=== PATIENT | male | born 1950 | race African-American/Black ===

== ENCOUNTER 2018-12-18 06:06 | Inpatient (IN) | payer OTHER ==
[2018-12-18] MEDS ORDERED: BUPIVACAINE HCL/PF 0.5% (5MG/ML) 10 ML VIAL ONE ×2 (07:17→07:35)
[2018-12-18] MEDS ORDERED: DESFLURANE GAS 240 ML BOTTLE IH ONE (07:17)
[2018-12-18] MEDS ORDERED: EPINEPHrine/PF 1 MG/1 ML (1:1,000) AMPULE ONE (07:35)
[2018-12-18] MEDS ORDERED: LIDOCAINE HCL 1%, 10 MG/ML (20ML VIAL) ONE (07:36)
[2018-12-18] MEDS ORDERED: MIDAZOLAM HCL 2 MG/2 ML SINGLE DOSE VIAL ONE ×6 (07:37→15:08)
[2018-12-18] MEDS ORDERED: VANCOMYCIN 1,000 MG VIAL (RESTRICTED TO ID ONLY) ONE (07:41)
[2018-12-18] MEDS ORDERED: ceFAZolin SODIUM 1 GM VIAL ONE ×5 (07:41→23:32)
[2018-12-18] MEDS ORDERED: TRANEXAMIC ACID 1000 MG/10 ML VIAL ONE (07:41)
[2018-12-18] MEDS ORDERED: HEPARIN NA (PORCINE) 5,000 UNITS/ML 1ML VIAL ONE ×3 (07:49→09:09)
[2018-12-18] MEDS ORDERED: VANCOMYCIN 1,000 MG VIAL (RESTRICTED TO ID ONLY) IVPB ONE (08:00)
[2018-12-18] MEDS ORDERED: VANCOMYCIN 1 GRAM (PRE-DOCKED) 1,000 MG/250 ML BAG IVPB ONE ×2 (08:08→20:00)
[2018-12-18] MEDS ORDERED: CEFAZOLIN 2 GM in DEXTROSE 5%-WATER - 50 ML IVPB ONE (08:08)
[2018-12-18] MEDS ORDERED: TRANEXAMIC ACID 1000 MG/10 ML VIAL IVPUSH ONE (08:08)
[2018-12-18] MEDS ORDERED: ceFAZolin SODIUM 1 GM VIAL IVPB ONE ×3 (08:42→14:25)
[2018-12-18] MEDS ORDERED: DEXAMETHASONE SOD PHOSPHATE 4 MG/1 ML VIAL ONE (08:47)
[2018-12-18] MEDS ORDERED: ONDANSETRON 4 MG/2 ML VIAL ONE (08:47)
[2018-12-18 09:33] LABS: BASO % 0.6 % (0-2.0); EOS % 0.4 % (0-4.5); HEMATOCRIT 26.9 % (35.4-49); HEMOGLOBIN 9.5 GM/dL (11.7-16.9); LYMPH % 40.1 % (8-40); MCH 33.9 pg (25.7-33.7); MCHC 35.2 g/dl (32.0-35.9); MEAN CELL VOLUME 96.3 fl (80-96); MEAN PLT VOLUME 9.1 fl (7.5-11.1); MONO % 5.3 % (3.8-10.2); NEUT % 53.6 % (42.8-82.8); PLATELET COUNT 140 K/MM3 (134-434); RBC 2.79 M/mm3 (4.00-5.60)
[2018-12-18 09:59] LABS: ALBUMIN 3.5 g/dl (3.4-5.0); BILIRUBIN,TOTAL 0.9 mg/dL (0.2-1); BLOOD UREA NITROGEN 12.3 mg/dL (7-18); CREATININE 1.3 mg/dL (0.55-1.3); TOT PROT 6.4 g/dl (6.4-8.2)
[2018-12-18 10:04] LABS: POTASSIUM 3.1 mmol/L (3.5-5.1)
[2018-12-18] MEDS ORDERED: PHENYLEPHRINE HCL 10 MG/1 ML SINGLE DOSE VIAL ONE (13:09)
[2018-12-18] MEDS ORDERED: KETAMINE HCL 200 MG/20 ML VIAL ONE (13:40)
[2018-12-18] MEDS ORDERED: SODIUM CHLORIDE 0.9% P/F 10 ML VIAL IJ ONE (14:23)
[2018-12-18] MEDS ORDERED: MAG HYDROX/AL HYDROX/SIMETH 30 ML UNIT-DOSE CUP PO PRN (16:01)
[2018-12-18] MEDS ORDERED: MAGNESIUM HYDROX 2400MG/30ML ORAL SUSPENSION 30 ML CUP PO PRN (16:01)
--- NOTE | 2018-12-18 16:14 | PN ---
Progress Note (short form) - Note Progress Note: 68M s/p revision LEFT total hip replacement POD #0. -Admit to ICU post-op. -Pain control: per anaesthesia team. -DVT PPx: -Chemical: ASA 81mg PO BID x 6 weeks. -Mechanical: TARIK's, SCD's. -Incentive spirometry q15 min. -PT/OT/Rehab, OOB. -WBAT LLE. -Post-op Ancef x 3 doses; post-op Vancomycin x 1 dose. -Vidal catheter care; maintain Vidal until ambulating comfortably. -f/u drain output. -f/u AM labs. -Diet as tolerated. -Care per medical hospitalist team. -Discharge planning: f/u [facility] w/in 1 week of discharge; call for appointment . -Will follow. Emile Jimenez MD (Orthopaedic Surgery).
[2018-12-18] MEDS ORDERED: LACTATED RINGERS SOLUTION 1,000 ML IV SCH ×2 (16:15→16:45)
[2018-12-18] MEDS ORDERED: CEFAZOLIN 1 GM in DEXTROSE 5%-WATER - 50 ML IVPB SCH (16:15)
--- NOTE | 2018-12-18 16:21 | OP ---
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 Gait abnormality. Fall risk Operation: 1. Revision left total hip replacement. 2. Bone marrow aspiration and autograft. 3. Bone allograft Implants: [place]. Cup - GAP cage: 52mm. Poly - 32mm, 10 deg lip. Stem - Temple Modular. Head - 32mm, +4mm Biolox/Delta Ceramic Post-Operative Diagnosis: Same as Pre-op Surgeon: Emile Jimenez Casino Investigator: Davonte Jimenez Anesthesiologist/SLOT SERVICE SPECIALIST: Jaswinder Ochoa Anesthesia: Spinal Specimens Removed: Old hardware Estimated Blood Loss (mls): 1,500 Drains & Tubes with Location: 1 x deep HemoVac Blood Volume Replaced (mls): 1,075 (2U PRBC + Cell Saver) Fluid Volume Replaced (mls): 2,500 (Crystalloid) Operative Report Dictated: Yes
[2018-12-18] MEDS ORDERED: ONDANSETRON 4 MG/2 ML VIAL IVPUSH PRN (16:33)
[2018-12-18] MEDS ORDERED: ACETAMINOPHEN 1000 MG/100 ML VIAL (NON FORMULARY) IVPB PRN (16:34)
[2018-12-18] MEDS ORDERED: HYDROmorphone HCL CARPU-JECT 2 MG/1 ML DISP.SYRIN IVPUSH PRN (16:35)
--- NOTE | 2018-12-18 17:56 | CONSULT ---
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 Gait abnormality. Fall risk denies chest pain, palpitations, nausea, vomiting, diarrhea - History Source History Provided By: Medical Record - Past Medical History Cardio/Vascular: Yes: HTN - Alcohol/Substance Use Hx Alcohol Use: Yes (rarely) - Smoking History Smoking history: Former smoker Have you smoked in the past 12 months: No If you are a former smoker, when did you quit?: 1981 Home Medications - Allergies Allergies/Adverse Reactions: Allergies Allergy/AdvReac Type Severity Reaction Status Date / Time No Known Allergies Allergy Verified 12/18/18 07:02 - Home Medications Home Medications: Ambulatory Orders Amlodipine Besylate/Benazepril [Amlodipine-Benazepril 5-20 mg] 1 each PO DAILY 12/14/18 Ranitidine HCl 300 mg PO HS 12/14/18 Folic Acid 1 mg PO DAILY 12/18/18 Family Disease History - Family Disease History Family History: Unremarkable Review of Systems Unable to obtain ROS, reason: somnolent. unable to obta Physical Exam Vital Signs: Vital Signs Temperature 97.2 F L 12/18/18 16:06 Pulse Rate 96 H 12/18/18 17:35 Respiratory Rate 16 12/18/18 17:35 Blood Pressure 104/62 12/18/18 17:35 O2 Sat by Pulse Oximetry (%) 98 12/18/18 17:35 Constitutional: Yes: No Distress Eyes: Yes: WNL HENT: Yes: WNL Neck: Yes: WNL Cardiovascular: Yes: WNL Respiratory: Yes: WNL Gastrointestinal: Yes: WNL Renal/: Yes: WNL Musculoskeletal: Yes: Joint Stiffness Extremities: Yes: WNL Edema: No Peripheral Pulses WNL: Yes Wound/Incision: Yes: Clean/Dry, Well Approximated Neurological: Yes: WNL Labs: CBC, BMP 12/18/18 09:15 12/18/18 09:15 Assessment/Plan 68 yo man who Failed left total hip replacement, Massive osteolysis, Gait abnormalit. Fall risk now S/P Revision left total hip replacement. 2. Bone marrow aspiration and autograft, POD#0. pain management. incentive spirometry. -GI, DVT prophylaxis. -acute on chronic iron deficiency anemia, post-op acute blood loss anemia: 2 units PRBC given alessio-operatively. CBC needs to be checked tonight. -stool softeners added to prevent opioid induced constipation. -HTN: cont amlodipine, lisinopril. -ID: ancef given operatively. -oral diet when more awake. -PT/OT/OOB when able -assessment and plan discussed with medical staff. labs and meds reviewed. plan discussed with Dr Jimenez. 45 min.
--- NOTE | 2018-12-18 18:05 | CONSULT ---
Consultation: REQUESTING PROVIDER: Dr. Emile Jimenez CONSULT REQUEST: We have been asked to medically evaluate this patient for post- operative monitoring. HISTORY OF PRESENT ILLNESS: Richard Jean-Baptiste is a 68 year old male with a past medical history of hypertension, GERD, multiple total hip replacements (1986,1995, 2017) who presented for a revision of left total hip replacement with Dr. Jimenez. Patient underwent revision, bone marrow aspiration and autograft, and bone autograft procedure. Received 2 units of blood intraoperatively and 375cc of cell saver. Received antibiotics ancef and vancomycin intraoperatively. Had EBL of 1.5L. Pre -op labs showed Hgb of 9.5. Received patient in ICU, comfortable, still under effects of anesthesia, on Venti-mask with good saturation. No acute complaints of chest pain, sob, abd pain, n/v, dizziness, lightheadedness. Asking for water Social: former smoker, rare alcohol use REVIEW OF SYSTEMS: As above. PHYSICAL EXAMINATION Vital Signs - 24 hr 12/18/18 12/18/18 12/18/18 06:43 16:06 16:20 Temperature 98.0 F 97.2 F L Pulse Rate 87 104 H 110 H Respiratory 16 16 16 Rate Blood Pressure 144/83 97/57 L 94/64 O2 Sat by Pulse 97 99 100 Oximetry (%) 12/18/18 12/18/18 12/18/18 16:35 16:50 17:05 Temperature Pulse Rate 108 H 108 H 100 H Respiratory 16 16 16 Rate Blood Pressure 96/62 101/57 L 92/60 O2 Sat by Pulse 100 100 Oximetry (%) 12/18/18 17:20 Temperature Pulse Rate 98 H Respiratory 16 Rate Blood Pressure 85/54 L O2 Sat by Pulse 98 Oximetry (%) GENERAL: Lethargic, under lingering effects of anesthesia. HEAD: Normal with no signs of trauma. EYES: Pupils equal, round and reactive to light, sclera anicteric, conjunctiva clear. NECK: Normal range of motion, supple without lymphadenopathy, JVD, or masses. LUNGS: Breath sounds equal, clear to auscultation bilaterally. No wheezes, and no crackles. No accessory muscle use. HEART: Regular rate and rhythm, normal S1 and S2 ABDOMEN: Soft, nontender, not distended, normoactive bowel sounds, no guarding, no rebound, no masses. MUSCULOSKELETAL: Noted dressing in place, clean and dry. Davol drain in place draining bloody fluids. UPPER EXTREMITIES: 2+ pulses, warm, well-perfused. No cyanosis. No clubbing. Cap refill <2 seconds. No peripheral edema. LOWER EXTREMITIES: 2+ pulses, warm, well-perfused. No peripheral edema. NEUROLOGICAL: Unable to assess during to patient's current sedation PSYCHIATRIC: Unable to assess SKIN: Warm, dry, normal turgor, no rashes or lesions noted. Drain and dressing in place Laboratory Results - last 24 hr 12/18/18 12/18/18 12/18/18 06:00 07:10 09:15 WBC 5.0 RBC 2.79 L Hgb 9.5 L Hct 26.9 L MCV 96.3 H MCH 33.9 H MCHC 35.2 RDW 17.0 H Plt Count 140 MPV 9.1 Absolute Neuts (auto) 2.7 Neutrophils % 53.6 Lymphocytes % 40.1 H Monocytes % 5.3 Eosinophils % 0.4 Basophils % 0.6 Nucleated RBC % 0 Sodium Potassium Chloride Carbon Dioxide Anion Gap BUN Creatinine Est GFR (CKD-EPI)AfAm Est GFR (CKD-EPI)NonAf Random Glucose Calcium Total Bilirubin AST ALT Alkaline Phosphatase Total Protein Albumin Blood Type O POSITIVE O POSITIVE Antibody Screen Negative Negative Crossmatch IS Only See Detail 12/18/18 09:15 WBC RBC Hgb Hct MCV MCH MCHC RDW Plt Count MPV Absolute Neuts (auto) Neutrophils % Lymphocytes % Monocytes % Eosinophils % Basophils % Nucleated RBC % Sodium 142 Potassium 3.1 L Chloride 110 H Carbon Dioxide 23 Anion Gap 9 BUN 12.3 Creatinine 1.3 Est GFR (CKD-EPI)AfAm 64.52 Est GFR (CKD-EPI)NonAf 55.67 Random Glucose 200 H Calcium 9.0 Total Bilirubin 0.9 AST 17 ALT 16 Alkaline Phosphatase 58 Total Protein 6.4 Albumin 3.5 Blood Type Antibody Screen Crossmatch IS Only Active Medications Generic Name Dose Route Start Last Admin Trade Name Freq PRN Reason Stop Dose Admin Acetaminophen 1,000 mg 12/18/18 16:34 Ofirmev Injection - IVPB Q6H PRN PAIN LEVEL 1-5 Al Hydroxide/Mg Hydroxide 30 ml 12/18/18 16:01 Mylanta Oral Suspension - PO Q4H PRN DYSPEPSIA Amlodipine Besylate 5 mg 12/19/18 10:00 Norvasc - PO DAILY [facility] Aspirin 81 mg 12/18/18 22:00 Asa - PO BID [facility] Fentanyl 50 mcg 12/18/18 16:33 Sublimaze Injection - IVPUSH [id number] PRN PAIN-PACU ORDER X 4 DOSES ONLY Folic Acid 1 mg 12/19/18 10:00 Folic Acid - PO DAILY [facility] Hydromorphone HCl 1 mg 12/18/18 16:35 Dilaudid Injection - IVPUSH Q4H PRN PAIN LEVEL 4 - 6 Cefazolin Sodium 1 gm/ 50 mls @ 100 mls/hr 12/18/18 16:15 Dextrose IVPB 12/19/18 04:44 Q6H [facility] Lactated Ringer's 1,000 mls @ 125 mls/hr 12/18/18 16:45 Lactated Ringers Solution IV ASDIR [facility] Lisinopril 20 mg 12/19/18 10:00 Prinivil PO DAILY [facility] Magnesium Hydroxide 30 ml 12/18/18 16:01 Milk Of Magnesia - PO PRN PRN CONSTIPATION Ondansetron HCl 4 mg 12/18/18 16:01 Zofran Injection IVPUSH Q6H PRN NAUSEA Ondansetron HCl 4 mg 12/18/18 16:33 Zofran Injection IVPUSH Q6H PRN NAUSEA AND/OR VOMITING Pantoprazole Sodium 40 mg 12/19/18 10:00 Protonix - PO DAILY [facility] Ranitidine HCl 300 mg 12/18/18 22:00 Zantac - PO HS [facility] Senna/Docusate Sodium 2 tablet 12/18/18 22:00 Pericolace - PO BID [facility] ASSESSMENT/PLAN: Richard Jean-Baptiste is a 68 year old male with a past medical history of hypertension, GERD, multiple total hip replacements (1986,1995, 2017) who presented for a revision of left total hip replacement with Dr. Jimenez admitted to the ICU for continued monitoring post-op. L hip total hip replacement HTN GERD NEUROLOGIC - continue to monitor neuro status as pt wakes up from anesthesia - pain control as per anesthesia, acetaminophen, hydromorphone, fentanyl CARDIOLOGY - continue home amlodipine and lisinopril - monitor hemodynamics in the setting of blood loss RESPIRATORY - on Venti-mask, titrate down to NC as tolerated - encourage incentive spirometry RENAL - no acute issues GASTROINTESTINAL - zofran for nausea - home ranitidine - protonix - senna/colace while on opiates INFECTIOUS DISEASE - ancef and vanco given intra-op - continue ancef x 3 doses - monitor for WBC and fevers HEMATOLOGY - Hgb 9.5 pre-op - EBL during surgery 1.5L - given 2 units PRBC intra-op and 375 cell saver - continue to monitor counts, CBC to be drawn tonight - tranfusion parameters Hgb 8 - monitor white count MUSCULOSKELETAL - monitor neurological checks - PT/OT/OOB/Rehab once stable - f/u with Dr. Jimenez in office in 1 week post discharge - maintain hodges untul ambulating F/E/N - LR at 125cc/hr - continue to monitor electrolytes and replete as necessary - regular diet PROPHYLAXIS - aspirin 81mg x 6 weeks - SCDs CODE - full code DISPO - continue to monitor in ICU and if stable in the morning, likely will be transferred up THANK YOU FOR THIS CONSULTATIVE OPPORTUNITY SILVIA MI DO - PGY-1 INTERNAL MEDICINE Visit type - Emergency Visit Emergency Visit: No - New Patient This patient is new to me today: Yes Date on this admission: 12/18/18 - Critical Care Critical Care patient: Yes Total Critical Care Time (in minutes): 35 Critical Care Statement: The care of this patient involved high complexity decision making to prevent further life threatening deterioration of the patient 's condition and/or to evaluate & treat vital organ system(s) failure or risk of failure.
[2018-12-18] MEDS ORDERED: LACTATED RINGERS SOLUTION 1,000 ML/1,000 ML INFUS.BAG IV SCH (18:45)
[2018-12-18] MEDS ORDERED: DEXTROSE 5%-WATER - 50 ML IVPB ONE ×2 (19:55→23:33)
[2018-12-18] MEDS ORDERED: LACTATED RINGERS SOLUTION 1,000 ML/1,000 ML INFUS.BAG IV STA (20:02)
[2018-12-18] MEDS: CEFAZOLIN 1 GM in DEXTROSE 5%-WATER - 50 ML IVPB SCH (20:07)
[2018-12-18 20:23] LABS: HEMATOCRIT 23.7 % (35.4-49); HEMOGLOBIN 7.8 GM/dL (11.7-16.9); MCH 32.1 pg (25.7-33.7); MEAN CELL VOLUME 97.5 fl (80-96); MEAN PLT VOLUME 9.5 fl (7.5-11.1); PLATELET COUNT 57 K/MM3 (134-434); RBC 2.43 M/mm3 (4.00-5.60); RDW 16.1 % (11.9-15.9); WHITE BLOOD COUNT 20.9 K/mm3 (4.0-10.0)
[2018-12-18] MEDS: ONDANSETRON 4 MG/2 ML VIAL IVPUSH PRN (21:39)
[2018-12-18] MEDS: ASPIRIN 81 MG CHEWABLE TABLETS PO SCH (21:40)
[2018-12-18] MEDS ORDERED: PANTOPRAZOLE SODIUM 40 MG VIAL IVPUSH ONE (21:41)
[2018-12-18] MEDS: RANITIDINE HCL 150 MG TABLET (FP) PO SCH (21:44)
[2018-12-18] MEDS: SENNOSIDES/DOCUSATE COMBO (SENNA PLUS) TABLET (UD) PO SCH (21:44)
--- NOTE | 2018-12-18 22:35 | OP ---
Date of Operation: 12/18/2018 Pre-Operative Diagnosis: 1. 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 2. Gait abnormality. 3. Fall risk. Post-Operative Diagnosis: 1. 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 2. Gait abnormality. 3. Fall risk. Procedure Performed: 1. Removal of hardware and left total hip replacement. () 2. Revision left total hip replacement (femoral and acetabular components). ( 20620) 3. Morselized bone autograft. () 4. Morselized bone allograft. () 5. Bone marrow aspiration for bone grafting. () 6. Complex wound closure, 4 layers, 40cm. (21887 x 6) Modifier 22: Increased case difficulty and time due to patient obesity and wound depth Surgeon: Emile Jimenez M.D. Data Processing Clerk: Davonte Jimenez M.D. Anesthesiologist: Jaswinder Ochoa M.D. Anesthesia: Spinal, sedation. Position: Supine Incision: Lateral. Specimens Removed: Hardware, soft tissue. Estimated Blood Loss: 1.5L. Intravenous Fluid: 2.5L crystalloid. Transfusions: 2U PRBC (700cc) + Cell Saver (375cc). Specimens: None. Drains: 1 x deep HemoVac. Complications: None. Urine Output: None. Bacteriology: None. Closure: No. 1 and 2-0 Vicryl, 3-0 Biosyn absorbable sutures. Indications: The patient was indicated for the above-listed procedure in order to reconstruct his left hip, to facilitate improved motion and mobilization, and to prevent the complications associated with a sedentary lifestyle. The patient was identified in the holding area by his armband. A long discussion was held with the patient regarding the risks, benefits and alternatives of the above-named procedure. Risks include but are not limited to: pain, bleeding, infection, damage to surrounding structures (including nerves, blood vessels, skin, ligaments, tendons and bone), wound complications, failure of hardware/implants/reduction, need for further surgery, blood clots, myocardial infarction, pulmonary embolism , cerebrovascular insult, anesthesia complications, compartment syndrome, limb loss, limp, loss of function, and . Benefits as mentioned above. Alternatives include no surgery. All questions were answered. The patient understood and agreed to the procedure. Informed consent was obtained, witnessed and verified. The patients correct operative limb that is the left lower extremity was marked, and the patient was taken to the operating room after being seen by the anesthesia and nursing staff. Procedure: The patient was brought into the operating room, placed on the OR table and secured with a safety strap. Consent and the operative site were again verified with the patient and nursing and anaesthesia staff. Anaesthesia, IV antibiotics, and TXA were then administered without complication. The patient was placed in the supine position with the greater trochanter lying at the edge of the table, thus freeing the muscles of the buttock from the table. All bony prominences were well padded. The non-operative limb was loosely secured to the operating table using a Kerlix bandage. With respect to the pelvis, the limb lengths were accurately compared. There was a limb length discrepancy of approximately 3cm noted with the operative (left) limb shorter than the contralateral, non-operative limb. A time out was done, led by me the attending surgeon, and the case began. The bilateral anterior superior iliac spines, and the left posterior iliac crest were prepped in standard sterile fashion using alcohol and Betadine. A Jamshidi needle was delivered into the bone bed at each of these sites and 60 mL of bone marrow was aspirated and spun down to isolate a mix of osteoprogenitor and hematopoietic cells. The harvest sites were dressed with sterile dressings. The operative limb was prepped in standard sterile fashion using betadine prep & scrub, wiped off with alcohol, DuraPrep applied, and then free draped. With the patient in the supine position, a modified lateral (Hardinge) approach was utilized to access the hip. This necessitated using approximately 3/4 of the previous lateral incision. The skin incision was centered over the greater trochanter proximally, at the level of the anterior-superior iliac spine, and extended distally, ending approximately at the level of the mid-diaphysis of the femur. Subcutaneous dissection was carried down to the level of the iliotibial band which was split longitudinally in line with its fibers. The gluteus rossana muscle was split proximally in line with its fibers to the level of the apex of the incision. A standard Charnley retractor was then placed sub-fascially to expose the deep structures. The vastus lateralis muscle was dissected off the lateral femur with careful attention paid to the perforating branches of the femoral artery. Soft tissue attachments to the posterior aspect of the greater trochanter were dissected in line with the posterior femur, just anterior to the linea aspera. Next, an extended trochanteric osteotomy was performed with an oscillating saw. Curved osteotomes were used to separate the interface between the hardware and bone. This was difficult due to spot welding and a distal piece of the osteotomy broke. Electrocautery was then used to expose the anterior neck of the femur. The pseudocapsule was extensively debrided to expose the hip joint. Various retractors were utilized to facilitate exposure. In situ, the hip was already dislocated. The custom manufactured acetabular component was loose, displaced, and excessively anteverted. All visible screws along with the acetabular component itself were removed. The tip of a singular screw was visibly imbedded into the bone bed. To preserve surrounding bone stock, this was left in place. Another singular screw seen on pre-operative imaging adjacent to the ischial tuberosity was not seen in the surgical field. The decision was made not to dissect further and look for this screw due to potential iatrogenic soft tissue injury to nerves or blood vessels associated with this dissection. Using sharp curettes, the fibrous pseudomembrane was stripped off the exposed acetabular and pelvic bone beds. On further inspection, the acetabular and pelvic bone beds were thin and osteopenic. No obvious pelvic discontinuity was visualized. The bone surface was superficially and gently reamed using sharp, motorized basket reamers. This produced a surface of healthy, bleeding bone with osteoinductive potential. Next, bone allograft (morselized femoral head and with a disc of demineralized bone matrix) was backfilled into the defect space. This bone graft was mixed with the previously harvested bone marrow aspirate concentrate. A 52mm Mendoza GAP cage was placed and impacted into position with the hook in the obturator foramen and bunny ears bent to overly the ala of the outer table of the pelvis. The bunny ears were secured via multiple screws. Next, a 32mm diameter polyethylene liner with a 10-degree raised posterolateral , superior lip was cemented into position. Attention was then turned to the femur. All wires and cables were removed. A gigli saw was utilized to disrupt the interface between the implant and the bone bed. Using a slap hammer, the stem was backed out. The wound was repeatedly, thorough irrigated throughout the procedure. The operative limb was adducted across the midline and the hip was externally rotated with the knee flexed using the tibia as a lever. Using motorized reamers and reverse hooks, the femoral diaphysis bone bed was prepared. The tibia was used as a goniometer with which we could accurately dial in our desired femoral anteversion. [place] Tenriism Modular femoral stem, neck, and head trial components were assembled, and the hip was reduced. In the supine position, the true limb lengths were almost matched with the operative limb being just a few millimeters shorter than the non-operative limb. Hip stability was ensured in all physiologic positions of compromise. This included flexion to 90 degrees with adduction and internal rotation. This also included extension and external rotation. At no point did the trunion impinge upon the cup. Trial implants were removed and replaced with final implants. A Biolox/Delta Ceramic head 32mm diameter +4mm length was then impacted using a protective head impacter and mallet strikes. As before, the hip was reduced, and stability was ensured in all physiologic positions of compromise. Again, in the supine position, the true limb lengths were almost matched with the operative limb being just a few millimeters shorter than the non-operative limb. The operative limb lay in physiologic 15 degrees of external rotation. The greater trochanter was flapped back into position and secured with tensioned D[place]-Miles cables. A [place] greater trochanteric claw plate was used to cable the extended trochanteric osteotomy and greater trochanter in good position. Due to segmental bone loss in the region of the osteotomy, a combination of demineralized bone matrix strips and bone autograft were placed to serve as biologic scaffolds for bone growth. As before, hip stability was ensured in all physiologic positions of compromise. Closure: The wounds were copiously irrigated throughout the case and hemostatis was assured. Meticulous technique was implemented to avoid any implants coming into contact with free edges of the wound & skin. A deep drain was utilized. The split gluteus medius muscle fibers were reattached using #1 vicryl sutures. The iliotibial band, gluteus rossana fascia, and subcutaneous tissues were closed using #1 and 2-0 vicryl sutures. The skin was closed using darryl. A sterile compressive dressing was applied. A hip abduction pillow was placed between the legs. The patient was transferred to a hospital bed. A post-operative x-ray was taken with the patient on the hospital bed. This showed the hip to be well reduced with all implants in place and no evidence of alessio-prosthetic fracture or retained foreign body. The patient was then transferred to the recovery room in stable condition, as per the anesthesia team, having tolerated the procedure well. MD JJ Polanco/[id number] MTDD
[2018-12-18] MEDS ORDERED: levETIRAcetam 500 MG/5 ML INJECTION VIAL IVPB ONE (22:42)
[2018-12-19] MEDS: CEFAZOLIN 1 GM in DEXTROSE 5%-WATER - 50 ML IVPB SCH ×2 (01:00→09:04)
[2018-12-19 03:25] LABS: HEMATOCRIT 32.9 % (35.4-49); MCH 31.6 pg (25.7-33.7); MCHC 33.5 g/dl (32.0-35.9); MEAN CELL VOLUME 94.4 fl (80-96); MEAN PLT VOLUME 8.8 fl (7.5-11.1); PLATELET COUNT 72 K/MM3 (134-434); RBC 3.49 M/mm3 (4.00-5.60); RDW 15.4 % (11.9-15.9); WHITE BLOOD COUNT 23.8 K/mm3 (4.0-10.0)
[2018-12-19] MEDS ORDERED: LACTATED RINGERS SOLUTION 1,000 ML/1,000 ML INFUS.BAG IV STA (04:24)
[2018-12-19 04:34] LABS: INR 2.16 (0.83-1.09); PROTHROMBIN TIME (PATIENT) 25.7 SEC (9.7-13.0)
[2018-12-19 04:37] LABS: ACTIVATED PTT 31.2 SECONDS (25.2-36.5)
[2018-12-19 05:18] LABS: ALBUMIN 2.4 g/dl (3.4-5.0); ALK PHOS 63 U/L (45-117); ANION GAP 10 MMOL/L (8-16); BILIRUBIN,TOTAL 1.2 mg/dL (0.2-1); BLOOD UREA NITROGEN 26.1 mg/dL (7-18); CALCIUM 7.9 mg/dL (8.5-10.1); CHLORIDE 111 mmol/L (98-107); CO2 20 mmol/L (21-32); CREATININE 3.1 mg/dL (0.55-1.3); GLUCOSE,RANDOM 118 mg/dL (74-106); LIPASE 1424 U/L (73-393); MAGNESIUM 1.6 mg/dL (1.8-2.4); PHOSPHOROUS 4.6 mg/dL (2.5-4.9); SGPT/ALT 7748 U/L (13-61); SODIUM 141 mmol/L (136-145); TOT PROT 4.6 g/dl (6.4-8.2)
[2018-12-19 05:22] LABS: SGOT/AST > 3509 U/L (15-37)
[2018-12-19] MEDS ORDERED: DEXTROSE 50%-WATER - 25 GM/50 ML VIAL IVPUSH ONE (05:37)
[2018-12-19] MEDS ORDERED: INSULIN REGULAR HUMAN 100 UNITS/ML *VIAL IVPUSH ONE (05:37)
[2018-12-19] MEDS ORDERED: ALBUTEROL SO4 2.5/IPRATROPIUM 0.5 INH SOL 3 ML VIAL.NEB. NEB ONE (05:37)
[2018-12-19] MEDS ORDERED: CALCIUM GLUCONATE 10% - 1,000 MG/10 ML VIAL IVPB ONE (05:38)
[2018-12-19 05:40] LABS: HEMATOCRIT 32.2 % (35.4-49); MCH 31.6 pg (25.7-33.7); MCHC 34.3 g/dl (32.0-35.9); MEAN CELL VOLUME 92.2 fl (80-96); MEAN PLT VOLUME 9.3 fl (7.5-11.1); PLATELET COUNT 76 K/MM3 (134-434); RBC 3.49 M/mm3 (4.00-5.60); RDW 15.4 % (11.9-15.9); WHITE BLOOD COUNT 22.2 K/mm3 (4.0-10.0)
[2018-12-19] MEDS ORDERED: HEPARIN NA (PORCINE) 5,000 UNITS/ML 1ML VIAL IVPUSH PRN ×2 (05:47)
[2018-12-19 05:59] LABS: INR 2.22 (0.83-1.09); PROTHROMBIN TIME (PATIENT) 26.4 SEC (9.7-13.0)
[2018-12-19] MEDS ORDERED: HEPARIN - 25,000 UNIT in SODIUM CHLORIDE 495 ML IV SCH (06:00)
[2018-12-19 06:01] LABS: ACTIVATED PTT 31.1 SECONDS (25.2-36.5)
[2018-12-19] MEDS ORDERED: DEXTROSE 50%-WATER 25 GM/50 ML DISP.SYRIN ONE (06:11)
[2018-12-19] MEDS ORDERED: SODIUM CHLORIDE 500 ML IV STA (06:12)
[2018-12-19 06:13] LABS: ALBUMIN 2.3 g/dl (3.4-5.0); ALK PHOS 63 U/L (45-117); BILIRUBIN,TOTAL 1.2 mg/dL (0.2-1); BLOOD UREA NITROGEN 27.6 mg/dL (7-18); CHLORIDE 112 mmol/L (98-107); CO2 21 mmol/L (21-32); CREATININE 3.1 mg/dL (0.55-1.3); GLUCOSE,RANDOM 97 mg/dL (74-106); SODIUM 143 mmol/L (136-145); TOT PROT 4.5 g/dl (6.4-8.2)
[2018-12-19 06:22] LABS: ANION GAP 9 MMOL/L (8-16)
[2018-12-19 06:39] LABS: SGPT/ALT 7495 U/L (13-61)
[2018-12-19 06:43] LABS: POTASSIUM 6.9 mmol/L (3.5-5.1)
[2018-12-19 06:45] LABS: SGOT/AST > 1000 U/L (15-37)
--- NOTE | 2018-12-19 07:08 | PN ---
Physical Exam: SUBJECTIVE: Patient seen and examined at bedside. Overnight, patient became hypotensive and was found to have a decreased hemoglobin to 7.8 from 9.5 preoperatively. He received 3U PRBCs and was bolused with 2L lactated ringers. Around 11pm the patient had 2 reported seizures lasting 30 seconds before spontaneously breaking without intervention. He was loaded on keppra. A CMP drawn at the time showed hyperkalemia to 7, elevated LFTs > 3000, acute kidney injury, and a troponinemia, likely secondary to hypovolemic shock. His fluids were changed to normal saline at 125cc/hr. Hyperkalemia was treated with insulin/d50, calcium gluconate and lokelma. This morning patient reported feeling cold but denied any chest pain, shortness of breath, nausea, vomiting, diarrhea, fevers, chills. OBJECTIVE: Vital Signs Period Temp Pulse Resp BP Sys/Hernandez Pulse Ox Last 24 Hr 97.2 F-98.0 F 92-110 16-22 57-106/43-64 98-100 GENERAL: A&Ox3, no acute distress EYES: PERRLA, EOMI ENT: Dry mucus membranes NECK: No JVD LUNGS: CTA, no wheezes HEART: RRR, no murmurs ABDOMEN: Soft, nontender, BS present EXTREMITIES: 2+ pulses, no edema. NEUROLOGICAL: Cranial nerves II-XII intact. Laboratory Results - last 24 hr 12/18/18 12/18/18 12/18/18 06:00 07:10 09:15 WBC 5.0 RBC 2.79 L Hgb 9.5 L Hct 26.9 L MCV 96.3 H MCH 33.9 H MCHC 35.2 RDW 17.0 H Plt Count 140 MPV 9.1 Absolute Neuts (auto) 2.7 Neutrophils % 53.6 Lymphocytes % 40.1 H Monocytes % 5.3 Eosinophils % 0.4 Basophils % 0.6 Nucleated RBC % 0 Platelet Comment PT with INR INR PTT (Actin FS) Sodium Potassium Chloride Carbon Dioxide Anion Gap BUN Creatinine Est GFR (CKD-EPI)AfAm Est GFR (CKD-EPI)NonAf Random Glucose Calcium Phosphorus Magnesium Total Bilirubin AST ALT Alkaline Phosphatase Troponin I Total Protein Albumin Lipase Alcohol, Quantitative Blood Type O POSITIVE O POSITIVE Antibody Screen Negative Negative Crossmatch See Detail Crossmatch IS Only See Detail 12/18/18 12/18/18 12/19/18 09:15 19:10 02:55 WBC 20.9 H 23.8 H RBC 2.43 L 3.49 L Hgb 7.8 L 11.0 L Hct 23.7 L 32.9 L D MCV 97.5 H 94.4 MCH 32.1 31.6 MCHC 33.0 33.5 RDW 16.1 H 15.4 Plt Count 57 L D 72 L D MPV 9.5 8.8 Absolute Neuts (auto) Neutrophils % Lymphocytes % Monocytes % Eosinophils % Basophils % Nucleated RBC % Platelet Comment Decreased PT with INR INR PTT (Actin FS) Sodium 142 Potassium 3.1 L Chloride 110 H Carbon Dioxide 23 Anion Gap 9 BUN 12.3 Creatinine 1.3 Est GFR (CKD-EPI)AfAm 64.52 Est GFR (CKD-EPI)NonAf 55.67 Random Glucose 200 H Calcium 9.0 Phosphorus Magnesium Total Bilirubin 0.9 AST 17 ALT 16 Alkaline Phosphatase 58 Troponin I Total Protein 6.4 Albumin 3.5 Lipase Alcohol, Quantitative Blood Type Antibody Screen Crossmatch Crossmatch IS Only 12/19/18 12/19/18 12/19/18 02:55 02:55 04:00 WBC RBC Hgb Hct MCV MCH MCHC RDW Plt Count MPV Absolute Neuts (auto) Neutrophils % Lymphocytes % Monocytes % Eosinophils % Basophils % Nucleated RBC % Platelet Comment PT with INR 25.70 H INR 2.16 H PTT (Actin FS) 31.2 Sodium Cancelled Potassium Cancelled Chloride Cancelled Carbon Dioxide Cancelled Anion Gap Cancelled BUN Cancelled Creatinine Cancelled Est GFR (CKD-EPI)AfAm Cancelled Est GFR (CKD-EPI)NonAf Cancelled Random Glucose Cancelled Calcium Cancelled Phosphorus Cancelled Magnesium Cancelled Total Bilirubin Cancelled AST Cancelled ALT Cancelled Alkaline Phosphatase Cancelled Troponin I Cancelled Total Protein Cancelled Albumin Cancelled Lipase Alcohol, Quantitative Cancelled Blood Type Antibody Screen Crossmatch Crossmatch IS Only 12/19/18 12/19/18 12/19/18 04:00 05:25 05:25 WBC 22.2 H RBC 3.49 L Hgb 11.0 L Hct 32.2 L MCV 92.2 MCH 31.6 MCHC 34.3 RDW 15.4 Plt Count 76 L MPV 9.3 Absolute Neuts (auto) Neutrophils % Lymphocytes % Monocytes % Eosinophils % Basophils % Nucleated RBC % Platelet Comment PT with INR 26.40 H INR 2.22 H PTT (Actin FS) 31.1 Sodium 141 Potassium 7.0 H* Chloride 111 H Carbon Dioxide 20 L Anion Gap 10 BUN 26.1 H Creatinine 3.1 H Est GFR (CKD-EPI)AfAm 22.56 Est GFR (CKD-EPI)NonAf 19.47 Random Glucose 118 H Calcium 7.9 L Phosphorus 4.6 Magnesium 1.6 L Total Bilirubin 1.2 H AST > 3509 H ALT 7748 H Alkaline Phosphatase 63 Troponin I 2.66 H* Total Protein 4.6 L Albumin 2.4 L Lipase 1424 H Alcohol, Quantitative < 3.0 Blood Type Antibody Screen Crossmatch Crossmatch IS Only 12/19/18 05:25 WBC RBC Hgb Hct MCV MCH MCHC RDW Plt Count MPV Absolute Neuts (auto) Neutrophils % Lymphocytes % Monocytes % Eosinophils % Basophils % Nucleated RBC % Platelet Comment PT with INR INR PTT (Actin FS) Sodium 143 Potassium 6.9 H* Chloride 112 H Carbon Dioxide 21 Anion Gap 9 BUN 27.6 H Creatinine 3.1 H Est GFR (CKD-EPI)AfAm 22.56 Est GFR (CKD-EPI)NonAf 19.47 Random Glucose 97 Calcium 8.0 L Phosphorus Magnesium Total Bilirubin 1.2 H AST > 1000 H ALT 7495 H Alkaline Phosphatase 63 Troponin I 2.78 H* Total Protein 4.5 L Albumin 2.3 L Lipase Alcohol, Quantitative Blood Type Antibody Screen Crossmatch Crossmatch IS Only Active Medications Generic Name Dose Route Start Last Admin Trade Name Freq PRN Reason Stop Dose Admin Acetaminophen 1,000 mg 12/18/18 16:34 Ofirmev Injection - IVPB Q6H PRN PAIN LEVEL 1-5 Al Hydroxide/Mg Hydroxide 30 ml 12/18/18 16:01 Mylanta Oral Suspension - PO Q4H PRN DYSPEPSIA Amlodipine Besylate 5 mg 12/19/18 10:00 Norvasc - PO DAILY EPI Aspirin 81 mg 12/18/18 22:00 12/18/18 21:40 Asa - PO 81 mg BID EPI Administration Fentanyl 50 mcg 12/18/18 16:33 Sublimaze Injection - IVPUSH [id number] PRN PAIN-PACU ORDER X 4 DOSES ONLY Folic Acid 1 mg 12/19/18 10:00 Folic Acid - PO DAILY EPI Hydromorphone HCl 1 mg 12/18/18 16:35 Dilaudid Injection - IVPUSH Q4H PRN PAIN LEVEL 4 - 6 Cefazolin Sodium 1 gm/ 50 mls @ 100 mls/hr 12/18/18 19:00 12/19/18 01:00 Dextrose IVPB 12/19/18 07:29 100 mls/hr Q6H EPI Administration Sodium Chloride 500 mls @ 500 mls/hr 12/19/18 06:12 Normal Saline - IV 12/19/18 07:11 ASDIR STA Sodium Chloride 1,000 mls @ 125 mls/hr 12/19/18 07:11 Normal Saline - IV ASDIR EPI Lisinopril 20 mg 12/19/18 10:00 Prinivil PO DAILY [facility] Magnesium Hydroxide 30 ml 12/18/18 16:01 Milk Of Magnesia - PO PRN PRN CONSTIPATION Ondansetron HCl 4 mg 12/18/18 16:01 12/18/18 21:39 Zofran Injection IVPUSH 4 mg Q6H PRN Administration NAUSEA Ondansetron HCl 4 mg 12/18/18 16:33 Zofran Injection IVPUSH Q6H PRN NAUSEA AND/OR VOMITING Pantoprazole Sodium 40 mg 12/19/18 10:00 Protonix - PO DAILY [facility] Ranitidine HCl 300 mg 12/18/18 22:00 12/18/18 21:44 Zantac - PO Not Given HS [facility] Senna/Docusate Sodium 2 tablet 12/18/18 22:00 12/18/18 21:44 Pericolace - PO Not Given BID [facility] Sodium Zirconium Cyclosilicate 5 gm 12/19/18 08:00 Lokelma PO DAILY@0800 [facility] ASSESSMENT/PLAN: 68 year old male with a history of hypertension and GERD who came to the hospital for elective revision of L hip replacement is admitted to the ICU for hypovolemic shock 2/2 acute blood loss #Hypervolemic Shock #Acute Blood Loss Anemia #Seizure #Hyperkalemia #Shock Liver/Acute Liver Failure #Acute Kidney Injury #Thrombocytopenia #Troponinemia #Lactic Acidosis Neurological -Seizure: likely 2/2 metabolic derangement loaded with Keppra -Dr. Philip consulted, will keep off of keppra as this appears metabolic in nature -EEG done -CT head negative Cardiovascular -Hypovolemic shock: responsive to fluids, currently has a MAP of 84 -continue NS @ 125cc/hr -monitor blood pressures -Troponinemia: 2/2 demand ischemia from hypovolemic shock -continue trending troponin -EKG showed sinus rhythm with a normal QTc and what appears as 1 T wave inversion in lead 2 -hold BP medications -echo ordered and is normal -cards consulted Dr. Carter and recommendations appreciated Pulmonary -No acute pulmonary abnormalities -Encourage incentive spirometry -CXR normal Gastrointestinal -Shock Liver/Acute liver failure: due to hypovolemic shock, both AST/ALT over 1000 -will continue resuscitating with normal saline -recheck LFTs in the morning -Lipase elevated >1000, no abdominal pain - doubt clinical significance, likely 2/2 shock -currently passing flatus and stool -no abdominal pain Renal -Acute kidney injury: secondary to both components of prerenal azotemia and acute tubular necrosis -continue to hydrate -urine lytes/creatinine -renal ultrasound -Nephrology consulted -Hyperkalemia: down from 7 to 5, no EKG changes suggested of hyperK, continue to treat with lokelma Heme/Onc -anemia: 2/2 acute blood loss -s/p 4U PRBCs -thrombocytopenia: consumptive from surgery and blood loss, trend platelet count Musculoskeletal -s/p L hip surgery with EBL 1.5L -post op care per Dr. Jimenez -encourage incentive spirometry -already passed gas/stool FEN -NS @ 125cc/hr -recheck lytes in Am -regular diet per Dr. Jimenez Prophylaxis -SCDs Disposition -ICU Monitoring Visit type - Emergency Visit Emergency Visit: No - New Patient This patient is new to me today: Yes Date on this admission: 12/19/18 - Critical Care Critical Care patient: Yes Total Critical Care Time (in minutes): 45 Critical Care Statement: The care of this patient involved high complexity decision making to prevent further life threatening deterioration of the patient 's condition and/or to evaluate & treat vital organ system(s) failure or risk of failure. ATTENDING PHYSICIAN STATEMENT I saw and evaluated the patient. I reviewed the resident's note and discussed the case with the resident. I agree with the resident's findings and plan as documented. SUBJECTIVE: OBJECTIVE: ASSESSMENT AND PLAN:
[2018-12-19] MEDS ORDERED: SODIUM CHLORIDE 1,000 ML IV SCH (07:11)
--- NOTE | 2018-12-19 07:57 | SPA.POSTOP ---
- POST-OP NOTE POD #1 s/p Left hip revision Upon transfer to the ICU, pt developed hypotensive shock. Pt had signs of multi organ injury including elevated troponins. Pt did not show any EKG changes and cardiology was consulted and felt pt had demand ischemia, did not recommend heparin. Pt this morning is awake and oriented and following directions. States his hip pain is well controlled. Denies any weakness or numbness in his LLE. Patient resting comfortably. Pain management via prn meds. Last Vital Signs Temp Pulse Resp BP Pulse Ox 97.2 F L 110 H 20 98/48 L 100 12/19/18 06:00 12/19/18 06:00 12/19/18 06:00 12/19/18 06:00 12/18/18 21:00 Vital Signs Temp 97.2 F L 12/19/18 06:00 Pulse 110 H 12/19/18 14:00 Resp 20 12/19/18 14:00 BP 126/68 12/19/18 14:00 Pulse Ox 100 12/18/18 21:00 Intake & Output 12/18/18 12/19/18 12/19/18 23:59 11:59 23:59 Intake Total 2175 3700 Output Total 260 450 Balance 1915 3250 Weight 133 lb 14.4 oz Intake: IV 1100 3000 LACTATED RINGERS SOLUTION 1000 1,000 ml In 1,000 ml @ 1000 mls/hr IV ONCE STA Rx#:[id number] LACTATED RINGERS SOLUTION 1000 1,000 ml In 1,000 ml @ 1000 mls/hr IV ONCE STA Rx#:[id number] LACTATED RINGERS SOLUTION 1000 1,000 ml In 1,000 ml @ 999 mls/hr IV ASDIR EPI Rx#:[id number] Blood Product 1075 Packed Cells 700 Output: Drainage 160 300 Left Hip 300 Urine 100 150 Vidal 150 Other: Weight Measurement Method Built in [facility] Physical Exam General: No acute distress. Pulm: breathing comfortably Cor: Regular rhythm, tachycardic LLE: dressing intact with no bleeding, drain in place with serous drainage, no weakness or numbness. PLAN: -continue medical care per Medicine/ ICU team, if concerns over severity of medical problems please consider transfer to Tertiary center as per ICU recommendations. -monitor drain output -pain management -dvt ppx Case discussed with Dr. Jimenez who agrees with plan Visit type - Case Type Case Type: Scheduled - Emergency Emergency Visit: No - New patient This patient is new to me today: No
[2018-12-19 08:09] LABS: ARTERIAL BLD GAS O2 SATURATION 97.5 % (95-98); ARTERIAL BLOOD GAS BASE EXCESS -6.8 meq/l (-2-2); ARTERIAL BLOOD GAS PCO2 31.1 mmHg (35-45); ARTERIAL BLOOD GAS PO2 94.9 mmHg (80-105); ARTERIAL BLOOD GAS pH 7.36 (7.35-7.45)
[2018-12-19 08:18] LABS: ALLENS TEST POSITIVE
--- NOTE | 2018-12-19 08:42 | CON.CARD ---
Consult Consult Specialty:: Cardiology Referred by:: ICU team Reason for Consultation:: Cardiac evaluation - History of Present Illness Chief Complaint: Post op hip with elevated troponin History of Present Illness: Patient is a 68 year old male with underlying history of HTN, GERD and previous hip replacement who had revision of left total hip replacement, bone marrow aspiration and autograft with Dr. Jimenez now in ICU post op with multiple medical issues. Post operatively patient had seizure, received transfusion for loss of blood, now with elevated troponin likely due to demand ischemia, elevated K, acute kidney injury and elevated LFT suggestive of shock liver. He is awake but lethargic. He denies chest pain, shortness of breath or palpitations. Denies paroxysmal nocturnal dyspnea or orthopnea. He denies fever or chills. He denies headache. Troponin this am is 2.78, K 6.9 and Cr 3.1. Patient also has leukocytosis 22 and thrombocytopenia 76. Cardiology consultation was called for post op evaluation. He denies prior cardiac history. - History Source History Provided By: Patient, Medical Record Limitations to Obtaining History: Clinical Condition - Past Medical History Cardio/Vascular: Yes: HTN - Past Surgical History Past Surgical History: Yes: Joint Replacement Additional Surgical History: hip surgeries - Alcohol/Substance Use Hx Alcohol Use: Yes (rarely) - Smoking History Smoking history: Former smoker Have you smoked in the past 12 months: No If you are a former smoker, when did you quit?: 1982 Home Medications - Allergies Allergies/Adverse Reactions: Allergies Allergy/AdvReac Type Severity Reaction Status Date / Time No Known Allergies Allergy Verified 12/18/18 07:02 - Home Medications Home Medications: Ambulatory Orders Amlodipine Besylate/Benazepril [Amlodipine-Benazepril 5-20 mg] 1 each PO DAILY 12/14/18 Ranitidine HCl 300 mg PO HS 12/14/18 Folic Acid 1 mg PO DAILY 12/18/18 Family Disease History - Family Disease History Family History: Denies Review of Systems - Review of Systems Constitutional: denies: Chills, Fever Cardiovascular: denies: Chest Pain, Palpitations, Shortness of Breath Respiratory: denies: Cough, Hemoptysis, Orthopnea, PND, SOB on Exertion Gastrointestinal: denies: Abdominal Pain, Diarrhea, Melena, Nausea, Rectal Bleeding, Vomiting Musculoskeletal: reports: Joint Pain Neurological: reports: Seizure. denies: Headache, Syncope Vital Signs: Vital Signs Temperature 97.2 F L 12/19/18 06:00 Pulse Rate 122 H 12/19/18 08:00 Respiratory Rate 20 12/19/18 08:00 Blood Pressure 111/50 L 12/19/18 08:00 O2 Sat by Pulse Oximetry (%) 100 12/18/18 21:00 Neck: Yes: Supple Respiratory: Yes: Diminished Gastrointestinal: Yes: Normal Bowel Sounds, Soft. No: Tenderness Cardiovascular: Yes: Regular Rate and Rhythm, Tachycardia JVD: No PMI: Non-Displaced Heart Sounds: Yes: S1, S2. No: Gallop Edema: No - Other Data Labs, Other Data: CBC, BMP 12/19/18 05:25 12/19/18 05:25 INR, PTT INR 2.22 (0.83-1.09) H 12/19/18 05:25 Troponin, BNP 12/19/18 12/19/18 12/19/18 02:55 04:00 05:25 Troponin I Cancelled 2.66 H* 2.78 H* Laboratory Results - last 24 hr 12/18/18 12/18/18 12/18/18 06:00 07:10 09:15 WBC 5.0 RBC 2.79 L Hgb 9.5 L Hct 26.9 L MCV 96.3 H MCH 33.9 H MCHC 35.2 RDW 17.0 H Plt Count 140 MPV 9.1 Absolute Neuts (auto) 2.7 Neutrophils % 53.6 Lymphocytes % 40.1 H Monocytes % 5.3 Eosinophils % 0.4 Basophils % 0.6 Nucleated RBC % 0 Platelet Comment PT with INR INR PTT (Actin FS) Anticoagulation Therapy Puncture Site ABG pH ABG pCO2 at Pt Temp ABG pO2 at Pt Temp ABG HCO3 ABG O2 Sat (Measured) ABG O2 Content ABG Base Excess [place] Test O2 Delivery Device Oxygen Flow Rate Vent Mode Vent Rate Mechanical Rate Pressure Support Vent Sodium Potassium Chloride Carbon Dioxide Anion Gap BUN Creatinine Est GFR (CKD-EPI)AfAm Est GFR (CKD-EPI)NonAf Random Glucose Calcium Phosphorus Magnesium Total Bilirubin AST ALT Alkaline Phosphatase Troponin I Total Protein Albumin Lipase Alcohol, Quantitative Blood Type O POSITIVE O POSITIVE Antibody Screen Negative Negative Crossmatch See Detail Crossmatch IS Only See Detail 12/18/18 12/18/18 12/19/18 09:15 19:10 02:55 WBC 20.9 H 23.8 H RBC 2.43 L 3.49 L Hgb 7.8 L 11.0 L Hct 23.7 L 32.9 L D MCV 97.5 H 94.4 MCH 32.1 31.6 MCHC 33.0 33.5 RDW 16.1 H 15.4 Plt Count 57 L D 72 L D MPV 9.5 8.8 Absolute Neuts (auto) Neutrophils % Lymphocytes % Monocytes % Eosinophils % Basophils % Nucleated RBC % Platelet Comment Decreased PT with INR INR PTT (Actin FS) Anticoagulation Therapy Puncture Site ABG pH ABG pCO2 at Pt Temp ABG pO2 at Pt Temp ABG HCO3 ABG O2 Sat (Measured) ABG O2 Content ABG Base Excess [place] Test O2 Delivery Device Oxygen Flow Rate Vent Mode Vent Rate Mechanical Rate Pressure Support Vent Sodium 142 Potassium 3.1 L Chloride 110 H Carbon Dioxide 23 Anion Gap 9 BUN 12.3 Creatinine 1.3 Est GFR (CKD-EPI)AfAm 64.52 Est GFR (CKD-EPI)NonAf 55.67 Random Glucose 200 H Calcium 9.0 Phosphorus Magnesium Total Bilirubin 0.9 AST 17 ALT 16 Alkaline Phosphatase 58 Troponin I Total Protein 6.4 Albumin 3.5 Lipase Alcohol, Quantitative Blood Type Antibody Screen Crossmatch Crossmatch IS Only 12/19/18 12/19/18 12/19/18 02:55 02:55 04:00 WBC RBC Hgb Hct MCV MCH MCHC RDW Plt Count MPV Absolute Neuts (auto) Neutrophils % Lymphocytes % Monocytes % Eosinophils % Basophils % Nucleated RBC % Platelet Comment PT with INR 25.70 H INR 2.16 H PTT (Actin FS) 31.2 Anticoagulation Therapy Puncture Site ABG pH ABG pCO2 at Pt Temp ABG pO2 at Pt Temp ABG HCO3 ABG O2 Sat (Measured) ABG O2 Content ABG Base Excess [place] Test O2 Delivery Device Oxygen Flow Rate Vent Mode Vent Rate Mechanical Rate Pressure Support Vent Sodium Cancelled Potassium Cancelled Chloride Cancelled Carbon Dioxide Cancelled Anion Gap Cancelled BUN Cancelled Creatinine Cancelled Est GFR (CKD-EPI)AfAm Cancelled Est GFR (CKD-EPI)NonAf Cancelled Random Glucose Cancelled Calcium Cancelled Phosphorus Cancelled Magnesium Cancelled Total Bilirubin Cancelled AST Cancelled ALT Cancelled Alkaline Phosphatase Cancelled Troponin I Cancelled Total Protein Cancelled Albumin Cancelled Lipase Alcohol, Quantitative Cancelled Blood Type Antibody Screen Crossmatch Crossmatch IS Only 12/19/18 12/19/18 12/19/18 04:00 05:25 05:25 WBC 22.2 H RBC 3.49 L Hgb 11.0 L Hct 32.2 L MCV 92.2 MCH 31.6 MCHC 34.3 RDW 15.4 Plt Count 76 L MPV 9.3 Absolute Neuts (auto) Neutrophils % Lymphocytes % Monocytes % Eosinophils % Basophils % Nucleated RBC % Platelet Comment PT with INR 26.40 H INR 2.22 H PTT (Actin FS) 31.1 Anticoagulation Therapy Puncture Site ABG pH ABG pCO2 at Pt Temp ABG pO2 at Pt Temp ABG HCO3 ABG O2 Sat (Measured) ABG O2 Content ABG Base Excess [place] Test O2 Delivery Device Oxygen Flow Rate Vent Mode Vent Rate Mechanical Rate Pressure Support Vent Sodium 141 Potassium 7.0 H* Chloride 111 H Carbon Dioxide 20 L Anion Gap 10 BUN 26.1 H Creatinine 3.1 H Est GFR (CKD-EPI)AfAm 22.56 Est GFR (CKD-EPI)NonAf 19.47 Random Glucose 118 H Calcium 7.9 L Phosphorus 4.6 Magnesium 1.6 L Total Bilirubin 1.2 H AST > 3509 H ALT 7748 H Alkaline Phosphatase 63 Troponin I 2.66 H* Total Protein 4.6 L Albumin 2.4 L Lipase 1424 H Alcohol, Quantitative < 3.0 Blood Type Antibody Screen Crossmatch Crossmatch IS Only 12/19/18 12/19/18 05:25 08:00 WBC RBC Hgb Hct MCV MCH MCHC RDW Plt Count MPV Absolute Neuts (auto) Neutrophils % Lymphocytes % Monocytes % Eosinophils % Basophils % Nucleated RBC % Platelet Comment PT with INR INR PTT (Actin FS) Anticoagulation Therapy No Result Required. Puncture Site Right radial ABG pH 7.36 ABG pCO2 at Pt Temp 31.1 L ABG pO2 at Pt Temp 94.9 ABG HCO3 17.2 L ABG O2 Sat (Measured) 97.5 ABG O2 Content 13.1 L ABG Base Excess -6.8 L [place] Test Positive O2 Delivery Device N/c Oxygen Flow Rate 3l Vent Mode No Result Required. Vent Rate No Result Required. Mechanical Rate No Result Required. Pressure Support Vent No Result Required. Sodium 143 Potassium 6.9 H* Chloride 112 H Carbon Dioxide 21 Anion Gap 9 BUN 27.6 H Creatinine 3.1 H Est GFR (CKD-EPI)AfAm 22.56 Est GFR (CKD-EPI)NonAf 19.47 Random Glucose 97 Calcium 8.0 L Phosphorus Magnesium Total Bilirubin 1.2 H AST > 1000 H ALT 7495 H Alkaline Phosphatase 63 Troponin I 2.78 H* Total Protein 4.5 L Albumin 2.3 L Lipase Alcohol, Quantitative Blood Type Antibody Screen Crossmatch Crossmatch IS Only Sinus tachycardia, ?septal infarct, nonspecific T abnormality Echo: Pending Imaging - Results Chest X-ray: Pending Cat Scan: Pending (Head CT) EKG: Report Reviewed Problem List - Problems (1) Seizure Code(s): R56.9 - UNSPECIFIED CONVULSIONS (2) HTN (hypertension) Code(s): I10 - ESSENTIAL (PRIMARY) HYPERTENSION (3) Demand ischemia Code(s): I24.8 - OTHER FORMS OF ACUTE ISCHEMIC HEART DISEASE (4) Thrombocytopenia Code(s): D69.6 - THROMBOCYTOPENIA, UNSPECIFIED (5) Anemia Code(s): D64.9 - ANEMIA, UNSPECIFIED (6) Leukocytosis Code(s): D72.829 - ELEVATED WHITE BLOOD CELL COUNT, UNSPECIFIED (7) Shock liver Code(s): K72.00 - ACUTE AND SUBACUTE HEPATIC FAILURE WITHOUT COMA (8) ALLAN (acute kidney injury) Code(s): N17.9 - ACUTE KIDNEY FAILURE, UNSPECIFIED (9) Hyperkalemia Code(s): E87.5 - HYPERKALEMIA Assessment/Plan 1. Left hip revision, bone marrow autograft POD #1 2. Elevated troponin due to demand ischemia 3. Anemia and thrombocytopenia and leukocytosis due to blood loss and ?sepsis to be ruled out 4. ALLAN with hyperkalemia 5. Elevated LFT ? shock liver 6. Post op Seizure, ?etiology PLAN: 1. Neuro follow up and monitor mental status. Head CT pending 2. Trend troponin as likely demand ischemia. Would not start Heparin drip since he is post op with bleeding risk and thrombocytopenia 3. Echocardiography to assess LV/RV and valvular function 4. Further cardiac work up can be done once clinically stable 5. Consider beta oscar if BP tolerates 6. Monitor LFT and GI input to follow 7. Renal input to follow and monitor BUN/Cr. Fluid resuscitation and transfuse as needed. Correct K 8. Broad spectrum antibiotic and resendiz culture. ID input to follow 9. Monitor Plt level 10. Surgical follow up Guarded Danyel Carter MD
[2018-12-19] MEDS ORDERED: DEXTROSE 5%-WATER - 50 ML IVPB ONE (08:56)
[2018-12-19] MEDS ORDERED: ceFAZolin SODIUM 1 GM VIAL ONE (08:56)
[2018-12-19] MEDS: SENNOSIDES/DOCUSATE COMBO (SENNA PLUS) TABLET (UD) PO SCH (09:05)
[2018-12-19] MEDS: SODIUM ZIRCONIUM CYCLOSILICATE (LOKELMA) 5 GM PACKET PO SCH (09:05)
[2018-12-19] MEDS: PANTOPRAZOLE 40 MG TABLET (FP) PO SCH (09:05)
[2018-12-19] MEDS ORDERED: PATIENT'S OWN MEDICATION (NON-FORMULARY) (Amlodipine Besylate/Benazepril [Amlodipine-Benaz PO SCH (10:00)
[2018-12-19] MEDS ORDERED: LISINOPRIL 20 MG TABLET (FP) PO SCH (10:00)
[2018-12-19] MEDS ORDERED: amLODIPine BESYLATE 5 MG TABLET (FP) PO SCH (10:00)
--- NOTE | 2018-12-19 11:21 | CON.NEURO ---
Consult - Past Medical History Cardio/Vascular: Yes: HTN - Past Surgical History Past Surgical History: Yes: Joint Replacement Additional Surgical History: hip surgeries - Alcohol/Substance Use Hx Alcohol Use: Yes (rarely) - Smoking History Smoking history: Former smoker Have you smoked in the past 12 months: No If you are a former smoker, when did you quit?: 1981 Home Medications - Allergies Allergies/Adverse Reactions: Allergies Allergy/AdvReac Type Severity Reaction Status Date / Time No Known Allergies Allergy Verified 12/18/18 07:02 - Home Medications Home Medications: Ambulatory Orders Amlodipine Besylate/Benazepril [Amlodipine-Benazepril 5-20 mg] 1 each PO DAILY 12/14/18 Ranitidine HCl 300 mg PO HS 12/14/18 Folic Acid 1 mg PO DAILY 12/18/18 Physical Exam-Neuro Vital Signs: Vital Signs Temperature 97.2 F L 12/19/18 06:00 Pulse Rate 108 H 12/19/18 10:00 Respiratory Rate 20 12/19/18 10:00 Blood Pressure 115/80 12/19/18 10:00 O2 Sat by Pulse Oximetry (%) 100 12/18/18 21:00 Labs: CBC, BMP 12/19/18 05:25 12/19/18 05:25 INR, PTT INR 2.22 (0.83-1.09) H 12/19/18 05:25 Assessment/Plan cc Two episode of Seizure HPI 68 year old male history of HTN, GERD, Hip replacement. Sebast has left hip revision surgery. During post op, he became lethargic and had two episode of seizure and they self aborted. He was given dose of keppra .he has severe lactic acidosis. Patient has recovered since and now no focal neurological symptoms. He is able to talk and oriented . He was given keppra 1 gm and no seizure since . PMH as above Past Surgical History: Yes: Joint Replacement Additional Surgical History: hip surgeries Smoking history: Former smoker Have you smoked in the past 12 months: No If you are a former smoker, when did you quit?: 1981 Allergies/Adverse Reactions: Allergies Allergy/AdvReac Type Severity Reaction Status Date / Time No Known Allergies Allergy Verified 12/18/18 07:02 Home Medications: Amlodipine Besylate/Benazepril [Amlodipine-Benazepril 5-20 mg] 1 each PO DAILY 12/14/18 Ranitidine HCl 300 mg PO HS 12/14/18 Folic Acid 1 mg PO DAILY 12/18/18 FH, ROS reviewed in chart NEUROLOGICAL EXAMINATION Alert oriented x 3, speech is normal, no acute distress eomi, pupils reactive no face asymmetry moving all ext sensation is normal ct head pending Assessment/Plan 68 year old male admitted for hip surgery and had episode of seizure in post op and had lactic acidosis. Patient was loaded with iv keppra. No seizure now. He is back to baseline and neuro exam is normal. Most likley seizure is induced would not require termite control representative AED. Plan: CT head when stable - continue keppra 1 gm iv /po bid for 3-5 days and would not require for termite control representative - an EEG can be obtained Thanking you so much Jose Philip MD
[2018-12-19 12:02] LABS: INR 1.97 (0.83-1.09); PROTHROMBIN TIME (PATIENT) 23.4 SEC (9.7-13.0)
[2018-12-19 12:26] LABS: ALBUMIN 2.4 g/dl (3.4-5.0); ALK PHOS 73 U/L (45-117); ANION GAP 10 MMOL/L (8-16); BILIRUBIN,TOTAL 1.4 mg/dL (0.2-1); BLOOD UREA NITROGEN 32.2 mg/dL (7-18); CALCIUM 8.6 mg/dL (8.5-10.1); CHLORIDE 111 mmol/L (98-107); CO2 22 mmol/L (21-32); CREATININE 3.8 mg/dL (0.55-1.3); GLUCOSE,RANDOM 96 mg/dL (74-106); POTASSIUM 5.7 mmol/L (3.5-5.1); SGPT/ALT > 1000 U/L (13-61); SODIUM 143 mmol/L (136-145); TOT PROT 4.3 g/dl (6.4-8.2)
[2018-12-19 12:35] LABS: SGOT/AST 10517 U/L (15-37)
--- NOTE | 2018-12-19 12:38 | CONSULT ---
Consult Consult Specialty:: Nephrology Reason for Consultation:: ALLAN - History of Present Illness Chief Complaint: hypotension after surgery History of Present Illness: Pt is a 68 year old male with pmhx of htn, gerd and hip replacements who presented for revision of left hip. He did have bone marrow aspiration and autograft. He did get about 2 liters of blood. He the developed hypotension post up. He required several boluses of LR for hypotension. He had blood work done and was found to be in renal failure and found to be hyperkalemic. Pt also had a seizure last night. His potassium started to improve with medical therapy. His renal function has been worsening. He is awake but appears fatigued and had difficulty giving history. Chart was reviewed. - History Source History Provided By: Patient, Medical Record - Past Medical History Cardio/Vascular: Yes: HTN Gastrointestinal: Yes: GERD - Past Surgical History Past Surgical History: Yes: Joint Replacement Additional Surgical History: hip surgeries - Alcohol/Substance Use Hx Alcohol Use: Yes (rarely) - Smoking History Smoking history: Former smoker Have you smoked in the past 12 months: No If you are a former smoker, when did you quit?: 1982 Home Medications - Allergies Allergies/Adverse Reactions: Allergies Allergy/AdvReac Type Severity Reaction Status Date / Time No Known Allergies Allergy Verified 12/18/18 07:02 - Home Medications Home Medications: Ambulatory Orders Amlodipine Besylate/Benazepril [Amlodipine-Benazepril 5-20 mg] 1 each PO DAILY 12/14/18 Ranitidine HCl 300 mg PO HS 12/14/18 Folic Acid 1 mg PO DAILY 12/18/18 Family Disease History - Family Disease History Family History: Denies Review of Systems - Review of Systems Constitutional: reports: Malaise Eyes: reports: No Symptoms HENT: reports: No Symptoms Neck: reports: No Symptoms Cardiovascular: reports: No Symptoms Gastrointestinal: reports: No Symptoms Genitourinary: reports: No Symptoms Musculoskeletal: reports: Muscle Weakness Neurological: reports: Other (fatigue) Physical Exam Vital Signs: Vital Signs Temperature 97.2 F L 12/19/18 06:00 Pulse Rate 106 H 12/19/18 12:00 Respiratory Rate 20 12/19/18 12:00 Blood Pressure 120/55 L 12/19/18 12:00 O2 Sat by Pulse Oximetry (%) 100 12/18/18 21:00 Constitutional: Yes: Calm Eyes: Yes: Conjunctiva Clear HENT: Yes: Atraumatic Cardiovascular: Yes: S1, S2 Respiratory: Yes: CTA Bilaterally Gastrointestinal: Yes: Soft Renal/: Yes: Vidal Present Musculoskeletal: Yes: Muscle Weakness Edema: No Neurological: Yes: Lethargy Labs: CBC, BMP 12/19/18 05:25 12/19/18 11:30 Laboratory Tests 12/18/18 12/19/18 12/19/18 09:15 04:00 05:25 Sodium 142 141 143 Potassium 3.1 L 7.0 H* 6.9 H* Chloride 110 H 111 H Carbon Dioxide 20 L BUN 26.1 H Creatinine 3.1 H 3.1 H Alcohol, Quantitative < 3.0 12/19/18 11:30 Sodium 143 Potassium 5.7 H Chloride 111 H Carbon Dioxide BUN 32.2 H Creatinine 3.8 H Alcohol, Quantitative Imaging - Results Chest X-ray: Report Reviewed Problem List - Problems (1) ALLAN (acute kidney injury) Code(s): N17.9 - ACUTE KIDNEY FAILURE, UNSPECIFIED (2) Anemia Code(s): D64.9 - ANEMIA, UNSPECIFIED (3) Hyperkalemia Code(s): E87.5 - HYPERKALEMIA (4) Seizure Code(s): R56.9 - UNSPECIFIED CONVULSIONS (5) Shock liver Code(s): K72.00 - ACUTE AND SUBACUTE HEPATIC FAILURE WITHOUT COMA Assessment/Plan Current Medications Generic Name Dose Route Start Last Admin Trade Name Freq PRN Reason Stop Dose Admin Acetaminophen 1,000 mg 12/18/18 16:34 Ofirmev Injection - IVPB Q6H PRN PAIN LEVEL 1-5 Al Hydroxide/Mg Hydroxide 30 ml 12/18/18 16:01 Mylanta Oral Suspension - PO Q4H PRN DYSPEPSIA Amlodipine Besylate 5 mg 12/19/18 10:00 12/19/18 09:05 Norvasc - PO Not Given DAILY EPI Aspirin 81 mg 12/18/18 22:00 12/18/18 21:40 Asa - PO 81 mg BID EPI Administration Fentanyl 50 mcg 12/18/18 16:33 Sublimaze Injection - IVPUSH [id number] PRN PAIN-PACU ORDER X 4 DOSES ONLY Folic Acid 1 mg 12/19/18 10:00 Folic Acid - PO DAILY EPI Hydromorphone HCl 1 mg 12/18/18 16:35 Dilaudid Injection - IVPUSH Q4H PRN PAIN LEVEL 4 - 6 Sodium Chloride 1,000 mls @ 125 mls/hr 12/19/18 07:11 12/19/18 09:04 Normal Saline - IV Not Given ASDIR EPI Lisinopril 20 mg 12/19/18 10:00 12/19/18 09:05 Prinivil PO Not Given DAILY [facility] Magnesium Hydroxide 30 ml 12/18/18 16:01 Milk Of Magnesia - PO PRN PRN CONSTIPATION Ondansetron HCl 4 mg 12/18/18 16:01 12/18/18 21:39 Zofran Injection IVPUSH 4 mg Q6H PRN Administration NAUSEA Ondansetron HCl 4 mg 12/18/18 16:33 Zofran Injection IVPUSH Q6H PRN NAUSEA AND/OR VOMITING Pantoprazole Sodium 40 mg 12/19/18 10:00 12/19/18 09:05 Protonix - PO 40 mg DAILY EPI Administration Ranitidine HCl 300 mg 12/18/18 22:00 12/18/18 21:44 Zantac - PO Not Given HS [facility] Senna/Docusate Sodium 2 tablet 12/18/18 22:00 12/19/18 09:05 Pericolace - PO 2 tablet BID [facility] Administration Sodium Zirconium Cyclosilicate 5 gm 12/19/18 08:00 12/19/18 09:05 Lokelma PO 5 gm DAILY@0800 EPI Administration Impression 1. ALLAN 2. hyperkalemia 3. shock liver 4. seizure 5. s/p hip replacement 6. hx of htn 7. hypotension 8. gerd Plan - d/c lisinopril and amlodipine - potassium is improving, cont medical management - replace magnesium - cont to monitor potassium and renal function - pt likely has atn from hypotension - monitor urine output - check ua, electrolytes, and court attendant - check renal ultrasound - discussed with ICU team
--- NOTE | 2018-12-19 12:43 | ECHO ---
Version: 1 Name: MIGUE BRADSHAW Exam: Adult Echocardiogram Study Date: 12/19/2018, 9:33 AM Age: 68 Years MMode/2D Measurements & Calculations LVOT diam: 1.90 cm Ao root diam: 2.6 cm Doppler Measurements & Calculations MV E max elkin: 59.2 cm/sec MV A max elkin: 98.2 cm/sec MV E/A: 0.60 MR max P.0 mmHg Ao max P.4 mmHg ISAI(I,D): 2.6 cm Ao mean P.6 mmHg LV V1 mean: 93.9 cm/sec Ao V2 max: 175.9 cm/sec LV V1 mean P.1 mmHg TR max elkin: 159.3 cm/sec TR max P.2 mmHg Left Ventricle The left ventricular size, thickness and function are normal. Right Ventricle The right ventricle is normal in size and function. Atria Normal left and right atrial size and function. Mitral Valve There is mild mitral annular calcification. There is trace mitral regurgitation. Tricuspid Valve The tricuspid valve is normal. PASP 22 mmHg. There is mild tricuspid regurgitation. Aortic Valve Fibocalcific changes to the aortic valve without aortic stenosis. Pulmonic Valve The pulmonic valve is normal in structure and function. Great Vessels The aortic root is normal size. Pericardium/Pleura There is no pericardial effusion. Summary Statements The left ventricular size, thickness and function are normal The right ventricle is normal in size and function. Normal left and right atrial size and function. There is mild mitral annular calcification. There is trace mitral regurgitation. There is mild tricuspid regurgitation. PASP 22 mmHg Fibocalcific changes to the aortic valve without aortic stenosis The aortic root is normal size. There is no pericardial effusion. estimated EF 65%. The patient was tachycardiac during this exam. MD Emile Arvizu 12/19/2018, 11:43 AM Ordering Physician: Kevan Jacques Referring Physician: NICKI DUNNE Performed By: Zohreh Shaikh
[2018-12-19] MEDS ORDERED: MAGNESIUM SULF 50% (8.12 MEQ/2 ML-1 GM VIAL) IVPB ONE (13:00)
[2018-12-19] MEDS ORDERED: SODIUM ZIRCONIUM CYCLOSILICATE (LOKELMA) 5 GM PACKET PO ONE (13:00)
--- NOTE | 2018-12-19 13:48 | PN ---
Progress Note (short form) - Note Progress Note: S: Pt. resting comfortably in bed. He denies CP, SOB and has no complaints of left hip pain O: Last Vital Signs Temp Pulse Resp BP Pulse Ox 97.2 F L 106 H 20 120/55 L 100 12/19/18 06:00 12/19/18 12:00 12/19/18 12:00 12/19/18 12:00 12/18/18 21:00 VAS 0/10 A/P: POD#1 s/p left total hip revision 1. Pain well controlled 2. Appreciate the consults. Post-op medical care per ICU team and consultants.
--- NOTE | 2018-12-19 13:52 | PN ---
Teaching Attending Note Name of Resident: Kevan Armstrong ATTENDING PHYSICIAN STATEMENT I saw and evaluated the patient. I reviewed the resident's note and discussed the case with the resident. I agree with the resident's findings and plan as documented. SUBJECTIVE: Pt seen and examined in the ICU. Transfused 4 units PRBC, 1 unit FFP, 1 unit platelets so far. Hemodynamics improving. OBJECTIVE: Vital Signs Period Temp Pulse Resp BP Sys/Hernandez Pulse Ox Last 24 Hr 97.2 F-98.0 F 92-122 16-22 57-120/43-80 98-100 Intake & Output 12/16/18 12/17/18 12/18/18 12/19/18 23:59 23:59 23:59 23:59 Intake Total 4875 3700 Output Total 2260 450 Balance 2615 3250 Weight 60.736 kg Gen: mildly tachypneic at rest Heart: tachycardic, regular Lung: decreased breath sounds at the bases Abd: soft, nontender Ext: no edema Drain with sanguinous fluid CBC, BMP 12/19/18 05:25 12/19/18 11:30 Active Medications Acetaminophen (Ofirmev Injection -) 1,000 mg IVPB Q6H PRN PRN Reason: PAIN LEVEL 1-5 Al Hydroxide/Mg Hydroxide (Mylanta Oral Suspension -) 30 ml PO Q4H PRN PRN Reason: DYSPEPSIA Amlodipine Besylate (Norvasc -) 5 mg PO DAILY [facility] Last Admin: 12/19/18 09:05 Dose: Not Given Aspirin (Asa -) 81 mg PO BID [facility] Last Admin: 12/18/18 21:40 Dose: 81 mg Fentanyl (Sublimaze Injection -) 50 mcg IVPUSH [id number] PRN PRN Reason: PAIN-PACU ORDER X 4 DOSES ONLY Folic Acid (Folic Acid -) 1 mg PO DAILY [facility] Hydromorphone HCl (Dilaudid Injection -) 1 mg IVPUSH Q4H PRN PRN Reason: PAIN LEVEL 4 - 6 Sodium Chloride (Normal Saline -) 1,000 mls @ 125 mls/hr IV ASDIR [facility] Last Admin: 12/19/18 09:04 Dose: Not Given Lisinopril (Prinivil) 20 mg PO DAILY [facility] Last Admin: 12/19/18 09:05 Dose: Not Given Magnesium Hydroxide (Milk Of Magnesia -) 30 ml PO PRN PRN PRN Reason: CONSTIPATION Ondansetron HCl (Zofran Injection) 4 mg IVPUSH Q6H PRN PRN Reason: NAUSEA Last Admin: 12/18/18 21:39 Dose: 4 mg Ondansetron HCl (Zofran Injection) 4 mg IVPUSH Q6H PRN PRN Reason: NAUSEA AND/OR VOMITING Pantoprazole Sodium (Protonix -) 40 mg PO DAILY [facility] Last Admin: 12/19/18 09:05 Dose: 40 mg Ranitidine HCl (Zantac -) 300 mg PO [facility] Last Admin: 12/18/18 21:44 Dose: Not Given Senna/Docusate Sodium (Pericolace -) 2 tablet PO BID [facility] Last Admin: 12/19/18 09:05 Dose: 2 tablet Sodium Zirconium Cyclosilicate (Lokelma) 5 gm PO DAILY@0800 [facility] Last Admin: 12/19/18 09:05 Dose: 5 gm ASSESSMENT AND PLAN: s/p Left Hip Revision Acute Blood Loss Anemia Thrombocytopenia Hypovolemic/Hemorrhagic Shock Acute Kidney Injury Elevated LFTs likely Ischemic Injury Lactic Acidosis +Troponins likely Demand Ischemia Seizure episode HTN GERD - monitor CBC, coags - transfuse as needed - IVF - monitor urine output, creatinine - pain control - monitor drain output - trend LFTs, cardiac enzymes - antiepileptics - CT head - DVT prophylaxis - continue ICU monitoring critical care time spent in reviewing chart, evaluating patient and formulating plan 35 min
--- NOTE | 2018-12-19 15:29 | EKG ---
Test Reason : Blood Pressure : / mmHG Vent. Rate : 092 BPM Atrial Rate : 092 BPM P-R Int : 152 ms QRS Dur : 072 ms QT Int : 340 ms P-R-T Axes : 062 014 081 degrees QTc Int : 420 ms POOR DATA QUALITY, INTERPRETATION MAY BE ADVERSELY AFFECTED NORMAL SINUS RHYTHM SEPTAL INFARCT , AGE UNDETERMINED ABNORMAL ECG NO PREVIOUS ECGS AVAILABLE Confirmed by MD DIANNA, ELOY ([id number]) on 12/19/2018 3:29:23 PM Referred By: Confirmed By:ELOY BUSTAMANTE MD
[2018-12-19] MEDS: FOLIC ACID 1 MG TABLET (FP) PO SCH (15:30)
--- NOTE | 2018-12-19 15:44 | EKG ---
Test Reason : Blood Pressure : / mmHG Vent. Rate : 103 BPM Atrial Rate : 103 BPM P-R Int : 142 ms QRS Dur : 072 ms QT Int : 326 ms P-R-T Axes : 061 018 084 degrees QTc Int : 427 ms POOR DATA QUALITY, INTERPRETATION MAY BE ADVERSELY AFFECTED SINUS TACHYCARDIA OTHERWISE NORMAL ECG Confirmed by MD DIANNA, ELOY ([id number]) on 12/19/2018 3:43:50 PM Referred By: Confirmed By:ELOY BUSTAMANTE MD
[2018-12-19] MEDS: ONDANSETRON 4 MG/2 ML VIAL IVPUSH PRN (16:05)
[2018-12-19 16:52] LABS: EPI CELLS 14.2 /HPF (0-5/HPF); HYALINE CASTS 37 /lpf (0-8); URINE APPEARANCE TURBID; URINE BILIRUBIN NEGATIVE (NEGATIVE); URINE COLOR DK YELLOW; URINE GLUCOSE (UA) TRACE (NEGATIVE); URINE KETONE 1+ (NEGATIVE); URINE LEUK ESTERASE TRACE (NEGATIVE); URINE NITRITE NEGATIVE (NEGATIVE); URINE PROTEIN 2+ (NEGATIVE); URINE RBC 3 /hpf (0-4); URINE UROBILINOGEN 0.2 mg/dL (0.2-1.0); URINE WBC 28 /hpf (0-5)
--- NOTE | 2018-12-19 18:38 | PN ---
Progress Note, Physician Chief Complaint: somnolent. unable to assess - Current Medication List Current Medications: Active Medications Acetaminophen (Ofirmev Injection -) 1,000 mg IVPB Q6H PRN PRN Reason: PAIN LEVEL 1-5 Al Hydroxide/Mg Hydroxide (Mylanta Oral Suspension -) 30 ml PO Q4H PRN PRN Reason: DYSPEPSIA Amlodipine Besylate (Norvasc -) 5 mg PO DAILY [facility] Last Admin: 12/19/18 09:05 Dose: Not Given Aspirin (Asa -) 81 mg PO BID [facility] Last Admin: 12/18/18 21:40 Dose: 81 mg Fentanyl (Sublimaze Injection -) 50 mcg IVPUSH [id number] PRN PRN Reason: PAIN-PACU ORDER X 4 DOSES ONLY Folic Acid (Folic Acid -) 1 mg PO DAILY [facility] Last Admin: 12/19/18 15:30 Dose: 1 mg Hydromorphone HCl (Dilaudid Injection -) 1 mg IVPUSH Q4H PRN PRN Reason: PAIN LEVEL 4 - 6 Sodium Chloride (Normal Saline -) 1,000 mls @ 125 mls/hr IV ASDIR [facility] Last Admin: 12/19/18 09:04 Dose: Not Given Lisinopril (Prinivil) 20 mg PO DAILY [facility] Last Admin: 12/19/18 09:05 Dose: Not Given Magnesium Hydroxide (Milk Of Magnesia -) 30 ml PO PRN PRN PRN Reason: CONSTIPATION Ondansetron HCl (Zofran Injection) 4 mg IVPUSH Q6H PRN PRN Reason: NAUSEA Last Admin: 12/19/18 16:05 Dose: 4 mg Ondansetron HCl (Zofran Injection) 4 mg IVPUSH Q6H PRN PRN Reason: NAUSEA AND/OR VOMITING Pantoprazole Sodium (Protonix -) 40 mg PO DAILY [facility] Last Admin: 12/19/18 09:05 Dose: 40 mg Ranitidine HCl (Zantac -) 300 mg PO [facility] Last Admin: 12/18/18 21:44 Dose: Not Given Senna/Docusate Sodium (Pericolace -) 2 tablet PO BID [facility] Last Admin: 12/19/18 09:05 Dose: 2 tablet Sodium Zirconium Cyclosilicate (Lokelma) 5 gm PO DAILY@0800 [facility] Last Admin: 12/19/18 09:05 Dose: 5 gm - Objective Vital Signs: Vital Signs Temperature 98.8 F 12/19/18 12:00 Pulse Rate 114 H 12/19/18 17:15 Respiratory Rate 20 12/19/18 17:15 Blood Pressure 125/62 12/19/18 17:15 O2 Sat by Pulse Oximetry (%) 100 12/19/18 10:00 Constitutional: Yes: No Distress Eyes: Yes: WNL HENT: Yes: WNL Neck: Yes: WNL Cardiovascular: Yes: WNL Respiratory: Yes: Diminished Gastrointestinal: Yes: Hypoactive Bowel Sounds Genitourinary: Yes: WNL Extremities: Yes: WNL Peripheral Pulses WNL: Yes Integumentary: Yes: WNL Wound/Incision: Yes: Clean/Dry, Well Approximated Neurological: Yes: WNL Labs: CBC, BMP 12/19/18 05:25 12/19/18 11:30 INR, PTT INR 1.97 (0.83-1.09) H 12/19/18 11:30 Assessment/Plan 68 yo man who Failed left total hip replacement, Massive osteolysis, Gait abnormalit. Fall risk now S/P Revision left total hip replacement. 2. Bone marrow aspiration and autograft, POD#1. pain management. incentive spirometry. post-op course complicated by hypovolemic shock. aggressively rescitated with IV fluids. drain management as per surgery. -elevated LFT's: shock liver. will monitor. expecting daily improvement as shock resolves. -elevated troponins: likely demand ischemia. cardiology eval noted. will monitor for now. -pancreatitis: post-op but will check triglycerides as well. -GI, DVT prophylaxis. -acute on chronic iron deficiency anemia, post-op acute blood loss anemia: 2 units PRBC given alessio-operatively. S/P platelets and FFP. cont folate. -rhabdomyolysis, red cells in the urine is myoglobeinuria. no need for hematuria workup. cont IV fluids. -post op seziure with lactic acidosis. Patient was loaded with iv keppra. neurology eval noted. unlikely to need halfway treatment. -stool softeners added to prevent opioid induced constipation. -HTN: cont amlodipine, lisinopril. -ID: ancef given operatively. -PT/OT/OOB when able -assessment and plan discussed with medical staff. labs and meds reviewed. plan discussed with Dr Jimenez. 45 min.
[2018-12-19 22:35] LABS: CALCIUM 8.9 mg/dL (8.5-10.1); CREATININE 5.1 mg/dL (0.55-1.3); POTASSIUM 4.9 mmol/L (3.5-5.1)
[2018-12-19 23:31] LABS: HEMATOCRIT 22.9 % (35.4-49); MCH 31.4 pg (25.7-33.7); MCHC 34.8 g/dl (32.0-35.9); MEAN CELL VOLUME 90.4 fl (80-96); MEAN PLT VOLUME 9.4 fl (7.5-11.1); PLATELET COUNT 92 K/MM3 (134-434); RBC 2.53 M/mm3 (4.00-5.60); RDW 15.8 % (11.9-15.9); WHITE BLOOD COUNT 19.9 K/mm3 (4.0-10.0)
[2018-12-19 23:40] LABS: ALBUMIN 2.6 g/dl (3.4-5.0); BILIRUBIN,DIRECT 0.5 mg/dL (0.0-0.2); BILIRUBIN,TOTAL 1.6 mg/dL (0.2-1); MAGNESIUM 2.1 mg/dL (1.8-2.4); TOT PROT 4.8 g/dl (6.4-8.2)
--- NOTE | 2018-12-20 00:22 | PN ---
Progress Note (short form) - Note Progress Note: Reported by nurse that temp rising. From 99.7 1 hour ago to 100.2 axillary, likely febrile rectally. Patient appears comfortable, yet tachycardic at 115 and saturating 90% on 5-6L nasal cannula Received 6300cc fluids and only put out 700cc urine over 24 hours. Hemoglobin dropped to 8.0 from 11 at 5am. Patient has a septic appearance at postop day 2 and has been slowly and progressively becomign worse Will order blood and urine cultures chest X ray to assess for PNA, although less likely on differential given patient does not have a cough - could also be component of atelectasis Will get CT abdomen/pelvis and hips/thighs without contrast to assess for bleeding/infection in these areas May give 1 dose of empiric antibiotics with respect to decreased kidney function Although patient had a high-risk hip operation, PE is currently lower on my differential given his comfortable respiratory status without pain or any pain medications. Patient cannot get CTA due to elevated/worsening creatinine and would likely not be a candidate for any anticoagulation due to acute drop in hemoglobin and elevated INR. Since patient received 6300cc fluids and only put out 700cc urine, likely ATN - BP is stable with a map of 86, will cut back on fluids. ID consultation in AM Will reassess.
[2018-12-20] MEDS ORDERED: VANCOMYCIN 750 MG in DEXTROSE 5%-WATER - 250 ML IVPB SCH (01:00)
[2018-12-20] MEDS: SENNOSIDES/DOCUSATE COMBO (SENNA PLUS) TABLET (UD) PO SCH ×3 (01:46→21:40)
[2018-12-20] MEDS: RANITIDINE HCL 150 MG TABLET (FP) PO SCH ×2 (01:49→21:40)
[2018-12-20] MEDS ORDERED: DEXTROSE 5%-WATER - 50 ML IVPB ONE ×2 (01:53→09:49)
[2018-12-20] MEDS ORDERED: PIPERACILLIN/TAZOBACTAM 2.25 GM VIAL IVPB ONE ×2 (01:53→09:49)
[2018-12-20] MEDS: PIPERACILLIN/TAZOB 2.25 GM 2.25 GM in DEXTROSE 5%-WATER - 50 ML IVPB SCH ×2 (02:08→10:08)
[2018-12-20 06:33] LABS: HEMATOCRIT 21.6 % (35.4-49); HEMOGLOBIN 7.4 GM/dL (11.7-16.9); MCH 31.3 pg (25.7-33.7); MCHC 34.1 g/dl (32.0-35.9); MEAN CELL VOLUME 91.8 fl (80-96); MEAN PLT VOLUME 9.7 fl (7.5-11.1); PLATELET COUNT 95 K/MM3 (134-434); RBC 2.35 M/mm3 (4.00-5.60); RDW 15.7 % (11.9-15.9); WHITE BLOOD COUNT 20.8 K/mm3 (4.0-10.0)
[2018-12-20 07:48] LABS: ALBUMIN 2.3 g/dl (3.4-5.0); BILIRUBIN,TOTAL 1.6 mg/dL (0.2-1); BLOOD UREA NITROGEN 54.4 mg/dL (7-18); CALCIUM 8.3 mg/dL (8.5-10.1); TOT PROT 4.2 g/dl (6.4-8.2)
[2018-12-20] MEDS: SODIUM ZIRCONIUM CYCLOSILICATE (LOKELMA) 5 GM PACKET PO SCH (08:07)
[2018-12-20] MEDS ORDERED: SODIUM CHLORIDE 1,000 ML IV SCH (08:09)
[2018-12-20 08:46] LABS: INR 1.85 (0.83-1.09)
[2018-12-20 08:49] LABS: ACTIVATED PTT 29.3 SECONDS (25.2-36.5)
--- NOTE | 2018-12-20 09:48 | PN ---
Progress Note, Physician History of Present Illness: Pain adequately controlled, denies fevers, chest pain, dyspnea. Oliguric renal failure. - Current Medication List Current Medications: Active Medications Acetaminophen (Ofirmev Injection -) 1,000 mg IVPB Q6H PRN PRN Reason: PAIN LEVEL 1-5 Al Hydroxide/Mg Hydroxide (Mylanta Oral Suspension -) 30 ml PO Q4H PRN PRN Reason: DYSPEPSIA Aspirin (Asa -) 81 mg PO BID [facility] Last Admin: 12/18/18 21:40 Dose: 81 mg Fentanyl (Sublimaze Injection -) 50 mcg IVPUSH [id number] PRN PRN Reason: PAIN-PACU ORDER X 4 DOSES ONLY Folic Acid (Folic Acid -) 1 mg PO DAILY [facility] Last Admin: 12/19/18 15:30 Dose: 1 mg Hydromorphone HCl (Dilaudid Injection -) 1 mg IVPUSH Q4H PRN PRN Reason: PAIN LEVEL 4 - 6 Vancomycin HCl 750 mg/ (Dextrose) 250 mls @ 250 mls/hr IVPB Q24H EPI; Protocol Stop: 12/21/18 00:59 Last Admin: 12/20/18 02:21 Dose: 250 mls/hr Piperacillin Sod/Tazobactam (Sod 2.25 gm/ Dextrose) 50 mls @ 100 mls/hr IVPB Q8H-IV EPI; Protocol Stop: 12/20/18 10:29 Last Admin: 12/20/18 02:08 Dose: 100 mls/hr Piperacillin Sod/Tazobactam (Sod 2.25 gm/ Dextrose) 50 mls @ 100 mls/hr IVPB Q8H-IV EPI; Protocol Sodium Chloride (Normal Saline -) 1,000 mls @ 42 mls/hr IV ASDIR EPI Magnesium Hydroxide (Milk Of Magnesia -) 30 ml PO PRN PRN PRN Reason: CONSTIPATION Ondansetron HCl (Zofran Injection) 4 mg IVPUSH Q6H PRN PRN Reason: NAUSEA Last Admin: 12/19/18 16:05 Dose: 4 mg Ondansetron HCl (Zofran Injection) 4 mg IVPUSH Q6H PRN PRN Reason: NAUSEA AND/OR VOMITING Pantoprazole Sodium (Protonix -) 40 mg PO DAILY [facility] Last Admin: 12/19/18 09:05 Dose: 40 mg Ranitidine HCl (Zantac -) 300 mg PO HS [facility] Last Admin: 12/20/18 01:49 Dose: 300 mg Senna/Docusate Sodium (Pericolace -) 2 tablet PO BID [facility] Last Admin: 12/20/18 01:46 Dose: 2 tablet Sodium Zirconium Cyclosilicate (Lokelma) 5 gm PO DAILY@0800 [facility] Last Admin: 12/19/18 09:05 Dose: 5 gm - Objective Vital Signs: Vital Signs Temperature 99.4 F 12/20/18 08:47 Pulse Rate 117 H 12/20/18 08:47 Respiratory Rate 14 12/20/18 08:47 Blood Pressure 131/63 12/20/18 08:47 O2 Sat by Pulse Oximetry (%) 100 12/20/18 08:47 Constitutional: Yes: No Distress, Calm, Thin Neck: Yes: Supple Cardiovascular: Yes: Tachycardia Respiratory: Yes: Regular, Diminished, On Nasal O2 Gastrointestinal: Yes: Soft, Hypoactive Bowel Sounds Edema: No Labs: CBC, BMP 12/20/18 05:25 12/20/18 05:25 INR, PTT INR 1.85 (0.83-1.09) H 12/20/18 07:55 - ....Imaging EKG: Report Reviewed (Tele: ST with PAC) Problem List - Problems (1) ALLAN (acute kidney injury) Code(s): N17.9 - ACUTE KIDNEY FAILURE, UNSPECIFIED (2) Anemia Code(s): D64.9 - ANEMIA, UNSPECIFIED Qualifiers: Other causes of anemia: acute posthemorrhagic (3) Demand ischemia Code(s): I24.8 - OTHER FORMS OF ACUTE ISCHEMIC HEART DISEASE (4) HTN (hypertension) Code(s): I10 - ESSENTIAL (PRIMARY) HYPERTENSION Qualifiers: Hypertension type: essential hypertension Qualified Code(s): I10 - Essential (primary) hypertension (5) Hyperkalemia Code(s): E87.5 - HYPERKALEMIA (6) Leukocytosis Code(s): D72.829 - ELEVATED WHITE BLOOD CELL COUNT, UNSPECIFIED (7) Seizure Code(s): R56.9 - UNSPECIFIED CONVULSIONS (8) Shock liver Code(s): K72.00 - ACUTE AND SUBACUTE HEPATIC FAILURE WITHOUT COMA (9) Thrombocytopenia Code(s): D69.6 - THROMBOCYTOPENIA, UNSPECIFIED Assessment/Plan 12/19/2018 Echocardiography: Normal LV and RV size and fxn, mild TR RVSP 22 mmHg , LVEF 65% 1. Left hip revision, bone marrow autograft POD #2 2. Elevated troponin due to demand ischemia 3. Anemia and thrombocytopenia and leukocytosis due to acute blood loss and ? sepsis to be ruled out 4. Hypovolemic/Hemorrhagic Shock 5. ALLAN with hyperkalemia due to ATN 5. Elevated LFT c/w shock liver 6. Post op Seizure 7. Lactic acidosis 8. Post-op pancreatitis PLAN: 1. Seizure meds per neuro 2. Troponins downtrending 3. Further cardiac work up can be done once clinically stable 4. Low dose beta oscar as BP tolerates, continue ASA 81 qd 5. LFTs and lactate downtrending 6. Renal input to follow and monitor BUN/Cr. Fluid resuscitation and transfuse as needed. Correct K 6. Broad spectrum antibiotic and resendiz culture. ID input to follow 7. Monitor Hgb and Plt, transfuse as needed 8. Surgical follow up, monitor drain output, analgesia as needed 9. Mechanical DVT prophylaxis
[2018-12-20] MEDS: FOLIC ACID 1 MG TABLET (FP) PO SCH (10:07)
[2018-12-20] MEDS: PANTOPRAZOLE 40 MG TABLET (FP) PO SCH (10:08)
--- NOTE | 2018-12-20 11:54 | PN ---
Teaching Attending Note Name of Resident: Kevan Jacques ATTENDING PHYSICIAN STATEMENT I saw and evaluated the patient. I reviewed the resident's note and discussed the case with the resident. I agree with the resident's findings and plan as documented. SUBJECTIVE: Pt seen and examined in the ICU. Hemodynamics improving. H/H stabilizing. Still oliguric. Denies shortness of breath or chest pain. Has been nauseous and vomiting. OBJECTIVE: Vital Signs Period Temp Pulse Resp BP Sys/Hernandez Pulse Ox Last 24 Hr 97 F-100.2 F 102-120 14-22 120-153/49-78 100-100 Intake & Output 12/17/18 12/18/18 12/19/18 12/20/18 23:59 23:59 23:59 23:59 Intake Total 4875 6370 640 Output Total 2260 710 100 Balance 2615 5660 540 Weight 60.736 kg 74.928 kg Gen: less tachypneic Heart: tachycardic, regular Lung: decreased breath sounds at the bases Abd: soft, nontender Ext: no edema CBC, BMP 12/20/18 05:25 12/20/18 05:25 Active Medications Acetaminophen (Ofirmev Injection -) 1,000 mg IVPB Q6H PRN PRN Reason: PAIN LEVEL 1-5 Al Hydroxide/Mg Hydroxide (Mylanta Oral Suspension -) 30 ml PO Q4H PRN PRN Reason: DYSPEPSIA Aspirin (Asa -) 81 mg PO BID [facility] Last Admin: 12/18/18 21:40 Dose: 81 mg Fentanyl (Sublimaze Injection -) 50 mcg IVPUSH [id number] PRN PRN Reason: PAIN-PACU ORDER X 4 DOSES ONLY Folic Acid (Folic Acid -) 1 mg PO DAILY [facility] Last Admin: 12/20/18 10:07 Dose: 1 mg Hydromorphone HCl (Dilaudid Injection -) 1 mg IVPUSH Q4H PRN PRN Reason: PAIN LEVEL 4 - 6 Vancomycin HCl 750 mg/ (Dextrose) 250 mls @ 250 mls/hr IVPB Q24H [facility]; Protocol Stop: 12/21/18 00:59 Last Admin: 12/20/18 02:21 Dose: 250 mls/hr Piperacillin Sod/Tazobactam (Sod 2.25 gm/ Dextrose) 50 mls @ 100 mls/hr IVPB Q8H-IV EPI; Protocol Sodium Chloride (Normal Saline -) 1,000 mls @ 100 mls/hr IV ASDIR EPI Magnesium Hydroxide (Milk Of Magnesia -) 30 ml PO PRN PRN PRN Reason: CONSTIPATION Metoprolol Succinate (Toprol Xl -) 12.5 mg PO DAILY [facility] Ondansetron HCl (Zofran Injection) 4 mg IVPUSH Q6H PRN PRN Reason: NAUSEA Last Admin: 12/19/18 16:05 Dose: 4 mg Ondansetron HCl (Zofran Injection) 4 mg IVPUSH Q6H PRN PRN Reason: NAUSEA AND/OR VOMITING Pantoprazole Sodium (Protonix -) 40 mg PO DAILY [facility] Last Admin: 12/20/18 10:08 Dose: 40 mg Ranitidine HCl (Zantac -) 300 mg PO HS [facility] Last Admin: 12/20/18 01:49 Dose: 300 mg Senna/Docusate Sodium (Pericolace -) 2 tablet PO BID [facility] Last Admin: 12/20/18 10:07 Dose: 2 tablet Sodium Zirconium Cyclosilicate (Lokelma) 5 gm PO DAILY@0800 [facility] Last Admin: 12/20/18 08:07 Dose: 5 gm ASSESSMENT AND PLAN: s/p Left Hip Revision Acute Blood Loss Anemia Thrombocytopenia Hypovolemic/Hemorrhagic Shock improving Acute Kidney Injury Shock Liver Lactic Acidosis +Troponins likely Demand Ischemia Seizure episode HTN GERD - monitor CBC, coags - transfuse as needed - IVF - monitor urine output, creatinine - pain control - monitor drain output - trend LFTs, cardiac enzymes - antiepileptics - NGT to decompress stomach - DVT prophylaxis - continue ICU monitoring critical care time spent in reviewing chart, evaluating patient and formulating plan 35 min
[2018-12-20] MEDS: metoPROLOL SUCCINATE 25 MG TAB.SR.24H (FP) PO SCH (11:56)
--- NOTE | 2018-12-20 12:39 | SPA.POSTOP ---
- POST-OP NOTE POD #2 s/p Left hip revision Pt continues to be in ICU after developing hypovolemic shock. Pt currently has shocked liver and ALLAN due to hypoperfusion. Pt recieved 3-4 units of RBCs and significant fluid boluses yesterday, but has had very low urine output. Pt A&O x 3, but is more lethargic than yesterday. Pt had one borderline fever overnight of 100.2. Pt continues to be tachycardic but BP is improved. Pt states pain is well controlled, denies numbness or weakness in LLE. Last Vital Signs Temp Pulse Resp BP Pulse Ox 99.2 F 102 H 15 123/69 100 12/20/18 12:00 12/20/18 12:00 12/20/18 12:00 12/20/18 12:00 12/20/18 08:47 Physical Exam General: No acute distress. Pulm: breathing comfortably Cor: tachycardic Abd: Soft. Non-tender. No distention LE: Lt thigh is swollen, no active oozing or bleeding from surgical site, drain in place with serosanguinous drainage. Lt foot no numbness or weakness. Problem List - Problems (1) S/P revision of total hip Assessment/Plan: Plan -continue with medical/ICU management per team. -pain control -DVT ppx with ASA -transfuse as needed Case discussed with Dr. Jimenez who agrees with plan Code(s): Z96.649 - PRESENCE OF UNSPECIFIED ARTIFICIAL HIP JOINT
--- NOTE | 2018-12-20 12:59 | PN ---
Progress Note, Physician History of Present Illness: Pt seen and examined at bedside. He is more awake and alert. He denies shortness of breath. - Current Medication List Current Medications: Active Medications Acetaminophen (Ofirmev Injection -) 1,000 mg IVPB Q6H PRN PRN Reason: PAIN LEVEL 1-5 Al Hydroxide/Mg Hydroxide (Mylanta Oral Suspension -) 30 ml PO Q4H PRN PRN Reason: DYSPEPSIA Aspirin (Asa -) 81 mg PO BID [facility] Last Admin: 12/18/18 21:40 Dose: 81 mg Fentanyl (Sublimaze Injection -) 50 mcg IVPUSH [id number] PRN PRN Reason: PAIN-PACU ORDER X 4 DOSES ONLY Folic Acid (Folic Acid -) 1 mg PO DAILY [facility] Last Admin: 12/20/18 10:07 Dose: 1 mg Hydromorphone HCl (Dilaudid Injection -) 1 mg IVPUSH Q4H PRN PRN Reason: PAIN LEVEL 4 - 6 Vancomycin HCl 750 mg/ (Dextrose) 250 mls @ 250 mls/hr IVPB Q24H [facility]; Protocol Stop: 12/21/18 00:59 Last Admin: 12/20/18 02:21 Dose: 250 mls/hr Piperacillin Sod/Tazobactam (Sod 2.25 gm/ Dextrose) 50 mls @ 100 mls/hr IVPB Q8H-IV EPI; Protocol Sodium Chloride (Normal Saline -) 1,000 mls @ 100 mls/hr IV ASDIR EPI Magnesium Hydroxide (Milk Of Magnesia -) 30 ml PO PRN PRN PRN Reason: CONSTIPATION Metoprolol Succinate (Toprol Xl -) 12.5 mg PO DAILY [facility] Last Admin: 12/20/18 11:56 Dose: Not Given Ondansetron HCl (Zofran Injection) 4 mg IVPUSH Q6H PRN PRN Reason: NAUSEA Last Admin: 12/19/18 16:05 Dose: 4 mg Ondansetron HCl (Zofran Injection) 4 mg IVPUSH Q6H PRN PRN Reason: NAUSEA AND/OR VOMITING Pantoprazole Sodium (Protonix -) 40 mg PO DAILY [facility] Last Admin: 12/20/18 10:08 Dose: 40 mg Ranitidine HCl (Zantac -) 300 mg PO [facility] Last Admin: 12/20/18 01:49 Dose: 300 mg Senna/Docusate Sodium (Pericolace -) 2 tablet PO BID [facility] Last Admin: 12/20/18 10:07 Dose: 2 tablet Sodium Zirconium Cyclosilicate (Lokelma) 5 gm PO DAILY@0800 [facility] Last Admin: 12/20/18 08:07 Dose: 5 gm - Objective Vital Signs: Vital Signs Temperature 99.2 F 12/20/18 12:00 Pulse Rate 102 H 12/20/18 12:00 Respiratory Rate 15 12/20/18 12:00 Blood Pressure 123/69 12/20/18 12:00 O2 Sat by Pulse Oximetry (%) 100 12/20/18 08:47 Constitutional: Yes: Calm Eyes: Yes: Conjunctiva Clear HENT: Yes: Atraumatic Neck: Yes: Supple Cardiovascular: Yes: S1, S2 Respiratory: Yes: CTA Bilaterally, On Nasal O2 Gastrointestinal: Yes: Soft Genitourinary: Yes: Vidal Present Extremities: Yes: Other (left hip dressing and drain) Edema: No Neurological: Yes: Oriented Psychiatric: Yes: Oriented Labs: CBC, BMP 12/20/18 05:25 12/20/18 05:25 INR, PTT INR 1.85 (0.83-1.09) H 12/20/18 07:55 Problem List - Problems (1) ALLAN (acute kidney injury) Code(s): N17.9 - ACUTE KIDNEY FAILURE, UNSPECIFIED (2) Anemia Code(s): D64.9 - ANEMIA, UNSPECIFIED Qualifiers: Other causes of anemia: acute posthemorrhagic (3) Hyperkalemia Code(s): E87.5 - HYPERKALEMIA (4) Seizure Code(s): R56.9 - UNSPECIFIED CONVULSIONS (5) Shock liver Code(s): K72.00 - ACUTE AND SUBACUTE HEPATIC FAILURE WITHOUT COMA Assessment/Plan Current Medications Generic Name Dose Route Start Last Admin Trade Name Freq PRN Reason Stop Dose Admin Acetaminophen 1,000 mg 12/18/18 16:34 Ofirmev Injection - IVPB Q6H PRN PAIN LEVEL 1-5 Al Hydroxide/Mg Hydroxide 30 ml 12/18/18 16:01 Mylanta Oral Suspension - PO Q4H PRN DYSPEPSIA Aspirin 81 mg 12/18/18 22:00 12/18/18 21:40 Asa - PO 81 mg BID EPI Administration Fentanyl 50 mcg 12/18/18 16:33 Sublimaze Injection - IVPUSH [id number] PRN PAIN-PACU ORDER X 4 DOSES ONLY Folic Acid 1 mg 12/19/18 10:00 12/20/18 10:07 Folic Acid - PO 1 mg DAILY EPI Administration Hydromorphone HCl 1 mg 12/18/18 16:35 Dilaudid Injection - IVPUSH Q4H PRN PAIN LEVEL 4 - 6 Vancomycin HCl 750 mg/ 250 mls @ 250 mls/hr 12/20/18 01:00 12/20/18 02:21 Dextrose IVPB 12/21/18 00:59 250 mls/hr Q24H EPI Administration Protocol Piperacillin Sod/Tazobactam 50 mls @ 100 mls/hr 12/20/18 18:00 Sod 2.25 gm/ Dextrose IVPB Q8H-IV EPI Protocol Sodium Chloride 1,000 mls @ 100 mls/hr 12/20/18 11:06 Normal Saline - IV ASDIR EPI Magnesium Hydroxide 30 ml 12/18/18 16:01 Milk Of Magnesia - PO PRN PRN CONSTIPATION Metoprolol Succinate 12.5 mg 12/20/18 10:15 12/20/18 11:56 Toprol Xl - PO Not Given DAILY [facility] Ondansetron HCl 4 mg 12/18/18 16:01 12/19/18 16:05 Zofran Injection IVPUSH 4 mg Q6H PRN Administration NAUSEA Ondansetron HCl 4 mg 12/18/18 16:33 Zofran Injection IVPUSH Q6H PRN NAUSEA AND/OR VOMITING Pantoprazole Sodium 40 mg 12/19/18 10:00 12/20/18 10:08 Protonix - PO 40 mg DAILY [facility] Administration Ranitidine HCl 300 mg 12/18/18 22:00 12/20/18 01:49 Zantac - PO 300 mg HS [facility] Administration Senna/Docusate Sodium 2 tablet 12/18/18 22:00 12/20/18 10:07 Pericolace - PO 2 tablet BID [facility] Administration Sodium Zirconium Cyclosilicate 5 gm 12/19/18 08:00 12/20/18 08:07 Lokelma PO 5 gm DAILY@0800 [facility] Administration Impression 1. ALLAN 2. hyperkalemia 3. shock liver 4. seizure 5. s/p hip replacement 6. hx of htn 7. hypotension 8. gerd Plan - monitor bp - likely atn from hypotension - will send out renal workup - monitor [employer], may need temporary HD, discussed with pt - check labs daily and monitor urine output - avoid nsaids and nephrotoxins - monitor mag levels - discussed with ICU
--- NOTE | 2018-12-20 13:05 | PN ---
Progress Note (short form) - Note Progress Note: -Transfuse PRBC to minimum hemoglobin 10.
--- NOTE | 2018-12-20 13:56 | PN ---
Physical Exam: SUBJECTIVE: Overnight, patient had a temperature of 100.2, tachycardic, tachypneic, cultures drawn, no further temperatures, decrease in Hgb. CT scan of abd pelvis. Patient seen and examined at the bedside. Had complaints of nausea, vomiting, and some chills. No complaints of hip pain, cp, sob, abd pain , dizziness, fever. OBJECTIVE: Vital Signs Period Temp Pulse Resp BP Sys/Hernandez Pulse Ox Last 24 Hr 97 F-100.2 F 102-120 14-22 120-153/49-78 100-100 GENERAL: A&Ox3, no acute distress EYES: PERRLA, EOMI ENT: Dry mucus membranes NECK: No JVD noted. LUNGS: CTA, no wheezes HEART: RRR, no murmurs or rubs appreciated. ABDOMEN: Soft, nontender, BS present EXTREMITIES: 2+ pulses, no edema. Dressing on L hip dry and intact. NEUROLOGICAL: Cranial nerves II-XII intact. Laboratory Results - last 24 hr 12/18/18 12/19/18 12/19/18 07:10 11:00 15:10 WBC 19.9 H RBC 2.53 L Hgb 8.0 L Hct 22.9 L D MCV 90.4 MCH 31.4 MCHC 34.8 RDW 15.8 Plt Count 92 L D MPV 9.4 PT with INR INR PTT (Actin FS) Sodium Potassium Chloride Carbon Dioxide Anion Gap BUN Creatinine Est GFR (CKD-EPI)AfAm Est GFR (CKD-EPI)NonAf Random Glucose Lactic Acid Calcium Magnesium Total Bilirubin Direct Bilirubin AST ALT Alkaline Phosphatase Creatine Kinase 8286 H Creatine Kinase Index 0.6 CK-MB (CK-2) 57.3 H Troponin I 2.89 H* Total Protein Albumin Triglycerides Urine Color Urine Appearance Urine pH Ur Specific [place] Urine Protein Urine Glucose (UA) Urine Ketones Urine Blood Urine Nitrite Urine Bilirubin Urine Urobilinogen Ur Leukocyte Esterase Urine WBC (Auto) Urine RBC (Auto) Urine Casts (Auto) U Epithel Cells (Auto) Ur Random Creatinine Ur Random Sodium Ur Random Potassium Ur Random Chloride Blood Type O POSITIVE Antibody Screen Negative Crossmatch See Detail Crossmatch IS Only See Detail 12/19/18 12/19/18 12/19/18 15:10 15:52 15:52 WBC RBC Hgb Hct MCV MCH MCHC RDW Plt Count MPV PT with INR INR PTT (Actin FS) Sodium Potassium Chloride Carbon Dioxide Anion Gap BUN Creatinine Est GFR (CKD-EPI)AfAm Est GFR (CKD-EPI)NonAf Random Glucose Lactic Acid 4.1 H* Calcium Magnesium Total Bilirubin Direct Bilirubin AST ALT Alkaline Phosphatase Creatine Kinase Creatine Kinase Index CK-MB (CK-2) Troponin I Total Protein Albumin Triglycerides Urine Color Urine Appearance Urine pH Ur Specific [place] Urine Protein Urine Glucose (UA) Urine Ketones Urine Blood Urine Nitrite Urine Bilirubin Urine Urobilinogen Ur Leukocyte Esterase Urine WBC (Auto) Urine RBC (Auto) Urine Casts (Auto) U Epithel Cells (Auto) Ur Random Creatinine 125.0 Ur Random Sodium 19 L Ur Random Potassium 50.0 Ur Random Chloride < 11 L Blood Type Antibody Screen Crossmatch Crossmatch IS Only 12/19/18 12/19/18 12/19/18 16:51 21:30 21:30 WBC RBC Hgb Hct MCV MCH MCHC RDW Plt Count MPV PT with INR INR PTT (Actin FS) Sodium 141 Potassium 4.9 Chloride 107 Carbon Dioxide 24 Anion Gap 10 BUN 45.0 H Creatinine 5.1 H Est GFR (CKD-EPI)AfAm 12.36 Est GFR (CKD-EPI)NonAf 10.66 Random Glucose 100 Lactic Acid 3.2 H* Calcium 8.9 Magnesium 2.1 Total Bilirubin 1.6 H Direct Bilirubin 0.5 H AST 74027 H ALT 3411 H Alkaline Phosphatase 93 Creatine Kinase Creatine Kinase Index CK-MB (CK-2) Troponin I 2.45 H* Total Protein 4.8 L Albumin 2.6 L Triglycerides Urine Color Dk yellow Urine Appearance Turbid Urine pH 5.0 Ur Specific [place] 1.024 Urine Protein 2+ H Urine Glucose (UA) Trace Urine Ketones 1+ H Urine Blood 3+ H Urine Nitrite Negative Urine Bilirubin Negative Urine Urobilinogen 0.2 Ur Leukocyte Esterase Trace Urine WBC (Auto) 28 Urine RBC (Auto) 3 Urine Casts (Auto) 37 U Epithel Cells (Auto) 14.2 Ur Random Creatinine Ur Random Sodium Ur Random Potassium Ur Random Chloride Blood Type Antibody Screen Crossmatch Crossmatch IS Only 12/20/18 12/20/18 12/20/18 05:25 05:25 05:25 WBC 20.8 H RBC 2.35 L Hgb 7.4 L Hct 21.6 L MCV 91.8 MCH 31.3 MCHC 34.1 RDW 15.7 Plt Count 95 L MPV 9.7 PT with INR INR PTT (Actin FS) Sodium 142 Potassium 5.0 Chloride 108 H Carbon Dioxide 21 Anion Gap 12 BUN 54.4 H Creatinine 6.0 H Est GFR (CKD-EPI)AfAm 10.16 Est GFR (CKD-EPI)NonAf 8.76 Random Glucose 133 H Lactic Acid 3.0 H* Calcium 8.3 L Magnesium Total Bilirubin 1.6 H Direct Bilirubin AST 7819 H ALT 1841 H Alkaline Phosphatase 91 Creatine Kinase Creatine Kinase Index CK-MB (CK-2) Troponin I Total Protein 4.2 L Albumin 2.3 L Triglycerides 79 Urine Color Urine Appearance Urine pH Ur Specific [place] Urine Protein Urine Glucose (UA) Urine Ketones Urine Blood Urine Nitrite Urine Bilirubin Urine Urobilinogen Ur Leukocyte Esterase Urine WBC (Auto) Urine RBC (Auto) Urine Casts (Auto) U Epithel Cells (Auto) Ur Random Creatinine Ur Random Sodium Ur Random Potassium Ur Random Chloride Blood Type Antibody Screen Crossmatch Crossmatch IS Only 12/20/18 07:55 WBC RBC Hgb Hct MCV MCH MCHC RDW Plt Count MPV PT with INR 22.00 H INR 1.85 H PTT (Actin FS) 29.3 Sodium Potassium Chloride Carbon Dioxide Anion Gap BUN Creatinine Est GFR (CKD-EPI)AfAm Est GFR (CKD-EPI)NonAf Random Glucose Lactic Acid Calcium Magnesium Total Bilirubin Direct Bilirubin AST ALT Alkaline Phosphatase Creatine Kinase Creatine Kinase Index CK-MB (CK-2) Troponin I Total Protein Albumin Triglycerides Urine Color Urine Appearance Urine pH Ur Specific [place] Urine Protein Urine Glucose (UA) Urine Ketones Urine Blood Urine Nitrite Urine Bilirubin Urine Urobilinogen Ur Leukocyte Esterase Urine WBC (Auto) Urine RBC (Auto) Urine Casts (Auto) U Epithel Cells (Auto) Ur Random Creatinine Ur Random Sodium Ur Random Potassium Ur Random Chloride Blood Type Antibody Screen Crossmatch Crossmatch IS Only Active Medications Generic Name Dose Route Start Last Admin Trade Name Freq PRN Reason Stop Dose Admin Acetaminophen 1,000 mg 12/18/18 16:34 Ofirmev Injection - IVPB Q6H PRN PAIN LEVEL 1-5 Al Hydroxide/Mg Hydroxide 30 ml 12/18/18 16:01 Mylanta Oral Suspension - PO Q4H PRN DYSPEPSIA Aspirin 81 mg 12/18/18 22:00 12/18/18 21:40 Asa - PO 81 mg BID EPI Administration Fentanyl 50 mcg 12/18/18 16:33 Sublimaze Injection - IVPUSH [id number] PRN PAIN-PACU ORDER X 4 DOSES ONLY Folic Acid 1 mg 12/19/18 10:00 12/20/18 10:07 Folic Acid - PO 1 mg DAILY EPI Administration Hydromorphone HCl 1 mg 12/18/18 16:35 Dilaudid Injection - IVPUSH Q4H PRN PAIN LEVEL 4 - 6 Vancomycin HCl 750 mg/ 250 mls @ 250 mls/hr 12/20/18 01:00 12/20/18 02:21 Dextrose IVPB 12/21/18 00:59 250 mls/hr Q24H EPI Administration Protocol Piperacillin Sod/Tazobactam 50 mls @ 100 mls/hr 12/20/18 18:00 Sod 2.25 gm/ Dextrose IVPB Q8H-IV EPI Protocol Sodium Chloride 1,000 mls @ 100 mls/hr 12/20/18 11:06 Normal Saline - IV ASDIR EPI Magnesium Hydroxide 30 ml 12/18/18 16:01 Milk Of Magnesia - PO PRN PRN CONSTIPATION Metoprolol Succinate 12.5 mg 12/20/18 10:15 12/20/18 11:56 Toprol Xl - PO Not Given DAILY [facility] Ondansetron HCl 4 mg 12/18/18 16:01 12/19/18 16:05 Zofran Injection IVPUSH 4 mg Q6H PRN Administration NAUSEA Ondansetron HCl 4 mg 12/18/18 16:33 Zofran Injection IVPUSH Q6H PRN NAUSEA AND/OR VOMITING Pantoprazole Sodium 40 mg 12/19/18 10:00 12/20/18 10:08 Protonix - PO 40 mg DAILY EPI Administration Ranitidine HCl 300 mg 12/18/18 22:00 12/20/18 01:49 Zantac - PO 300 mg HS [facility] Administration Senna/Docusate Sodium 2 tablet 12/18/18 22:00 12/20/18 10:07 Pericolace - PO 2 tablet BID EPI Administration Sodium Zirconium Cyclosilicate 5 gm 12/19/18 08:00 12/20/18 08:07 Lokelma PO 5 gm DAILY@0800 [facility] Administration ASSESSMENT/PLAN: Richard Jean-Baptiste is a 68 year old male with a past medical history of hypertension, GERD, multiple total hip replacements (1986,1995, 2017) who presented for a revision of left total hip replacement with Dr. Jimenez admitted to the ICU for continued monitoring post-op. L hip total hip replacement HTN GERD NEUROLOGIC - pain control as per anesthesia, acetaminophen, hydromorphone, fentanyl - remains tired but is easily arousable, continue to monitor neuro status - Dr. Philip consulted, recs appreciated - head CT does not show any acute intracranial pathology CARDIOLOGY - hold home BP meds - monitor hemodynamics in the setting of blood loss - BP have normalized with good MAPs in the 80s - received 4 units of blood yesterday, will receive 1 unit today - continue NS at 100cc/hr - troponins trending down, likely elevated in setting of hypovolemia - Dr. Arita consulted, recs appreciated - Echo showing EF 65% RESPIRATORY - on NC, good saturations - encourage incentive spirometry - CT showing bibasilar atelectatic changes, likely post-op RENAL - CRE worsening, likely ALLAN leading to ATN - poor urine output, 700cc output yesterday - continue hydration - Bladder/renal U/s showing morphologically normal kidneys with no hydronephrosis or obstruction GASTROINTESTINAL - zofran for nausea, continue as patient continues to have nausea and vomiting - home ranitidine - protonix - senna/colace while on opiates - LFTs improving from shock liver due to hypovolemia - increased amount of fluid in stomach - NG tube in to decompress stomach - CT of abd pelvis showing enlarged stomach with increased fluid, cysts on kidneys, no evidence of abscess, post-op changes on L hip INFECTIOUS DISEASE - ancef and vanco completed - monitor for WBC and fevers - had 1 time temperature of 100.2 - cultures pending - lactic acid trending down - Zosyn and vanco given once HEMATOLOGY - Hgb 9.5 pre-op - EBL during surgery 1.5L - given 2 units PRBC intra-op and 375 cell saver, additional 2 units given in ICU - tranfusion parameters Hgb 8 - today Hgb 7.4, given 1 unit today - monitor white count MUSCULOSKELETAL - monitor neurological checks - PT/OT/OOB/Rehab once stable - f/u with Dr. Jimenez in office in 1 week post discharge - maintain hodges until ambulating F/E/N - NS at 100cc/hr - continue to monitor electrolytes and replete as necessary - regular diet as tolerated PROPHYLAXIS - aspirin on hold in setting of low blood counts - SCDs CODE - full code DISPO - continue to monitor in ICU CASE DISCUSSED WITH DR CATHLEEN MI DO - PGY-1 INTERNAL MEDICINE Visit type - Emergency Visit Emergency Visit: No - New Patient This patient is new to me today: Yes Date on this admission: 12/20/18 - Critical Care Critical Care patient: Yes Total Critical Care Time (in minutes): 36 Critical Care Statement: The care of this patient involved high complexity decision making to prevent further life threatening deterioration of the patient 's condition and/or to evaluate & treat vital organ system(s) failure or risk of failure.
--- NOTE | 2018-12-20 17:19 | PN ---
Progress Note (short form) - Note Progress Note: 68 year old male history of HTN, GERD, Hip replacement. Aaliyah has left hip revision surgery. During post op, he became lethargic and had two episode of seizure and they self aborted. He was given dose of keppra .he has severe lactic acidosis. Patient has recovered since than and now no focal neurological symptoms. He is able to talk and oriented . He was given keppra 1 gm and no seizure since than. patient has been stable and now new complain. no seizure in last 24 hours. NEUROLOGICAL EXAMINATION Alert oriented x 3, speech is normal, no acute distress eomi, pupils reactive no face asymmetry moving all ext sensation is normal ct head no acute findings Assessment/Plan 68 year old male admitted for hip surgery and had episode of seizure in post op and had lactic acidosis. Patient was loaded with iv keppra. No seizure now. He is back to baseline and neuro exam is normal. Most likley seizure is induced would not require correction AED. Plan: Ct is normal - would not need AED ,would do mri of brain once out of icu or outpatient - an EEG can be obtained Thanking you so much Jose Philip MD
--- NOTE | 2018-12-20 17:46 | PN ---
Progress Note, Physician Chief Complaint: C/O fatigue, nausea - Current Medication List Current Medications: Active Medications Al Hydroxide/Mg Hydroxide (Mylanta Oral Suspension -) 30 ml PO Q4H PRN PRN Reason: DYSPEPSIA Aspirin (Asa -) 81 mg PO BID [facility] Last Admin: 12/18/18 21:40 Dose: 81 mg Fentanyl (Sublimaze Injection -) 50 mcg IVPUSH [id number] PRN PRN Reason: PAIN-PACU ORDER X 4 DOSES ONLY Folic Acid (Folic Acid -) 1 mg PO DAILY [facility] Last Admin: 12/20/18 10:07 Dose: 1 mg Hydromorphone HCl (Dilaudid Injection -) 1 mg IVPUSH Q4H PRN PRN Reason: PAIN LEVEL 4 - 6 Vancomycin HCl 750 mg/ (Dextrose) 250 mls @ 250 mls/hr IVPB Q24H [facility]; Protocol Stop: 12/21/18 00:59 Last Admin: 12/20/18 02:21 Dose: 250 mls/hr Piperacillin Sod/Tazobactam (Sod 2.25 gm/ Dextrose) 50 mls @ 100 mls/hr IVPB Q8H-IV [facility]; Protocol Sodium Chloride (Normal Saline -) 1,000 mls @ 100 mls/hr IV ASDIR [facility] Magnesium Hydroxide (Milk Of Magnesia -) 30 ml PO PRN PRN PRN Reason: CONSTIPATION Metoprolol Succinate (Toprol Xl -) 12.5 mg PO DAILY [facility] Last Admin: 12/20/18 11:56 Dose: Not Given Ondansetron HCl (Zofran Injection) 4 mg IVPUSH Q6H PRN PRN Reason: NAUSEA Last Admin: 12/19/18 16:05 Dose: 4 mg Ondansetron HCl (Zofran Injection) 4 mg IVPUSH Q6H PRN PRN Reason: NAUSEA AND/OR VOMITING Pantoprazole Sodium (Protonix -) 40 mg PO DAILY [facility] Last Admin: 12/20/18 10:08 Dose: 40 mg Ranitidine HCl (Zantac -) 300 mg PO [facility] Last Admin: 12/20/18 01:49 Dose: 300 mg Senna/Docusate Sodium (Pericolace -) 2 tablet PO BID [facility] Last Admin: 12/20/18 10:07 Dose: 2 tablet Sodium Zirconium Cyclosilicate (Lokelma) 5 gm PO DAILY@0800 [facility] Last Admin: 12/20/18 08:07 Dose: 5 gm - Objective Vital Signs: Vital Signs Temperature 99.2 F 12/20/18 14:00 Pulse Rate 93 H 12/20/18 16:00 Respiratory Rate 15 12/20/18 16:00 Blood Pressure 140/70 12/20/18 16:00 O2 Sat by Pulse Oximetry (%) 100 12/20/18 08:47 Constitutional: Yes: Well Nourished, No Distress Eyes: Yes: WNL HENT: Yes: WNL Neck: Yes: WNL Cardiovascular: Yes: WNL Respiratory: Yes: Diminished Genitourinary: Yes: WNL Musculoskeletal: Yes: Joint Stiffness Extremities: Yes: WNL Edema: No Peripheral Pulses WNL: Yes Integumentary: Yes: WNL Wound/Incision: Yes: Clean/Dry, Well Approximated Neurological: Yes: WNL Psychiatric: Yes: WNL Labs: CBC, BMP 12/20/18 05:25 12/20/18 05:25 INR, PTT INR 1.85 (0.83-1.09) H 12/20/18 07:55 Assessment/Plan 68 yo man who Failed left total hip replacement, Massive osteolysis, Gait abnormalit. Fall risk now S/P Revision left total hip replacement. 2. Bone marrow aspiration and autograft, POD#2. pain management. incentive spirometry. post-op course complicated by hypovolemic shock. aggressively rescitated with IV fluids and 5 units total PRBC. drain management as per surgery. -elevated LFT's: shock liver. will monitor. trending lower. expecting daily improvement as shock resolves. -elevated troponins: likely demand ischemia. cardiology eval noted. will monitor for now. -pancreatitis: post-op. triglycerides WNL. -GI, DVT prophylaxis. TEDs. -acute on chronic iron deficiency anemia, post-op acute blood loss anemia: PRBC given alessio-operatively. S/P platelets and FFP. cont folate. 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 no need for hematuria workup. cont IV fluids. Will likely need HD in the near future if not improved. he is c/o nausea and headache. watch for signs of uremia. no acute findings on bladder and renal US. maintain hodges until ambulating. -post op seizure with lactic acidosis. Patient was loaded with iv keppra. neurology eval noted. 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 -stool softeners added to prevent opioid induced constipation. -ID: ancef given operatively. -PT/OT/OOB when able -full code -assessment and plan discussed with Pt and medical staff. labs and meds reviewed. phone calls answered throughout the day plan discussed with Dr Jimenez. 45 min. please get daily ABG on CK.
--- NOTE | 2018-12-20 17:54 | PATH ---
Surgical Pathology Report Patient Name: MIGUE BRADSHAW [facility]. Rec. #: [id number] /Age/Gender: 1950 (Age: 68) / M Account: [id number] Location: ICU STATUE MAKER Taken: 12/18/2018 Received: 12/19/2018 Reported: 12/20/2018 Physicians: Emile Jimenez M.D. Specimen(s) Received A: LEFT HIP PROSTHESIS B: LEFT HIP BONE AND TISSUE Clinical History Presence of left artificial hip joint, failed left hip prosthesis Final Diagnosis A. HIP PROSTHESIS, LEFT, REVISION OF TOTAL HIP REPLACEMENT: SURGICAL HARDWARE. MACROSCOPIC DIAGNOSIS. B. BONE AND TISSUE, LEFT, REVISION OF TOTAL HIP REPLACEMENT: BONE WITH DEGENERATIVE CHANGES. BONE MARROW WITH TRILINEAGE HEMATOPOIESIS. DENSE FIBROCONNECTIVE TISSUE WITH HISTIOCYTIC INFILTRATE, PIGMENTED AND POLARIZABLE FOREIGN BODY MATERIAL WITH ASSOCIATED GIANT CELL REACTION. Electronically Signed Verna Canseco M.D. Gross Description A. Received fresh labeled "left hip prosthesis," are 3 ramon metallic portions of hardware ranging from 3.3-29.0 cm in greatest dimension, consistent with a hip prosthesis. Also received within the same container are 7 ramon metallic screws ranging from 2.0-4.0 cm in length. No soft tissue is present. No sections are submitted, gross only. B. Received in formalin labeled "left hip bone and tissue," is a 12.5 x 12.0 x 3.5 cm aggregate of abundant morales-ramon portions of bone and soft tissue. Public Speaking Teacher sections are submitted in one cassette, following decalcification. 12/19/2018 [facility]
--- NOTE | 2018-12-20 18:11 | PN ---
Progress Note (short form) - Note Progress Note: POD#2 ICU Awake Fully orientated C/O incisional pain General medical state as above and documented Ortho Bandage dry Drain in situ No bleeding noted. 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
--- NOTE | 2018-12-20 20:29 | PN ---
Progress Note (short form) - Note Progress Note: 68M s/p revision LEFT total hip replacement POD #2. Acute blood loss anemia with multi-system organ shock. Pain well controlled. Pt. denies overnight history of headaches, chest pain, shortness of breath, chills, & sweats. (+) Vidal catheter; (-) Flatus; (-) BM. Has not gotten out of bed. All labs and vitals reviewed. PE: AAO x 3, NAD. L-Hip: Dressing C/D/I. Drain intact & in place. NVI distally. 68M s/p revision LEFT total hip replacement POD #2. -Pain control. -DVT PPx: -Chemical: ASA 81mg PO BID x 6 weeks. -Mechanical: TARIK's, SCD's. -Incentive spirometry q15 min. -PT/OT/Rehab, OOB. -WBAT LLE. -Vidal catheter care. -f/u drain output. -f/u all labs; will evaluate need for transfusion accordingly. -Diet as tolerated. -Care per ICU, renal, and medical hospitalist teams. -Possible dialysis tomorrow. -Discharge planning: f/u [facility] [place] [facility] w/in 1 week of discharge; call for appointment . -Medical plan discussed with and understood by patient and family. -Will follow. Emile Jimenez MD (Orthopaedic Surgery).
[2018-12-20] MEDS: SODIUM CHLORIDE 1,000 ML IV SCH (21:37)
[2018-12-20 22:06] LABS: HEMATOCRIT 26.3 % (35.4-49); HEMOGLOBIN 8.8 GM/dL (11.7-16.9); MCH 30.1 pg (25.7-33.7); MCHC 33.4 g/dl (32.0-35.9); MEAN CELL VOLUME 90.1 fl (80-96); MEAN PLT VOLUME 9.8 fl (7.5-11.1); PLATELET COUNT 93 K/MM3 (134-434); RBC 2.92 M/mm3 (4.00-5.60); RDW 17.3 % (11.9-15.9); WHITE BLOOD COUNT 26.8 K/mm3 (4.0-10.0)
[2018-12-21 06:16] LABS: HEMOGLOBIN 7.2 GM/dL (11.7-16.9); MCH 30.4 pg (25.7-33.7); MEAN CELL VOLUME 89.2 fl (80-96); MEAN PLT VOLUME 9.6 fl (7.5-11.1); PLATELET COUNT 83 K/MM3 (134-434); RBC 2.36 M/mm3 (4.00-5.60); RDW 17.7 % (11.9-15.9); WHITE BLOOD COUNT 23.9 K/mm3 (4.0-10.0)
[2018-12-21 07:23] LABS: ALBUMIN 2.1 g/dl (3.4-5.0); BILIRUBIN,TOTAL 1.6 mg/dL (0.2-1); BLOOD UREA NITROGEN 75.3 mg/dL (7-18); CALCIUM 7.8 mg/dL (8.5-10.1); PHOSPHOROUS 4.6 mg/dL (2.5-4.9); POTASSIUM 5.4 mmol/L (3.5-5.1)
[2018-12-21 07:32] LABS: CREATININE 8.5 mg/dL (0.55-1.3)
[2018-12-21] MEDS: SODIUM ZIRCONIUM CYCLOSILICATE (LOKELMA) 5 GM PACKET PO SCH (09:54)
[2018-12-21 10:04] LABS: INR 1.37 (0.83-1.09); PROTHROMBIN TIME (PATIENT) 16.2 SEC (9.7-13.0)
[2018-12-21 10:07] LABS: ACTIVATED PTT 30.2 SECONDS (25.2-36.5)
--- NOTE | 2018-12-21 10:47 | PN ---
Progress Note (short form) - Note Progress Note: surgery 68M s/p revision LEFT total hip replacement POD #3. Acute blood loss anemia with multi-system organ shock. Patient seen and examined at bedside with no complaints. The resident reports no overnight issues. He received 1 unit of PRBC yesterday afternoon and his post transfusion H&H was 8.8/26.3 and his vitals remained stable throughout the night with the exception of being slightly tachy at 100bpm. This morning his H& H is 7.2/21.0 and his BUN/creatinine continues to climb although his LFTs are trending down. The patient denies any CP, SOB, N/V, fever, headache, chills or blurred vision. Vital Signs Temp 99.3 F 12/21/18 10:00 Pulse 93 H 12/21/18 11:24 Resp 16 12/21/18 11:24 BP 141/72 12/21/18 11:24 Pulse Ox 100 12/21/18 08:09 Intake & Output 12/20/18 12/20/18 12/21/18 11:59 23:59 11:59 Intake Total 640 1241 1440 Output Total 100 65 41 Balance 540 1176 1399 Weight 165 lb 3 oz 165 lb 175 lb 8 oz Intake: IV 677 742 6671 Normal Saline - 1,000 ml 700 1200 @ 100 mls/hr IV ASDIR EPI Rx#:[id number] Normal Saline - 1,000 ml 280 @ 125 mls/hr IV ASDIR EPI Rx#:[id number] Normal Saline - 1,000 ml 168 @ 42 mls/hr IV ASDIR EPI Rx#:[id number] IVPB 300 Oral 60 30 240 Packed Cells 343 Output: Drainage 50 50 31 Left Hip 50 50 31 Urine 50 15 10 Vidal 50 15 10 Other: Voiding Method Indwelling Catheter Indwelling Catheter Indwelling Catheter Bowel Movement No Yes # Bowel Movements 1 Height 5 ft 5 in Body Mass Index (BMI) 27.4 Weight Measurement Method Built in Bedscale Built in Bedscale CBC, BMP 12/21/18 05:45 12/21/18 05:45 PE: AAO x 3, NAD. Unlabored resp on RA L-Hip: thigh with diffuse edema appropriate to status- soft and supple, Dressing C/D/I. with surrounding tissue intact no evidence of active bleeding. Drain intact & in place with 31ml output overnight. B/L LE compartments soft, supple and non-tender with +2 DP pulses. +dorsi/ plantar flexion b/l LE NVI distally. with SCDs in place. Problem List - Problems (1) S/P revision of total hip Assessment/Plan: 68M s/p revision LEFT total hip replacement POD #3 with acute blood loss anemia and multi-system shock. -Transfuse 2 units PRBC stat. Each unit to be given over 1 hour on pressure bag - Trialysis catheter placed at bedside today- right femoral - Dialysis today to follow blood- Dr Iverson aware -Pain control. -DVT PPx: -Chemical: ASA 81mg PO BID x 6 weeks. -Mechanical: TARIK's, SCD's. -Incentive spirometry q15 min. -PT/OT/Rehab, OOB. -WBAT LLE. -Vidal catheter care. -f/u drain output. -f/u all labs; will evaluate need for transfusion accordingly. -Diet as tolerated. -Care per ICU, renal, and medical hospitalist teams. -Discharge planning: f/u [facility] [place] [facility] w/in 1 week of discharge; call for appointment . -Medical plan discussed with and understood by patient and ICU team Evaluation and plan discussed with Dr Emile Jimenez and Dr Iverson Code(s): Z96.649 - PRESENCE OF UNSPECIFIED ARTIFICIAL HIP JOINT
--- NOTE | 2018-12-21 11:01 | PN ---
Progress Note, Physician History of Present Illness: Pain adequately controlled, denies fevers, chest pain, dyspnea. Oliguric renal failure. - Current Medication List Current Medications: Active Medications Al Hydroxide/Mg Hydroxide (Mylanta Oral Suspension -) 30 ml PO Q4H PRN PRN Reason: DYSPEPSIA Aspirin (Asa -) 81 mg PO BID [facility] Last Admin: 12/18/18 21:40 Dose: 81 mg Fentanyl (Sublimaze Injection -) 50 mcg IVPUSH [id number] PRN PRN Reason: PAIN-PACU ORDER X 4 DOSES ONLY Folic Acid (Folic Acid -) 1 mg PO DAILY [facility] Last Admin: 12/20/18 10:07 Dose: 1 mg Hydromorphone HCl (Dilaudid Injection -) 1 mg IVPUSH Q4H PRN PRN Reason: PAIN LEVEL 4 - 6 Piperacillin Sod/Tazobactam (Sod 2.25 gm/ Dextrose) 50 mls @ 100 mls/hr IVPB Q8H-IV EPI; Protocol Sodium Chloride (Normal Saline -) 1,000 mls @ 100 mls/hr IV ASDIR [facility] Last Admin: 12/20/18 21:37 Dose: 100 mls/hr Magnesium Hydroxide (Milk Of Magnesia -) 30 ml PO PRN PRN PRN Reason: CONSTIPATION Metoprolol Succinate (Toprol Xl -) 12.5 mg PO DAILY [facility] Last Admin: 12/20/18 11:56 Dose: Not Given Ondansetron HCl (Zofran Injection) 4 mg IVPUSH Q6H PRN PRN Reason: NAUSEA Last Admin: 12/19/18 16:05 Dose: 4 mg Ondansetron HCl (Zofran Injection) 4 mg IVPUSH Q6H PRN PRN Reason: NAUSEA AND/OR VOMITING Pantoprazole Sodium (Protonix -) 40 mg PO DAILY [facility] Last Admin: 12/20/18 10:08 Dose: 40 mg Ranitidine HCl (Zantac -) 300 mg PO HS [facility] Last Admin: 12/20/18 21:40 Dose: 300 mg Senna/Docusate Sodium (Pericolace -) 2 tablet PO BID [facility] Last Admin: 12/20/18 21:40 Dose: 2 tablet Sodium Zirconium Cyclosilicate (Lokelma) 5 gm PO DAILY@0800 [facility] Last Admin: 12/21/18 09:54 Dose: 5 gm - Objective Vital Signs: Vital Signs Temperature 99.3 F 12/21/18 10:00 Pulse Rate 95 H 12/21/18 10:00 Respiratory Rate 16 12/21/18 10:00 Blood Pressure 141/70 12/21/18 10:00 O2 Sat by Pulse Oximetry (%) 100 12/21/18 08:09 Constitutional: Yes: No Distress, Calm Neck: Yes: Supple Cardiovascular: Yes: Regular Rate and Rhythm Respiratory: Yes: Regular, Diminished, On Nasal O2 Gastrointestinal: Yes: Normal Bowel Sounds, Soft Edema: No Labs: CBC, BMP 12/21/18 05:45 12/21/18 05:45 INR, PTT INR 1.37 (0.83-1.09) H 12/21/18 09:25 Problem List - Problems (1) ALLAN (acute kidney injury) Code(s): N17.9 - ACUTE KIDNEY FAILURE, UNSPECIFIED (2) Anemia Code(s): D64.9 - ANEMIA, UNSPECIFIED Qualifiers: Other causes of anemia: acute posthemorrhagic (3) Demand ischemia Code(s): I24.8 - OTHER FORMS OF ACUTE ISCHEMIC HEART DISEASE (4) HTN (hypertension) Code(s): I10 - ESSENTIAL (PRIMARY) HYPERTENSION Qualifiers: Hypertension type: essential hypertension Qualified Code(s): I10 - Essential (primary) hypertension (5) Hyperkalemia Code(s): E87.5 - HYPERKALEMIA (6) Leukocytosis Code(s): D72.829 - ELEVATED WHITE BLOOD CELL COUNT, UNSPECIFIED (7) Seizure Code(s): R56.9 - UNSPECIFIED CONVULSIONS (8) Shock liver Code(s): K72.00 - ACUTE AND SUBACUTE HEPATIC FAILURE WITHOUT COMA (9) Thrombocytopenia Code(s): D69.6 - THROMBOCYTOPENIA, UNSPECIFIED Assessment/Plan 12/19/2018 Echocardiography: Normal LV and RV size and fxn, mild TR RVSP 22 mmHg , LVEF 65% 1. Left hip revision, bone marrow autograft POD #2 2. Elevated troponin due to demand ischemia 3. Anemia and thrombocytopenia and leukocytosis due to acute blood loss and ? sepsis to be ruled out 4. Hypovolemic/Hemorrhagic Shock 5. ALLAN with hyperkalemia due to ATN 5. Elevated LFT c/w shock liver 6. Post op Seizure 7. Lactic acidosis 8. Post-op pancreatitis PLAN: 1. Seizure meds per neuro 2. Troponins downtrending 3. Further cardiac work up can be done once clinically stable 4. Low dose beta oscar as BP tolerates, continue ASA 81 qd 5. LFTs and lactate downtrending 6. Renal input to follow and monitor BUN/Cr. Fluid resuscitation and transfuse as needed. Correct K 6. Broad spectrum antibiotic and resendiz culture. ID input to follow 7. Monitor Hgb and Plt, transfuse as needed 8. Surgical follow up, monitor drain output, analgesia as needed 9. Mechanical DVT prophylaxis
[2018-12-21] MEDS: metoPROLOL SUCCINATE 25 MG TAB.SR.24H (FP) PO SCH (11:43)
[2018-12-21] MEDS: FOLIC ACID 1 MG TABLET (FP) PO SCH (11:43)
[2018-12-21] MEDS: SENNOSIDES/DOCUSATE COMBO (SENNA PLUS) TABLET (UD) PO SCH ×2 (11:43→22:56)
[2018-12-21] MEDS: PANTOPRAZOLE 40 MG TABLET (FP) PO SCH (11:43)
[2018-12-21] MEDS: SODIUM CHLORIDE 1,000 ML IV SCH ×2 (11:44→19:00)
--- NOTE | 2018-12-21 11:55 | PROC ---
Central Line Insertion - Procedure Note TIME OUT performed prior to this procedure with verbal confirmation of correct patient identity, correct side, agreement of the procedure, correct patient position, availability of necessary equipment. The consent form is complete and accurate. Risk of possible infection, bleeding and pneumothorax have been discussed with the patient. Safety precautions based on patient history or medication use has been addressed. Indication: Other (dialysis) Consent on Chart: Yes Central Line: Triple Lumen Catheter Position: Supine Area prepped with Chlorhexidine solution then draped using sterile barrier protection. Anesthesia: Lidocaine 1% Technique used: Seldinger Ultrasound Guided Assistance: Yes Site: Right Femoral Dark venous non-pulsatile flow noted from hub of needle. The catheter was introduced. Guide wire removed intact. Each port aspirated then flushed with sterile normal saline and capped. Line secured to skin with silk suture. Biopatch placed around base of line. Sterile occlusive dressing applied. No complications. Patient tolerated the procedure well and his vitals remained stable. Raina HARVEY was present and assisted during the entire procedure
--- NOTE | 2018-12-21 12:02 | PN ---
Progress Note, Physician History of Present Illness: Pain adequately controlled, nausea and emesis. Oliguric renal failure planned for HD, on Lokelma for hyperkalemia and transfuse 2 U pRBC. - Current Medication List Current Medications: Active Medications Al Hydroxide/Mg Hydroxide (Mylanta Oral Suspension -) 30 ml PO Q4H PRN PRN Reason: DYSPEPSIA Aspirin (Asa -) 81 mg PO BID [facility] Last Admin: 12/18/18 21:40 Dose: 81 mg Fentanyl (Sublimaze Injection -) 50 mcg IVPUSH [id number] PRN PRN Reason: PAIN-PACU ORDER X 4 DOSES ONLY Folic Acid (Folic Acid -) 1 mg PO DAILY [facility] Last Admin: 12/21/18 11:43 Dose: 1 mg Hydromorphone HCl (Dilaudid Injection -) 1 mg IVPUSH Q4H PRN PRN Reason: PAIN LEVEL 4 - 6 Piperacillin Sod/Tazobactam (Sod 2.25 gm/ Dextrose) 50 mls @ 100 mls/hr IVPB Q8H-IV EPI; Protocol Sodium Chloride (Normal Saline -) 1,000 mls @ 100 mls/hr IV ASDIR [facility] Last Admin: 12/21/18 11:44 Dose: Not Given Magnesium Hydroxide (Milk Of Magnesia -) 30 ml PO PRN PRN PRN Reason: CONSTIPATION Metoprolol Succinate (Toprol Xl -) 12.5 mg PO DAILY [facility] Last Admin: 12/21/18 11:43 Dose: Not Given Ondansetron HCl (Zofran Injection) 4 mg IVPUSH Q6H PRN PRN Reason: NAUSEA Last Admin: 12/19/18 16:05 Dose: 4 mg Ondansetron HCl (Zofran Injection) 4 mg IVPUSH Q6H PRN PRN Reason: NAUSEA AND/OR VOMITING Pantoprazole Sodium (Protonix -) 40 mg PO DAILY [facility] Last Admin: 12/21/18 11:43 Dose: 40 mg Ranitidine HCl (Zantac -) 300 mg PO HS [facility] Last Admin: 12/20/18 21:40 Dose: 300 mg Senna/Docusate Sodium (Pericolace -) 2 tablet PO BID [facility] Last Admin: 12/21/18 11:43 Dose: 2 tablet Sodium Zirconium Cyclosilicate (Lokelma) 5 gm PO DAILY@0800 [facility] Last Admin: 12/21/18 09:54 Dose: 5 gm - Objective Vital Signs: Vital Signs Temperature 99.3 F 12/21/18 10:00 Pulse Rate 93 H 12/21/18 11:24 Respiratory Rate 16 12/21/18 11:24 Blood Pressure 141/72 12/21/18 11:24 O2 Sat by Pulse Oximetry (%) 100 12/21/18 08:09 Constitutional: Yes: No Distress, Calm, Thin Neck: Yes: Supple Cardiovascular: Yes: Regular Rate and Rhythm Respiratory: Yes: Regular, Diminished, On Nasal O2 Gastrointestinal: Yes: Soft, Hypoactive Bowel Sounds Edema: No Labs: CBC, BMP 12/21/18 05:45 12/21/18 05:45 INR, PTT INR 1.37 (0.83-1.09) H 12/21/18 09:25 - ....Imaging EKG: Report Reviewed (Tele: NSR) Problem List - Problems (1) ALLAN (acute kidney injury) Code(s): N17.9 - ACUTE KIDNEY FAILURE, UNSPECIFIED (2) Anemia Code(s): D64.9 - ANEMIA, UNSPECIFIED Qualifiers: Other causes of anemia: acute posthemorrhagic (3) Demand ischemia Code(s): I24.8 - OTHER FORMS OF ACUTE ISCHEMIC HEART DISEASE (4) HTN (hypertension) Code(s): I10 - ESSENTIAL (PRIMARY) HYPERTENSION Qualifiers: Hypertension type: essential hypertension Qualified Code(s): I10 - Essential (primary) hypertension (5) Hyperkalemia Code(s): E87.5 - HYPERKALEMIA (6) Leukocytosis Code(s): D72.829 - ELEVATED WHITE BLOOD CELL COUNT, UNSPECIFIED (7) Seizure Code(s): R56.9 - UNSPECIFIED CONVULSIONS (8) Shock liver Code(s): K72.00 - ACUTE AND SUBACUTE HEPATIC FAILURE WITHOUT COMA (9) Thrombocytopenia Code(s): D69.6 - THROMBOCYTOPENIA, UNSPECIFIED Assessment/Plan 12/19/2018 Echocardiography: Normal LV and RV size and fxn, mild TR RVSP 22 mmHg , LVEF 65% 1. Left hip revision, bone marrow autograft POD #3 2. Elevated troponin due to demand ischemia 3. Anemia and thrombocytopenia and leukocytosis due to acute blood loss and ? sepsis to be ruled out 4. Hypovolemic/Hemorrhagic Shock improving 5. ALLAN with hyperkalemia due to ATN with uremia 5. Elevated LFT c/w shock liver 6. Post op Seizure 7. Lactic acidosis 8. Post-op pancreatitis PLAN: 1. Seizure meds per neuro 2. Troponins downtrending 3. Further cardiac work up can be done once clinically stable 4. Low dose beta oscar as BP tolerates, continue ASA 81 qd 5. LFTs and lactate downtrending 6. Start HD via femoral line and Lokelma per renal. 6. Broad spectrum antibiotic and resendiz culture. ID input to follow 7. Monitor Hgb and Plt, transfuse as needed 8. Surgical follow up, monitor drain output, analgesia as needed 9. Mechanical DVT prophylaxis
--- NOTE | 2018-12-21 12:03 | PN ---
Teaching Attending Note Name of Resident: Kevan Jacques ATTENDING PHYSICIAN STATEMENT I saw and evaluated the patient. I reviewed the resident's note and discussed the case with the resident. I agree with the resident's findings and plan as documented. SUBJECTIVE: Pt seen and examined in the ICU. Remains oliguric, planned for HD today. Denies shortness of breath or chest pain. Receiving PRBC transfusions. OBJECTIVE: Vital Signs Period Temp Pulse Resp BP Sys/Hernandez Pulse Ox Last 24 Hr 98.4 F-99.3 F 93-104 14-18 131-155/67-76 100-100 Intake & Output 12/18/18 12/19/18 12/20/18 12/21/18 23:59 23:59 23:59 23:59 Intake Total 4875 6370 1881 1440 Output Total 2260 710 165 41 Balance 2615 5660 1716 1399 Weight 60.736 kg 74.843 kg 79.605 kg Gen: NAD at rest Heart: RRR Lung: decreased breath sounds at the bases Abd: soft, nontender Ext: no edema Drain with serosanguinous fluid CBC, BMP 12/21/18 05:45 12/21/18 05:45 Active Medications Al Hydroxide/Mg Hydroxide (Mylanta Oral Suspension -) 30 ml PO Q4H PRN PRN Reason: DYSPEPSIA Aspirin (Asa -) 81 mg PO BID [facility]S [facility] Last Admin: 12/18/18 21:40 Dose: 81 mg Fentanyl (Sublimaze Injection -) 50 mcg IVPUSH [id number] PRN PRN Reason: PAIN-PACU ORDER X 4 DOSES ONLY Folic Acid (Folic Acid -) 1 mg PO DAILY [facility] 234 BEDS [facility] Last Admin: 12/21/18 11:43 Dose: 1 mg Hydromorphone HCl (Dilaudid Injection -) 1 mg IVPUSH Q4H PRN PRN Reason: PAIN LEVEL 4 - 6 Piperacillin Sod/Tazobactam (Sod 2.25 gm/ Dextrose) 50 mls @ 100 mls/hr IVPB Q8H-IV EPI; Protocol Sodium Chloride (Normal Saline -) 1,000 mls @ 100 mls/hr IV ASDIR [facility]S [facility] 234 BEDS [facility] Last Admin: 12/21/18 11:44 Dose: Not Given Magnesium Hydroxide (Milk Of Magnesia -) 30 ml PO PRN PRN PRN Reason: CONSTIPATION Metoprolol Succinate (Toprol Xl -) 12.5 mg PO DAILY [facility] 234 BEDS [facility] Last Admin: 12/21/18 11:43 Dose: Not Given Ondansetron HCl (Zofran Injection) 4 mg IVPUSH Q6H PRN PRN Reason: NAUSEA Last Admin: 12/19/18 16:05 Dose: 4 mg Ondansetron HCl (Zofran Injection) 4 mg IVPUSH Q6H PRN PRN Reason: NAUSEA AND/OR VOMITING Pantoprazole Sodium (Protonix -) 40 mg PO DAILY [facility] 234 BEDS [facility] Last Admin: 12/21/18 11:43 Dose: 40 mg Ranitidine HCl (Zantac -) 300 mg PO HS [facility] 234 BEDS [facility] Last Admin: 12/20/18 21:40 Dose: 300 mg Senna/Docusate Sodium (Pericolace -) 2 tablet PO BID [facility] 234 BEDS [facility] Last Admin: 12/21/18 11:43 Dose: 2 tablet Sodium Zirconium Cyclosilicate (Lokelma) 5 gm PO DAILY@0800 [facility] 234 BEDS AT [facility] Last Admin: 12/21/18 09:54 Dose: 5 gm ASSESSMENT AND PLAN: s/p Left Hip Revision Acute Blood Loss Anemia Thrombocytopenia Hypovolemic/Hemorrhagic Shock improving Acute Kidney Injury requiring HD Shock Liver Lactic Acidosis +Troponins likely Demand Ischemia Seizure episode HTN GERD - monitor CBC, coags - transfuse as needed - IVF - monitor urine output, creatinine - HD per renal - pain control - monitor drain output - trend LFTs - antiepileptics - PO as tolerated, d/c NGT - DVT prophylaxis - continue ICU monitoring critical care time spent in reviewing chart, evaluating patient and formulating plan 35 min
[2018-12-21] MEDS ORDERED: SODIUM CHLORIDE 250 ML IV PRN (12:39)
--- NOTE | 2018-12-21 12:39 | PN ---
Progress Note, Physician History of Present Illness: Pt seen and examined at bedside. He is awake and alert. He has been oliguric and his renal function is worsening. He agrees to dialysis. - Current Medication List Current Medications: Active Medications Al Hydroxide/Mg Hydroxide (Mylanta Oral Suspension -) 30 ml PO Q4H PRN PRN Reason: DYSPEPSIA Aspirin (Asa -) 81 mg PO BID [facility] Last Admin: 12/18/18 21:40 Dose: 81 mg Fentanyl (Sublimaze Injection -) 50 mcg IVPUSH [id number] PRN PRN Reason: PAIN-PACU ORDER X 4 DOSES ONLY Folic Acid (Folic Acid -) 1 mg PO DAILY [facility] Last Admin: 12/21/18 11:43 Dose: 1 mg Hydromorphone HCl (Dilaudid Injection -) 1 mg IVPUSH Q4H PRN PRN Reason: PAIN LEVEL 4 - 6 Piperacillin Sod/Tazobactam (Sod 2.25 gm/ Dextrose) 50 mls @ 100 mls/hr IVPB Q8H-IV EPI; Protocol Sodium Chloride (Normal Saline -) 1,000 mls @ 100 mls/hr IV ASDIR [facility] Last Admin: 12/21/18 11:44 Dose: Not Given Magnesium Hydroxide (Milk Of Magnesia -) 30 ml PO PRN PRN PRN Reason: CONSTIPATION Metoprolol Succinate (Toprol Xl -) 12.5 mg PO DAILY [facility] Last Admin: 12/21/18 11:43 Dose: Not Given Ondansetron HCl (Zofran Injection) 4 mg IVPUSH Q6H PRN PRN Reason: NAUSEA Last Admin: 12/19/18 16:05 Dose: 4 mg Ondansetron HCl (Zofran Injection) 4 mg IVPUSH Q6H PRN PRN Reason: NAUSEA AND/OR VOMITING Pantoprazole Sodium (Protonix -) 40 mg PO DAILY [facility] Last Admin: 12/21/18 11:43 Dose: 40 mg Ranitidine HCl (Zantac -) 300 mg PO HS [facility] Last Admin: 12/20/18 21:40 Dose: 300 mg Senna/Docusate Sodium (Pericolace -) 2 tablet PO BID [facility] Last Admin: 12/21/18 11:43 Dose: 2 tablet - Objective Vital Signs: Vital Signs Temperature 99.3 F 12/21/18 10:00 Pulse Rate 93 H 12/21/18 11:24 Respiratory Rate 16 12/21/18 11:24 Blood Pressure 141/72 12/21/18 11:24 O2 Sat by Pulse Oximetry (%) 100 12/21/18 08:09 Constitutional: Yes: Calm Eyes: Yes: Conjunctiva Clear HENT: Yes: Atraumatic Neck: Yes: Supple Cardiovascular: Yes: S1, S2 Respiratory: Yes: CTA Bilaterally, On Nasal O2 Gastrointestinal: Yes: Soft Genitourinary: Yes: Vidal Present, Oliguria Musculoskeletal: Yes: Other (left hip pain) Edema: Yes Edema: LLE: 1+, RLE: 1+ Neurological: Yes: Oriented Psychiatric: Yes: Oriented Labs: CBC, BMP 12/21/18 05:45 12/21/18 05:45 INR, PTT INR 1.37 (0.83-1.09) H 12/21/18 09:25 Problem List - Problems (1) ALLAN (acute kidney injury) Code(s): N17.9 - ACUTE KIDNEY FAILURE, UNSPECIFIED (2) Anemia Code(s): D64.9 - ANEMIA, UNSPECIFIED Qualifiers: Other causes of anemia: acute posthemorrhagic (3) Hyperkalemia Code(s): E87.5 - HYPERKALEMIA (4) Seizure Code(s): R56.9 - UNSPECIFIED CONVULSIONS (5) Shock liver Code(s): K72.00 - ACUTE AND SUBACUTE HEPATIC FAILURE WITHOUT COMA Assessment/Plan Current Medications Generic Name Dose Route Start Last Admin Trade Name Freq PRN Reason Stop Dose Admin Al Hydroxide/Mg Hydroxide 30 ml 12/18/18 16:01 Mylanta Oral Suspension - PO Q4H PRN DYSPEPSIA Aspirin 81 mg 12/18/18 22:00 12/18/18 21:40 Asa - PO 81 mg BID EPI Administration Fentanyl 50 mcg 12/18/18 16:33 Sublimaze Injection - IVPUSH [id number] PRN PAIN-PACU ORDER X 4 DOSES ONLY Folic Acid 1 mg 12/19/18 10:00 12/21/18 11:43 Folic Acid - PO 1 mg DAILY EPI Administration Hydromorphone HCl 1 mg 12/18/18 16:35 Dilaudid Injection - IVPUSH Q4H PRN PAIN LEVEL 4 - 6 Piperacillin Sod/Tazobactam 50 mls @ 100 mls/hr 12/20/18 18:00 Sod 2.25 gm/ Dextrose IVPB Q8H-IV EPI Protocol Sodium Chloride 1,000 mls @ 100 mls/hr 12/20/18 11:06 12/21/18 11:44 Normal Saline - IV Not Given ASDIR EPI Magnesium Hydroxide 30 ml 12/18/18 16:01 Milk Of Magnesia - PO PRN PRN CONSTIPATION Metoprolol Succinate 12.5 mg 12/20/18 10:15 12/21/18 11:43 Toprol Xl - PO Not Given DAILY EPI Ondansetron HCl 4 mg 12/18/18 16:01 12/19/18 16:05 Zofran Injection IVPUSH 4 mg Q6H PRN Administration NAUSEA Ondansetron HCl 4 mg 12/18/18 16:33 Zofran Injection IVPUSH Q6H PRN NAUSEA AND/OR VOMITING Pantoprazole Sodium 40 mg 12/19/18 10:00 12/21/18 11:43 Protonix - PO 40 mg DAILY EPI Administration Ranitidine HCl 300 mg 12/18/18 22:00 12/20/18 21:40 Zantac - PO 300 mg HS EPI Administration Senna/Docusate Sodium 2 tablet 12/18/18 22:00 12/21/18 11:43 Pericolace - PO 2 tablet BID EPI Administration Impression 1. ALLAN 2. hyperkalemia 3. shock liver 4. seizure 5. s/p hip replacement 6. hx of htn 7. hypotension 8. gerd Plan - will arrange for HD today, risks and options explained to pt at length and he agrees - stop naseemmo - will treat hyperkalemia with hd - transfusions per primary team - follow renal workup - avoid nsaids and nephrotoxins - monitor mag levels - discussed with ICU
--- NOTE | 2018-12-21 13:18 | PN ---
Physical Exam: SUBJECTIVE: Patient seen and examined at the bedside. Denies any acute chest pain, sob, abd pain, dizziness, lightheadedness, hip pain. States his nausea has improved and has not vomited. States he has weakness. Will receive 2 units of blood prior to dialysis today. Will have labs drawn after dialysis. As per Dr. Jimenez, goal of Hgb/Hct 10. OBJECTIVE: Vital Signs Period Temp Pulse Resp BP Sys/Hernandez Pulse Ox Last 24 Hr 98.4 F-99.3 F 93-104 14-18 131-155/67-76 100-100 GENERAL: A&Ox3, no acute distress EYES: PERRLA, EOMI ENT: Dry mucus membranes NECK: No JVD noted. LUNGS: CTA, no wheezes HEART: RRR, no murmurs or rubs appreciated. ABDOMEN: Soft, nontender, BS present EXTREMITIES: 2+ pulses, no edema. Dressing on L hip dry and intact. NEUROLOGICAL: Cranial nerves II-XII intact. Laboratory Results - last 24 hr 12/18/18 12/20/18 12/21/18 07:10 21:55 05:45 WBC 26.8 H 23.9 H RBC 2.92 L 2.36 L Hgb 8.8 L 7.2 L Hct 26.3 L D 21.0 L D MCV 90.1 89.2 MCH 30.1 30.4 MCHC 33.4 34.0 RDW 17.3 H 17.7 H Plt Count 93 L 83 L MPV 9.8 9.6 PT with INR INR PTT (Actin FS) Sodium Potassium Chloride Carbon Dioxide Anion Gap BUN Creatinine Est GFR (CKD-EPI)AfAm Est GFR (CKD-EPI)NonAf Random Glucose Lactic Acid Calcium Phosphorus Magnesium Total Bilirubin AST ALT Alkaline Phosphatase Total Protein Albumin Blood Type O POSITIVE Antibody Screen Negative Crossmatch See Detail Crossmatch IS Only See Detail 12/21/18 12/21/18 12/21/18 05:45 05:45 08:40 WBC RBC Hgb Hct MCV MCH MCHC RDW Plt Count MPV PT with INR INR PTT (Actin FS) Sodium 142 Potassium 5.4 H Chloride 113 H Carbon Dioxide 18 L Anion Gap 11 BUN 75.3 H Creatinine 8.5 H* Est GFR (CKD-EPI)AfAm 6.66 Est GFR (CKD-EPI)NonAf 5.75 Random Glucose 96 Lactic Acid 1.1 Calcium 7.8 L Phosphorus 4.6 Magnesium 2.0 Total Bilirubin 1.6 H AST 3816 H ALT 469 H Alkaline Phosphatase 99 Total Protein 4.0 L Albumin 2.1 L Blood Type Cancelled Antibody Screen Cancelled Crossmatch See Detail Crossmatch IS Only 12/21/18 12/21/18 09:25 10:30 WBC RBC Hgb Hct MCV MCH MCHC RDW Plt Count MPV PT with INR 16.20 H INR 1.37 H PTT (Actin FS) 30.2 Sodium Potassium Chloride Carbon Dioxide Anion Gap BUN Creatinine Est GFR (CKD-EPI)AfAm Est GFR (CKD-EPI)NonAf Random Glucose Lactic Acid Calcium Phosphorus Magnesium Total Bilirubin AST ALT Alkaline Phosphatase Total Protein Albumin Blood Type O POSITIVE Antibody Screen Negative Crossmatch See Detail Crossmatch IS Only Active Medications Generic Name Dose Route Start Last Admin Trade Name Freq PRN Reason Stop Dose Admin Al Hydroxide/Mg Hydroxide 30 ml 12/18/18 16:01 Mylanta Oral Suspension - PO Q4H PRN DYSPEPSIA Aspirin 81 mg 12/18/18 22:00 12/18/18 21:40 Asa - PO 81 mg BID EPI Administration Fentanyl 50 mcg 12/18/18 16:33 Sublimaze Injection - IVPUSH [id number] PRN PAIN-PACU ORDER X 4 DOSES ONLY Folic Acid 1 mg 12/19/18 10:00 12/21/18 11:43 Folic Acid - PO 1 mg DAILY EPI Administration Hydromorphone HCl 1 mg 12/18/18 16:35 Dilaudid Injection - IVPUSH Q4H PRN PAIN LEVEL 4 - 6 Piperacillin Sod/Tazobactam 50 mls @ 100 mls/hr 12/20/18 18:00 Sod 2.25 gm/ Dextrose IVPB Q8H-IV EPI Protocol Sodium Chloride 1,000 mls @ 100 mls/hr 12/20/18 11:06 12/21/18 11:44 Normal Saline - IV Not Given ASDIR EPI Sodium Chloride 250 mls @ 3,000 mls/hr 12/21/18 12:39 Normal Saline - IV 12/22/18 12:39 PRN PRN Hypotension during Dialysis Magnesium Hydroxide 30 ml 12/18/18 16:01 Milk Of Magnesia - PO PRN PRN CONSTIPATION Metoprolol Succinate 12.5 mg 12/20/18 10:15 12/21/18 11:43 Toprol Xl - PO Not Given DAILY EPI Ondansetron HCl 4 mg 12/18/18 16:01 12/19/18 16:05 Zofran Injection IVPUSH 4 mg Q6H PRN Administration NAUSEA Ondansetron HCl 4 mg 12/18/18 16:33 Zofran Injection IVPUSH Q6H PRN NAUSEA AND/OR VOMITING Pantoprazole Sodium 40 mg 12/19/18 10:00 12/21/18 11:43 Protonix - PO 40 mg DAILY EPI Administration Ranitidine HCl 300 mg 12/18/18 22:00 12/20/18 21:40 Zantac - PO 300 mg HS EPI Administration Senna/Docusate Sodium 2 tablet 12/18/18 22:00 12/21/18 11:43 Pericolace - PO 2 tablet BID EPI Administration ASSESSMENT/PLAN: Richard Jean-Baptiste is a 68 year old male with a past medical history of hypertension, GERD, multiple total hip replacements (1986,1995, 2017) who presented for a revision of left total hip replacement with Dr. Jimenez admitted to the ICU for continued monitoring post-op. L hip total hip replacement HTN GERD Tropinemia secondary to demand ischemia ALLAN secondary to hypovolemia Elevated LFTs secondary to hypovolemia NEUROLOGIC - pain control as per anesthesia, acetaminophen, hydromorphone, fentanyl - remains tired but is easily arousable, continue to monitor neuro status - Dr. Philip consulted, recs appreciated - head CT does not show any acute intracranial pathology CARDIOLOGY - hold home BP meds - monitor hemodynamics in the setting of blood loss - BP have normalized with good MAPs in the 80s - will receive 2 units of blood today before starting dialysis, as per Dr. Jimenez goal of Hgb/Hct 10.0/30 - will check CBC after dialysis today - continue NS at 100cc/hr - troponins trending down, likely elevated in setting of hypovolemia - Dr. Arita consulted, recs appreciated - Echo showing EF 65% RESPIRATORY - on NC, good saturations - encourage incentive spirometry - CT showing bibasilar atelectatic changes, likely post-op RENAL - CRE worsening, likely ALLAN leading to ATN - poor urine output, 165cc output yesterday - continue hydration - Bladder/renal U/s showing morphologically normal kidneys with no hydronephrosis or obstruction - agreeable to dialysis, will start dialysis after receiving 2 units of blood, should not start dialysis before receiving full 2 units of PRBCs as per Dr. Jimenez - Dr. Batista consulted, recs appreciated - lokelma discontinued GASTROINTESTINAL - zofran for nausea, continue as patient continues to have nausea and vomiting - home ranitidine - protonix - senna/colace while on opiates - LFTs improving from shock liver due to hypovolemia - increased amount of fluid in stomach - NG tube removed - CT of abd pelvis showing enlarged stomach with increased fluid, cysts on kidneys, no evidence of abscess, post-op changes on L hip INFECTIOUS DISEASE - ancef and vanco completed - monitor for WBC and fevers - cultures negative after 24 hours - lactic acid normalized - Zosyn and vanco given once HEMATOLOGY - Hgb 9.5 pre-op - EBL during surgery 1.5L - given 5 units in last 2 days - today Hgb 7.2, given 2 units today prior to dialysis - monitor white count MUSCULOSKELETAL - monitor neurological checks - PT/OT/OOB/Rehab once stable - f/u with Dr. Jimenez in office in 1 week post discharge - maintain hodges until ambulating F/E/N - NS at 100cc/hr - continue to monitor electrolytes and replete as necessary - regular diet as tolerated PROPHYLAXIS - aspirin on hold in setting of low blood counts - SCDs CODE - full code DISPO - continue to monitor in ICU CASE DISCUSSED WITH DR CATHLEEN MI DO - PGY-1 INTERNAL MEDICINE Visit type - Emergency Visit Emergency Visit: No - New Patient This patient is new to me today: No - Critical Care Critical Care patient: Yes Total Critical Care Time (in minutes): 42 Critical Care Statement: The care of this patient involved high complexity decision making to prevent further life threatening deterioration of the patient 's condition and/or to evaluate & treat vital organ system(s) failure or risk of failure.
[2018-12-21 15:14] LABS: ARTERIAL BLOOD GAS PCO2 32.4 mmHg (35-45); ARTERIAL BLOOD GAS PO2 95.9 mmHg (80-105)
[2018-12-21 15:15] LABS: ALLENS TEST POSITIVE
--- NOTE | 2018-12-21 17:22 | PN ---
Progress Note, Physician Chief Complaint: C/O fatigue, nausea - Current Medication List Current Medications: Active Medications Al Hydroxide/Mg Hydroxide (Mylanta Oral Suspension -) 30 ml PO Q4H PRN PRN Reason: DYSPEPSIA Aspirin (Asa -) 81 mg PO BID [facility] Last Admin: 12/18/18 21:40 Dose: 81 mg Fentanyl (Sublimaze Injection -) 50 mcg IVPUSH [id number] PRN PRN Reason: PAIN-PACU ORDER X 4 DOSES ONLY Folic Acid (Folic Acid -) 1 mg PO DAILY [facility] Last Admin: 12/21/18 11:43 Dose: 1 mg Hydromorphone HCl (Dilaudid Injection -) 1 mg IVPUSH Q4H PRN PRN Reason: PAIN LEVEL 4 - 6 Piperacillin Sod/Tazobactam (Sod 2.25 gm/ Dextrose) 50 mls @ 100 mls/hr IVPB Q8H-IV EPI; Protocol Sodium Chloride (Normal Saline -) 1,000 mls @ 100 mls/hr IV ASDIR [facility] Last Admin: 12/21/18 11:44 Dose: Not Given Sodium Chloride (Normal Saline -) 250 mls @ 3,000 mls/hr IV PRN PRN PRN Reason: Hypotension during Dialysis Stop: 12/22/18 12:39 Magnesium Hydroxide (Milk Of Magnesia -) 30 ml PO PRN PRN PRN Reason: CONSTIPATION Metoprolol Succinate (Toprol Xl -) 12.5 mg PO DAILY [facility] Last Admin: 12/21/18 11:43 Dose: Not Given Ondansetron HCl (Zofran Injection) 4 mg IVPUSH Q6H PRN PRN Reason: NAUSEA Last Admin: 12/19/18 16:05 Dose: 4 mg Ondansetron HCl (Zofran Injection) 4 mg IVPUSH Q6H PRN PRN Reason: NAUSEA AND/OR VOMITING Pantoprazole Sodium (Protonix -) 40 mg PO DAILY [facility] Last Admin: 12/21/18 11:43 Dose: 40 mg Ranitidine HCl (Zantac -) 300 mg PO HS [facility] Last Admin: 12/20/18 21:40 Dose: 300 mg Senna/Docusate Sodium (Pericolace -) 2 tablet PO BID [facility] Last Admin: 12/21/18 11:43 Dose: 2 tablet - Objective Vital Signs: Vital Signs Temperature 99.2 F 12/21/18 16:00 Pulse Rate 86 12/21/18 17:00 Respiratory Rate 18 12/21/18 17:00 Blood Pressure 136/77 12/21/18 17:00 O2 Sat by Pulse Oximetry (%) 100 12/21/18 08:09 Constitutional: Yes: Calm Eyes: Yes: WNL HENT: Yes: WNL Neck: Yes: WNL Cardiovascular: Yes: WNL Respiratory: Yes: Diminished Gastrointestinal: Yes: Hypoactive Bowel Sounds Genitourinary: Yes: WNL Musculoskeletal: Yes: Joint Stiffness, Muscle Pain Extremities: Yes: WNL Edema: No Peripheral Pulses WNL: Yes Integumentary: Yes: WNL Neurological: Yes: WNL Psychiatric: Yes: WNL Labs: CBC, BMP 12/21/18 05:45 12/21/18 05:45 INR, PTT INR 1.37 (0.83-1.09) H 12/21/18 09:25 Assessment/Plan 68 yo man who Failed left total hip replacement, Massive osteolysis, Gait abnormalit. Fall risk now S/P Revision left total hip replacement. 2. Bone marrow aspiration and autograft, POD#3. pain management. incentive spirometry. post-op course complicated by hypovolemic shock. aggressively rescitated with IV fluids and 5 units total PRBC. drain management as per surgery. -elevated LFT's: shock liver. will monitor. trending lower. expecting daily improvement as shock resolves. -elevated troponins: likely demand ischemia. cardiology eval noted. will monitor for now. -pancreatitis: post-op. triglycerides WNL. -GI, DVT prophylaxis. TEDs. -acute on chronic iron deficiency anemia, post-op acute blood loss anemia: PRBC given alessio-operatively. S/P platelets and FFP. cont folate. another unit ordered on 12/21. 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 no need for hematuria workup. HD started today. renal eval appreciated. no acute findings on bladder and renal US. -post op seizure with lactic acidosis. Patient was loaded with iv keppra. neurology eval noted. unlikely to need halfway treatment. -stool softeners added to prevent opioid induced constipation. -ID: ancef given operatively. now on zosyn. -PT/OT/OOB when able -full code -assessment and plan discussed with Pt and medical staff. labs and meds reviewed. -ICU care appreciated. phone calls answered throughout the day plan discussed with Dr Jimenez. 35 min. please get daily ABG and CK.
[2018-12-21 18:15] LABS: HEMATOCRIT 31.6 % (35.4-49); HEMOGLOBIN 10.7 GM/dL (11.7-16.9); MCH 29.9 pg (25.7-33.7); MCHC 33.8 g/dl (32.0-35.9); MEAN CELL VOLUME 88.5 fl (80-96); MEAN PLT VOLUME 9.8 fl (7.5-11.1); PLATELET COUNT 81 K/MM3 (134-434); RBC 3.57 M/mm3 (4.00-5.60); RDW 15.6 % (11.9-15.9)
[2018-12-21 18:47] LABS: WHITE BLOOD COUNT 39.1 K/mm3 (4.0-10.0)
[2018-12-21 19:14] LABS: BLOOD UREA NITROGEN 31.5 mg/dL (7-18); CALCIUM 7.5 mg/dL (8.5-10.1); CREATININE 3.9 mg/dL (0.55-1.3); POTASSIUM 3.3 mmol/L (3.5-5.1)
[2018-12-21] MEDS: ASPIRIN 81 MG CHEWABLE TABLETS PO SCH (22:56)
[2018-12-21] MEDS: RANITIDINE HCL 150 MG TABLET (FP) PO SCH (22:56)
[2018-12-22 07:00] LABS: ARTERIAL BLD GAS O2 SATURATION 97.3 % (95-98); ARTERIAL BLOOD GAS BASE EXCESS -1.6 meq/l (-2-2); ARTERIAL BLOOD GAS PCO2 34.9 mmHg (35-45); ARTERIAL BLOOD GAS PO2 88.9 mmHg (80-105); ARTERIAL BLOOD GAS pH 7.42 (7.35-7.45)
[2018-12-22 07:02] LABS: ALBUMIN 1.9 g/dl (3.4-5.0); BILIRUBIN,TOTAL 1.9 mg/dL (0.2-1); BLOOD UREA NITROGEN 60.5 mg/dL (7-18); CALCIUM 7.5 mg/dL (8.5-10.1); INR 1.2 (0.83-1.09); MAGNESIUM 2.1 mg/dL (1.8-2.4); PHOSPHOROUS 4.1 mg/dL (2.5-4.9); PROTHROMBIN TIME (PATIENT) 14.2 SEC (9.7-13.0); TOT PROT 3.7 g/dl (6.4-8.2)
[2018-12-22 07:05] LABS: ACTIVATED PTT 27.7 SECONDS (25.2-36.5)
[2018-12-22 07:09] LABS: ALLENS TEST POSITIVE
[2018-12-22 07:18] LABS: CREATININE 7.4 mg/dL (0.55-1.3); HEMATOCRIT 24.9 % (35.4-49); HEMOGLOBIN 8.6 GM/dL (11.7-16.9); MCH 30.6 pg (25.7-33.7); MCHC 34.7 g/dl (32.0-35.9); MEAN CELL VOLUME 88.2 fl (80-96); MEAN PLT VOLUME 9.4 fl (7.5-11.1); PLATELET COUNT 77 K/MM3 (134-434); RBC 2.82 M/mm3 (4.00-5.60); RDW 16.1 % (11.9-15.9)
[2018-12-22 07:43] LABS: WHITE BLOOD COUNT 32.6 K/mm3 (4.0-10.0)
--- NOTE | 2018-12-22 07:55 | PN ---
Progress Note (short form) - Note Progress Note: surgery 68M s/p revision LEFT total hip replacement POD #4. Acute blood loss anemia with multi-system organ shock. Patient seen and examined at bedside with no complaints. Patient states he is feeling better this morning. The resident reports no overnight issues. He received 2 units of PRBC and had 1500 taken off with HD yesterday. His vitals remained stable throughout the night. The patient denies any CP, SOB, N/V, fever, headache, chills or blurred vision. Vital Signs Temp 98.6 F 12/22/18 06:00 Pulse 81 12/22/18 06:00 Resp 14 12/22/18 06:00 BP 119/65 12/22/18 06:00 Pulse Ox 100 12/21/18 21:00 Intake & Output 12/21/18 12/21/18 12/22/18 11:59 23:59 11:59 Intake Total 1440 2060 700 Output Total 41 1500 56 Balance 1399 560 644 Weight 175 lb 8 oz 175 lb Intake: IV 1200 1000 600 Normal Saline - 1,000 ml 1200 500 @ 100 mls/hr IV ASDIR EPI Rx#:[id number] Normal Saline - 1,000 ml 600 @ 50 mls/hr IV ASDIR EPI Rx#:[id number] Normal Saline - 250 ml @ 500 3000 mls/hr IV PRN PRN Rx #:[id number] Oral 240 300 100 Packed Cells 700 Tube Irrigant 60 Output: Drainage 31 41 Left Hip 31 41 Urine 10 15 Vidal 10 15 Fluid Removed, 1500 Hemodialysis Other: Voiding Method Indwelling Catheter Indwelling Catheter Indwelling Catheter Bowel Movement Yes No No # Bowel Movements 1 Weight Measurement Method Built in [facility] Built in [facility] CBC, BMP 12/22/18 05:30 12/22/18 05:30 PE: A&O x 3, NAD. Unlabored resp on RA L-Hip: thigh with diffuse edema appropriate to status- soft and supple, Dressing C/D/I. with surrounding tissue intact no evidence of active bleeding. Drain intact & in place with 41ml output overnight. B/L LE compartments soft, supple and non-tender with +2 DP pulses. 5/5 dorsi/ plantar flexion b/l LE NVI distally with SCDs in place and abduction pillow in place Problem List - Problems (1) S/P revision of total hip Assessment/Plan: 68M s/p revision LEFT total hip replacement POD #4 with acute blood loss anemia and multi-system shock, slowly improving. -Transfuse 2 units PRBC now -Transfuse 1 unit platlets now - Dialysis per renal- Dr Iverson aware -Pain control. -DVT PPx: -Chemical: ASA 81mg PO BID x 6 weeks. -Mechanical: TARIK's, SCD's. -Incentive spirometry q15 min. -PT/OT/Rehab, OOB. -WBAT LLE. -Vidal catheter care. -f/u drain output. -f/u all labs; will evaluate need for transfusion accordingly. -Diet as tolerated. -Care per ICU, renal, and medical hospitalist teams. -Discharge planning: f/u [facility] [place] [facility] w/in 1 week of discharge; call for appointment . -Medical plan discussed with and understood by patient and ICU team Evaluation and plan discussed with Dr Emile Jimenez and Dr Iverson Code(s): Z96.649 - PRESENCE OF UNSPECIFIED ARTIFICIAL HIP JOINT
[2018-12-22 10:37] LABS: BASO % 0.3 % (0-2.0); EOS % 0.5 % (0-4.5); HEMATOCRIT 25.5 % (35.4-49); HEMOGLOBIN 8.7 GM/dL (11.7-16.9); LYMPH % 3.6 % (8-40); MCH 30.1 pg (25.7-33.7); MCHC 34.2 g/dl (32.0-35.9); MEAN CELL VOLUME 87.8 fl (80-96); MEAN PLT VOLUME 9.8 fl (7.5-11.1); MONO % 3.6 % (3.8-10.2); PLATELET COUNT 82 K/MM3 (134-434); RBC 2.91 M/mm3 (4.00-5.60); RDW 15.9 % (11.9-15.9)
[2018-12-22 10:48] LABS: CORRECTED WBC 18.67 K/mm3; WHITE BLOOD COUNT 32.3 K/mm3 (4.0-10.0)
--- NOTE | 2018-12-22 10:55 | PN ---
Physical Exam: SUBJECTIVE: Patient seen and examined at bedside. Overnight patient produced minimal amount of urine < 10cc. Reported that he received dialysis and 1L fluid was removed. H&H continues to drop. Patient reports no pain in the hip, no shortness of breath or chest pain. Denies any complaints. OBJECTIVE: Vital Signs Period Temp Pulse Resp BP Sys/Hernandez Pulse Ox Last 24 Hr 97.9 F-99.8 F 72-93 13-19 119-154/63-86 100-100 GENERAL: A&Ox3, no acute distress EYES: PERRLA, EOMI ENT: Dry mucus membranes NECK: No JVD LUNGS: CTA, no wheezes HEART: RRR, no murmurs ABDOMEN: Soft, nontender, BS present EXTREMITIES: 2+ pulses, no edema. Dialysis catheter in place R groin; postsurgical dressing on L thigh intact and not bloody NEUROLOGICAL: Cranial nerves II-XII intact. Laboratory Results - last 24 hr 12/18/18 12/21/18 12/21/18 07:10 05:45 10:30 WBC Corrected WBC (auto) RBC Hgb Hct MCV MCH MCHC RDW Plt Count MPV Absolute Neuts (auto) Total Counted Neutrophils % Neutrophils % (Manual) Band Neutrophils % Lymphocytes % Lymphocytes % (Manual) Monocytes % Monocytes % (Manual) Eosinophils % Eosinophils % (Manual) Basophils % Basophils % (Manual) Myelocytes % (Man) Promyelocytes % (Man) Blast Cells % (Manual) Nucleated RBC % Metamyelocytes Differential Comment Hypersegmented Neuts Plasma Cells Smudge Cells Other Cell Type Hypochromia Toxic Granulation Dohle Bodies Platelet Estimate Platelet Comment Polychromasia Poikilocytosis Basophilic Stippling Anisocytosis Microcytosis Macrocytosis Spherocytes Siderocytes Sickle Cells Target Cells Tear Drop Cells Ovalocytes Stomatocytes Helmet Cells Fonseca-Marfa Bodies Cecil Rings Jamal Cells Acanthocytes (Spur) Rouleaux Fragmented RBCs Schistocytes Retic Count PT with INR INR PTT (Actin FS) Anticoagulation Therapy Puncture Site ABG pH ABG pCO2 at Pt Temp ABG pO2 at Pt Temp ABG HCO3 ABG O2 Sat (Measured) ABG O2 Content ABG Base Excess [place] Test O2 Delivery Device Oxygen Flow Rate Vent Mode Vent Rate Mechanical Rate Pressure Support Vent Sodium Potassium Chloride Carbon Dioxide Anion Gap BUN Creatinine Est GFR (CKD-EPI)AfAm Est GFR (CKD-EPI)NonAf Random Glucose Calcium Phosphorus Magnesium Total Bilirubin AST ALT Alkaline Phosphatase Creatine Kinase Creatine Kinase Index CK-MB (CK-2) Total Protein Albumin Hep Bs Antigen Negative Hep C Ab Diagnostic Cancelled Hepatitis C RNA Cancelled 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 Cancelled HCV RNA (PCR) IUs/ml Cancelled HCV RNA PCR w/Genot Rflx Cancelled Liver Fibrosis Interp Cancelled Blood Type O POSITIVE O POSITIVE Antibody Screen Negative Negative Crossmatch See Detail See Detail Crossmatch IS Only See Detail 12/21/18 12/21/18 12/21/18 15:10 15:30 17:10 WBC Corrected WBC (auto) RBC Hgb Hct MCV MCH MCHC RDW Plt Count MPV Absolute Neuts (auto) Total Counted Neutrophils % Neutrophils % (Manual) Band Neutrophils % Lymphocytes % Lymphocytes % (Manual) Monocytes % Monocytes % (Manual) Eosinophils % Eosinophils % (Manual) Basophils % Basophils % (Manual) Myelocytes % (Man) Promyelocytes % (Man) Blast Cells % (Manual) Nucleated RBC % Metamyelocytes Differential Comment Hypersegmented Neuts Plasma Cells Smudge Cells Other Cell Type Hypochromia Toxic Granulation Dohle Bodies Platelet Estimate Platelet Comment Polychromasia Poikilocytosis Basophilic Stippling Anisocytosis Microcytosis Macrocytosis Spherocytes Siderocytes Sickle Cells Target Cells Tear Drop Cells Ovalocytes Stomatocytes Helmet Cells Fonseca-Marfa Bodies Cecil Rings Ellerbe Cells Acanthocytes (Spur) Rouleaux Fragmented RBCs Schistocytes Retic Count PT with INR INR PTT (Actin FS) Anticoagulation Therapy Puncture Site Right radial ABG pH 7.40 ABG pCO2 at Pt Temp 32.4 L ABG pO2 at Pt Temp 95.9 ABG HCO3 19.6 L ABG O2 Sat (Measured) 98.0 ABG O2 Content 14.2 L ABG Base Excess -4.0 L [place] Test Positive O2 Delivery Device Oxygen Flow Rate 3l Vent Mode Vent Rate Mechanical Rate Pressure Support Vent Sodium 142 Potassium 3.3 L Chloride 105 Carbon Dioxide 28 Anion Gap 9 BUN 31.5 H Creatinine 3.9 H Est GFR (CKD-EPI)AfAm 17.10 Est GFR (CKD-EPI)NonAf 14.75 Random Glucose 121 H Calcium 7.5 L Phosphorus Magnesium Total Bilirubin AST ALT Alkaline Phosphatase Creatine Kinase Creatine Kinase Index CK-MB (CK-2) Total Protein Albumin Hep Bs Antigen Hep C Ab Diagnostic Hepatitis C RNA Radioactivity Technician 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 Radioactivity Technician HCV RNA (PCR) IUs/ml Radioactivity Technician HCV RNA PCR w/Genot Rflx Radioactivity Technician Liver Fibrosis Interp Radioactivity Technician Blood Type Antibody Screen Crossmatch Crossmatch IS Only 12/21/18 12/22/18 12/22/18 17:10 05:30 05:30 WBC 39.1 H* 32.6 H* Corrected WBC (auto) RBC 3.57 L 2.82 L Hgb 10.7 L 8.6 L Hct 31.6 L D 24.9 L D MCV 88.5 88.2 MCH 29.9 30.6 MCHC 33.8 34.7 RDW 15.6 D 16.1 H Plt Count 81 L 77 L MPV 9.8 9.4 Absolute Neuts (auto) Total Counted Cancelled Neutrophils % Neutrophils % (Manual) Cancelled Band Neutrophils % Cancelled Lymphocytes % Lymphocytes % (Manual) Cancelled Monocytes % Monocytes % (Manual) Cancelled Eosinophils % Eosinophils % (Manual) Cancelled Basophils % Basophils % (Manual) Cancelled Myelocytes % (Man) Cancelled Promyelocytes % (Man) Cancelled Blast Cells % (Manual) Cancelled Nucleated RBC % Cancelled Metamyelocytes Cancelled Differential Comment Cancelled Hypersegmented Neuts Cancelled Plasma Cells Cancelled Smudge Cells Cancelled Other Cell Type Cancelled Hypochromia Cancelled Toxic Granulation Cancelled Dohle Bodies Cancelled Platelet Estimate Cancelled Platelet Comment Cancelled Polychromasia Cancelled Poikilocytosis Cancelled Basophilic Stippling Cancelled Anisocytosis Cancelled Microcytosis Cancelled Macrocytosis Cancelled Spherocytes Cancelled Siderocytes Cancelled Sickle Cells Cancelled Target Cells Cancelled Tear Drop Cells Cancelled Ovalocytes Cancelled Stomatocytes Cancelled Helmet Cells Cancelled Fonseca-Marfa Bodies Cancelled Cecil Rings Cancelled Jamal Cells Cancelled Acanthocytes (Spur) Cancelled Rouleaux Cancelled Fragmented RBCs Cancelled Schistocytes Cancelled Retic Count PT with INR INR PTT (Actin FS) Anticoagulation Therapy Puncture Site ABG pH ABG pCO2 at Pt Temp ABG pO2 at Pt Temp ABG HCO3 ABG O2 Sat (Measured) ABG O2 Content ABG Base Excess [place] Test O2 Delivery Device Oxygen Flow Rate Vent Mode Vent Rate Mechanical Rate Pressure Support Vent Sodium 140 Potassium 4.0 Chloride 107 Carbon Dioxide 24 Anion Gap 10 BUN 60.5 H Creatinine 7.4 H* Est GFR (CKD-EPI)AfAm 7.88 Est GFR (CKD-EPI)NonAf 6.80 Random Glucose 83 Calcium 7.5 L Phosphorus 4.1 Magnesium 2.1 Total Bilirubin 1.9 H AST 1815 H ALT 287 H Alkaline Phosphatase 91 Creatine Kinase Creatine Kinase Index CK-MB (CK-2) Total Protein 3.7 L Albumin 1.9 L Hep Bs Antigen Hep C Ab Diagnostic Hepatitis C RNA 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 HCV RNA (PCR) IUs/ml HCV RNA PCR w/Genot Rflx Liver Fibrosis Interp Blood Type Antibody Screen Crossmatch Crossmatch IS Only 12/22/18 12/22/18 12/22/18 05:30 05:30 06:45 WBC Corrected WBC (auto) RBC Hgb Hct MCV MCH MCHC RDW Plt Count MPV Absolute Neuts (auto) Total Counted Neutrophils % Neutrophils % (Manual) Band Neutrophils % Lymphocytes % Lymphocytes % (Manual) Monocytes % Monocytes % (Manual) Eosinophils % Eosinophils % (Manual) Basophils % Basophils % (Manual) Myelocytes % (Man) Promyelocytes % (Man) Blast Cells % (Manual) Nucleated RBC % Metamyelocytes Differential Comment Hypersegmented Neuts Plasma Cells Smudge Cells Other Cell Type Hypochromia Toxic Granulation Dohle Bodies Platelet Estimate Platelet Comment Polychromasia Poikilocytosis Basophilic Stippling Anisocytosis Microcytosis Macrocytosis Spherocytes Siderocytes Sickle Cells Target Cells Tear Drop Cells Ovalocytes Stomatocytes Helmet Cells Fonseca-Marfa Bodies Cecil Rings Ellerbe Cells Acanthocytes (Spur) Rouleaux Fragmented RBCs Schistocytes Retic Count PT with INR 14.20 H INR 1.20 H PTT (Actin FS) 27.7 Anticoagulation Therapy No Result Required. Puncture Site Right radial ABG pH 7.42 ABG pCO2 at Pt Temp 34.9 L ABG pO2 at Pt Temp 88.9 ABG HCO3 22.0 ABG O2 Sat (Measured) 97.3 ABG O2 Content 11.5 L ABG Base Excess -1.6 [place] Test Positive O2 Delivery Device N/c Oxygen Flow Rate 2l Vent Mode No Result Required. Vent Rate No Result Required. Mechanical Rate No Result Required. Pressure Support Vent No Result Required. 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 HCV RNA (PCR) IUs/ml HCV RNA PCR w/Genot Rflx Liver Fibrosis Interp Blood Type Antibody Screen Crossmatch Crossmatch IS Only 12/22/18 12/22/18 10:20 10:20 WBC Corrected WBC (auto) 18.67 RBC 2.91 L Hgb 8.7 L Hct 25.5 L MCV 87.8 MCH 30.1 MCHC 34.2 RDW 15.9 Plt Count 82 L MPV 9.8 Absolute Neuts (auto) 17.0 H Total Counted Neutrophils % 92.0 H D Neutrophils % (Manual) Band Neutrophils % Lymphocytes % 3.6 L D Lymphocytes % (Manual) Monocytes % 3.6 L Monocytes % (Manual) Eosinophils % 0.5 Eosinophils % (Manual) Basophils % 0.3 Basophils % (Manual) Myelocytes % (Man) Promyelocytes % (Man) Blast Cells % (Manual) Nucleated RBC % 73 H* D Metamyelocytes Differential Comment Hypersegmented Neuts Plasma Cells Smudge Cells Other Cell Type Hypochromia Toxic Granulation Dohle Bodies Platelet Estimate Platelet Comment Polychromasia Poikilocytosis Basophilic Stippling Anisocytosis Microcytosis Macrocytosis Spherocytes Siderocytes Sickle Cells Target Cells Tear Drop Cells Ovalocytes Stomatocytes Helmet Cells Fonseca-Marfa Bodies Cecil Rings Jamal Cells Acanthocytes (Spur) Rouleaux Fragmented RBCs Schistocytes Retic Count 4.39 H PT with INR INR PTT (Actin FS) Anticoagulation Therapy Puncture Site ABG pH ABG pCO2 at Pt Temp ABG pO2 at Pt Temp ABG HCO3 ABG O2 Sat (Measured) ABG O2 Content ABG Base Excess [place] Test O2 Delivery Device Oxygen Flow Rate Vent Mode Vent Rate Mechanical Rate Pressure Support Vent Sodium Potassium Chloride Carbon Dioxide Anion Gap BUN Creatinine Est GFR (CKD-EPI)AfAm Est GFR (CKD-EPI)NonAf Random Glucose Calcium Phosphorus Magnesium Total Bilirubin AST ALT Alkaline Phosphatase Creatine Kinase Creatine Kinase Index CK-MB (CK-2) Total Protein Albumin Hep Bs Antigen Hep C Ab Diagnostic Hepatitis C RNA 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 HCV RNA (PCR) IUs/ml HCV RNA PCR w/Genot Rflx Liver Fibrosis Interp Blood Type Antibody Screen Crossmatch Crossmatch IS Only Active Medications Generic Name Dose Route Start Last Admin Trade Name Freq PRN Reason Stop Dose Admin Al Hydroxide/Mg Hydroxide 30 ml 12/18/18 16:01 Mylanta Oral Suspension - PO Q4H PRN DYSPEPSIA Aspirin 81 mg 12/18/18 22:00 12/21/18 22:56 Asa - PO 81 mg BID EPI Administration Folic Acid 1 mg 12/19/18 10:00 12/21/18 11:43 Folic Acid - PO 1 mg DAILY EPI Administration Piperacillin Sod/Tazobactam 50 mls @ 100 mls/hr 12/20/18 18:00 Sod 2.25 gm/ Dextrose IVPB Q8H-IV EPI Protocol Sodium Chloride 250 mls @ 3,000 mls/hr 12/21/18 12:39 Normal Saline - IV 12/22/18 12:39 PRN PRN Hypotension during Dialysis Sodium Chloride 1,000 mls @ 50 mls/hr 12/21/18 18:49 12/21/18 19:00 Normal Saline - IV 50 mls/hr ASDIR EPI Administration Magnesium Hydroxide 30 ml 12/18/18 16:01 Milk Of Magnesia - PO PRN PRN CONSTIPATION Metoprolol Succinate 12.5 mg 12/20/18 10:15 12/21/18 11:43 Toprol Xl - PO Not Given DAILY EPI Ondansetron HCl 4 mg 12/18/18 16:01 12/19/18 16:05 Zofran Injection IVPUSH 4 mg Q6H PRN Administration NAUSEA Ondansetron HCl 4 mg 12/18/18 16:33 Zofran Injection IVPUSH Q6H PRN NAUSEA AND/OR VOMITING Pantoprazole Sodium 40 mg 12/19/18 10:00 12/21/18 11:43 Protonix - PO 40 mg DAILY EPI Administration Ranitidine HCl 300 mg 12/18/18 22:00 12/21/18 22:56 Zantac - PO 300 mg HS EPI Administration Senna/Docusate Sodium 2 tablet 12/18/18 22:00 12/21/18 22:56 Pericolace - PO 2 tablet BID EPI Administration ASSESSMENT/PLAN: 68 year old male with a history of hypertension and GERD who came to the hospital for elective revision of L hip replacement is admitted to the ICU for hypovolemic shock 2/2 acute blood loss and ALLAN 2/2 acute tubular necrosis #Hypervolemic Shock #Acute Blood Loss Anemia #Seizure #Hyperkalemia #Shock Liver/Acute Liver Failure #Acute Kidney Injury #Thrombocytopenia #Troponinemia #Lactic Acidosis Neurological -Seizure: likely 2/2 metabolic derangement loaded with Keppra - will not need keppra as this was an isolated event -Dr. Philip consulted= -EEG done -CT head negative Cardiovascular -Hypovolemic shock: resolved -H&H continues to drop, 8.6 down from 10.7 yesterday; transfuse 2U PRBCs -monitor blood pressures -Troponinemia: 2/2 demand ischemia, resolved -hold BP medications -echo normal -cards consult appreciated Pulmonary -No acute pulmonary abnormalities -Encourage incentive spirometry -CXR shows increasing Gastrointestinal -Shock Liver/Acute liver failure: due to hypovolemic shock, improving -trending LFTs -Lipase elevated >1000, no abdominal pain - likely 2/2 procedure -currently passing flatus -no abdominal pain Renal -Acute kidney injury: acute tubular necrosis -received 1 dialysis session yesterday and planning again for today to remove a couple liters of volume -Nephrology consulted -being treated with lokelma Heme/Onc -anemia: H&H 8.6 from 10.7, give 2U PRBCs -s/p 4U PRBCs -thrombocytopenia: consumptive from surgery and blood loss, trend platelet count and transfuse 1U right now Musculoskeletal -s/p L hip surgery with EBL 1.5L -post op care per Dr. Jimenez -encourage incentive spirometry -already passed gas/stool -will repeat CT pelvis with thigh to evaluate hematoma FEN -2U PRBCs -recheck lytes in Am -regular diet per Dr. Jimenez Prophylaxis -SCDs Disposition -ICU Monitoring Visit type - Emergency Visit Emergency Visit: No - New Patient This patient is new to me today: No - Critical Care Critical Care patient: Yes Total Critical Care Time (in minutes): 38 Critical Care Statement: The care of this patient involved high complexity decision making to prevent further life threatening deterioration of the patient 's condition and/or to evaluate & treat vital organ system(s) failure or risk of failure. ATTENDING PHYSICIAN STATEMENT I saw and evaluated the patient. I reviewed the resident's note and discussed the case with the resident. I agree with the resident's findings and plan as documented. SUBJECTIVE: OBJECTIVE: ASSESSMENT AND PLAN:
[2018-12-22] MEDS ORDERED: SODIUM CHLORIDE 250 ML IV PRN (10:56)
--- NOTE | 2018-12-22 11:05 | PN ---
Progress Note, Physician History of Present Illness: Pain adequately controlled, denies fevers, chest pain, dyspnea. Oliguric renal failure undergoing HD. - Current Medication List Current Medications: Active Medications Al Hydroxide/Mg Hydroxide (Mylanta Oral Suspension -) 30 ml PO Q4H PRN PRN Reason: DYSPEPSIA Aspirin (Asa -) 81 mg PO BID [facility] Last Admin: 12/21/18 22:56 Dose: 81 mg Folic Acid (Folic Acid -) 1 mg PO DAILY [facility] Last Admin: 12/21/18 11:43 Dose: 1 mg Piperacillin Sod/Tazobactam (Sod 2.25 gm/ Dextrose) 50 mls @ 100 mls/hr IVPB Q8H-IV EPI; Protocol Sodium Chloride (Normal Saline -) 250 mls @ 3,000 mls/hr IV PRN PRN PRN Reason: Hypotension during Dialysis Stop: 12/22/18 12:39 Sodium Chloride (Normal Saline -) 1,000 mls @ 50 mls/hr IV ASDIR [facility] Last Admin: 12/21/18 19:00 Dose: 50 mls/hr Sodium Chloride (Normal Saline -) 250 mls @ 3,000 mls/hr IV PRN PRN PRN Reason: Hypotension during Dialysis Stop: 12/23/18 10:56 Magnesium Hydroxide (Milk Of Magnesia -) 30 ml PO PRN PRN PRN Reason: CONSTIPATION Metoprolol Succinate (Toprol Xl -) 12.5 mg PO DAILY [facility] Last Admin: 12/21/18 11:43 Dose: Not Given Ondansetron HCl (Zofran Injection) 4 mg IVPUSH Q6H PRN PRN Reason: NAUSEA Last Admin: 12/19/18 16:05 Dose: 4 mg Ondansetron HCl (Zofran Injection) 4 mg IVPUSH Q6H PRN PRN Reason: NAUSEA AND/OR VOMITING Pantoprazole Sodium (Protonix -) 40 mg PO DAILY [facility] Last Admin: 12/21/18 11:43 Dose: 40 mg Ranitidine HCl (Zantac -) 300 mg PO HS [facility] Last Admin: 12/21/18 22:56 Dose: 300 mg Senna/Docusate Sodium (Pericolace -) 2 tablet PO BID [facility] Last Admin: 12/21/18 22:56 Dose: 2 tablet - Objective Vital Signs: Vital Signs Temperature 98.6 F 12/22/18 06:00 Pulse Rate 82 12/22/18 08:00 Respiratory Rate 17 12/22/18 08:00 Blood Pressure 128/65 12/22/18 08:00 O2 Sat by Pulse Oximetry (%) 100 12/22/18 08:00 Constitutional: Yes: No Distress, Calm, Thin Neck: Yes: Supple Cardiovascular: Yes: Regular Rate and Rhythm Respiratory: Yes: Regular, Diminished, On Nasal O2 Gastrointestinal: Yes: Normal Bowel Sounds, Soft Edema: Yes Edema: LLE: Trace, RLE: Trace Labs: CBC, BMP 12/22/18 10:20 12/22/18 05:30 INR, PTT INR 1.20 (0.83-1.09) H 12/22/18 05:30 - ....Imaging Chest X-ray: Report Reviewed (CHF, pleural effusions) Cat Scan: Report Reviewed (Slightly smaller post-op left hip hematoma) Problem List - Problems (1) ALLAN (acute kidney injury) Code(s): N17.9 - ACUTE KIDNEY FAILURE, UNSPECIFIED (2) Anemia Code(s): D64.9 - ANEMIA, UNSPECIFIED Qualifiers: Other causes of anemia: acute posthemorrhagic (3) Demand ischemia Code(s): I24.8 - OTHER FORMS OF ACUTE ISCHEMIC HEART DISEASE (4) HTN (hypertension) Code(s): I10 - ESSENTIAL (PRIMARY) HYPERTENSION Qualifiers: Hypertension type: essential hypertension Qualified Code(s): I10 - Essential (primary) hypertension (5) Hyperkalemia Code(s): E87.5 - HYPERKALEMIA (6) Leukocytosis Code(s): D72.829 - ELEVATED WHITE BLOOD CELL COUNT, UNSPECIFIED (7) Seizure Code(s): R56.9 - UNSPECIFIED CONVULSIONS (8) Shock liver Code(s): K72.00 - ACUTE AND SUBACUTE HEPATIC FAILURE WITHOUT COMA (9) Thrombocytopenia Code(s): D69.6 - THROMBOCYTOPENIA, UNSPECIFIED Assessment/Plan 12/19/2018 Echocardiography: Normal LV and RV size and fxn, mild TR RVSP 22 mmHg , LVEF 65% 1. Left hip revision, bone marrow autograft POD #4 2. Elevated troponin due to demand ischemia 3. Anemia and thrombocytopenia and leukocytosis due to acute blood loss 4. Hypovolemic/Hemorrhagic Shock 5. ALLAN with hyperkalemia due to ATN requiring HD 6. Elevated LFT c/w shock liver 7. Post op Seizure 8. Lactic acidosis 9. Post-op pancreatitis PLAN: 1. Seizure meds per neuro 2. Troponins downtrending 3. Further cardiac work up can be done once clinically stable 4. Low dose beta oscar as BP tolerates, continue ASA 81 qd 5. LFTs and lactate downtrending 6. HD per renal 7. Broad spectrum antibiotic and resendiz culture. ID input to follow 8. Monitor Hgb and Plt, transfuse as needed 9. Surgical follow up, monitor drain output, analgesia as needed 10. Mechanical DVT prophylaxis
[2018-12-22] MEDS: SENNOSIDES/DOCUSATE COMBO (SENNA PLUS) TABLET (UD) PO SCH ×2 (11:10→21:34)
[2018-12-22] MEDS: ASPIRIN 81 MG CHEWABLE TABLETS PO SCH ×2 (11:10→21:33)
[2018-12-22] MEDS: metoPROLOL SUCCINATE 25 MG TAB.SR.24H (FP) PO SCH (11:11)
[2018-12-22] MEDS: FOLIC ACID 1 MG TABLET (FP) PO SCH (11:21)
[2018-12-22] MEDS: PANTOPRAZOLE 40 MG TABLET (FP) PO SCH (11:21)
--- NOTE | 2018-12-22 11:35 | PN ---
Teaching Attending Note Name of Resident: Kevan Armstrong ATTENDING PHYSICIAN STATEMENT I saw and evaluated the patient. I reviewed the resident's note and discussed the case with the resident. I agree with the resident's findings and plan as documented. SUBJECTIVE: Pt seen and examined in the ICU. H/H continues to trend down. Tolerated HD yesterday. Denies shortness of breath or chest pain. No fevers recorded. Remains oliguric. OBJECTIVE: Vital Signs Period Temp Pulse Resp BP Sys/Hernandez Pulse Ox Last 24 Hr 97.9 F-99.8 F 72-93 -19 119-154/63-86 100-100 Intake & Output 12/19/18 12/20/18 12/21/18 12/22/18 23:59 23:59 23:59 23:59 Intake Total 6370 1881 3500 700 Output Total 232 760 7622 56 Balance 5660 1716 1959 644 Weight 60.736 kg 74.843 kg 79.605 kg 79.379 kg Gen: NAD at rest Heart: RRR Lung: scattered rhonchi Abd: soft, nontender Ext: + edema CBC, BMP 12/22/18 10:20 12/22/18 05:30 Active Medications Al Hydroxide/Mg Hydroxide (Mylanta Oral Suspension -) 30 ml PO Q4H PRN PRN Reason: DYSPEPSIA Aspirin (Asa -) 81 mg PO BID [facility] Last Admin: 12/22/18 11:10 Dose: Not Given Folic Acid (Folic Acid -) 1 mg PO DAILY [facility] Last Admin: 12/22/18 11:21 Dose: 1 mg Piperacillin Sod/Tazobactam (Sod 2.25 gm/ Dextrose) 50 mls @ 100 mls/hr IVPB Q8H-IV EPI; Protocol Sodium Chloride (Normal Saline -) 250 mls @ 3,000 mls/hr IV PRN PRN PRN Reason: Hypotension during Dialysis Stop: 12/22/18 12:39 Sodium Chloride (Normal Saline -) 1,000 mls @ 50 mls/hr IV ASDIR [facility] Last Admin: 12/21/18 19:00 Dose: 50 mls/hr Sodium Chloride (Normal Saline -) 250 mls @ 3,000 mls/hr IV PRN PRN PRN Reason: Hypotension during Dialysis Stop: 12/23/18 10:56 Magnesium Hydroxide (Milk Of Magnesia -) 30 ml PO PRN PRN PRN Reason: CONSTIPATION Metoprolol Succinate (Toprol Xl -) 12.5 mg PO DAILY [facility] Last Admin: 12/22/18 11:11 Dose: Not Given Ondansetron HCl (Zofran Injection) 4 mg IVPUSH Q6H PRN PRN Reason: NAUSEA Last Admin: 12/19/18 16:05 Dose: 4 mg Ondansetron HCl (Zofran Injection) 4 mg IVPUSH Q6H PRN PRN Reason: NAUSEA AND/OR VOMITING Pantoprazole Sodium (Protonix -) 40 mg PO DAILY [facility] Last Admin: 12/22/18 11:21 Dose: 40 mg Ranitidine HCl (Zantac -) 300 mg PO HS [facility] Last Admin: 12/21/18 22:56 Dose: 300 mg Senna/Docusate Sodium (Pericolace -) 2 tablet PO BID [facility] Last Admin: 12/22/18 11:10 Dose: Not Given ASSESSMENT AND PLAN: s/p Left Hip Revision Acute Blood Loss Anemia Thrombocytopenia Hypovolemic/Hemorrhagic Shock improving Acute Kidney Injury requiring HD Shock Liver Lactic Acidosis +Troponins likely Demand Ischemia Seizure episode HTN GERD - monitor CBC, coags - transfuse as needed - IVF - monitor urine output, creatinine - HD per renal - pain control - monitor drain output - trend LFTs - antiepileptics - PO as tolerated - DVT prophylaxis - continue ICU monitoring critical care time spent in reviewing chart, evaluating patient and formulating plan 35 min
--- NOTE | 2018-12-22 12:36 | PN ---
Progress Note, Physician Chief Complaint: C/O fatigue, nausea - Current Medication List Current Medications: Active Medications Al Hydroxide/Mg Hydroxide (Mylanta Oral Suspension -) 30 ml PO Q4H PRN PRN Reason: DYSPEPSIA Aspirin (Asa -) 81 mg PO BID [facility] Last Admin: 12/22/18 11:10 Dose: Not Given Folic Acid (Folic Acid -) 1 mg PO DAILY [facility] Last Admin: 12/22/18 11:21 Dose: 1 mg Piperacillin Sod/Tazobactam (Sod 2.25 gm/ Dextrose) 50 mls @ 100 mls/hr IVPB Q8H-IV EPI; Protocol Sodium Chloride (Normal Saline -) 250 mls @ 3,000 mls/hr IV PRN PRN PRN Reason: Hypotension during Dialysis Stop: 12/22/18 12:39 Sodium Chloride (Normal Saline -) 1,000 mls @ 50 mls/hr IV ASDIR [facility] Last Admin: 12/21/18 19:00 Dose: 50 mls/hr Sodium Chloride (Normal Saline -) 250 mls @ 3,000 mls/hr IV PRN PRN PRN Reason: Hypotension during Dialysis Stop: 12/23/18 10:56 Magnesium Hydroxide (Milk Of Magnesia -) 30 ml PO PRN PRN PRN Reason: CONSTIPATION Metoprolol Succinate (Toprol Xl -) 12.5 mg PO DAILY [facility] Last Admin: 12/22/18 11:11 Dose: Not Given Ondansetron HCl (Zofran Injection) 4 mg IVPUSH Q6H PRN PRN Reason: NAUSEA Last Admin: 12/19/18 16:05 Dose: 4 mg Ondansetron HCl (Zofran Injection) 4 mg IVPUSH Q6H PRN PRN Reason: NAUSEA AND/OR VOMITING Pantoprazole Sodium (Protonix -) 40 mg PO DAILY [facility] Last Admin: 12/22/18 11:21 Dose: 40 mg Ranitidine HCl (Zantac -) 300 mg PO HS [facility] Last Admin: 12/21/18 22:56 Dose: 300 mg Senna/Docusate Sodium (Pericolace -) 2 tablet PO BID [facility] Last Admin: 12/22/18 11:10 Dose: Not Given - Objective Vital Signs: Vital Signs Temperature 98.3 F 12/22/18 10:00 Pulse Rate 89 12/22/18 10:00 Respiratory Rate 18 12/22/18 10:00 Blood Pressure 133/69 12/22/18 10:00 O2 Sat by Pulse Oximetry (%) 100 12/22/18 08:00 Constitutional: Yes: Calm Eyes: Yes: WNL HENT: Yes: WNL Neck: Yes: WNL Cardiovascular: Yes: WNL Respiratory: Yes: Diminished Gastrointestinal: Yes: Hypoactive Bowel Sounds Genitourinary: Yes: Oliguria Musculoskeletal: Yes: Back Pain Extremities: Yes: WNL Edema: No Peripheral Pulses WNL: Yes Integumentary: Yes: WNL Wound/Incision: Yes: Clean/Dry, Well Approximated Neurological: Yes: WNL Psychiatric: Yes: WNL Labs: CBC, BMP 12/22/18 10:20 12/22/18 05:30 INR, PTT INR 1.20 (0.83-1.09) H 12/22/18 05:30 Assessment/Plan 68 yo man who Failed left total hip replacement, Massive osteolysis, Gait abnormalit. Fall risk now S/P Revision left total hip replacement. 2. Bone marrow aspiration and autograft, POD#4. pain management. incentive spirometry. post-op course complicated by hypovolemic shock. aggressively rescitated with IV fluids and 5 units total PRBC. drain management as per surgery. -elevated LFT's: shock liver. will monitor. trending lower. expecting daily improvement as shock resolves. -elevated troponins: likely demand ischemia. cardiology eval noted. will monitor for now. -pancreatitis: post-op. triglycerides WNL. -GI, DVT prophylaxis. TEDs. -acute on chronic iron deficiency anemia, post-op acute blood loss anemia: PRBC given alessio-operatively. for 2 more units today. hematology eval requested. 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 no need for hematuria workup. HD started . will continue today. renal eval appreciated. no acute findings on bladder and renal US. -post op seizure with lactic acidosis. Patient was loaded with iv keppra. neurology eval noted. unlikely to need buttermaker treatment. no further events noted. -stool softeners added to prevent opioid induced constipation. -ID: ancef given operatively. now on zosyn. -PT/OT/OOB when able -full code -assessment and plan discussed with Pt and medical staff. labs and meds reviewed. ICU care appreciated. phone calls answered throughout the day plan discussed with Dr Jimenez. 45 min.
--- NOTE | 2018-12-22 14:27 | PN ---
Progress Note, Physician History of Present Illness: Pt seen and examined at bedside. He is awake and alert. He denies shortness of breath. - Current Medication List Current Medications: Active Medications Al Hydroxide/Mg Hydroxide (Mylanta Oral Suspension -) 30 ml PO Q4H PRN PRN Reason: DYSPEPSIA Aspirin (Asa -) 81 mg PO BID [facility] Last Admin: 12/22/18 11:10 Dose: Not Given Folic Acid (Folic Acid -) 1 mg PO DAILY [facility] Last Admin: 12/22/18 11:21 Dose: 1 mg Piperacillin Sod/Tazobactam (Sod 2.25 gm/ Dextrose) 50 mls @ 100 mls/hr IVPB Q8H-IV EPI; Protocol Sodium Chloride (Normal Saline -) 1,000 mls @ 50 mls/hr IV ASDIR [facility] Last Admin: 12/21/18 19:00 Dose: 50 mls/hr Sodium Chloride (Normal Saline -) 250 mls @ 3,000 mls/hr IV PRN PRN PRN Reason: Hypotension during Dialysis Stop: 12/23/18 10:56 Magnesium Hydroxide (Milk Of Magnesia -) 30 ml PO PRN PRN PRN Reason: CONSTIPATION Metoprolol Succinate (Toprol Xl -) 12.5 mg PO DAILY [facility] Last Admin: 12/22/18 11:11 Dose: Not Given Ondansetron HCl (Zofran Injection) 4 mg IVPUSH Q6H PRN PRN Reason: NAUSEA Last Admin: 12/19/18 16:05 Dose: 4 mg Ondansetron HCl (Zofran Injection) 4 mg IVPUSH Q6H PRN PRN Reason: NAUSEA AND/OR VOMITING Pantoprazole Sodium (Protonix -) 40 mg PO DAILY [facility] Last Admin: 12/22/18 11:21 Dose: 40 mg Ranitidine HCl (Zantac -) 300 mg PO HS [facility] Last Admin: 12/21/18 22:56 Dose: 300 mg Senna/Docusate Sodium (Pericolace -) 2 tablet PO BID [facility] Last Admin: 12/22/18 11:10 Dose: Not Given - Objective Vital Signs: Vital Signs Temperature 98.4 F 12/22/18 13:10 Pulse Rate 82 12/22/18 13:45 Respiratory Rate 18 12/22/18 13:45 Blood Pressure 140/76 12/22/18 13:45 O2 Sat by Pulse Oximetry (%) 100 12/22/18 08:00 Constitutional: Yes: Calm Eyes: Yes: Conjunctiva Clear HENT: Yes: Atraumatic Neck: Yes: Supple Cardiovascular: Yes: S1, S2 Respiratory: Yes: CTA Bilaterally, On Nasal O2 Gastrointestinal: Yes: Soft Genitourinary: Yes: Vidal Present, Oliguria Musculoskeletal: Yes: Other (left hip dressing in place) Edema: LLE: 1+, RLE: 1+ Neurological: Yes: Oriented Psychiatric: Yes: Oriented Labs: CBC, BMP 12/22/18 10:20 12/22/18 05:30 INR, PTT INR 1.20 (0.83-1.09) H 12/22/18 05:30 Problem List - Problems (1) ALLAN (acute kidney injury) Code(s): N17.9 - ACUTE KIDNEY FAILURE, UNSPECIFIED (2) Anemia Code(s): D64.9 - ANEMIA, UNSPECIFIED Qualifiers: Other causes of anemia: acute posthemorrhagic (3) Hyperkalemia Code(s): E87.5 - HYPERKALEMIA (4) Seizure Code(s): R56.9 - UNSPECIFIED CONVULSIONS (5) Shock liver Code(s): K72.00 - ACUTE AND SUBACUTE HEPATIC FAILURE WITHOUT COMA Assessment/Plan Current Medications Generic Name Dose Route Start Last Admin Trade Name Freq PRN Reason Stop Dose Admin Al Hydroxide/Mg Hydroxide 30 ml 12/18/18 16:01 Mylanta Oral Suspension - PO Q4H PRN DYSPEPSIA Aspirin 81 mg 12/18/18 22:00 12/22/18 11:10 Asa - PO Not Given BID EPI Folic Acid 1 mg 12/19/18 10:00 12/22/18 11:21 Folic Acid - PO 1 mg DAILY EPI Administration Piperacillin Sod/Tazobactam 50 mls @ 100 mls/hr 12/20/18 18:00 Sod 2.25 gm/ Dextrose IVPB Q8H-IV EPI Protocol Sodium Chloride 1,000 mls @ 50 mls/hr 12/21/18 18:49 12/21/18 19:00 Normal Saline - IV 50 mls/hr ASDIR EPI Administration Sodium Chloride 250 mls @ 3,000 mls/hr 12/22/18 10:56 Normal Saline - IV 12/23/18 10:56 PRN PRN Hypotension during Dialysis Magnesium Hydroxide 30 ml 12/18/18 16:01 Milk Of Magnesia - PO PRN PRN CONSTIPATION Metoprolol Succinate 12.5 mg 12/20/18 10:15 12/22/18 11:11 Toprol Xl - PO Not Given DAILY EPI Ondansetron HCl 4 mg 12/18/18 16:01 12/19/18 16:05 Zofran Injection IVPUSH 4 mg Q6H PRN Administration NAUSEA Ondansetron HCl 4 mg 12/18/18 16:33 Zofran Injection IVPUSH Q6H PRN NAUSEA AND/OR VOMITING Pantoprazole Sodium 40 mg 12/19/18 10:00 12/22/18 11:21 Protonix - PO 40 mg DAILY EPI Administration Ranitidine HCl 300 mg 12/18/18 22:00 12/21/18 22:56 Zantac - PO 300 mg HS EPI Administration Senna/Docusate Sodium 2 tablet 12/18/18 22:00 12/22/18 11:10 Pericolace - PO Not Given BID EPI Impression 1. ALLAN 2. hyperkalemia 3. shock liver 4. seizure 5. s/p hip replacement 6. hx of htn 7. hypotension 8. gerd Plan - HD today - repeat labs in am - monitor urine output - evaluate for HD again tomorrow - d/c cath tomorrow if not dialyzed - monitor lytes - renal diet - follow renal workup - avoid nsaids and nephrotoxins - monitor mag levels
[2018-12-22 15:01] LABS: ANISOCYTOSIS 1+; MACROCYTOSIS 1+; OVALOCYTE 1+; PLATELET ESTIMATE DECREASED; TEAR DROP CELLS 1+
[2018-12-22 17:07] LABS: HEMATOCRIT 36.6 % (35.4-49); HEMOGLOBIN 12.6 GM/dL (11.7-16.9); MCH 30.1 pg (25.7-33.7); MCHC 34.4 g/dl (32.0-35.9); MEAN CELL VOLUME 87.6 fl (80-96); MEAN PLT VOLUME 8.7 fl (7.5-11.1); PLATELET COUNT 113 K/MM3 (134-434); RBC 4.18 M/mm3 (4.00-5.60); RDW 15.4 % (11.9-15.9); WHITE BLOOD COUNT 18.4 K/mm3 (4.0-10.0)
[2018-12-22 17:31] LABS: BLOOD UREA NITROGEN 31.6 mg/dL (7-18); CALCIUM 8.5 mg/dL (8.5-10.1); POTASSIUM 3.6 mmol/L (3.5-5.1)
--- NOTE | 2018-12-22 18:54 | PN ---
Progress Note (short form) - Note Progress Note: Right groin shiley removed. Pressure held for 10 minutes without evidence of bleeding. pressure dressing applied.
[2018-12-22] MEDS: RANITIDINE HCL 150 MG TABLET (FP) PO SCH (21:34)
[2018-12-22] MEDS: PIPERACILLIN/TAZOB 2.25 GM 2.25 GM in DEXTROSE 5%-WATER - 50 ML IVPB SCH (21:35)
[2018-12-23 06:38] LABS: BILIRUBIN,TOTAL 2.1 mg/dL (0.2-1); BLOOD UREA NITROGEN 50.5 mg/dL (7-18); CALCIUM 7.8 mg/dL (8.5-10.1); CREATININE 6.8 mg/dL (0.55-1.3); MAGNESIUM 1.8 mg/dL (1.8-2.4); PHOSPHOROUS 3.6 mg/dL (2.5-4.9); POTASSIUM 3.9 mmol/L (3.5-5.1); TOT PROT 4.2 g/dl (6.4-8.2)
[2018-12-23 07:24] LABS: HEMATOCRIT 30.7 % (35.4-49); HEMOGLOBIN 10.7 GM/dL (11.7-16.9); MCH 30.5 pg (25.7-33.7); MCHC 34.9 g/dl (32.0-35.9); MEAN CELL VOLUME 87.6 fl (80-96); MEAN PLT VOLUME 9.2 fl (7.5-11.1); PLATELET COUNT 94 K/MM3 (134-434); RBC 3.51 M/mm3 (4.00-5.60); RDW 15.1 % (11.9-15.9)
[2018-12-23] MEDS: metoPROLOL SUCCINATE 25 MG TAB.SR.24H (FP) PO SCH (09:07)
[2018-12-23] MEDS: ASPIRIN 81 MG CHEWABLE TABLETS PO SCH ×2 (09:07→21:07)
[2018-12-23] MEDS: SENNOSIDES/DOCUSATE COMBO (SENNA PLUS) TABLET (UD) PO SCH ×2 (09:07→21:07)
[2018-12-23] MEDS: FOLIC ACID 1 MG TABLET (FP) PO SCH (09:07)
[2018-12-23] MEDS: PANTOPRAZOLE 40 MG TABLET (FP) PO SCH (09:07)
--- NOTE | 2018-12-23 09:24 | PN ---
Progress Note (short form) - Note Progress Note: Pulm/CCM SUBJECTIVE: Pt seen and examined in the ICU. 24HR: shiley removed no indication for HD transaminitis improving. OBJECTIVE: Vital Signs Temp 98.5 F 12/23/18 06:00 Pulse 79 12/23/18 08:00 Resp 16 12/23/18 08:00 BP 131/77 12/23/18 08:00 Pulse Ox 100 12/23/18 08:33 Intake & Output 12/22/18 12/22/18 12/23/18 11:59 23:59 11:59 Intake Total 700 1768 200 Output Total 56 2500 15 Balance 644 -732 185 Weight 79.379 kg 79.651 kg Intake: IV 600 600 Normal Saline - 1,000 ml 600 100 @ 50 mls/hr IV ASDIR EPI Rx#:[id number] Normal Saline - 250 ml @ 500 3000 mls/hr IV PRN PRN Rx #:[id number] IVPB 85 Oral 100 180 200 Packed Cells 700 Platelets 203 Output: Drainage 41 Left Hip 41 Urine 15 15 Vidal 15 15 Fluid Removed, 2500 Hemodialysis Other: Voiding Method Indwelling Catheter Indwelling Catheter Indwelling Catheter Bowel Movement No No No Body Mass Index (BMI) 29.1 Weight Measurement Method [facility] Built in [facility] Gen: NAD at rest Heart: RRR Lung: scattered rhonchi Abd: soft, nontender Ext: + edema, wound warn, dressing intact Neuro: awake, alert, pain controlled CBC,CMP WBC 18.4 K/mm3 (4.0-10.0) H 12/22/18 16:15 Corrected WBC (auto) 18.67 K/mm3 12/22/18 10:20 RBC 3.51 M/mm3 (4.00-5.60) L 12/23/18 05:40 Hgb 10.7 GM/dL (11.7-16.9) L 12/23/18 05:40 Hct 30.7 % (35.4-49) L D 12/23/18 05:40 MCV 87.6 fl (80-96) 12/23/18 05:40 MCH 30.5 pg (25.7-33.7) 12/23/18 05:40 MCHC 34.9 g/dl (32.0-35.9) 12/23/18 05:40 RDW 15.1 % (11.9-15.9) 12/23/18 05:40 Plt Count 94 K/MM3 (134-434) L 12/23/18 05:40 MPV 9.2 fl (7.5-11.1) 12/23/18 05:40 Absolute Neuts (auto) 17.0 K/mm3 (1.5-8.0) H 12/22/18 10:20 Total Counted Cancelled 12/21/18 17:10 Neutrophils % 92.0 % (42.8-82.8) H D 12/22/18 10:20 Neutrophils % (Manual) 86.3 % (42.8-82.8) H 12/22/18 10:20 Band Neutrophils % 2.1 % 12/22/18 10:20 Lymphocytes % 3.6 % (8-40) L D 12/22/18 10:20 Lymphocytes % (Manual) 3.2 % (8-40) L 12/22/18 10:20 Monocytes % 3.6 % (3.8-10.2) L 12/22/18 10:20 Monocytes % (Manual) 4 % (3.8-10.2) 12/22/18 10:20 Eosinophils % 0.5 % (0-4.5) 12/22/18 10:20 Eosinophils % (Manual) 0.0 % (0-4.5) 12/22/18 10:20 Basophils % 0.3 % (0-2.0) 12/22/18 10:20 Basophils % (Manual) 0.0 % (0-2.0) 12/22/18 10:20 Myelocytes % (Man) 0 % (0-2) 12/22/18 10:20 Promyelocytes % (Man) 0 % (0-2) 12/22/18 10:20 Blast Cells % (Manual) 0 % (0-0) 12/22/18 10:20 Nucleated RBC % 73 % (0-0) H* D 12/22/18 10:20 Metamyelocytes 0 % (0-2) 12/22/18 10:20 Differential Comment Cancelled 12/21/18 17:10 Manual Slide Review Yes 12/22/18 05:30 Hypersegmented Neuts Cancelled 12/21/18 17:10 Plasma Cells Cancelled 12/21/18 17:10 Smudge Cells Cancelled 12/21/18 17:10 Other Cell Type Cancelled 12/21/18 17:10 Hypochromia 0 12/22/18 10:20 Toxic Granulation Cancelled 12/21/18 17:10 Dohle Bodies Cancelled 12/21/18 17:10 Asif Rods Cancelled 12/22/18 10:20 Platelet Estimate Decreased 12/22/18 10:20 Platelet Comment 77 12/22/18 05:30 Platelet Comment Cancelled 12/21/18 17:10 Polychromasia 1+ 12/22/18 10:20 Poikilocytosis 1+ 12/22/18 10:20 Basophilic Stippling Cancelled 12/21/18 17:10 Anisocytosis 1+ 12/22/18 10:20 Microcytosis 1+ 12/22/18 10:20 Macrocytosis 1+ 12/22/18 10:20 Spherocytes Cancelled 12/21/18 17:10 Siderocytes Cancelled 12/21/18 17:10 Sickle Cells Cancelled 12/21/18 17:10 Target Cells Cancelled 12/21/18 17:10 Tear Drop Cells 1+ 12/22/18 10:20 Ovalocytes 1+ 12/22/18 10:20 Stomatocytes Cancelled 12/21/18 17:10 Helmet Cells Cancelled 12/21/18 17:10 Fonseca-Waubay Bodies Cancelled 12/21/18 17:10 [place] Rings Cancelled 12/21/18 17:10 Jamal Cells 1+ 12/22/18 10:20 Acanthocytes (Spur) Cancelled 12/21/18 17:10 Rouleaux Cancelled 12/21/18 17:10 Fragmented RBCs Cancelled 12/21/18 17:10 Schistocytes Cancelled 12/21/18 17:10 Retic Count 4.39 % (0.5-1.5) H 12/22/18 10:20 Haptoglobin < 10 mg/dL (34-200) L 12/22/18 10:20 Sodium 141 mmol/L (136-145) 12/23/18 05:40 Potassium 3.9 mmol/L (3.5-5.1) 12/23/18 05:40 Chloride 104 mmol/L (98-107) 12/23/18 05:40 Carbon Dioxide 28 mmol/L (21-32) 12/23/18 05:40 Anion Gap 8 MMOL/L (8-16) 12/23/18 05:40 BUN 50.5 mg/dL (7-18) H 12/23/18 05:40 Creatinine 6.8 mg/dL (0.55-1.3) H 12/23/18 05:40 Est GFR (CKD-EPI)AfAm 8.73 12/23/18 05:40 Est GFR (CKD-EPI)NonAf 7.53 12/23/18 05:40 Random Glucose 97 mg/dL (74-106) 12/23/18 05:40 Lactic Acid 1.1 mmol/L (0.4-2.0) 12/21/18 05:45 Calcium 7.8 mg/dL (8.5-10.1) L 12/23/18 05:40 Phosphorus 3.6 mg/dL (2.5-4.9) 12/23/18 05:40 Magnesium 1.8 mg/dL (1.8-2.4) 12/23/18 05:40 Total Bilirubin 2.1 mg/dL (0.2-1) H 12/23/18 05:40 Direct Bilirubin 0.7 mg/dL (0.0-0.2) H 12/22/18 10:20 AST 996 U/L (15-37) H 12/23/18 05:40 ALT 226 U/L (13-61) H 12/23/18 05:40 Alkaline Phosphatase 103 U/L (45-117) 12/23/18 05:40 Creatine Kinase 3740 U/L (26-308) H 12/22/18 05:30 Creatine Kinase Index 0.1 % (0.0-5.0) 12/22/18 05:30 CK-MB (CK-2) 4.8 ng/mL (0.5-3.6) H 12/22/18 05:30 Troponin I 2.45 ng/ml (0.00-0.05) H* 12/19/18 21:30 Total Protein 4.2 g/dl (6.4-8.2) L 12/23/18 05:40 Albumin 2.0 g/dl (3.4-5.0) L 12/23/18 05:40 Triglycerides 79 mg/dL (0-150) 12/20/18 05:25 Lipase 1424 U/L (73-393) H 12/19/18 04:00 Active Medications Al Hydroxide/Mg Hydroxide (Mylanta Oral Suspension -) 30 ml PO Q4H PRN PRN Reason: DYSPEPSIA Aspirin (Asa -) 81 mg PO BID [facility] Last Admin: 12/23/18 09:07 Dose: 81 mg Folic Acid (Folic Acid -) 1 mg PO DAILY [facility] Last Admin: 12/23/18 09:07 Dose: 1 mg Sodium Chloride (Normal Saline -) 1,000 mls @ 50 mls/hr IV ASDIR [facility] Last Admin: 12/21/18 19:00 Dose: 50 mls/hr Sodium Chloride (Normal Saline -) 250 mls @ 3,000 mls/hr IV PRN PRN PRN Reason: Hypotension during Dialysis Stop: 12/23/18 10:56 Magnesium Hydroxide (Milk Of Magnesia -) 30 ml PO PRN PRN PRN Reason: CONSTIPATION Metoprolol Succinate (Toprol Xl -) 12.5 mg PO DAILY [facility] Last Admin: 12/23/18 09:07 Dose: 12.5 mg Ondansetron HCl (Zofran Injection) 4 mg IVPUSH Q6H PRN PRN Reason: NAUSEA Last Admin: 12/19/18 16:05 Dose: 4 mg Ondansetron HCl (Zofran Injection) 4 mg IVPUSH Q6H PRN PRN Reason: NAUSEA AND/OR VOMITING Pantoprazole Sodium (Protonix -) 40 mg PO DAILY [facility] Last Admin: 12/23/18 09:07 Dose: 40 mg Ranitidine HCl (Zantac -) 300 mg PO HS [facility] Last Admin: 12/22/18 21:34 Dose: 300 mg Senna/Docusate Sodium (Pericolace -) 2 tablet PO BID [facility] Last Admin: 12/23/18 09:07 Dose: 2 tablet ASSESSMENT AND PLAN: s/p Left Hip Revision Acute Blood Loss Anemia Thrombocytopenia Hypovolemic/Hemorrhagic Shock improving Acute Kidney Injury requiring HD Shock Liver Lactic Acidosis +Troponins likely Demand Ischemia Seizure episode HTN GERD - monitor CBC, coags - transfuse as needed - IVF - monitor urine output, creatinine - HD per renal, no acute indication for DOOR TO DOOR LEAD GENERATION today - pain control - monitor drain output, surgery following - trend LFTs - antiepileptics, can probably be d/c - PO as tolerated - DVT prophylaxis - continue ICU monitoring critical care time spent in reviewing chart, evaluating patient and formulating plan 35 min Do ACNP [id number]
[2018-12-23] MEDS ORDERED: DESFLURANE GAS 240 ML BOTTLE IH ONE (09:25)
--- NOTE | 2018-12-23 12:21 | PN ---
Progress Note, Physician Chief Complaint: C/O fatigue, nausea, onoing weakness. denies chest pain, palpitations, diarrhea, fever - Current Medication List Current Medications: Active Medications Al Hydroxide/Mg Hydroxide (Mylanta Oral Suspension -) 30 ml PO Q4H PRN PRN Reason: DYSPEPSIA Aspirin (Asa -) 81 mg PO BID [facility] Last Admin: 12/23/18 09:07 Dose: 81 mg Folic Acid (Folic Acid -) 1 mg PO DAILY [facility] Last Admin: 12/23/18 09:07 Dose: 1 mg Sodium Chloride (Normal Saline -) 1,000 mls @ 50 mls/hr IV ASDIR [facility] Last Admin: 12/21/18 19:00 Dose: 50 mls/hr Sodium Chloride (Normal Saline -) 250 mls @ 3,000 mls/hr IV PRN PRN PRN Reason: Hypotension during Dialysis Stop: 12/23/18 10:56 Magnesium Hydroxide (Milk Of Magnesia -) 30 ml PO PRN PRN PRN Reason: CONSTIPATION Metoprolol Succinate (Toprol Xl -) 12.5 mg PO DAILY [facility] Last Admin: 12/23/18 09:07 Dose: 12.5 mg Ondansetron HCl (Zofran Injection) 4 mg IVPUSH Q6H PRN PRN Reason: NAUSEA Last Admin: 12/19/18 16:05 Dose: 4 mg Ondansetron HCl (Zofran Injection) 4 mg IVPUSH Q6H PRN PRN Reason: NAUSEA AND/OR VOMITING Pantoprazole Sodium (Protonix -) 40 mg PO DAILY [facility] Last Admin: 12/23/18 09:07 Dose: 40 mg Ranitidine HCl (Zantac -) 300 mg PO HS [facility] Last Admin: 12/22/18 21:34 Dose: 300 mg Senna/Docusate Sodium (Pericolace -) 2 tablet PO BID [facility] Last Admin: 12/23/18 09:07 Dose: 2 tablet - Objective Vital Signs: Vital Signs Temperature 98.3 F 12/23/18 10:00 Pulse Rate 77 12/23/18 12:00 Respiratory Rate 13 12/23/18 12:00 Blood Pressure 110/60 12/23/18 12:00 O2 Sat by Pulse Oximetry (%) 100 12/23/18 08:33 Constitutional: Yes: No Distress Eyes: Yes: WNL HENT: Yes: WNL Neck: Yes: WNL Cardiovascular: Yes: WNL Respiratory: Yes: Diminished Gastrointestinal: Yes: WNL Genitourinary: Yes: WNL Musculoskeletal: Yes: Back Pain Extremities: Yes: WNL Peripheral Pulses WNL: Yes Integumentary: Yes: WNL Wound/Incision: Yes: Clean/Dry, Well Approximated, Dressing Dry and Intact Neurological: Yes: WNL ...Motor Strength: WNL Psychiatric: Yes: WNL Labs: CBC, BMP 12/23/18 05:40 12/23/18 05:40 INR, PTT INR 1.20 (0.83-1.09) H 12/22/18 05:30 Assessment/Plan 68 yo man who Failed left total hip replacement, Massive osteolysis, Gait abnormalit. Fall risk now S/P Revision left total hip replacement. 2. Bone marrow aspiration and autograft, POD#5. pain management. incentive spirometry. post-op course complicated by hypovolemic shock. aggressively rescitated with IV fluids and 5 units total PRBC. drain management as per surgery. -elevated LFT's: shock liver. trending lower. expecting daily improvement as shock resolves. -elevated troponins: likely demand ischemia. cardiology eval noted. will monitor for now. -pancreatitis: post-op. triglycerides WNL. -GI, DVT prophylaxis. TEDs. -acute on chronic iron deficiency anemia, post-op acute blood loss anemia: S/P PRBC, platelet transfusions. hematology f/u. 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 no need for hematuria workup. HD started . renal eval appreciated. no acute findings on bladder and renal US. -post op seizure with lactic acidosis. Patient was loaded with iv keppra. neurology eval noted. unlikely to need penitentiary treatment. no further events noted. -stool softeners added to prevent opioid induced constipation. -ID: ancef given operatively. WBC tranding down. -PT/OT/OOB when able -full code -assessment and plan discussed with Pt and medical staff. labs and meds reviewed. ICU care appreciated. phone calls answered throughout the day plan discussed with Dr Jimenez. 45 min. please contact me with any updates, anytime [phone]
[2018-12-23 12:32] LABS: WHITE BLOOD COUNT 21.1 K/mm3 (4.0-10.0)
--- NOTE | 2018-12-23 12:45 | PN ---
Progress Note, Physician History of Present Illness: Pain adequately controlled, denies fevers, chest pain, dyspnea. Oliguric renal failure post HD. - Current Medication List Current Medications: Active Medications Al Hydroxide/Mg Hydroxide (Mylanta Oral Suspension -) 30 ml PO Q4H PRN PRN Reason: DYSPEPSIA Aspirin (Asa -) 81 mg PO BID [facility] Last Admin: 12/23/18 09:07 Dose: 81 mg Folic Acid (Folic Acid -) 1 mg PO DAILY [facility] Last Admin: 12/23/18 09:07 Dose: 1 mg Sodium Chloride (Normal Saline -) 1,000 mls @ 50 mls/hr IV ASDIR [facility] Last Admin: 12/21/18 19:00 Dose: 50 mls/hr Sodium Chloride (Normal Saline -) 250 mls @ 3,000 mls/hr IV PRN PRN PRN Reason: Hypotension during Dialysis Stop: 12/23/18 10:56 Magnesium Hydroxide (Milk Of Magnesia -) 30 ml PO PRN PRN PRN Reason: CONSTIPATION Metoprolol Succinate (Toprol Xl -) 12.5 mg PO DAILY [facility] Last Admin: 12/23/18 09:07 Dose: 12.5 mg Ondansetron HCl (Zofran Injection) 4 mg IVPUSH Q6H PRN PRN Reason: NAUSEA Last Admin: 12/19/18 16:05 Dose: 4 mg Ondansetron HCl (Zofran Injection) 4 mg IVPUSH Q6H PRN PRN Reason: NAUSEA AND/OR VOMITING Pantoprazole Sodium (Protonix -) 40 mg PO DAILY [facility] Last Admin: 12/23/18 09:07 Dose: 40 mg Ranitidine HCl (Zantac -) 300 mg PO HS [facility] Last Admin: 12/22/18 21:34 Dose: 300 mg Senna/Docusate Sodium (Pericolace -) 2 tablet PO BID [facility] Last Admin: 12/23/18 09:07 Dose: 2 tablet - Objective Vital Signs: Vital Signs Temperature 98.3 F 12/23/18 10:00 Pulse Rate 77 12/23/18 12:00 Respiratory Rate 13 12/23/18 12:00 Blood Pressure 110/60 12/23/18 12:00 O2 Sat by Pulse Oximetry (%) 100 12/23/18 08:33 Constitutional: Yes: No Distress, Calm, Thin Neck: Yes: Supple Cardiovascular: Yes: Regular Rate and Rhythm Respiratory: Yes: Regular, Diminished, On Nasal O2 Gastrointestinal: Yes: Normal Bowel Sounds, Soft Edema: No Labs: CBC, BMP 12/23/18 05:40 12/23/18 05:40 INR, PTT INR 1.20 (0.83-1.09) H 12/22/18 05:30 - ....Imaging EKG: Report Reviewed (Tele: NSR) Problem List - Problems (1) ALLAN (acute kidney injury) Code(s): N17.9 - ACUTE KIDNEY FAILURE, UNSPECIFIED (2) Anemia Code(s): D64.9 - ANEMIA, UNSPECIFIED Qualifiers: Other causes of anemia: acute posthemorrhagic (3) Demand ischemia Code(s): I24.8 - OTHER FORMS OF ACUTE ISCHEMIC HEART DISEASE (4) HTN (hypertension) Code(s): I10 - ESSENTIAL (PRIMARY) HYPERTENSION Qualifiers: Hypertension type: essential hypertension Qualified Code(s): I10 - Essential (primary) hypertension (5) Hyperkalemia Code(s): E87.5 - HYPERKALEMIA (6) Leukocytosis Code(s): D72.829 - ELEVATED WHITE BLOOD CELL COUNT, UNSPECIFIED (7) Seizure Code(s): R56.9 - UNSPECIFIED CONVULSIONS (8) Shock liver Code(s): K72.00 - ACUTE AND SUBACUTE HEPATIC FAILURE WITHOUT COMA (9) Thrombocytopenia Code(s): D69.6 - THROMBOCYTOPENIA, UNSPECIFIED Assessment/Plan 12/19/2018 Echocardiography: Normal LV and RV size and fxn, mild TR RVSP 22 mmHg , LVEF 65% 1. Left hip revision, bone marrow autograft POD #5 2. Elevated troponin due to demand ischemia 3. Anemia and thrombocytopenia and leukocytosis due to acute blood loss 4. Hypovolemic/Hemorrhagic Shock improving 5. ALLAN with hyperkalemia due to ATN post HD 6. Elevated LFT c/w shock liver 7. Post op Seizure 8. Lactic acidosis 9. Post-op pancreatitis PLAN: 1. Seizure meds per neuro 2. Troponins downtrending 3. Further cardiac work up can be done once clinically stable 4. Low dose beta oscar as BP tolerates, continue ASA 81 qd 5. LFTs and lactate downtrending 6. HD d/malorie per renal 7. Broad spectrum antibiotic and resendiz culture. ID input to follow 8. Monitor Hgb and Plt, transfuse as needed 9. Surgical follow up, monitor drain output, analgesia as needed 10. Mechanical DVT prophylaxis
--- NOTE | 2018-12-23 14:39 | PN ---
Progress Note (short form) - Note Progress Note: problems 1. ALLAN 2. hyperkalemia 3. shock liver 4. seizure 5. s/p hip replacement 6. hx of htn 7. hypotension 8. gerd Current Medications Al Hydroxide/Mg Hydroxide (Mylanta Oral Suspension -) 30 ml PO Q4H PRN PRN Reason: DYSPEPSIA Aspirin (Asa -) 81 mg PO BID [facility] Last Admin: 12/23/18 09:07 Dose: 81 mg Folic Acid (Folic Acid -) 1 mg PO DAILY [facility] Last Admin: 12/23/18 09:07 Dose: 1 mg Sodium Chloride (Normal Saline -) 1,000 mls @ 50 mls/hr IV ASDIR [facility] Last Admin: 12/21/18 19:00 Dose: 50 mls/hr Sodium Chloride (Normal Saline -) 250 mls @ 3,000 mls/hr IV PRN PRN PRN Reason: Hypotension during Dialysis Stop: 12/23/18 10:56 Magnesium Hydroxide (Milk Of Magnesia -) 30 ml PO PRN PRN PRN Reason: CONSTIPATION Metoprolol Succinate (Toprol Xl -) 12.5 mg PO DAILY [facility] Last Admin: 12/23/18 09:07 Dose: 12.5 mg Ondansetron HCl (Zofran Injection) 4 mg IVPUSH Q6H PRN PRN Reason: NAUSEA Last Admin: 12/19/18 16:05 Dose: 4 mg Ondansetron HCl (Zofran Injection) 4 mg IVPUSH Q6H PRN PRN Reason: NAUSEA AND/OR VOMITING Pantoprazole Sodium (Protonix -) 40 mg PO DAILY [facility] Last Admin: 12/23/18 09:07 Dose: 40 mg Ranitidine HCl (Zantac -) 300 mg PO HS [facility] Last Admin: 12/22/18 21:34 Dose: 300 mg Senna/Docusate Sodium (Pericolace -) 2 tablet PO BID [facility] Last Admin: 12/23/18 09:07 Dose: 2 tablet Last Vital Signs Temp Pulse Resp BP Pulse Ox 98.5 F 83 20 124/65 100 12/23/18 14:00 12/23/18 14:00 12/23/18 14:00 12/23/18 14:00 12/23/18 08:33 alert in nad Lungs clear Heart RRR Abd soft nontender Ext no edema CBC, BMP 12/23/18 05:40 12/23/18 05:40 ALLAN s/p HD shiley catheter removed making scant urine not on IVF Plan-oral hydration as tolerated
[2018-12-23] MEDS: SODIUM CHLORIDE 1,000 ML IV SCH (18:29)
[2018-12-23] MEDS: RANITIDINE HCL 150 MG TABLET (FP) PO SCH (21:07)
[2018-12-24 06:32] LABS: HEMATOCRIT 29.8 % (35.4-49); HEMOGLOBIN 10.3 GM/dL (11.7-16.9); MCH 30.7 pg (25.7-33.7); MCHC 34.7 g/dl (32.0-35.9); MEAN CELL VOLUME 88.5 fl (80-96); MEAN PLT VOLUME 9.5 fl (7.5-11.1); PLATELET COUNT 81 K/MM3 (134-434); RBC 3.37 M/mm3 (4.00-5.60)
[2018-12-24 08:20] LABS: BLOOD UREA NITROGEN 73.6 mg/dL (7-18); CALCIUM 7.8 mg/dL (8.5-10.1); POTASSIUM 3.8 mmol/L (3.5-5.1)
--- NOTE | 2018-12-24 08:28 | PN ---
Progress Note (short form) - Note Progress Note: Pulm/CCM SUBJECTIVE: Pt seen and examined in the ICU. 24HR: -overall improving -low grade temp -still not making urine OBJECTIVE: Vital Signs Temp 99.1 F 12/24/18 06:00 Pulse 78 12/24/18 08:00 Resp 15 12/24/18 08:25 BP 116/63 12/24/18 08:00 Pulse Ox 96 12/24/18 08:25 Intake & Output 12/23/18 12/23/18 12/24/18 11:59 23:59 11:59 Intake Total 200 560 100 Output Total 65 90 5 Balance 135 470 95 Weight 79.651 kg 80.558 kg Intake: Oral 200 560 100 Output: Drainage 50 20 5 Left Hip 50 20 5 Urine 15 70 Vidal 15 70 Other: Voiding Method Indwelling Catheter Indwelling Catheter Indwelling Catheter Bowel Movement No Yes: 1 soft No # Bowel Movements 1 Weight Measurement Method Built in [facility] Built in [facility] Gen: NAD at rest Heart: RRR Lung: scattered rhonchi Abd: soft, nontender Ext: + edema, wound warn, dressing intact, no exudate Neuro: awake, alert, pain controlled Current Medications Al Hydroxide/Mg Hydroxide (Mylanta Oral Suspension -) 30 ml PO Q4H PRN PRN Reason: DYSPEPSIA Aspirin (Asa -) 81 mg PO BID [facility] Last Admin: 12/23/18 21:07 Dose: 81 mg Folic Acid (Folic Acid -) 1 mg PO DAILY [facility] Last Admin: 12/23/18 09:07 Dose: 1 mg Sodium Chloride (Normal Saline -) 1,000 mls @ 50 mls/hr IV ASDIR [facility] Last Admin: 12/23/18 18:29 Dose: Not Given Sodium Chloride (Normal Saline -) 250 mls @ 3,000 mls/hr IV PRN PRN PRN Reason: Hypotension during Dialysis Stop: 12/23/18 10:56 Magnesium Hydroxide (Milk Of Magnesia -) 30 ml PO PRN PRN PRN Reason: CONSTIPATION Metoprolol Succinate (Toprol Xl -) 12.5 mg PO DAILY [facility] Last Admin: 12/23/18 09:07 Dose: 12.5 mg Ondansetron HCl (Zofran Injection) 4 mg IVPUSH Q6H PRN PRN Reason: NAUSEA Last Admin: 12/19/18 16:05 Dose: 4 mg Ondansetron HCl (Zofran Injection) 4 mg IVPUSH Q6H PRN PRN Reason: NAUSEA AND/OR VOMITING Pantoprazole Sodium (Protonix -) 40 mg PO DAILY [facility] Last Admin: 12/23/18 09:07 Dose: 40 mg Ranitidine HCl (Zantac -) 300 mg PO HS [facility] Last Admin: 12/23/18 21:07 Dose: 300 mg Senna/Docusate Sodium (Pericolace -) 2 tablet PO BID [facility] Last Admin: 12/23/18 21:07 Dose: 2 tablet ASSESSMENT AND PLAN: s/p Left Hip Revision Acute Blood Loss Anemia Thrombocytopenia Hypovolemic/Hemorrhagic Shock improving Acute Kidney Injury requiring HD Shock Liver Lactic Acidosis +Troponins likely Demand Ischemia Seizure episode HTN GERD - monitor of renal replacement needs, none today - IVF - monitor urine output, creatinine - pain control - monitor drain output, surgery following - PO as tolerated - DVT prophylaxis - continue ICU monitoring critical care time spent in reviewing chart, evaluating patient and formulating plan 35 min Do ROBBINSP [id number]
[2018-12-24] MEDS: ASPIRIN 81 MG CHEWABLE TABLETS PO SCH (09:31)
[2018-12-24] MEDS: SENNOSIDES/DOCUSATE COMBO (SENNA PLUS) TABLET (UD) PO SCH ×2 (09:32→21:09)
[2018-12-24 09:33] LABS: ALBUMIN 1.9 g/dl (3.4-5.0); BILIRUBIN,TOTAL 1.2 mg/dL (0.2-1); TOT PROT 4.2 g/dl (6.4-8.2)
[2018-12-24] MEDS: metoPROLOL SUCCINATE 25 MG TAB.SR.24H (FP) PO SCH (09:33)
[2018-12-24] MEDS: FOLIC ACID 1 MG TABLET (FP) PO SCH (09:33)
[2018-12-24] MEDS: PANTOPRAZOLE 40 MG TABLET (FP) PO SCH (09:33)
--- NOTE | 2018-12-24 14:40 | PN ---
Progress Note, Physician History of Present Illness: Pain adequately controlled, denies fevers, chest pain, dyspnea. Oliguric renal failure post HD. - Current Medication List Current Medications: Active Medications Al Hydroxide/Mg Hydroxide (Mylanta Oral Suspension -) 30 ml PO Q4H PRN PRN Reason: DYSPEPSIA Aspirin (Asa -) 81 mg PO BID [facility] Last Admin: 12/24/18 09:31 Dose: 81 mg Folic Acid (Folic Acid -) 1 mg PO DAILY [facility] Last Admin: 12/24/18 09:33 Dose: 1 mg Sodium Chloride (Normal Saline -) 250 mls @ 3,000 mls/hr IV PRN PRN PRN Reason: Hypotension during Dialysis Stop: 12/23/18 10:56 Magnesium Hydroxide (Milk Of Magnesia -) 30 ml PO PRN PRN PRN Reason: CONSTIPATION Metoprolol Succinate (Toprol Xl -) 12.5 mg PO DAILY [facility] Last Admin: 12/24/18 09:33 Dose: 12.5 mg Ondansetron HCl (Zofran Injection) 4 mg IVPUSH Q6H PRN PRN Reason: NAUSEA Last Admin: 12/19/18 16:05 Dose: 4 mg Ondansetron HCl (Zofran Injection) 4 mg IVPUSH Q6H PRN PRN Reason: NAUSEA AND/OR VOMITING Pantoprazole Sodium (Protonix -) 40 mg PO DAILY [facility] Last Admin: 12/24/18 09:33 Dose: 40 mg Ranitidine HCl (Zantac -) 300 mg PO HS [facility] Last Admin: 12/23/18 21:07 Dose: 300 mg Senna/Docusate Sodium (Pericolace -) 2 tablet PO BID [facility] Last Admin: 12/24/18 09:32 Dose: 2 tablet - Objective Vital Signs: Vital Signs Temperature 98.4 F 12/24/18 10:00 Pulse Rate 71 12/24/18 12:00 Respiratory Rate 17 12/24/18 12:00 Blood Pressure 130/70 12/24/18 12:00 O2 Sat by Pulse Oximetry (%) 96 12/24/18 08:25 Constitutional: Yes: No Distress, Calm, Thin Neck: Yes: Supple Cardiovascular: Yes: Regular Rate and Rhythm Respiratory: Yes: Regular, Diminished, On Nasal O2 Gastrointestinal: Yes: Normal Bowel Sounds, Soft Genitourinary: Yes: Vidal Present Edema: No Labs: CBC, BMP 12/24/18 05:15 12/24/18 06:00 INR, PTT INR 1.20 (0.83-1.09) H 12/22/18 05:30 Problem List - Problems (1) ALLAN (acute kidney injury) Code(s): N17.9 - ACUTE KIDNEY FAILURE, UNSPECIFIED (2) Anemia Code(s): D64.9 - ANEMIA, UNSPECIFIED Qualifiers: Other causes of anemia: acute posthemorrhagic (3) Demand ischemia Code(s): I24.8 - OTHER FORMS OF ACUTE ISCHEMIC HEART DISEASE (4) HTN (hypertension) Code(s): I10 - ESSENTIAL (PRIMARY) HYPERTENSION Qualifiers: Hypertension type: essential hypertension Qualified Code(s): I10 - Essential (primary) hypertension (5) Leukocytosis Code(s): D72.829 - ELEVATED WHITE BLOOD CELL COUNT, UNSPECIFIED (6) Seizure Code(s): R56.9 - UNSPECIFIED CONVULSIONS (7) Shock liver Code(s): K72.00 - ACUTE AND SUBACUTE HEPATIC FAILURE WITHOUT COMA (8) Thrombocytopenia Code(s): D69.6 - THROMBOCYTOPENIA, UNSPECIFIED Assessment/Plan 12/19/2018 Echocardiography: Normal LV and RV size and fxn, mild TR RVSP 22 mmHg , LVEF 65% 1. Left hip revision, bone marrow autograft POD #6 2. Elevated troponin due to demand ischemia 3. Anemia and thrombocytopenia and leukocytosis due to acute blood loss 4. Hypovolemic/Hemorrhagic Shock improving 5. ALLAN with hyperkalemia due to ATN post HD 6. Elevated LFT c/w shock liver 7. Post op Seizure 8. Lactic acidosis 9. Post-op pancreatitis PLAN: 1. Troponins downtrended 2. Further cardiac work up can be done once clinically stable 3. Low dose beta oscar as BP tolerates, continue ASA 81 qd 4. LFTs and lactate downtrended 5. HD d/malorie per renal, monitor of renal replacement needs, none today 6. Observe off abx 7. Monitor Hgb and Plt, transfuse as needed 8. Surgical follow up, monitor drain output, analgesia as needed 9. Mechanical DVT prophylaxis
--- NOTE | 2018-12-24 17:36 | PN ---
Progress Note, Physician Chief Complaint: C/O fatigue, nausea, onoing weakness. denies chest pain, palpitations, diarrhea, fever - Current Medication List Current Medications: Active Medications Al Hydroxide/Mg Hydroxide (Mylanta Oral Suspension -) 30 ml PO Q4H PRN PRN Reason: DYSPEPSIA Aspirin (Asa -) 81 mg PO BID [facility] Last Admin: 12/24/18 09:31 Dose: 81 mg Folic Acid (Folic Acid -) 1 mg PO DAILY [facility] Last Admin: 12/24/18 09:33 Dose: 1 mg Sodium Chloride (Normal Saline -) 250 mls @ 3,000 mls/hr IV PRN PRN PRN Reason: Hypotension during Dialysis Stop: 12/23/18 10:56 Magnesium Hydroxide (Milk Of Magnesia -) 30 ml PO PRN PRN PRN Reason: CONSTIPATION Metoprolol Succinate (Toprol Xl -) 12.5 mg PO DAILY [facility] Last Admin: 12/24/18 09:33 Dose: 12.5 mg Ondansetron HCl (Zofran Injection) 4 mg IVPUSH Q6H PRN PRN Reason: NAUSEA Last Admin: 12/19/18 16:05 Dose: 4 mg Ondansetron HCl (Zofran Injection) 4 mg IVPUSH Q6H PRN PRN Reason: NAUSEA AND/OR VOMITING Pantoprazole Sodium (Protonix -) 40 mg PO DAILY [facility] Last Admin: 12/24/18 09:33 Dose: 40 mg Ranitidine HCl (Zantac -) 300 mg PO HS [facility] Last Admin: 12/23/18 21:07 Dose: 300 mg Senna/Docusate Sodium (Pericolace -) 2 tablet PO BID [facility] Last Admin: 12/24/18 09:32 Dose: 2 tablet - Objective Vital Signs: Vital Signs Temperature 98.5 F 12/24/18 16:00 Pulse Rate 72 12/24/18 16:00 Respiratory Rate 16 12/24/18 16:00 Blood Pressure 133/67 12/24/18 16:00 O2 Sat by Pulse Oximetry (%) 96 12/24/18 08:25 Constitutional: Yes: No Distress Eyes: Yes: WNL HENT: Yes: WNL Neck: Yes: WNL Cardiovascular: Yes: WNL Respiratory: Yes: WNL Gastrointestinal: Yes: WNL Genitourinary: Yes: WNL Musculoskeletal: Yes: Back Pain, Joint Stiffness Extremities: Yes: WNL Edema: No Peripheral Pulses WNL: Yes Integumentary: Yes: WNL Wound/Incision: Yes: Clean/Dry, Well Approximated Neurological: Yes: WNL ...Motor Strength: WNL Psychiatric: Yes: WNL Labs: CBC, BMP 12/24/18 05:15 12/24/18 06:00 INR, PTT INR 1.20 (0.83-1.09) H 12/22/18 05:30 Assessment/Plan 68 yo man who Failed left total hip replacement, Massive osteolysis, Gait abnormalit. Fall risk now S/P Revision left total hip replacement. 2. Bone marrow aspiration and autograft, POD#6. pain management. incentive spirometry. post-op course complicated by hypovolemic shock. aggressively rescitated with IV fluids and 5 units total PRBC. Pt looks clinically improved. -elevated LFT's: shock liver. trending lower. expecting daily improvement as shock resolves. -elevated troponins: likely demand ischemia. cardiology eval noted. will monitor for now. -pancreatitis: post-op. triglycerides WNL. -GI, DVT prophylaxis. TEDs. -acute on chronic iron deficiency anemia, post-op acute blood loss anemia: S/P PRBC, platelet transfusions. hematology f/u appreciated. 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 no need for hematuria workup. HD started . renal eval appreciated. no HD today. no acute findings on bladder and renal US. -post op seizure with lactic acidosis. Patient was loaded with iv keppra. neurology eval noted. unlikely to need superintendent terminal treatment. no further events noted. -stool softeners added to prevent opioid induced constipation. -ID: ancef given operatively. WBC trending down. -PT/OT/OOB when able -full code -assessment and plan discussed with Pt and medical staff. labs and meds reviewed. ICU care appreciated. phone calls answered throughout the day plan discussed with Dr Jimenez. 45 min. please contact me with any updates, anytime [phone]
[2018-12-24] MEDS: RANITIDINE HCL 150 MG TABLET (FP) PO SCH (21:09)
[2018-12-24] MEDS ORDERED: MELATONIN 5 MG TABLETS PO PRN (21:41)
--- NOTE | 2018-12-24 22:52 | PN ---
Progress Note (short form) - Note Progress Note: problems 1. ALLAN 2. hyperkalemia 3. shock liver 4. seizure 5. s/p hip replacement 6. hx of htn 7. hypotension 8. gerd Current Medications Al Hydroxide/Mg Hydroxide (Mylanta Oral Suspension -) 30 ml PO Q4H PRN PRN Reason: DYSPEPSIA Aspirin (Asa -) 81 mg PO DAILY [facility] Folic Acid (Folic Acid -) 1 mg PO DAILY [facility] Last Admin: 12/24/18 09:33 Dose: 1 mg Sodium Chloride (Normal Saline -) 250 mls @ 3,000 mls/hr IV PRN PRN PRN Reason: Hypotension during Dialysis Stop: 12/23/18 10:56 Magnesium Hydroxide (Milk Of Magnesia -) 30 ml PO PRN PRN PRN Reason: CONSTIPATION Melatonin (Melatonin) 5 mg PO HS PRN PRN Reason: INSOMNIA Last Admin: 12/24/18 21:48 Dose: 5 mg Metoprolol Succinate (Toprol Xl -) 12.5 mg PO DAILY [facility] Last Admin: 12/24/18 09:33 Dose: 12.5 mg Ondansetron HCl (Zofran Injection) 4 mg IVPUSH Q6H PRN PRN Reason: NAUSEA Last Admin: 12/19/18 16:05 Dose: 4 mg Ondansetron HCl (Zofran Injection) 4 mg IVPUSH Q6H PRN PRN Reason: NAUSEA AND/OR VOMITING Pantoprazole Sodium (Protonix -) 40 mg PO DAILY [facility] Last Admin: 12/24/18 09:33 Dose: 40 mg Ranitidine HCl (Zantac -) 300 mg PO HS [facility] Last Admin: 12/24/18 21:09 Dose: 300 mg Senna/Docusate Sodium (Pericolace -) 2 tablet PO BID [facility] Last Admin: 12/24/18 21:09 Dose: 2 tablet Last Vital Signs Temp Pulse Resp BP Pulse Ox 98.5 F 71 16 140/75 97 12/24/18 16:00 12/24/18 22:00 12/24/18 22:00 12/24/18 22:00 12/24/18 21:00 alert in nad Lungs clear Heart RRR Abd soft nontender Ext no edema CBC, BMP 12/24/18 05:15 12/24/18 06:00 CBC, BMP 12/23/18 05:40 12/23/18 05:40 ALLAN not yet reversing s/p HD last week [place] catheter removed making scant urine not on IVF Plan- HD tomorrow via new catheter
[2018-12-24] MEDS ORDERED: SODIUM CHLORIDE 250 ML IV PRN (22:56)
[2018-12-25 06:34] LABS: HEMATOCRIT 29.3 % (35.4-49); HEMOGLOBIN 10.2 GM/dL (11.7-16.9); MCH 30.9 pg (25.7-33.7); MCHC 34.7 g/dl (32.0-35.9); MEAN CELL VOLUME 89.1 fl (80-96); MEAN PLT VOLUME 9.9 fl (7.5-11.1); PLATELET COUNT 73 K/MM3 (134-434); RBC 3.29 M/mm3 (4.00-5.60); RDW 14.8 % (11.9-15.9); WHITE BLOOD COUNT 10.2 K/mm3 (4.0-10.0)
[2018-12-25 06:55] LABS: BLOOD UREA NITROGEN 91.8 mg/dL (7-18); CALCIUM 7.8 mg/dL (8.5-10.1); MAGNESIUM 1.8 mg/dL (1.8-2.4); PHOSPHOROUS 5.5 mg/dL (2.5-4.9)
[2018-12-25 07:05] LABS: CREATININE 11.1 mg/dL (0.55-1.3)
[2018-12-25] MEDS ORDERED: PT OWN MED DRAWER 7, Y5N ONE (07:54)
--- NOTE | 2018-12-25 09:09 | PN ---
Progress Note (short form) - Note Progress Note: 68M s/p revision LEFT total hip replacement POD #7. Acute kidney injury d/t post-op hypovolemic shock; creatinine trending up. Pain well controlled. Pt. denies overnight history of headaches, chest pain, shortness of breath, chills, & sweats. (+) Vidal catheter; (+) Flatus; (+) BM. Has not gotten out of bed. All labs and vitals reviewed. PE: AAO x 3, NAD. L-Hip: Dressing C/D/I. Drain intact & in place. NVI distally. 68M s/p revision LEFT total hip replacement POD #7. -Offload heals with rolled towels under ankles to avoid heel ulcers/pressure sores. -Hip abduction pillow straps LOOSE, not tight. -Mobilize out of bed to chair with PT today. -Pain control. -DVT PPx: -Chemical: ASA 81mg PO BID x 6 weeks. -Mechanical: TARIK's, SCD's. -Incentive spirometry q15 min. -PT/OT/Rehab, OOB. -WBAT LLE. -Vidal catheter care. -f/u drain output. -f/u all labs. -Diet as tolerated. -Care per ICU, renal, and medical hospitalist teams. -Discharge planning: f/u [facility] [place] [facility] w/in 1 week of discharge; call for appointment . -Medical plan discussed with and understood by patient. -Will follow. Emile Jimenez MD (Orthopaedic Surgery).
[2018-12-25] MEDS: FOLIC ACID 1 MG TABLET (FP) PO SCH (09:24)
[2018-12-25] MEDS: metoPROLOL SUCCINATE 25 MG TAB.SR.24H (FP) PO SCH (09:24)
[2018-12-25] MEDS: PANTOPRAZOLE 40 MG TABLET (FP) PO SCH (09:26)
[2018-12-25] MEDS: SENNOSIDES/DOCUSATE COMBO (SENNA PLUS) TABLET (UD) PO SCH ×2 (09:27→22:06)
[2018-12-25] MEDS ORDERED: ASPIRIN 81 MG CHEWABLE TABLETS PO SCH (10:00)
--- NOTE | 2018-12-25 10:41 | PROC ---
Central Line Insertion - Procedure Note TIME OUT performed prior to this procedure with verbal confirmation of correct patient identity, correct side, agreement of the procedure, correct patient position, availability of necessary equipment. The consent form is complete and accurate. Risk of possible infection, bleeding and pneumothorax have been discussed with the patient. Safety precautions based on patient history or medication use has been addressed. Coag profile within normal range to safely do procedure Indication: Other (Renal failure and need for HD) Central Line: Dialysis Cath, Tri Lumen Position: Supine Area prepped with Chlorhexidine solution then draped using sterile barrier protection. Anesthesia: Lidocaine 1% Technique used: Seldinger Ultrasound Guided Assistance: Yes Site: Right Internal Jugular Dark venous non-pulsatile flow noted from hub of needle. The catheter was introduced. Guide wire removed intact. Each port aspirated then flushed with sterile normal saline and capped. Line secured to skin with nylon suture. Biopatch placed around base of line. Sterile occlusive dressing applied. No complications. Patient tolerated the procedure well. STAT chest xray ordered to confirm position and rule out pneumothorax
--- NOTE | 2018-12-25 10:42 | PN ---
Progress Note, Physician History of Present Illness: Pain adequately controlled, denies fevers, chest pain, dyspnea. Remains in oliguric renal failure resumed HD via RIJ catheter. - Current Medication List Current Medications: Active Medications Al Hydroxide/Mg Hydroxide (Mylanta Oral Suspension -) 30 ml PO Q4H PRN PRN Reason: DYSPEPSIA Aspirin (Asa -) 81 mg PO DAILY [facility] Last Admin: 12/25/18 09:34 Dose: 81 mg Folic Acid (Folic Acid -) 1 mg PO DAILY [facility] Last Admin: 12/25/18 09:24 Dose: 1 mg Sodium Chloride (Normal Saline -) 250 mls @ 3,000 mls/hr IV PRN PRN PRN Reason: Hypotension during Dialysis Stop: 12/23/18 10:56 Sodium Chloride (Normal Saline -) 250 mls @ 3,000 mls/hr IV PRN PRN PRN Reason: Hypotension during Dialysis Stop: 12/25/18 22:56 Magnesium Hydroxide (Milk Of Magnesia -) 30 ml PO PRN PRN PRN Reason: CONSTIPATION Melatonin (Melatonin) 5 mg PO HS PRN PRN Reason: INSOMNIA Last Admin: 12/24/18 21:48 Dose: 5 mg Metoprolol Succinate (Toprol Xl -) 12.5 mg PO DAILY [facility] Last Admin: 12/25/18 09:24 Dose: 12.5 mg Ondansetron HCl (Zofran Injection) 4 mg IVPUSH Q6H PRN PRN Reason: NAUSEA Last Admin: 12/19/18 16:05 Dose: 4 mg Ondansetron HCl (Zofran Injection) 4 mg IVPUSH Q6H PRN PRN Reason: NAUSEA AND/OR VOMITING Pantoprazole Sodium (Protonix -) 40 mg PO DAILY [facility] Last Admin: 12/25/18 09:26 Dose: 40 mg Ranitidine HCl (Zantac -) 300 mg PO HS [facility] Last Admin: 12/24/18 21:09 Dose: 300 mg Senna/Docusate Sodium (Pericolace -) 2 tablet PO BID [facility] Last Admin: 12/25/18 09:27 Dose: 2 tablet - Objective Vital Signs: Vital Signs Temperature 98.8 F 12/25/18 06:00 Pulse Rate 85 12/25/18 08:00 Respiratory Rate 18 12/25/18 08:00 Blood Pressure 134/66 12/25/18 08:00 O2 Sat by Pulse Oximetry (%) 97 12/25/18 07:57 Constitutional: Yes: No Distress, Calm, Thin Neck: Yes: Supple Cardiovascular: Yes: Regular Rate and Rhythm Respiratory: Yes: Regular, Diminished, On Nasal O2 Gastrointestinal: Yes: Normal Bowel Sounds, Soft Edema: Yes Edema: LLE: Trace, RLE: Trace Labs: CBC, BMP 12/25/18 05:12 12/25/18 05:12 INR, PTT INR 1.20 (0.83-1.09) H 12/22/18 05:30 - ....Imaging EKG: Report Reviewed (Tele: NSR) Problem List - Problems (1) ALLAN (acute kidney injury) Code(s): N17.9 - ACUTE KIDNEY FAILURE, UNSPECIFIED (2) Anemia Code(s): D64.9 - ANEMIA, UNSPECIFIED Qualifiers: Other causes of anemia: acute posthemorrhagic (3) Demand ischemia Code(s): I24.8 - OTHER FORMS OF ACUTE ISCHEMIC HEART DISEASE (4) HTN (hypertension) Code(s): I10 - ESSENTIAL (PRIMARY) HYPERTENSION Qualifiers: Hypertension type: essential hypertension Qualified Code(s): I10 - Essential (primary) hypertension (5) Leukocytosis Code(s): D72.829 - ELEVATED WHITE BLOOD CELL COUNT, UNSPECIFIED (6) Seizure Code(s): R56.9 - UNSPECIFIED CONVULSIONS (7) Shock liver Code(s): K72.00 - ACUTE AND SUBACUTE HEPATIC FAILURE WITHOUT COMA (8) Thrombocytopenia Code(s): D69.6 - THROMBOCYTOPENIA, UNSPECIFIED Assessment/Plan 12/19/2018 Echocardiography: Normal LV and RV size and fxn, mild TR RVSP 22 mmHg , LVEF 65% 1. Left hip revision, bone marrow autograft POD #7 2. Elevated troponin due to demand ischemia 3. Anemia and thrombocytopenia and leukocytosis due to acute blood loss 4. Hypovolemic/Hemorrhagic Shock improving 5. ALLAN with hyperkalemia due to ATN on HD 6. Elevated LFT c/w shock liver 7. Post op Seizure 8. Lactic acidosis 9. Post-op pancreatitis PLAN: 1. Troponins downtrended 2. Further cardiac work up can be done once clinically stable 3. Low dose beta oscar as BP tolerates, continue ASA 81 qd 4. LFTs and lactate downtrended 5. HD resumed per renal via RIJ Trialysis catheter 6. Observe off abx 7. Monitor Hgb and Plt, transfuse as needed 8. Surgical follow up, monitor drain output, analgesia as needed 9. Mechanical DVT prophylaxis
[2018-12-25 11:08] LABS: ANTIGLOMERULAR BASEMENT MEN.AB 3 units (0-20)
--- NOTE | 2018-12-25 11:41 | PN ---
Teaching Attending Note Name of Resident: Kevan Jacques ATTENDING PHYSICIAN STATEMENT I saw and evaluated the patient. I reviewed the resident's note and discussed the case with the resident. I agree with the resident's findings and plan as documented. SUBJECTIVE: Patient seen and examined in the ICU. H&H has stabilized. Denies CP or SOB. No acute events overnight. R IJ HD catheter inserted by Surgical PA. Catheter in adequate position, No PTX : OK for use. OBJECTIVE: Intake & Output 12/22/18 12/23/18 12/24/18 12/25/18 23:59 23:59 23:59 23:59 Intake Total 2468 760 850 Output Total 2556 155 50 5 Balance -88 605 800 -5 Weight 175 lb 175 lb 9.6 oz 177 lb 9.6 oz 191 lb 11.2 oz Last Vital Signs Temp Pulse Resp BP Pulse Ox 97.7 F 70 18 113/73 97 12/25/18 10:00 12/25/18 10:00 12/25/18 10:00 12/25/18 10:00 12/25/18 07:57 Active Medications Al Hydroxide/Mg Hydroxide (Mylanta Oral Suspension -) 30 ml PO Q4H PRN PRN Reason: DYSPEPSIA Aspirin (Asa -) 81 mg PO DAILY [facility] Last Admin: 12/25/18 09:34 Dose: 81 mg Folic Acid (Folic Acid -) 1 mg PO DAILY [facility] Last Admin: 12/25/18 09:24 Dose: 1 mg Sodium Chloride (Normal Saline -) 250 mls @ 3,000 mls/hr IV PRN PRN PRN Reason: Hypotension during Dialysis Stop: 12/23/18 10:56 Sodium Chloride (Normal Saline -) 250 mls @ 3,000 mls/hr IV PRN PRN PRN Reason: Hypotension during Dialysis Stop: 12/25/18 22:56 Magnesium Hydroxide (Milk Of Magnesia -) 30 ml PO PRN PRN PRN Reason: CONSTIPATION Melatonin (Melatonin) 5 mg PO HS PRN PRN Reason: INSOMNIA Last Admin: 12/24/18 21:48 Dose: 5 mg Metoprolol Succinate (Toprol Xl -) 12.5 mg PO DAILY [facility] Last Admin: 12/25/18 09:24 Dose: 12.5 mg Ondansetron HCl (Zofran Injection) 4 mg IVPUSH Q6H PRN PRN Reason: NAUSEA Last Admin: 12/19/18 16:05 Dose: 4 mg Ondansetron HCl (Zofran Injection) 4 mg IVPUSH Q6H PRN PRN Reason: NAUSEA AND/OR VOMITING Pantoprazole Sodium (Protonix -) 40 mg PO DAILY [facility] Last Admin: 12/25/18 09:26 Dose: 40 mg Ranitidine HCl (Zantac -) 300 mg PO HS [facility] Last Admin: 12/24/18 21:09 Dose: 300 mg Senna/Docusate Sodium (Pericolace -) 2 tablet PO BID [facility] Last Admin: 12/25/18 09:27 Dose: 2 tablet Gen: Awake and alert, NAD at rest Heart: RRR Lung: scattered rhonchi Abd: soft, nontender Ext: + edema Laboratory Results - last 24 hr 12/21/18 12/22/18 12/25/18 10:30 16:15 05:12 WBC 10.2 H RBC 3.29 L Hgb 10.2 L Hct 29.3 L MCV 89.1 MCH 30.9 MCHC 34.7 RDW 14.8 Plt Count 73 L MPV 9.9 Sodium Potassium Chloride Carbon Dioxide Anion Gap BUN Creatinine Est GFR (CKD-EPI)AfAm Est GFR (CKD-EPI)NonAf Random Glucose Calcium Phosphorus Magnesium Glomerular Base Memb Ab 3 Blood Type O POSITIVE Antibody Screen Negative Crossmatch See Detail 12/25/18 05:12 WBC RBC Hgb Hct MCV MCH MCHC RDW Plt Count MPV Sodium 134 L Potassium 4.0 Chloride 98 Carbon Dioxide 23 Anion Gap 13 BUN 91.8 H Creatinine 11.1 H* Est GFR (CKD-EPI)AfAm 4.83 Est GFR (CKD-EPI)NonAf 4.16 Random Glucose 112 H Calcium 7.8 L Phosphorus 5.5 H Magnesium 1.8 Glomerular Base Memb Ab Blood Type Antibody Screen Crossmatch ASSESSMENT AND PLAN: s/p Left Hip Revision Acute Blood Loss Anemia Thrombocytopenia Hypovolemic/Hemorrhagic Shock improving Acute Kidney Injury requiring HD Shock Liver Lactic Acidosis +Troponins likely Demand Ischemia Seizure episode HTN GERD - HD per Renal - Normal transfusion thresholds: Hgb 7 mg/dL - monitor urine output, creatinine - pain control - AEDs - PO as tolerated - DVT prophylaxis - OOB to chair / PT - Floor Dr Jerome
[2018-12-25] MEDS ORDERED: SODIUM CHLORIDE 250 ML IV PRN (12:58)
--- NOTE | 2018-12-25 12:58 | PN ---
Progress Note, Physician History of Present Illness: Pt seen and examined at bedside. He is awake and appears comfortable. - Current Medication List Current Medications: Active Medications Al Hydroxide/Mg Hydroxide (Mylanta Oral Suspension -) 30 ml PO Q4H PRN PRN Reason: DYSPEPSIA Aspirin (Asa -) 81 mg PO DAILY [facility] Last Admin: 12/25/18 09:34 Dose: 81 mg Folic Acid (Folic Acid -) 1 mg PO DAILY [facility] Last Admin: 12/25/18 09:24 Dose: 1 mg Sodium Chloride (Normal Saline -) 250 mls @ 3,000 mls/hr IV PRN PRN PRN Reason: Hypotension during Dialysis Stop: 12/23/18 10:56 Sodium Chloride (Normal Saline -) 250 mls @ 3,000 mls/hr IV PRN PRN PRN Reason: Hypotension during Dialysis Stop: 12/25/18 22:56 Magnesium Hydroxide (Milk Of Magnesia -) 30 ml PO PRN PRN PRN Reason: CONSTIPATION Melatonin (Melatonin) 5 mg PO HS PRN PRN Reason: INSOMNIA Last Admin: 12/24/18 21:48 Dose: 5 mg Metoprolol Succinate (Toprol Xl -) 12.5 mg PO DAILY [facility] Last Admin: 12/25/18 09:24 Dose: 12.5 mg Ondansetron HCl (Zofran Injection) 4 mg IVPUSH Q6H PRN PRN Reason: NAUSEA Last Admin: 12/19/18 16:05 Dose: 4 mg Ondansetron HCl (Zofran Injection) 4 mg IVPUSH Q6H PRN PRN Reason: NAUSEA AND/OR VOMITING Pantoprazole Sodium (Protonix -) 40 mg PO DAILY [facility] Last Admin: 12/25/18 09:26 Dose: 40 mg Ranitidine HCl (Zantac -) 300 mg PO HS [facility] Last Admin: 12/24/18 21:09 Dose: 300 mg Senna/Docusate Sodium (Pericolace -) 2 tablet PO BID [facility] Last Admin: 12/25/18 09:27 Dose: 2 tablet - Objective Vital Signs: Vital Signs Temperature 97.7 F 12/25/18 11:47 Pulse Rate 68 12/25/18 12:20 Respiratory Rate 18 12/25/18 12:20 Blood Pressure 131/70 12/25/18 12:20 O2 Sat by Pulse Oximetry (%) 97 12/25/18 07:57 Constitutional: Yes: Calm Eyes: Yes: Conjunctiva Clear HENT: Yes: Atraumatic Neck: Yes: Supple Cardiovascular: Yes: S1, S2 Respiratory: Yes: CTA Bilaterally Gastrointestinal: Yes: Normal Bowel Sounds, Soft Genitourinary: Yes: Vidal Present, Oliguria Edema: Yes Edema: LLE: Trace, RLE: Trace Neurological: Yes: Oriented Psychiatric: Yes: Oriented Labs: CBC, BMP 12/25/18 05:12 12/25/18 05:12 INR, PTT INR 1.20 (0.83-1.09) H 12/22/18 05:30 Problem List - Problems (1) ALLAN (acute kidney injury) Code(s): N17.9 - ACUTE KIDNEY FAILURE, UNSPECIFIED (2) Anemia Code(s): D64.9 - ANEMIA, UNSPECIFIED Qualifiers: Other causes of anemia: acute posthemorrhagic (3) Hyperkalemia Code(s): E87.5 - HYPERKALEMIA (4) Seizure Code(s): R56.9 - UNSPECIFIED CONVULSIONS (5) Shock liver Code(s): K72.00 - ACUTE AND SUBACUTE HEPATIC FAILURE WITHOUT COMA Assessment/Plan Current Medications Generic Name Dose Route Start Last Admin Trade Name Freq PRN Reason Stop Dose Admin Al Hydroxide/Mg Hydroxide 30 ml 12/18/18 16:01 Mylanta Oral Suspension - PO Q4H PRN DYSPEPSIA Aspirin 81 mg 12/25/18 10:00 12/25/18 09:34 Asa - PO 81 mg DAILY [facility] Administration Folic Acid 1 mg 12/19/18 10:00 12/25/18 09:24 Folic Acid - PO 1 mg DAILY [facility]PI Administration Sodium Chloride 250 mls @ 3,000 mls/hr 12/22/18 10:56 Normal Saline - IV 12/23/18 10:56 PRN PRN Hypotension during Dialysis Sodium Chloride 250 mls @ 3,000 mls/hr 12/24/18 22:56 Normal Saline - IV 12/25/18 22:56 PRN PRN Hypotension during Dialysis Magnesium Hydroxide 30 ml 12/18/18 16:01 Milk Of Magnesia - PO PRN PRN CONSTIPATION Melatonin 5 mg 12/24/18 21:41 12/24/18 21:48 Melatonin PO 5 mg HS PRN Administration INSOMNIA Metoprolol Succinate 12.5 mg 12/20/18 10:15 12/25/18 09:24 Toprol Xl - PO 12.5 mg DAILY [facility]PI Administration Ondansetron HCl 4 mg 12/18/18 16:01 12/19/18 16:05 Zofran Injection IVPUSH 4 mg Q6H PRN Administration NAUSEA Ondansetron HCl 4 mg 12/18/18 16:33 Zofran Injection IVPUSH Q6H PRN NAUSEA AND/OR VOMITING Pantoprazole Sodium 40 mg 12/19/18 10:00 12/25/18 09:26 Protonix - PO 40 mg DAILY [facility]PI Administration Ranitidine HCl 300 mg 12/18/18 22:00 12/24/18 21:09 Zantac - PO 300 mg HS EPI Administration Senna/Docusate Sodium 2 tablet 12/18/18 22:00 12/25/18 09:27 Pericolace - PO 2 tablet BID EPI Administration Impression 1. LALAN 2. hyperkalemia 3. shock liver 4. seizure 5. s/p hip replacement 6. hx of htn 7. hypotension 8. gerd Plan - pt getting HD catheter - HD today - monitor urine output - follow serologies - ALLAN likely from ATN
--- NOTE | 2018-12-25 13:11 | PN ---
Progress Note (short form) - Note Progress Note: VASCULAR SURGERY Spoke wit Dr. Taylor (Nephrology) --> patient will need shelter HD access. In preparation for this, a Right IJ Trialysis cath placed and will be utilized until we can take him to the OR and switch to a Permacatheter, most likely . Please medically optimize/clear for impending procedure.
--- NOTE | 2018-12-25 13:30 | PN ---
Physical Exam: SUBJECTIVE: Patient seen and examined at the bedside. Denies any acute complaints of chest pain, sob, abd pain, n/v, hip pain, back pain, fever, chills. Had R IJ trialysis catheter placed today for HD. Will need hunter trapper access placement for HD which will likely be this week. OBJECTIVE: Vital Signs Period Temp Pulse Resp BP Sys/Hernandez Pulse Ox Last 24 Hr 97.7 F-98.8 F 67-85 15-18 113-140/65-75 97-97 GENERAL: A&Ox3, no acute distress EYES: PERRLA, EOMI ENT: Dry mucus membranes NECK: No JVD noted. R Trialysis catheter in place LUNGS: CTA, no wheezes HEART: RRR, no murmurs or rubs appreciated. ABDOMEN: Soft, nontender, BS present EXTREMITIES: 2+ pulses, no edema. Dressing on L hip dry and intact. NEUROLOGICAL: Cranial nerves II-XII intact. Muscle strength intact 5/5 bilaterally upper and lower extremities. L hip flexion and extension not examined due to recent surgery. Laboratory Results - last 24 hr 12/21/18 12/22/18 12/25/18 10:30 16:15 05:12 WBC 10.2 H RBC 3.29 L Hgb 10.2 L Hct 29.3 L MCV 89.1 MCH 30.9 MCHC 34.7 RDW 14.8 Plt Count 73 L MPV 9.9 Sodium Potassium Chloride Carbon Dioxide Anion Gap BUN Creatinine Est GFR (CKD-EPI)AfAm Est GFR (CKD-EPI)NonAf Random Glucose Calcium Phosphorus Magnesium Glomerular Base Memb Ab 3 Blood Type O POSITIVE Antibody Screen Negative Crossmatch See Detail 12/25/18 05:12 WBC RBC Hgb Hct MCV MCH MCHC RDW Plt Count MPV Sodium 134 L Potassium 4.0 Chloride 98 Carbon Dioxide 23 Anion Gap 13 BUN 91.8 H Creatinine 11.1 H* Est GFR (CKD-EPI)AfAm 4.83 Est GFR (CKD-EPI)NonAf 4.16 Random Glucose 112 H Calcium 7.8 L Phosphorus 5.5 H Magnesium 1.8 Glomerular Base Memb Ab Blood Type Antibody Screen Crossmatch Active Medications Generic Name Dose Route Start Last Admin Trade Name Freq PRN Reason Stop Dose Admin Al Hydroxide/Mg Hydroxide 30 ml 12/18/18 16:01 Mylanta Oral Suspension - PO Q4H PRN DYSPEPSIA Aspirin 81 mg 12/25/18 10:00 12/25/18 09:34 Asa - PO 81 mg DAILY EPI Administration Folic Acid 1 mg 12/19/18 10:00 12/25/18 09:24 Folic Acid - PO 1 mg DAILY [facility]PI Administration Sodium Chloride 250 mls @ 3,000 mls/hr 12/25/18 12:58 Normal Saline - IV 12/26/18 12:58 PRN PRN Hypotension during Dialysis Magnesium Hydroxide 30 ml 12/18/18 16:01 Milk Of Magnesia - PO PRN PRN CONSTIPATION Melatonin 5 mg 12/24/18 21:41 12/24/18 21:48 Melatonin PO 5 mg HS PRN Administration INSOMNIA Metoprolol Succinate 12.5 mg 12/20/18 10:15 12/25/18 09:24 Toprol Xl - PO 12.5 mg DAILY EPI Administration Ondansetron HCl 4 mg 12/18/18 16:01 12/19/18 16:05 Zofran Injection IVPUSH 4 mg Q6H PRN Administration NAUSEA Ondansetron HCl 4 mg 12/18/18 16:33 Zofran Injection IVPUSH Q6H PRN NAUSEA AND/OR VOMITING Pantoprazole Sodium 40 mg 12/19/18 10:00 12/25/18 09:26 Protonix - PO 40 mg DAILY EPI Administration Ranitidine HCl 300 mg 12/18/18 22:00 12/24/18 21:09 Zantac - PO 300 mg HS EPI Administration Senna/Docusate Sodium 2 tablet 12/18/18 22:00 12/25/18 09:27 Pericolace - PO 2 tablet BID EPI Administration ASSESSMENT/PLAN: Richard Jean-Baptiste is a 68 year old male with a past medical history of hypertension, GERD, multiple total hip replacements (1986,1995, 2017) who presented for a revision of left total hip replacement with Dr. Jimenez admitted to the ICU for continued monitoring post-op. L hip total hip replacement HTN GERD Tropinemia secondary to demand ischemia ALLAN secondary to hypovolemia Elevated LFTs secondary to hypovolemia NEUROLOGIC - no acute pain - alert and oriented - Dr. Philip consulted, recs appreciated - head CT does not show any acute intracranial pathology CARDIOLOGY - hold home BP meds - BP have normalized with good MAPs in the 80s - will check CBC after dialysis today - troponins trending down, likely elevated in setting of hypovolemia - Dr. Arita consulted, recs appreciated - Echo showing EF 65% - trialysis catheter placement in RIJ today RESPIRATORY - on RA, good saturations - encourage incentive spirometry - CT showing bibasilar atelectatic changes, likely post-op RENAL - CRE worsening, likely ALLAN leading to ATN - poor urine output - receiving HD today - Bladder/renal U/s showing morphologically normal kidneys with no hydronephrosis or obstruction - Dr. Batista consulted, recs appreciated - lokelma discontinued - intrinsic kidney disease workup GASTROINTESTINAL - zofran for nausea, continue as patient continues to have nausea and vomiting - home ranitidine - protonix - senna/colace - LFTs improving from shock liver due to hypovolemia - increased amount of fluid in stomach - CT of abd pelvis showing enlarged stomach with increased fluid, cysts on kidneys, no evidence of abscess, post-op changes on L hip INFECTIOUS DISEASE - no acute issues, afebrile, continue to monitor counts, blood cxs negative HEMATOLOGY - given 7 units total - Hgb 10.3 today, stable - monitor white count MUSCULOSKELETAL - POD #7 for L hip revision - monitor neurological checks - PT/OT/OOB/Rehab once stable - f/u with Dr. Jimenez in office in 1 week post discharge - maintain hodges until ambulating - sitting positon when able, into high chair F/E/N - no standing fluids - continue to monitor electrolytes and replete as necessary - regular diet as tolerated PROPHYLAXIS - aspirin on hold in setting of low blood counts - SCDs LINES - RIJ trialysis catheter placed 12/25 CODE - full code DISPO - stable for transfer to Med-surg CASE DISCUSSED WITH DR HARRIET MI DO - PGY-1 INTERNAL MEDICINE Visit type - Emergency Visit Emergency Visit: No - New Patient This patient is new to me today: No - Critical Care Critical Care patient: No
--- NOTE | 2018-12-25 14:10 | PN ---
Progress Note, Physician Chief Complaint: C/O fatigue, nausea, onoing weakness. denies chest pain, palpitations, diarrhea, fever - Current Medication List Current Medications: Active Medications Al Hydroxide/Mg Hydroxide (Mylanta Oral Suspension -) 30 ml PO Q4H PRN PRN Reason: DYSPEPSIA Aspirin (Asa -) 81 mg PO DAILY [facility] Last Admin: 12/25/18 09:34 Dose: 81 mg Folic Acid (Folic Acid -) 1 mg PO DAILY [facility] Last Admin: 12/25/18 09:24 Dose: 1 mg Sodium Chloride (Normal Saline -) 250 mls @ 3,000 mls/hr IV PRN PRN PRN Reason: Hypotension during Dialysis Stop: 12/26/18 12:58 Magnesium Hydroxide (Milk Of Magnesia -) 30 ml PO PRN PRN PRN Reason: CONSTIPATION Melatonin (Melatonin) 5 mg PO HS PRN PRN Reason: INSOMNIA Last Admin: 12/24/18 21:48 Dose: 5 mg Metoprolol Succinate (Toprol Xl -) 12.5 mg PO DAILY [facility] Last Admin: 12/25/18 09:24 Dose: 12.5 mg Ondansetron HCl (Zofran Injection) 4 mg IVPUSH Q6H PRN PRN Reason: NAUSEA Last Admin: 12/19/18 16:05 Dose: 4 mg Ondansetron HCl (Zofran Injection) 4 mg IVPUSH Q6H PRN PRN Reason: NAUSEA AND/OR VOMITING Pantoprazole Sodium (Protonix -) 40 mg PO DAILY [facility] Last Admin: 12/25/18 09:26 Dose: 40 mg Ranitidine HCl (Zantac -) 300 mg PO HS [facility] Last Admin: 12/24/18 21:09 Dose: 300 mg Senna/Docusate Sodium (Pericolace -) 2 tablet PO BID [facility] Last Admin: 12/25/18 09:27 Dose: 2 tablet - Objective Vital Signs: Vital Signs Temperature 97.7 F 12/25/18 11:47 Pulse Rate 78 12/25/18 13:50 Respiratory Rate 18 12/25/18 13:50 Blood Pressure 133/67 12/25/18 13:50 O2 Sat by Pulse Oximetry (%) 97 12/25/18 07:57 Constitutional: Yes: Well Nourished, No Distress Eyes: Yes: WNL HENT: Yes: WNL Neck: Yes: WNL Cardiovascular: Yes: WNL Respiratory: Yes: WNL Gastrointestinal: Yes: WNL Genitourinary: Yes: WNL Musculoskeletal: Yes: Joint Stiffness Extremities: Yes: WNL Edema: No Peripheral Pulses WNL: Yes Integumentary: Yes: WNL Wound/Incision: Yes: Clean/Dry, Well Approximated Neurological: Yes: WNL ...Motor Strength: WNL Psychiatric: Yes: WNL Labs: CBC, BMP 12/25/18 05:12 12/25/18 05:12 INR, PTT INR 1.20 (0.83-1.09) H 12/22/18 05:30 Assessment/Plan 68 yo man who Failed left total hip replacement, Massive osteolysis, Gait abnormalit. Fall risk now S/P Revision left total hip replacement. 2. Bone marrow aspiration and autograft, POD#6. pain management. incentive spirometry. post-op course complicated by hypovolemic shock. aggressively rescitated with IV fluids and 5 units total PRBC. Pt looks clinically improved. -elevated LFT's: shock liver. trending lower. expecting daily improvement as shock resolves. -elevated troponins: likely demand ischemia. cardiology eval noted. will monitor for now. -pancreatitis: post-op. triglycerides WNL. -GI, DVT prophylaxis. TEDs. -acute on chronic iron deficiency anemia, post-op acute blood loss anemia: S/P PRBC, platelet transfusions. hematology f/u appreciated. 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 no need for hematuria workup. HD started . renal eval appreciated. perm-cath placement pending. no acute findings on bladder and renal US. -post op seizure with lactic acidosis. Patient was loaded with iv keppra. neurology eval noted. unlikely to need senior living treatment. no further events noted. -stool softeners added to prevent opioid induced constipation. -ID: ancef given operatively. -oral diet; well tolerated. -PT/OT/OOB when able -full code -assessment and plan discussed with Pt and medical staff. labs and meds reviewed. ICU care appreciated. phone calls answered throughout the day plan discussed with Dr Jimenez. 45 min. please contact me with any updates, anytime [phone]
[2018-12-25] MEDS ORDERED: ONDANSETRON 4 MG/2 ML VIAL IVPUSH PRN (19:45)
[2018-12-25] MEDS ORDERED: MAG HYDROX/AL HYDROX/SIMETH 30 ML UNIT-DOSE CUP PO PRN (19:45)
[2018-12-25] MEDS ORDERED: MAGNESIUM HYDROX 2400MG/30ML ORAL SUSPENSION 30 ML CUP PO PRN (19:45)
[2018-12-25] MEDS: RANITIDINE HCL 150 MG TABLET (FP) PO SCH (22:06)
[2018-12-25 22:07] LABS: HEP B CORE AB, TOT Positive (Negative)
[2018-12-26] MEDS: MELATONIN 5 MG TABLETS PO PRN ×2 (01:33→21:24)
[2018-12-26 07:26] LABS: HEMATOCRIT 27.5 % (35.4-49); HEMOGLOBIN 9.4 GM/dL (11.7-16.9); MCH 30.4 pg (25.7-33.7); MCHC 34.3 g/dl (32.0-35.9); MEAN CELL VOLUME 88.7 fl (80-96); MEAN PLT VOLUME 9.7 fl (7.5-11.1); PLATELET COUNT 81 K/MM3 (134-434); RDW 14.7 % (11.9-15.9); WHITE BLOOD COUNT 8.6 K/mm3 (4.0-10.0)
[2018-12-26 07:51] LABS: ALBUMIN 1.9 g/dl (3.4-5.0); BLOOD UREA NITROGEN 63.9 mg/dL (7-18); CALCIUM 7.8 mg/dL (8.5-10.1); MAGNESIUM 1.8 mg/dL (1.8-2.4); PHOSPHOROUS 4.3 mg/dL (2.5-4.9); POTASSIUM 4.2 mmol/L (3.5-5.1); TOT PROT 4.2 g/dl (6.4-8.2)
[2018-12-26 07:57] LABS: CREATININE 8.3 mg/dL (0.55-1.3)
[2018-12-26] MEDS: FOLIC ACID 1 MG TABLET (FP) PO SCH (09:31)
[2018-12-26] MEDS: ASPIRIN 81 MG CHEWABLE TABLETS PO SCH (09:31)
[2018-12-26] MEDS: PANTOPRAZOLE 40 MG TABLET (FP) PO SCH (09:31)
[2018-12-26] MEDS: metoPROLOL SUCCINATE 25 MG TAB.SR.24H (FP) PO SCH (09:31)
[2018-12-26] MEDS: SENNOSIDES/DOCUSATE COMBO (SENNA PLUS) TABLET (UD) PO SCH ×2 (09:32→21:20)
--- NOTE | 2018-12-26 09:33 | PN ---
Progress Note (short form) - Note Progress Note: POD 8, s/p Revision left total hip replacement, Bone marrow aspiration and autograft, Bone allograft Vital Signs Temp 98 F 12/26/18 06:45 Pulse 80 12/26/18 06:45 Resp 18 12/26/18 06:45 BP 132/73 12/26/18 06:45 Pulse Ox 96 12/25/18 21:00 Intake & Output 12/25/18 12/25/18 12/26/18 11:59 23:59 11:59 Intake Total 200 1300 0 Output Total 5 2625 2500 Balance 195 -1325 -2500 Weight 191 lb 11.2 oz 171 lb 6.4 oz Intake: IV 200 800 Normal Saline - 250 ml @ 031 265 1703 mls/hr IV PRN PRN Rx #:[id number] Normal Saline - 250 ml @ 600 3000 mls/hr IV PRN PRN Rx #:[id number] IVPB 0 0 Oral 500 Output: Drainage 5 0 Left Hip 5 0 Urine 0 125 Vidal 0 125 Fluid Removed, 2500 2500 Hemodialysis Other: Voiding Method Indwelling Catheter Urinal Bowel Movement Yes No No # Bowel Movements 1 Weight Measurement Method Built in Bedscale Built in Bedscale CBC, BMP 12/26/18 05:30 12/26/18 05:30 A/P: 68 y/o M w/ PMHx hypertension, GERD, multiple total hip replacements (1986, 1995, 2017) now POD 8, s/p Revision left total hip replacement, Bone marrow aspiration and autograft, Bone allograft c/b hypovolemic shock, s/p 5 units pRBCs. Afebrile, VSS H/H stable, no leukocytosis R IJ trialysis catheter placed yesterday, pt received first HD session (12/25) -Will remove drain later today -OOB with PT -Diet as tolerated -VS per protocol -ASA 81mg qd for dvt prophylaxis -Monitor I&Os -Remainder of care per biomedical equipment tech d/w attendings Dr Cabezas <Jes Jay - Last Filed: 12/26/18 12:55> Problem List - Problems (1) S/P revision of total hip Assessment/Plan: Plan -Left hip drain removed at bedside. -emphasize OOB ambulate with PT today -Renal per medicine -pt cleared for discharge from ortho standpoint, once medically cleared. Case discussed with Dr. Jimenez who agrees with plan Code(s): Z96.649 - PRESENCE OF UNSPECIFIED ARTIFICIAL HIP JOINT <Yemi Chauhan - Last Filed: 12/26/18 11:00>
--- NOTE | 2018-12-26 11:05 | PN ---
Progress Note, Physician Chief Complaint: C/O fatigue, nausea, onoing weakness. denies chest pain, palpitations, diarrhea, fever - Current Medication List Current Medications: Active Medications Al Hydroxide/Mg Hydroxide (Mylanta Oral Suspension -) 30 ml PO Q4H PRN PRN Reason: DYSPEPSIA Aspirin (Asa -) 81 mg PO DAILY [facility] Last Admin: 12/26/18 09:31 Dose: 81 mg Folic Acid (Folic Acid -) 1 mg PO DAILY [facility] Last Admin: 12/26/18 09:31 Dose: 1 mg Sodium Chloride (Normal Saline -) 250 mls @ 3,000 mls/hr IV PRN PRN PRN Reason: Hypotension during Dialysis Stop: 12/26/18 12:58 Magnesium Hydroxide (Milk Of Magnesia -) 30 ml PO PRN PRN PRN Reason: CONSTIPATION Melatonin (Melatonin) 5 mg PO HS PRN PRN Reason: INSOMNIA Last Admin: 12/26/18 01:33 Dose: 5 mg Metoprolol Succinate (Toprol Xl -) 12.5 mg PO DAILY [facility] Last Admin: 12/26/18 09:31 Dose: 12.5 mg Ondansetron HCl (Zofran Injection) 4 mg IVPUSH Q6H PRN PRN Reason: NAUSEA Pantoprazole Sodium (Protonix -) 40 mg PO DAILY [facility] Last Admin: 12/26/18 09:31 Dose: 40 mg Ranitidine HCl (Zantac -) 300 mg PO HS [facility] Last Admin: 12/25/18 22:06 Dose: 300 mg Senna/Docusate Sodium (Pericolace -) 2 tablet PO BID [facility] Last Admin: 12/26/18 09:32 Dose: 2 tablet - Objective Vital Signs: Vital Signs Temperature 98 F 12/26/18 06:45 Pulse Rate 80 12/26/18 06:45 Respiratory Rate 18 12/26/18 06:45 Blood Pressure 132/73 12/26/18 06:45 O2 Sat by Pulse Oximetry (%) 96 12/25/18 21:00 Constitutional: Yes: Well Nourished, No Distress Eyes: Yes: WNL HENT: Yes: WNL Neck: Yes: WNL Cardiovascular: Yes: WNL Respiratory: Yes: WNL Gastrointestinal: Yes: WNL Genitourinary: Yes: WNL Musculoskeletal: Yes: WNL Extremities: Yes: WNL Edema: No Peripheral Pulses WNL: Yes Integumentary: Yes: WNL Wound/Incision: Yes: Clean/Dry, Well Approximated Neurological: Yes: WNL ...Motor Strength: WNL Psychiatric: Yes: WNL Labs: CBC, BMP 12/26/18 05:30 12/26/18 05:30 INR, PTT INR 1.20 (0.83-1.09) H 12/22/18 05:30 Assessment/Plan 68 yo man who Failed left total hip replacement, Massive osteolysis, Gait abnormalit. Fall risk now S/P Revision left total hip replacement. 2. Bone marrow aspiration and autograft, POD#7. pain management. incentive spirometry. post-op course complicated by hypovolemic shock. aggressively rescitated with IV fluids and 5 units total PRBC. Pt looks clinically improved. -elevated LFT's: shock liver. trending lower. expecting daily improvement as shock resolves. -elevated troponins: likely demand ischemia. cardiology eval noted. will monitor for now. -pancreatitis: post-op. triglycerides WNL. -GI, DVT prophylaxis. TEDs. -acute on chronic iron deficiency anemia, post-op acute blood loss anemia: S/P PRBC, platelet transfusions. hematology f/u appreciated. 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 no need for hematuria workup. HD started . renal eval appreciated. no acute findings on bladder and renal US. -post op seizure with lactic acidosis. Patient was loaded with iv keppra. neurology eval noted. unlikely to need halfway treatment. no further events noted. -stool softeners added to prevent opioid induced constipation. -ID: ancef given operatively. -oral diet; well tolerated. -PT/OT/OOB when able -full code -assessment and plan discussed with Pt and medical staff. labs and meds reviewed. ICU care appreciated. phone calls answered throughout the day. plan discussed with Dr Jimenez. hopefully will DC by the end of the week. needs outpatient HD placement. please contact me with any updates, anytime [phone]
--- NOTE | 2018-12-26 14:22 | PN ---
Progress Note, Physician History of Present Illness: Pt seen and examined at bedside. He is awake and alert. He remains oliguric. - Current Medication List Current Medications: Active Medications Al Hydroxide/Mg Hydroxide (Mylanta Oral Suspension -) 30 ml PO Q4H PRN PRN Reason: DYSPEPSIA Aspirin (Asa -) 81 mg PO DAILY [facility] Last Admin: 12/26/18 09:31 Dose: 81 mg Folic Acid (Folic Acid -) 1 mg PO DAILY [facility] Last Admin: 12/26/18 09:31 Dose: 1 mg Sodium Chloride (Normal Saline -) 250 mls @ 3,000 mls/hr IV PRN PRN PRN Reason: Hypotension during Dialysis Stop: 12/26/18 12:58 Magnesium Hydroxide (Milk Of Magnesia -) 30 ml PO PRN PRN PRN Reason: CONSTIPATION Melatonin (Melatonin) 5 mg PO HS PRN PRN Reason: INSOMNIA Last Admin: 12/26/18 01:33 Dose: 5 mg Metoprolol Succinate (Toprol Xl -) 12.5 mg PO DAILY [facility] Last Admin: 12/26/18 09:31 Dose: 12.5 mg Ondansetron HCl (Zofran Injection) 4 mg IVPUSH Q6H PRN PRN Reason: NAUSEA Pantoprazole Sodium (Protonix -) 40 mg PO DAILY [facility] Last Admin: 12/26/18 09:31 Dose: 40 mg Ranitidine HCl (Zantac -) 300 mg PO HS [facility] Last Admin: 12/25/18 22:06 Dose: 300 mg Senna/Docusate Sodium (Pericolace -) 2 tablet PO BID [facility] Last Admin: 12/26/18 09:32 Dose: 2 tablet - Objective Vital Signs: Vital Signs Temperature 98.4 F 12/26/18 09:00 Pulse Rate 77 12/26/18 09:00 Respiratory Rate 16 12/26/18 09:00 Blood Pressure 143/69 12/26/18 09:00 O2 Sat by Pulse Oximetry (%) 96 12/25/18 21:00 Constitutional: Yes: Calm Eyes: Yes: Conjunctiva Clear HENT: Yes: Atraumatic Cardiovascular: Yes: S1, S2 Respiratory: Yes: CTA Bilaterally, On Nasal O2 Gastrointestinal: Yes: Normal Bowel Sounds, Soft Genitourinary: Yes: WNL Edema: Yes Edema: LLE: Trace, RLE: Trace Neurological: Yes: Oriented Psychiatric: Yes: Oriented Labs: CBC, BMP 12/26/18 05:30 12/26/18 05:30 INR, PTT INR 1.20 (0.83-1.09) H 12/22/18 05:30 Problem List - Problems (1) ALLAN (acute kidney injury) Code(s): N17.9 - ACUTE KIDNEY FAILURE, UNSPECIFIED (2) Anemia Code(s): D64.9 - ANEMIA, UNSPECIFIED Qualifiers: Other causes of anemia: acute posthemorrhagic (3) Hyperkalemia Code(s): E87.5 - HYPERKALEMIA (4) Seizure Code(s): R56.9 - UNSPECIFIED CONVULSIONS (5) Shock liver Code(s): K72.00 - ACUTE AND SUBACUTE HEPATIC FAILURE WITHOUT COMA Assessment/Plan Current Medications Generic Name Dose Route Start Last Admin Trade Name Freq PRN Reason Stop Dose Admin Al Hydroxide/Mg Hydroxide 30 ml 12/25/18 19:45 Mylanta Oral Suspension - PO Q4H PRN DYSPEPSIA Aspirin 81 mg 12/26/18 10:00 12/26/18 09:31 Asa - PO 81 mg DAILY EPI Administration Folic Acid 1 mg 12/26/18 10:00 12/26/18 09:31 Folic Acid - PO 1 mg DAILY EPI Administration Sodium Chloride 250 mls @ 3,000 mls/hr 12/25/18 12:58 Normal Saline - IV 12/26/18 12:58 PRN PRN Hypotension during Dialysis Magnesium Hydroxide 30 ml 12/25/18 19:45 Milk Of Magnesia - PO PRN PRN CONSTIPATION Melatonin 5 mg 12/25/18 19:45 12/26/18 01:33 Melatonin PO 5 mg HS PRN Administration INSOMNIA Metoprolol Succinate 12.5 mg 12/26/18 10:00 12/26/18 09:31 Toprol Xl - PO 12.5 mg DAILY EPI Administration Ondansetron HCl 4 mg 12/25/18 19:45 Zofran Injection IVPUSH Q6H PRN NAUSEA Pantoprazole Sodium 40 mg 12/26/18 10:00 12/26/18 09:31 Protonix - PO 40 mg DAILY EPI Administration Ranitidine HCl 300 mg 12/25/18 22:00 12/25/18 22:06 Zantac - PO 300 mg HS EPI Administration Senna/Docusate Sodium 2 tablet 12/25/18 22:00 12/26/18 09:32 Pericolace - PO 2 tablet BID EPI Administration Impression 1. ALLAN 2. hyperkalemia 3. shock liver 4. seizure 5. s/p hip replacement 6. hx of htn 7. hypotension 8. gerd Plan - next HD tomorrow - follow serologies - likely allan from [facility]N - ortho follow up - monitor urine output - possible kidney biopsy once stable and if able to lay on his side
[2018-12-26] MEDS ORDERED: SODIUM CHLORIDE 250 ML IV PRN (14:23)
[2018-12-26 18:17] LABS: ATYPICAL pANCA <1:20 titer (Neg:<1:20); C-ANCA <1:20 titer (Neg:<1:20)
[2018-12-26] MEDS: RANITIDINE HCL 150 MG TABLET (FP) PO SCH (21:20)
--- NOTE | 2018-12-27 09:35 | PN ---
Progress Note, Physician History of Present Illness: Pain adequately controlled, denies fevers, chest pain, dyspnea. Remains in oliguric renal failure resumed HD via RIJ catheter, planned for PC. - Current Medication List Current Medications: Active Medications Al Hydroxide/Mg Hydroxide (Mylanta Oral Suspension -) 30 ml PO Q4H PRN PRN Reason: DYSPEPSIA Aspirin (Asa -) 81 mg PO DAILY [facility] Last Admin: 12/26/18 09:31 Dose: 81 mg Folic Acid (Folic Acid -) 1 mg PO DAILY [facility] Last Admin: 12/26/18 09:31 Dose: 1 mg Sodium Chloride (Normal Saline -) 250 mls @ 3,000 mls/hr IV PRN PRN PRN Reason: Hypotension during Dialysis Stop: 12/26/18 12:58 Sodium Chloride (Normal Saline -) 250 mls @ 3,000 mls/hr IV PRN PRN PRN Reason: Hypotension during Dialysis Stop: 12/27/18 14:23 Magnesium Hydroxide (Milk Of Magnesia -) 30 ml PO PRN PRN PRN Reason: CONSTIPATION Melatonin (Melatonin) 5 mg PO HS PRN PRN Reason: INSOMNIA Last Admin: 12/26/18 21:24 Dose: 5 mg Metoprolol Succinate (Toprol Xl -) 12.5 mg PO DAILY [facility] Last Admin: 12/26/18 09:31 Dose: 12.5 mg Ondansetron HCl (Zofran Injection) 4 mg IVPUSH Q6H PRN PRN Reason: NAUSEA Pantoprazole Sodium (Protonix -) 40 mg PO DAILY [facility] Last Admin: 12/26/18 09:31 Dose: 40 mg Ranitidine HCl (Zantac -) 300 mg PO HS [facility] Last Admin: 12/26/18 21:20 Dose: 300 mg Senna/Docusate Sodium (Pericolace -) 2 tablet PO BID [facility] Last Admin: 12/26/18 21:20 Dose: 2 tablet - Objective Vital Signs: Vital Signs Temperature 98 F 12/27/18 08:20 Pulse Rate 60 12/27/18 09:15 Respiratory Rate 18 12/27/18 09:15 Blood Pressure 137/69 12/27/18 09:15 O2 Sat by Pulse Oximetry (%) 96 12/25/18 21:00 Constitutional: Yes: No Distress, Calm, Thin Neck: Yes: Supple Cardiovascular: Yes: Regular Rate and Rhythm Respiratory: Yes: Regular, CTA Bilaterally Gastrointestinal: Yes: Normal Bowel Sounds, Soft Edema: No Labs: CBC, BMP 12/26/18 05:30 12/26/18 05:30 INR, PTT INR 1.20 (0.83-1.09) H 12/22/18 05:30 Problem List - Problems (1) ALLAN (acute kidney injury) Code(s): N17.9 - ACUTE KIDNEY FAILURE, UNSPECIFIED (2) Anemia Code(s): D64.9 - ANEMIA, UNSPECIFIED Qualifiers: Other causes of anemia: acute posthemorrhagic (3) Demand ischemia Code(s): I24.8 - OTHER FORMS OF ACUTE ISCHEMIC HEART DISEASE (4) HTN (hypertension) Code(s): I10 - ESSENTIAL (PRIMARY) HYPERTENSION Qualifiers: Hypertension type: essential hypertension Qualified Code(s): I10 - Essential (primary) hypertension (5) Leukocytosis Code(s): D72.829 - ELEVATED WHITE BLOOD CELL COUNT, UNSPECIFIED (6) Seizure Code(s): R56.9 - UNSPECIFIED CONVULSIONS (7) Shock liver Code(s): K72.00 - ACUTE AND SUBACUTE HEPATIC FAILURE WITHOUT COMA (8) Thrombocytopenia Code(s): D69.6 - THROMBOCYTOPENIA, UNSPECIFIED Assessment/Plan 12/19/2018 Echocardiography: Normal LV and RV size and fxn, mild TR RVSP 22 mmHg , LVEF 65% 1. Left hip revision, bone marrow autograft POD #9 2. Elevated troponin due to demand ischemia 3. Anemia and thrombocytopenia and leukocytosis due to acute blood loss 4. Hypovolemic/Hemorrhagic Shock improving 5. ALLAN with hyperkalemia due to ATN on HD 6. Elevated LFT c/w shock liver 7. Post op Seizure 8. Lactic acidosis 9. Post-op pancreatitis PLAN: 1. Troponins downtrended 2. Further cardiac work up can be done once clinically stable 3. Increase Toprol XL 25 qd as hemodynamics tolerates, continue ASA 81 qd 4. LFTs and lactate downtrended 5. HD resumed per renal via RIJ Trialysis catheter, planned for PC 6. Observe off abx 7. Monitor Hgb and Plt, transfuse as needed 8. Surgical follow up, drain d/malorie, analgesia as needed 9. Mechanical DVT prophylaxis 10. Possible kidney biopsy once stable and if able to lay on his side
--- NOTE | 2018-12-27 10:49 | SPA.PREOP ---
- PRE-OP NOTE Dx: ESRD Planned Procedure: Permacath placement Surgeon: Andrew Valles DO Last Vital Signs Temp Pulse Resp BP Pulse Ox 98 F 68 18 128/72 96 12/27/18 08:20 12/27/18 10:15 12/27/18 10:15 12/27/18 10:15 12/25/18 21:00 Lab Results WBC 8.6 K/mm3 (4.0-10.0) 12/26/18 05:30 RBC 3.10 M/mm3 (4.00-5.60) L 12/26/18 05:30 Hgb 9.4 GM/dL (11.7-16.9) L 12/26/18 05:30 Hct 27.5 % (35.4-49) L 12/26/18 05:30 MCV 88.7 fl (80-96) 12/26/18 05:30 MCHC 34.3 g/dl (32.0-35.9) 12/26/18 05:30 RDW 14.7 % (11.9-15.9) 12/26/18 05:30 Plt Count 81 K/MM3 (134-434) L 12/26/18 05:30 Sodium 137 mmol/L (136-145) 12/26/18 05:30 Potassium 4.2 mmol/L (3.5-5.1) 12/26/18 05:30 Chloride 100 mmol/L (98-107) 12/26/18 05:30 Carbon Dioxide 26 mmol/L (21-32) 12/26/18 05:30 Anion Gap 10 MMOL/L (8-16) 12/26/18 05:30 BUN 63.9 mg/dL (7-18) H 12/26/18 05:30 Creatinine 8.3 mg/dL (0.55-1.3) H* 12/26/18 05:30 Random Glucose 100 mg/dL (74-106) 12/26/18 05:30 Calcium 7.8 mg/dL (8.5-10.1) L 12/26/18 05:30 Blood Type O POSITIVE 12/21/18 10:30 Antibody Screen Negative 12/21/18 10:30 INR 1.20 (0.83-1.09) H 12/22/18 05:30 - ASSESSMENT/PLAN 1. Make NPO after midnight except po meds 2. GI/DVT PPX 3. Medical optimization / clearance 4. Consent to be obtained by surgeon after risks, benefits and alternatives discussed with patient and or Health Care Proxy. Problem List - Problems (1) S/P revision of total hip Code(s): Z96.649 - PRESENCE OF UNSPECIFIED ARTIFICIAL HIP JOINT
--- NOTE | 2018-12-27 10:59 | PN ---
Progress Note, Physician History of Present Illness: Pt seen and examined at bedside. He is tolerating HD. He is starting to make urine. - Current Medication List Current Medications: Active Medications Al Hydroxide/Mg Hydroxide (Mylanta Oral Suspension -) 30 ml PO Q4H PRN PRN Reason: DYSPEPSIA Aspirin (Asa -) 81 mg PO DAILY [facility] Last Admin: 12/26/18 09:31 Dose: 81 mg Folic Acid (Folic Acid -) 1 mg PO DAILY [facility] Last Admin: 12/26/18 09:31 Dose: 1 mg Sodium Chloride (Normal Saline -) 250 mls @ 3,000 mls/hr IV PRN PRN PRN Reason: Hypotension during Dialysis Stop: 12/26/18 12:58 Sodium Chloride (Normal Saline -) 250 mls @ 3,000 mls/hr IV PRN PRN PRN Reason: Hypotension during Dialysis Stop: 12/27/18 14:23 Magnesium Hydroxide (Milk Of Magnesia -) 30 ml PO PRN PRN PRN Reason: CONSTIPATION Melatonin (Melatonin) 5 mg PO HS PRN PRN Reason: INSOMNIA Last Admin: 12/26/18 21:24 Dose: 5 mg Metoprolol Succinate (Toprol Xl -) 12.5 mg PO DAILY [facility] Last Admin: 12/26/18 09:31 Dose: 12.5 mg Ondansetron HCl (Zofran Injection) 4 mg IVPUSH Q6H PRN PRN Reason: NAUSEA Pantoprazole Sodium (Protonix -) 40 mg PO DAILY [facility] Last Admin: 12/26/18 09:31 Dose: 40 mg Ranitidine HCl (Zantac -) 300 mg PO HS [facility] Last Admin: 12/26/18 21:20 Dose: 300 mg Senna/Docusate Sodium (Pericolace -) 2 tablet PO BID [facility] Last Admin: 12/26/18 21:20 Dose: 2 tablet - Objective Vital Signs: Vital Signs Temperature 98 F 12/27/18 08:20 Pulse Rate 68 12/27/18 10:15 Respiratory Rate 18 12/27/18 10:15 Blood Pressure 128/72 12/27/18 10:15 O2 Sat by Pulse Oximetry (%) 96 12/25/18 21:00 Constitutional: Yes: Calm Eyes: Yes: Conjunctiva Clear HENT: Yes: Atraumatic Cardiovascular: Yes: S1, S2 Respiratory: Yes: CTA Bilaterally Gastrointestinal: Yes: Soft Genitourinary: Yes: WNL, Oliguria Edema: No Neurological: Yes: Oriented Psychiatric: Yes: Oriented Labs: CBC, BMP 12/26/18 05:30 12/26/18 05:30 INR, PTT INR 1.20 (0.83-1.09) H 12/22/18 05:30 Problem List - Problems (1) ALLAN (acute kidney injury) Code(s): N17.9 - ACUTE KIDNEY FAILURE, UNSPECIFIED (2) Anemia Code(s): D64.9 - ANEMIA, UNSPECIFIED Qualifiers: Other causes of anemia: acute posthemorrhagic (3) Hyperkalemia Code(s): E87.5 - HYPERKALEMIA (4) Seizure Code(s): R56.9 - UNSPECIFIED CONVULSIONS (5) Shock liver Code(s): K72.00 - ACUTE AND SUBACUTE HEPATIC FAILURE WITHOUT COMA Assessment/Plan Current Medications Generic Name Dose Route Start Last Admin Trade Name Freq PRN Reason Stop Dose Admin Al Hydroxide/Mg Hydroxide 30 ml 12/25/18 19:45 Mylanta Oral Suspension - PO Q4H PRN DYSPEPSIA Aspirin 81 mg 12/26/18 10:00 12/26/18 09:31 Asa - PO 81 mg DAILY EPI Administration Folic Acid 1 mg 12/26/18 10:00 12/26/18 09:31 Folic Acid - PO 1 mg DAILY EPI Administration Sodium Chloride 250 mls @ 3,000 mls/hr 12/25/18 12:58 Normal Saline - IV 12/26/18 12:58 PRN PRN Hypotension during Dialysis Sodium Chloride 250 mls @ 3,000 mls/hr 12/26/18 14:23 Normal Saline - IV 12/27/18 14:23 PRN PRN Hypotension during Dialysis Magnesium Hydroxide 30 ml 12/25/18 19:45 Milk Of Magnesia - PO PRN PRN CONSTIPATION Melatonin 5 mg 12/25/18 19:45 12/26/18 21:24 Melatonin PO 5 mg HS PRN Administration INSOMNIA Metoprolol Succinate 12.5 mg 12/26/18 10:00 12/26/18 09:31 Toprol Xl - PO 12.5 mg DAILY EPI Administration Ondansetron HCl 4 mg 12/25/18 19:45 Zofran Injection IVPUSH Q6H PRN NAUSEA Pantoprazole Sodium 40 mg 12/26/18 10:00 12/26/18 09:31 Protonix - PO 40 mg DAILY EPI Administration Ranitidine HCl 300 mg 12/25/18 22:00 12/26/18 21:20 Zantac - PO 300 mg HS EPI Administration Senna/Docusate Sodium 2 tablet 12/25/18 22:00 12/26/18 21:20 Pericolace - PO 2 tablet BID EPI Administration Impression 1. ALLAN 2. hyperkalemia 3. shock liver 4. seizure 5. s/p hip replacement 6. hx of htn 7. hypotension 8. gerd Plan - HD today - monitor urine output - positive m spike, onc eval - likely allan from [facility] - ortho follow up
[2018-12-27] MEDS: PANTOPRAZOLE 40 MG TABLET (FP) PO SCH (12:01)
[2018-12-27] MEDS: metoPROLOL SUCCINATE 25 MG TAB.SR.24H (FP) PO SCH (12:01)
[2018-12-27] MEDS: FOLIC ACID 1 MG TABLET (FP) PO SCH (12:02)
[2018-12-27] MEDS: SENNOSIDES/DOCUSATE COMBO (SENNA PLUS) TABLET (UD) PO SCH ×2 (12:02→21:24)
[2018-12-27] MEDS: ASPIRIN 81 MG CHEWABLE TABLETS PO SCH (12:02)
[2018-12-27 16:02] LABS: BASO % 0.3 % (0-2.0); EOS % 1.8 % (0-4.5); HEMATOCRIT 29.1 % (35.4-49); HEMOGLOBIN 9.9 GM/dL (11.7-16.9); LYMPH % 4.6 % (8-40); MCH 30.2 pg (25.7-33.7); MCHC 34.1 g/dl (32.0-35.9); MEAN CELL VOLUME 88.7 fl (80-96); MEAN PLT VOLUME 9.8 fl (7.5-11.1); NEUT % 87.3 % (42.8-82.8); PLATELET COUNT 115 K/MM3 (134-434); RBC 3.28 M/mm3 (4.00-5.60); RDW 14.4 % (11.9-15.9); WHITE BLOOD COUNT 8.8 K/mm3 (4.0-10.0)
[2018-12-27 16:32] LABS: ALBUMIN 2.1 g/dl (3.4-5.0); BILIRUBIN,TOTAL 0.9 mg/dL (0.2-1); BLOOD UREA NITROGEN 39.1 mg/dL (7-18); CALCIUM 7.6 mg/dL (8.5-10.1); POTASSIUM 3.8 mmol/L (3.5-5.1); TOT PROT 4.6 g/dl (6.4-8.2)
--- NOTE | 2018-12-27 17:55 | PN ---
Progress Note (short form) - Note Progress Note: 68M s/p revision LEFT total hip replacement POD #9. Acute kidney injury d/t post-op hypovolemic shock; creatinine trending down x 2 days. Pain well controlled. Pt. denies overnight history of headaches, chest pain, shortness of breath, nausea, vomiting, chills, & sweats. (+) Vidal catheter; (+) Flatus; (+) BM. Has not gotten out of bed. All labs and vitals reviewed. PE: AAO x 3, NAD. L-Hip: Dressing C/D/I. NVI distally. Heels offloaded to prevent heel ulcers/ pressure sores. Hip abduction pillow intact & in place. 68M s/p revision LEFT total hip replacement POD #9. -Offload heals with rolled towels under ankles to avoid heel ulcers/pressure sores. -Hip abduction pillow straps LOOSE, not tight. -Mobilize out of bed to chair with PT and ambulate BID. -Pain control. -DVT PPx: -Chemical: ASA 81mg PO BID x 6 weeks. -Mechanical: TARIK's, SCD's. -Incentive spirometry q15 min. -PT/OT/Rehab, OOB. -WBAT LLE. -Vidal catheter care. -f/u all labs. -Diet as tolerated. -Care per ICU, renal, and medical hospitalist teams. -Discharge planning: f/u [facility] w/in 1 week of discharge; call for appointment . -Medical plan discussed with and understood by patient. -Will follow. Emile Jimenez MD (Orthopaedic Surgery).
--- NOTE | 2018-12-27 19:11 | PN ---
Progress Note, Physician Chief Complaint: C/O fatigue, nausea, onoing weakness. denies chest pain, palpitations, diarrhea, fever - Current Medication List Current Medications: Active Medications Al Hydroxide/Mg Hydroxide (Mylanta Oral Suspension -) 30 ml PO Q4H PRN PRN Reason: DYSPEPSIA Aspirin (Asa -) 81 mg PO DAILY [facility] Last Admin: 12/27/18 12:02 Dose: 81 mg Folic Acid (Folic Acid -) 1 mg PO DAILY [facility] Last Admin: 12/27/18 12:02 Dose: 1 mg Sodium Chloride (Normal Saline -) 250 mls @ 3,000 mls/hr IV PRN PRN PRN Reason: Hypotension during Dialysis Stop: 12/27/18 14:23 Magnesium Hydroxide (Milk Of Magnesia -) 30 ml PO PRN PRN PRN Reason: CONSTIPATION Melatonin (Melatonin) 5 mg PO HS PRN PRN Reason: INSOMNIA Last Admin: 12/26/18 21:24 Dose: 5 mg Metoprolol Succinate (Toprol Xl -) 12.5 mg PO DAILY [facility] Last Admin: 12/27/18 12:01 Dose: 12.5 mg Ondansetron HCl (Zofran Injection) 4 mg IVPUSH Q6H PRN PRN Reason: NAUSEA Pantoprazole Sodium (Protonix -) 40 mg PO DAILY [facility] Last Admin: 12/27/18 12:01 Dose: 40 mg Ranitidine HCl (Zantac -) 300 mg PO HS [facility] Last Admin: 12/26/18 21:20 Dose: 300 mg Senna/Docusate Sodium (Pericolace -) 2 tablet PO BID [facility] Last Admin: 12/27/18 12:02 Dose: 2 tablet - Objective Vital Signs: Vital Signs Temperature 98.5 F 12/27/18 17:14 Pulse Rate 82 12/27/18 17:14 Respiratory Rate 18 12/27/18 17:14 Blood Pressure 141/70 12/27/18 17:14 O2 Sat by Pulse Oximetry (%) 96 12/25/18 21:00 Constitutional: Yes: Well Nourished, No Distress Eyes: Yes: WNL HENT: Yes: WNL Neck: Yes: WNL Cardiovascular: Yes: WNL Respiratory: Yes: WNL Gastrointestinal: Yes: WNL Genitourinary: Yes: WNL Musculoskeletal: Yes: WNL Extremities: Yes: WNL Edema: No Peripheral Pulses WNL: Yes Integumentary: Yes: WNL Wound/Incision: Yes: Clean/Dry, Well Approximated Neurological: Yes: WNL ...Motor Strength: WNL Psychiatric: Yes: WNL Labs: CBC, BMP 12/27/18 15:00 12/27/18 15:00 INR, PTT INR 1.20 (0.83-1.09) H 12/22/18 05:30 Assessment/Plan 68 yo man who Failed left total hip replacement, Massive osteolysis, Gait abnormalit. Fall risk now S/P Revision left total hip replacement. 2. Bone marrow aspiration and autograft, POD#8. pain management. incentive spirometry. post-op course complicated by hypovolemic shock. aggressively rescitated with IV fluids and 5 units total PRBC. Pt looks clinically improved. -elevated LFT's: shock liver. trending lower. expecting daily improvement as shock resolves. -elevated troponins: likely demand ischemia. cardiology eval noted. will monitor for now. -pancreatitis: post-op. triglycerides WNL. -GI, DVT prophylaxis. TEDs. -acute on chronic iron deficiency anemia, post-op acute blood loss anemia: S/P PRBC, platelet transfusions. hematology f/u appreciated. 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 no need for hematuria workup. HD started . renal eval appreciated. creatinine is trending down. no acute findings on bladder and renal US. no need for permanent accesss as his HD duration is not expected to be long -post op seizure with lactic acidosis. Patient was loaded with iv keppra. neurology eval noted. 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 no further events noted. -stool softeners added to prevent opioid induced constipation. -ID: ancef given operatively. -oral diet; well tolerated. -PT/OT/OOB when able -full code -assessment and plan discussed with Pt, family at bedside and medical staff. labs and meds reviewed. ICU care appreciated. phone calls answered throughout the day. plan discussed with Dr Jimenez. hopefully will DC by the end of the week. please contact me with any updates, anytime [phone]
--- NOTE | 2018-12-27 20:24 | CONSULT ---
Consult - text type - Consultation Consultation Note: Pt is a 68 year old male with pmhx of htn, gerd and hip replacements who presented for revision of left hip. He did have bone marrow aspiration and autograft. He did get about 9 units of blood. He the developed hypotension post op. He required several boluses of LR for hypotension. He was found to be in renal failure and found to be hyperkalemic. Pt also had a seizure post op. CPK was 8000/ ?shock liver He was started on dialysis he has h/o hgbsc disease. 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 hgb SC disease - Past Surgical History Past Surgical History: Yes: Joint Replacement Additional Surgical History: hip surgeries - Alcohol/Substance Use Hx Alcohol Use: Yes (rarely) - Smoking History Smoking history: Former smoker Have you smoked in the past 12 months: No If you are a former smoker, when did you quit?: 1982 Home Medications - Allergies Allergies/Adverse Reactions: Allergies Allergy/AdvReac Type Severity Reaction Status Date / Time No Known Allergies Allergy Verified 12/18/18 07:02 - Home Medications Home Medications: Ambulatory Orders Amlodipine Besylate/Benazepril [Amlodipine-Benazepril 5-20 mg] 1 each PO DAILY 12/14/18 Ranitidine HCl 300 mg PO HS 12/14/18 Folic Acid 1 mg PO DAILY 12/18/18 Family Disease History - Family Disease History Family History: Denies Physical Exam Vital Signs: AFVSS Cor: RSR, No murmurs, No gallops Lungs: Clear to P&A Abd: Soft, Normal bowel sounds, No organomegaly Ext:No significant edema Labs/Meds reviewed A/P Pt is a 68 year old male with pmhx of htn, gerd and hip replacements who presented for revision of left hip. He did have bone marrow aspiration and autograft. He did get about 9 units of blood perioperatively. He developed hypotension post op. He required several boluses of LR for hypotension. He was found to be in renal failure and found to be hyperkalemic. Pt also had a seizure post op. CPK was 8000/ ?shock liver He was started on dialysis with some urinary output now he has h/o ?hgbsc disease. 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 Check SFLCA. Small M spike. Suspect reactive M spike 2. Check sickle screen/hemoglobin electrophoresis 3.Monitor CBC/renal/hepatic function 4. Check LDH/enriqueta/type and screen will follow
[2018-12-27] MEDS: RANITIDINE HCL 150 MG TABLET (FP) PO SCH (21:23)
[2018-12-27] MEDS: MELATONIN 5 MG TABLETS PO PRN (21:23)
[2018-12-28] MEDS ORDERED: PT OWN MED DRAWER 7, Y5N ONE (09:17)
[2018-12-28] MEDS: ASPIRIN 81 MG CHEWABLE TABLETS PO SCH (09:22)
[2018-12-28] MEDS: FOLIC ACID 1 MG TABLET (FP) PO SCH (09:23)
[2018-12-28] MEDS: SENNOSIDES/DOCUSATE COMBO (SENNA PLUS) TABLET (UD) PO SCH ×2 (09:23→21:27)
[2018-12-28] MEDS: PANTOPRAZOLE 40 MG TABLET (FP) PO SCH (09:23)
[2018-12-28] MEDS: metoPROLOL SUCCINATE 25 MG TAB.SR.24H (FP) PO SCH (09:23)
--- NOTE | 2018-12-28 12:34 | PN ---
Progress Note (short form) - Note Progress Note: pt seen and examined this am. The patient states that he has been now making small amounts of urine. Vital Signs Period Temp Pulse Resp BP Sys/Hernandez Pulse Ox Last 24 Hr 98.3 F-99.5 F 65-82 18-20 139-157/67-79 GEN: A&0x3, NAD ABD: soft, non-distended, non-tender. Left hip: dressing c/d/i with Ioban. Small amount of venous oozing from previous drain site. changed and put new dressing over top of orginial surgical dressing. CBC, BMP 12/28/18 13:30 12/28/18 13:30 A/P: 68 yo male s/p Left hip revision, POD#10 H&H stable with improved WBC Making a small amount of urine, still requiring HD via Right neck jersey continue OOB and ambulate with PT Strict I&O's, measure all urine and record every 4 hours D/w Dr. Jimenez \
[2018-12-28 13:49] LABS: BASO % 0.4 % (0-2.0); EOS % 1.1 % (0-4.5); HEMATOCRIT 31.8 % (35.4-49); HEMOGLOBIN 10.7 GM/dL (11.7-16.9); MCH 30.2 pg (25.7-33.7); MCHC 33.8 g/dl (32.0-35.9); MEAN CELL VOLUME 89.6 fl (80-96); MEAN PLT VOLUME 9.2 fl (7.5-11.1); MONO % 4.2 % (3.8-10.2); NEUT % 90.3 % (42.8-82.8); PLATELET COUNT 147 K/MM3 (134-434); RBC 3.55 M/mm3 (4.00-5.60); RDW 14.9 % (11.9-15.9)
[2018-12-28 14:24] LABS: BLOOD UREA NITROGEN 51.9 mg/dL (7-18); CALCIUM 8.4 mg/dL (8.5-10.1); POTASSIUM 4.1 mmol/L (3.5-5.1)
[2018-12-28 14:26] LABS: CREATININE 8.2 mg/dL (0.55-1.3)
--- NOTE | 2018-12-28 15:12 | PN ---
Progress Note, Physician History of Present Illness: Pain adequately controlled, denies fevers, chest pain, dyspnea. Improving urine output with HD via RIJ catheter, PC deferred. - Current Medication List Current Medications: Active Medications Al Hydroxide/Mg Hydroxide (Mylanta Oral Suspension -) 30 ml PO Q4H PRN PRN Reason: DYSPEPSIA Aspirin (Asa -) 81 mg PO DAILY [facility] Last Admin: 12/28/18 09:22 Dose: 81 mg Folic Acid (Folic Acid -) 1 mg PO DAILY [facility] Last Admin: 12/28/18 09:23 Dose: 1 mg Sodium Chloride (Normal Saline -) 250 mls @ 3,000 mls/hr IV PRN PRN PRN Reason: Hypotension during Dialysis Stop: 12/27/18 14:23 Magnesium Hydroxide (Milk Of Magnesia -) 30 ml PO PRN PRN PRN Reason: CONSTIPATION Melatonin (Melatonin) 5 mg PO HS PRN PRN Reason: INSOMNIA Last Admin: 12/27/18 21:23 Dose: 5 mg Metoprolol Succinate (Toprol Xl -) 12.5 mg PO DAILY [facility] Last Admin: 12/28/18 09:23 Dose: 12.5 mg Ondansetron HCl (Zofran Injection) 4 mg IVPUSH Q6H PRN PRN Reason: NAUSEA Pantoprazole Sodium (Protonix -) 40 mg PO DAILY [facility] Last Admin: 12/28/18 09:23 Dose: 40 mg Ranitidine HCl (Zantac -) 300 mg PO HS [facility] Last Admin: 12/27/18 21:23 Dose: 300 mg Senna/Docusate Sodium (Pericolace -) 2 tablet PO BID [facility] Last Admin: 12/28/18 09:23 Dose: 2 tablet - Objective Vital Signs: Vital Signs Temperature 98.3 F 12/28/18 15:05 Pulse Rate 71 12/28/18 15:05 Respiratory Rate 18 12/28/18 15:05 Blood Pressure 137/63 12/28/18 15:05 O2 Sat by Pulse Oximetry (%) 96 12/25/18 21:00 Constitutional: Yes: No Distress, Calm, Thin Neck: Yes: Supple Cardiovascular: Yes: Regular Rate and Rhythm Respiratory: Yes: Regular, CTA Bilaterally Gastrointestinal: Yes: Normal Bowel Sounds, Soft Edema: No Labs: CBC, BMP 12/28/18 13:30 12/28/18 13:30 INR, PTT INR 1.20 (0.83-1.09) H 12/22/18 05:30 Problem List - Problems (1) ALLAN (acute kidney injury) Code(s): N17.9 - ACUTE KIDNEY FAILURE, UNSPECIFIED (2) Anemia Code(s): D64.9 - ANEMIA, UNSPECIFIED Qualifiers: Other causes of anemia: acute posthemorrhagic (3) Demand ischemia Code(s): I24.8 - OTHER FORMS OF ACUTE ISCHEMIC HEART DISEASE (4) HTN (hypertension) Code(s): I10 - ESSENTIAL (PRIMARY) HYPERTENSION Qualifiers: Hypertension type: essential hypertension Qualified Code(s): I10 - Essential (primary) hypertension Assessment/Plan 12/19/2018 Echocardiography: Normal LV and RV size and fxn, mild TR RVSP 22 mmHg , LVEF 65% 1. Left hip revision, bone marrow autograft POD #10 2. Elevated troponin due to demand ischemia 3. Anemia and thrombocytopenia and leukocytosis due to acute blood loss 4. Hypovolemic/Hemorrhagic Shock improving 5. ALLAN with hyperkalemia due to ATN on HD 6. Elevated LFT c/w shock liver 7. Post op Seizure 8. Lactic acidosis 9. Post-op pancreatitis PLAN: 1. Troponins downtrended 2. Further cardiac work up can be done once clinically stable 3. Increase Toprol XL 25 qd as hemodynamics tolerates, continue ASA 81 qd 4. LFTs and lactate downtrended 5. HD per renal via RIJ Trialysis catheter, observing for renal recovery 6. Observe off abx 7. Monitor Hgb and Plt, transfuse as needed 8. Surgical follow up, drain d/malorie, analgesia as needed 9. Mechanical DVT prophylaxis 10. Possible kidney biopsy once stable and if able to lay on his side \
[2018-12-28] MEDS ORDERED: SODIUM CHLORIDE 250 ML IV PRN (15:43)
--- NOTE | 2018-12-28 15:43 | PN ---
Progress Note, Physician History of Present Illness: Pt seen and examined at bedside. He is awake and alert. he denies shortness of breath. - Current Medication List Current Medications: Active Medications Al Hydroxide/Mg Hydroxide (Mylanta Oral Suspension -) 30 ml PO Q4H PRN PRN Reason: DYSPEPSIA Aspirin (Asa -) 81 mg PO DAILY [facility] Last Admin: 12/28/18 09:22 Dose: 81 mg Folic Acid (Folic Acid -) 1 mg PO DAILY [facility] Last Admin: 12/28/18 09:23 Dose: 1 mg Sodium Chloride (Normal Saline -) 250 mls @ 3,000 mls/hr IV PRN PRN PRN Reason: Hypotension during Dialysis Stop: 12/27/18 14:23 Magnesium Hydroxide (Milk Of Magnesia -) 30 ml PO PRN PRN PRN Reason: CONSTIPATION Melatonin (Melatonin) 5 mg PO HS PRN PRN Reason: INSOMNIA Last Admin: 12/27/18 21:23 Dose: 5 mg Metoprolol Succinate (Toprol Xl -) 12.5 mg PO DAILY [facility] Last Admin: 12/28/18 09:23 Dose: 12.5 mg Ondansetron HCl (Zofran Injection) 4 mg IVPUSH Q6H PRN PRN Reason: NAUSEA Pantoprazole Sodium (Protonix -) 40 mg PO DAILY [facility] Last Admin: 12/28/18 09:23 Dose: 40 mg Ranitidine HCl (Zantac -) 300 mg PO HS [facility] Last Admin: 12/27/18 21:23 Dose: 300 mg Senna/Docusate Sodium (Pericolace -) 2 tablet PO BID [facility] Last Admin: 12/28/18 09:23 Dose: 2 tablet - Objective Vital Signs: Vital Signs Temperature 98.3 F 12/28/18 15:05 Pulse Rate 71 12/28/18 15:05 Respiratory Rate 18 12/28/18 15:05 Blood Pressure 137/63 12/28/18 15:05 O2 Sat by Pulse Oximetry (%) 96 12/25/18 21:00 Constitutional: Yes: Calm Eyes: Yes: Conjunctiva Clear HENT: Yes: Atraumatic Cardiovascular: Yes: S1, S2 Respiratory: Yes: CTA Bilaterally Gastrointestinal: Yes: Soft Musculoskeletal: Yes: Other (hip pain) Edema: No Integumentary: Yes: WNL Neurological: Yes: Oriented Psychiatric: Yes: Oriented Labs: CBC, BMP 12/28/18 13:30 12/28/18 13:30 INR, PTT INR 1.20 (0.83-1.09) H 12/22/18 05:30 Problem List - Problems (1) RADHA (acute kidney injury) Code(s): N17.9 - ACUTE KIDNEY FAILURE, UNSPECIFIED (2) Anemia Code(s): D64.9 - ANEMIA, UNSPECIFIED Qualifiers: Other causes of anemia: acute posthemorrhagic (3) Hyperkalemia Code(s): E87.5 - HYPERKALEMIA (4) Seizure Code(s): R56.9 - UNSPECIFIED CONVULSIONS (5) Shock liver Code(s): K72.00 - ACUTE AND SUBACUTE HEPATIC FAILURE WITHOUT COMA Assessment/Plan Current Medications Generic Name Dose Route Start Last Admin Trade Name Freq PRN Reason Stop Dose Admin Al Hydroxide/Mg Hydroxide 30 ml 12/25/18 19:45 Mylanta Oral Suspension - PO Q4H PRN DYSPEPSIA Aspirin 81 mg 12/26/18 10:00 12/28/18 09:22 Asa - PO 81 mg DAILY EPI Administration Folic Acid 1 mg 12/26/18 10:00 12/28/18 09:23 Folic Acid - PO 1 mg DAILY EPI Administration Sodium Chloride 250 mls @ 3,000 mls/hr 12/26/18 14:23 Normal Saline - IV 12/27/18 14:23 PRN PRN Hypotension during Dialysis Magnesium Hydroxide 30 ml 12/25/18 19:45 Milk Of Magnesia - PO PRN PRN CONSTIPATION Melatonin 5 mg 12/25/18 19:45 12/27/18 21:23 Melatonin PO 5 mg HS PRN Administration INSOMNIA Metoprolol Succinate 12.5 mg 12/26/18 10:00 12/28/18 09:23 Toprol Xl - PO 12.5 mg DAILY EPI Administration Ondansetron HCl 4 mg 12/25/18 19:45 Zofran Injection IVPUSH Q6H PRN NAUSEA Pantoprazole Sodium 40 mg 12/26/18 10:00 12/28/18 09:23 Protonix - PO 40 mg DAILY EPI Administration Ranitidine HCl 300 mg 12/25/18 22:00 12/27/18 21:23 Zantac - PO 300 mg HS EPI Administration Senna/Docusate Sodium 2 tablet 12/25/18 22:00 12/28/18 09:23 Pericolace - PO 2 tablet BID EPI Administration Impression 1. RADHA 2. hyperkalemia 3. shock liver 4. seizure 5. s/p hip replacement 6. hx of htn 7. hypotension 8. 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
--- NOTE | 2018-12-28 17:54 | PN ---
Progress Note, Physician Chief Complaint: C/O fatigue, nausea, onoing weakness. 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 Gait abnormality. Fall risk denies chest pain, palpitations, nausea, vomiting, diarrhea - Current Medication List Current Medications: Active Medications Al Hydroxide/Mg Hydroxide (Mylanta Oral Suspension -) 30 ml PO Q4H PRN PRN Reason: DYSPEPSIA Aspirin (Asa -) 81 mg PO DAILY [facility] Last Admin: 12/28/18 09:22 Dose: 81 mg Folic Acid (Folic Acid -) 1 mg PO DAILY [facility] Last Admin: 12/28/18 09:23 Dose: 1 mg Sodium Chloride (Normal Saline -) 250 mls @ 3,000 mls/hr IV PRN PRN PRN Reason: Hypotension during Dialysis Stop: 12/27/18 14:23 Sodium Chloride (Normal Saline -) 250 mls @ 3,000 mls/hr IV PRN PRN PRN Reason: Hypotension during Dialysis Stop: 12/29/18 15:43 Magnesium Hydroxide (Milk Of Magnesia -) 30 ml PO PRN PRN PRN Reason: CONSTIPATION Melatonin (Melatonin) 5 mg PO HS PRN PRN Reason: INSOMNIA Last Admin: 12/27/18 21:23 Dose: 5 mg Metoprolol Succinate (Toprol Xl -) 12.5 mg PO DAILY [facility] Last Admin: 12/28/18 09:23 Dose: 12.5 mg Ondansetron HCl (Zofran Injection) 4 mg IVPUSH Q6H PRN PRN Reason: NAUSEA Pantoprazole Sodium (Protonix -) 40 mg PO DAILY [facility] Last Admin: 12/28/18 09:23 Dose: 40 mg Ranitidine HCl (Zantac -) 300 mg PO HS [facility] Last Admin: 12/27/18 21:23 Dose: 300 mg Senna/Docusate Sodium (Pericolace -) 2 tablet PO BID [facility] Last Admin: 12/28/18 09:23 Dose: 2 tablet - Objective Vital Signs: Vital Signs Temperature 98.3 F 12/28/18 15:05 Pulse Rate 71 12/28/18 15:05 Respiratory Rate 18 12/28/18 15:05 Blood Pressure 137/63 12/28/18 15:05 O2 Sat by Pulse Oximetry (%) 96 12/25/18 21:00 Constitutional: Yes: Well Nourished, No Distress Eyes: Yes: WNL HENT: Yes: WNL Neck: Yes: WNL Cardiovascular: Yes: WNL, Rub Gastrointestinal: Yes: WNL Genitourinary: Yes: WNL Musculoskeletal: Yes: Back Pain Extremities: Yes: WNL Edema: No Peripheral Pulses WNL: Yes Integumentary: Yes: WNL Wound/Incision: Yes: Clean/Dry, Well Approximated Neurological: Yes: WNL ...Motor Strength: WNL Psychiatric: Yes: WNL Labs: CBC, BMP 12/28/18 13:30 12/28/18 13:30 INR, PTT INR 1.20 (0.83-1.09) H 12/22/18 05:30 Assessment/Plan 68 yo man who Failed left total hip replacement, Massive osteolysis, Gait abnormalit. Fall risk now S/P Revision left total hip replacement. 2. Bone marrow aspiration and autograft, POD#9. pain management. incentive spirometry. post-op course complicated by hypovolemic shock. aggressively rescitated with IV fluids and 5 units total PRBC. Pt looks clinically improved. -elevated LFT's: shock liver. trending lower. -elevated troponins: likely demand ischemia. cardiology eval noted. -hematology eval for M-spike. -pancreatitis: post-op. triglycerides WNL. -GI, DVT prophylaxis. TEDs. -acute on chronic iron deficiency anemia, post-op acute blood loss anemia: S/P PRBC, platelet transfusions. hematology f/u appreciated. 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 no need for hematuria workup. HD started . renal eval appreciated. creatinine is trending down. no acute findings on bladder and renal US. no need for permanent accesss as his HD duration is not expected to be long -post op seizure with lactic acidosis. Patient was loaded with iv keppra. neurology eval noted. 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 no further events noted. -stool softeners added to prevent opioid induced constipation. -ID: ancef given operatively. -oral diet; well tolerated. -PT/OT/OOB when able -full code -assessment and plan discussed with Pt, family at bedside and medical staff. labs and meds reviewed. ICU care appreciated. phone calls answered throughout the day. plan discussed with Dr Jimenez. hopefully will DC by the early next week. please contact me with any updates, anytime [phone]
[2018-12-28] MEDS: RANITIDINE HCL 150 MG TABLET (FP) PO SCH (21:25)
[2018-12-28] MEDS: MELATONIN 5 MG TABLETS PO PRN (22:18)
[2018-12-29 07:59] LABS: BASO % 0.5 % (0-2.0); EOS % 1.5 % (0-4.5); HEMATOCRIT 27.3 % (35.4-49); HEMOGLOBIN 9.3 GM/dL (11.7-16.9); LYMPH % 6.7 % (8-40); MCH 30.3 pg (25.7-33.7); MCHC 33.9 g/dl (32.0-35.9); MEAN CELL VOLUME 89.4 fl (80-96); MEAN PLT VOLUME 9.5 fl (7.5-11.1); MONO % 6.4 % (3.8-10.2); NEUT % 84.9 % (42.8-82.8); PLATELET COUNT 161 K/MM3 (134-434); RBC 3.05 M/mm3 (4.00-5.60); RDW 14.8 % (11.9-15.9)
[2018-12-29 08:17] LABS: ALK PHOS 97 U/L (45-117); ANION GAP 10 MMOL/L (8-16); BILIRUBIN,TOTAL 0.8 mg/dL (0.2-1); BLOOD UREA NITROGEN 65.8 mg/dL (7-18); CALCIUM 8.2 mg/dL (8.5-10.1); CHLORIDE 102 mmol/L (98-107); CO2 28 mmol/L (21-32); GLUCOSE,RANDOM 100 mg/dL (74-106); LDH 573 U/L (87-246); POTASSIUM 3.9 mmol/L (3.5-5.1); SGOT/AST 75 U/L (15-37); SGPT/ALT 44 U/L (13-61); SODIUM 139 mmol/L (136-145); TOT PROT 4.6 g/dl (6.4-8.2)
[2018-12-29 08:20] LABS: CREATININE 9.4 mg/dL (0.55-1.3)
[2018-12-29 10:38] LABS: SICKLE CELL SCREEN NEGATIVE (NEGATIVE)
[2018-12-29] MEDS: PANTOPRAZOLE 40 MG TABLET (FP) PO SCH (12:06)
[2018-12-29] MEDS: FOLIC ACID 1 MG TABLET (FP) PO SCH (12:07)
[2018-12-29] MEDS: ASPIRIN 81 MG CHEWABLE TABLETS PO SCH (12:07)
[2018-12-29] MEDS: metoPROLOL SUCCINATE 25 MG TAB.SR.24H (FP) PO SCH (12:08)
[2018-12-29] MEDS: SENNOSIDES/DOCUSATE COMBO (SENNA PLUS) TABLET (UD) PO SCH ×2 (12:15→21:26)
--- NOTE | 2018-12-29 13:03 | PN ---
Progress Note, Physician History of Present Illness: Pt seen and examined at bedside. He is awake and alert. He is tolerating HD. He is making very little urine. - Current Medication List Current Medications: Active Medications Al Hydroxide/Mg Hydroxide (Mylanta Oral Suspension -) 30 ml PO Q4H PRN PRN Reason: DYSPEPSIA Aspirin (Asa -) 81 mg PO DAILY [facility] Last Admin: 12/29/18 12:07 Dose: 81 mg Folic Acid (Folic Acid -) 1 mg PO DAILY [facility] Last Admin: 12/29/18 12:07 Dose: 1 mg Sodium Chloride (Normal Saline -) 250 mls @ 3,000 mls/hr IV PRN PRN PRN Reason: Hypotension during Dialysis Stop: 12/27/18 14:23 Sodium Chloride (Normal Saline -) 250 mls @ 3,000 mls/hr IV PRN PRN PRN Reason: Hypotension during Dialysis Stop: 12/29/18 15:43 Magnesium Hydroxide (Milk Of Magnesia -) 30 ml PO PRN PRN PRN Reason: CONSTIPATION Melatonin (Melatonin) 5 mg PO HS PRN PRN Reason: INSOMNIA Last Admin: 12/28/18 22:18 Dose: 5 mg Metoprolol Succinate (Toprol Xl -) 12.5 mg PO DAILY [facility] Last Admin: 12/29/18 12:08 Dose: 12.5 mg Ondansetron HCl (Zofran Injection) 4 mg IVPUSH Q6H PRN PRN Reason: NAUSEA Pantoprazole Sodium (Protonix -) 40 mg PO DAILY [facility] Last Admin: 12/29/18 12:06 Dose: 40 mg Ranitidine HCl (Zantac -) 300 mg PO HS [facility] Last Admin: 12/28/18 21:25 Dose: 300 mg Senna/Docusate Sodium (Pericolace -) 2 tablet PO BID [facility] Last Admin: 12/29/18 12:15 Dose: Not Given - Objective Vital Signs: Vital Signs Temperature 98.4 F 12/29/18 08:15 Pulse Rate 64 12/29/18 11:30 Respiratory Rate 18 12/29/18 11:30 Blood Pressure 152/64 12/29/18 11:30 O2 Sat by Pulse Oximetry (%) 96 12/25/18 21:00 Constitutional: Yes: Calm Eyes: Yes: Conjunctiva Clear HENT: Yes: Atraumatic Neck: Yes: Supple Cardiovascular: Yes: S1, S2 Respiratory: Yes: CTA Bilaterally Gastrointestinal: Yes: Soft Genitourinary: Yes: WNL Musculoskeletal: Yes: WNL Edema: No Neurological: Yes: Oriented Psychiatric: Yes: Oriented Labs: CBC, BMP 12/29/18 07:30 12/29/18 07:30 INR, PTT INR 1.20 (0.83-1.09) H 12/22/18 05:30 Problem List - Problems (1) ALLAN (acute kidney injury) Code(s): N17.9 - ACUTE KIDNEY FAILURE, UNSPECIFIED (2) Anemia Code(s): D64.9 - ANEMIA, UNSPECIFIED Qualifiers: Other causes of anemia: acute posthemorrhagic (3) Hyperkalemia Code(s): E87.5 - HYPERKALEMIA (4) Seizure Code(s): R56.9 - UNSPECIFIED CONVULSIONS (5) Shock liver Code(s): K72.00 - ACUTE AND SUBACUTE HEPATIC FAILURE WITHOUT COMA Assessment/Plan Current Medications Generic Name Dose Route Start Last Admin Trade Name Freq PRN Reason Stop Dose Admin Al Hydroxide/Mg Hydroxide 30 ml 12/25/18 19:45 Mylanta Oral Suspension - PO Q4H PRN DYSPEPSIA Aspirin 81 mg 12/26/18 10:00 12/29/18 12:07 Asa - PO 81 mg DAILY EPI Administration Folic Acid 1 mg 12/26/18 10:00 12/29/18 12:07 Folic Acid - PO 1 mg DAILY EPI Administration Sodium Chloride 250 mls @ 3,000 mls/hr 12/26/18 14:23 Normal Saline - IV 12/27/18 14:23 PRN PRN Hypotension during Dialysis Sodium Chloride 250 mls @ 3,000 mls/hr 12/28/18 15:43 Normal Saline - IV 12/29/18 15:43 PRN PRN Hypotension during Dialysis Magnesium Hydroxide 30 ml 12/25/18 19:45 Milk Of Magnesia - PO PRN PRN CONSTIPATION Melatonin 5 mg 12/25/18 19:45 12/28/18 22:18 Melatonin PO 5 mg HS PRN Administration INSOMNIA Metoprolol Succinate 12.5 mg 12/26/18 10:00 12/29/18 12:08 Toprol Xl - PO 12.5 mg DAILY EPI Administration Ondansetron HCl 4 mg 12/25/18 19:45 Zofran Injection IVPUSH Q6H PRN NAUSEA Pantoprazole Sodium 40 mg 12/26/18 10:00 12/29/18 12:06 Protonix - PO 40 mg DAILY EPI Administration Ranitidine HCl 300 mg 12/25/18 22:00 12/28/18 21:25 Zantac - PO 300 mg HS EPI Administration Senna/Docusate Sodium 2 tablet 12/25/18 22:00 12/29/18 12:15 Pericolace - PO Not Given BID EPI Impression 1. ALLAN 2. hyperkalemia 3. shock liver 4. seizure 5. s/p hip replacement 6. hx of htn 7. hypotension 8. gerd Plan - HD today - discussed kidney biopsy with pt and he will think about it, he would like to wait and see if the kidney function improves - will need to be off of aspirin for 7 days before biopsy - check insurance verification clerk every day - will re-evaluate for HD on Tuesday - positive m spike, onc eval - likely allan from ATN - ortho follow up
--- NOTE | 2018-12-29 15:31 | PN ---
Progress Note (short form) - Note Progress Note: 68yo M seen and examined at bedside. Pt just came back from HD, pt only producing a small amout of urine daily. Pt states he has been walking with PT daily. Pt states pain is controlled in Lt leg. Denies numbness or weakness. Vital Signs Temp 98.4 F 12/29/18 08:15 Pulse 64 12/29/18 11:30 Resp 18 12/29/18 11:30 BP 152/64 12/29/18 11:30 Pulse Ox 96 12/25/18 21:00 Intake & Output 12/28/18 12/29/18 12/29/18 23:59 11:59 23:59 Intake Total 700 Output Total 150 1000 75 Balance -150 -300 -75 Weight 172 lb 5 oz Intake: IV 200 Normal Saline - 250 ml @ 200 3000 mls/hr IV PRN PRN Rx #:[id number] IVPB 500 Output: Urine 150 75 Void 150 75 Fluid Removed, 1000 Hemodialysis Other: Voiding Method Urinal Urinal Bowel Movement Yes: 1 Weight Measurement Method Built in [facility] PE: Gen: a&O X3 Resp: breathing comfortably LLE: incision is clean with no erythema or discharge. No weakness or numbness Problem List - Problems (1) S/P revision of total hip Assessment/Plan: Plan -continue oob/ambulate with PT -HD as per renal team -dvt ppx -pain control Code(s): Z96.649 - PRESENCE OF UNSPECIFIED ARTIFICIAL HIP JOINT
--- NOTE | 2018-12-29 15:36 | PN ---
Progress Note (short form) - Note Progress Note: Patient seen and examined No chest pain or SOB Denies pain Last Vital Signs Temp Pulse Resp BP Pulse Ox 98.4 F 64 18 152/64 96 12/29/18 08:15 12/29/18 11:30 12/29/18 11:30 12/29/18 11:30 12/25/18 21:00 HEENT: LAYNE, EOM Intact Oropharynx: No thrush, No mucositis Cor: RSR, No murmurs, No gallops Lungs: decreased breath sounds and rales RLL Cor-RSR Abd: Soft, Normal bowel sounds, No organomegaly Ext LE edema Skin: No rashes, Integument intact Scrotal edema Left leg dressing CBC, BMP 12/29/18 07:30 12/29/18 07:30 Current Medications Generic Name Dose Route Start Last Admin Trade Name Freq PRN Reason Stop Dose Admin Al Hydroxide/Mg Hydroxide 30 ml 12/25/18 19:45 Mylanta Oral Suspension - PO Q4H PRN DYSPEPSIA Aspirin 81 mg 12/26/18 10:00 12/29/18 12:07 Asa - PO 81 mg DAILY EPI Administration Folic Acid 1 mg 12/26/18 10:00 12/29/18 12:07 Folic Acid - PO 1 mg DAILY EPI Administration Sodium Chloride 250 mls @ 3,000 mls/hr 12/26/18 14:23 Normal Saline - IV 12/27/18 14:23 PRN PRN Hypotension during Dialysis Sodium Chloride 250 mls @ 3,000 mls/hr 12/28/18 15:43 Normal Saline - IV 12/29/18 15:43 PRN PRN Hypotension during Dialysis Magnesium Hydroxide 30 ml 12/25/18 19:45 Milk Of Magnesia - PO PRN PRN CONSTIPATION Melatonin 5 mg 12/25/18 19:45 12/28/18 22:18 Melatonin PO 5 mg HS PRN Administration INSOMNIA Metoprolol Succinate 12.5 mg 12/26/18 10:00 12/29/18 12:08 Toprol Xl - PO 12.5 mg DAILY EPI Administration Ondansetron HCl 4 mg 12/25/18 19:45 Zofran Injection IVPUSH Q6H PRN NAUSEA Pantoprazole Sodium 40 mg 12/26/18 10:00 12/29/18 12:06 Protonix - PO 40 mg DAILY EPI Administration Ranitidine HCl 300 mg 12/25/18 22:00 12/28/18 21:25 Zantac - PO 300 mg HS EPI Administration Senna/Docusate Sodium 2 tablet 12/25/18 22:00 12/29/18 12:15 Pericolace - PO Not Given BID EPI Impression: S/P left hip repair S/P 9 units of packed cells ALLAN H.D. 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
--- NOTE | 2018-12-29 15:52 | PN ---
Progress Note, Physician History of Present Illness: Pain adequately controlled, denies fevers, chest pain, dyspnea. Remains oliguric on HD via RIJ catheter, PC deferred. - Current Medication List Current Medications: Active Medications Al Hydroxide/Mg Hydroxide (Mylanta Oral Suspension -) 30 ml PO Q4H PRN PRN Reason: DYSPEPSIA Aspirin (Asa -) 81 mg PO DAILY [facility] Last Admin: 12/29/18 12:07 Dose: 81 mg Folic Acid (Folic Acid -) 1 mg PO DAILY [facility] Last Admin: 12/29/18 12:07 Dose: 1 mg Sodium Chloride (Normal Saline -) 250 mls @ 3,000 mls/hr IV PRN PRN PRN Reason: Hypotension during Dialysis Stop: 12/27/18 14:23 Sodium Chloride (Normal Saline -) 250 mls @ 3,000 mls/hr IV PRN PRN PRN Reason: Hypotension during Dialysis Stop: 12/29/18 15:43 Magnesium Hydroxide (Milk Of Magnesia -) 30 ml PO PRN PRN PRN Reason: CONSTIPATION Melatonin (Melatonin) 5 mg PO HS PRN PRN Reason: INSOMNIA Last Admin: 12/28/18 22:18 Dose: 5 mg Metoprolol Succinate (Toprol Xl -) 12.5 mg PO DAILY [facility] Last Admin: 12/29/18 12:08 Dose: 12.5 mg Ondansetron HCl (Zofran Injection) 4 mg IVPUSH Q6H PRN PRN Reason: NAUSEA Pantoprazole Sodium (Protonix -) 40 mg PO DAILY [facility] Last Admin: 12/29/18 12:06 Dose: 40 mg Ranitidine HCl (Zantac -) 300 mg PO HS [facility] Last Admin: 12/28/18 21:25 Dose: 300 mg Senna/Docusate Sodium (Pericolace -) 2 tablet PO BID [facility] Last Admin: 12/29/18 12:15 Dose: Not Given - Objective Vital Signs: Vital Signs Temperature 98.4 F 12/29/18 08:15 Pulse Rate 64 12/29/18 11:30 Respiratory Rate 18 12/29/18 11:30 Blood Pressure 152/64 12/29/18 11:30 O2 Sat by Pulse Oximetry (%) 96 12/25/18 21:00 Constitutional: Yes: No Distress, Calm Neck: Yes: Supple Cardiovascular: Yes: Regular Rate and Rhythm Respiratory: Yes: Regular, CTA Bilaterally Gastrointestinal: Yes: Normal Bowel Sounds, Soft Edema: Yes Labs: CBC, BMP 12/29/18 07:30 12/29/18 07:30 INR, PTT INR 1.20 (0.83-1.09) H 12/22/18 05:30 Problem List - Problems (1) ALLAN (acute kidney injury) Code(s): N17.9 - ACUTE KIDNEY FAILURE, UNSPECIFIED (2) Anemia Code(s): D64.9 - ANEMIA, UNSPECIFIED Qualifiers: Other causes of anemia: acute posthemorrhagic (3) Demand ischemia Code(s): I24.8 - OTHER FORMS OF ACUTE ISCHEMIC HEART DISEASE (4) HTN (hypertension) Code(s): I10 - ESSENTIAL (PRIMARY) HYPERTENSION Qualifiers: Hypertension type: essential hypertension Qualified Code(s): I10 - Essential (primary) hypertension Assessment/Plan 12/19/2018 Echocardiography: Normal LV and RV size and fxn, mild TR RVSP 22 mmHg , LVEF 65% 1. Left hip revision, bone marrow autograft POD #10 2. Elevated troponin due to demand ischemia 3. Anemia and thrombocytopenia and leukocytosis due to acute blood loss 4. Hypovolemic/Hemorrhagic Shock improving 5. ALLAN with hyperkalemia due to ATN on HD 6. Elevated LFT c/w shock liver 7. Post op Seizure 8. Lactic acidosis 9. Post-op pancreatitis PLAN: 1. Troponins downtrended 2. Further cardiac work up can be done once clinically stable 3. Increase Toprol XL 25 qd as hemodynamics tolerates, hold ASA 81 qd pending possible renal biopsy 4. LFTs and lactate downtrended 5. HD per renal via RIJ Trialysis catheter, observing for renal recovery 6. Observe off abx 7. Monitor Hgb and Plt, transfuse as needed 8. Surgical follow up, drain d/malorie, analgesia as needed 9. Start Sc heparin for DVT prophylaxis as counts have recovered 10. Possible kidney biopsy once stable and if able to lay on his side \
--- NOTE | 2018-12-29 17:22 | PN ---
Progress Note (short form) - Note Progress Note: Left leg dressing changed today. Incision c/d/i with darryl. No drainage or erythema noted. Aquacel applied and reinforced with tegaderm on the edges. 4x4 and gauze placed over the drain removal site, no drainaged noted on the dressing that was placed yesterday in this area.
--- NOTE | 2018-12-29 18:15 | PN ---
Progress Note, Physician Chief Complaint: C/O fatigue, nausea, ongoing weakness. denies chest pain, palpitations, diarrhea, fever - Current Medication List Current Medications: Active Medications Al Hydroxide/Mg Hydroxide (Mylanta Oral Suspension -) 30 ml PO Q4H PRN PRN Reason: DYSPEPSIA Folic Acid (Folic Acid -) 1 mg PO DAILY [facility] Last Admin: 12/29/18 12:07 Dose: 1 mg Heparin Sodium (Porcine) (Heparin -) 5,000 unit SQ BID [facility] Sodium Chloride (Normal Saline -) 250 mls @ 3,000 mls/hr IV PRN PRN PRN Reason: Hypotension during Dialysis Stop: 12/27/18 14:23 Sodium Chloride (Normal Saline -) 250 mls @ 3,000 mls/hr IV PRN PRN PRN Reason: Hypotension during Dialysis Stop: 12/29/18 15:43 Magnesium Hydroxide (Milk Of Magnesia -) 30 ml PO PRN PRN PRN Reason: CONSTIPATION Melatonin (Melatonin) 5 mg PO HS PRN PRN Reason: INSOMNIA Last Admin: 12/28/18 22:18 Dose: 5 mg Metoprolol Succinate (Toprol Xl -) 12.5 mg PO DAILY [facility] Last Admin: 12/29/18 12:08 Dose: 12.5 mg Ondansetron HCl (Zofran Injection) 4 mg IVPUSH Q6H PRN PRN Reason: NAUSEA Pantoprazole Sodium (Protonix -) 40 mg PO DAILY [facility] Last Admin: 12/29/18 12:06 Dose: 40 mg Ranitidine HCl (Zantac -) 300 mg PO HS [facility] Last Admin: 12/28/18 21:25 Dose: 300 mg Senna/Docusate Sodium (Pericolace -) 2 tablet PO BID [facility] Last Admin: 12/29/18 12:15 Dose: Not Given - Objective Vital Signs: Vital Signs Temperature 98.6 F 12/29/18 17:28 Pulse Rate 77 12/29/18 17:28 Respiratory Rate 18 12/29/18 17:28 Blood Pressure 148/81 12/29/18 17:28 O2 Sat by Pulse Oximetry (%) 96 12/25/18 21:00 Constitutional: Yes: Well Nourished, No Distress, Calm Eyes: Yes: WNL HENT: Yes: WNL Neck: Yes: WNL Cardiovascular: Yes: WNL Respiratory: Yes: WNL Gastrointestinal: Yes: WNL Genitourinary: Yes: WNL Musculoskeletal: Yes: WNL Extremities: Yes: WNL Edema: No Peripheral Pulses WNL: Yes Integumentary: Yes: WNL Wound/Incision: Yes: Clean/Dry, Well Approximated, Dressing Dry and Intact Neurological: Yes: WNL ...Motor Strength: WNL Psychiatric: Yes: WNL Labs: CBC, BMP 12/29/18 07:30 12/29/18 07:30 INR, PTT INR 1.20 (0.83-1.09) H 12/22/18 05:30 Assessment/Plan 68 yo man who Failed left total hip replacement, Massive osteolysis, Gait abnormalit. Fall risk now S/P Revision left total hip replacement. 2. Bone marrow aspiration and autograft. pain management. incentive spirometry. post-op course complicated by hypovolemic shock. aggressively resuscitated with IV fluids and 9 units total PRBC. hematology following. -elevated LFT's: shock liver. trending lower. -elevated troponins: likely demand ischemia. cardiology eval noted. -pancreatitis: post-op. triglycerides WNL. -GI, DVT prophylaxis. TEDs. -acute on chronic iron deficiency anemia, post-op acute blood loss anemia: S/P PRBC, platelet transfusions. hematology f/u appreciated. 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 no need for hematuria workup. HD started . had a run earlier today. renal eval appreciated. may need renal biopsy. aspirin to be held for 7 days. no acute findings on bladder and renal US. -post op seizure with lactic acidosis. Patient was loaded with iv keppra. neurology eval noted. unlikely to need intermediate designer treatment. no further events noted. -stool softeners added to prevent opioid induced constipation. -ID: ancef given operatively. -oral diet; well tolerated. -PT/OT/OOB when able -full code -assessment and plan discussed with Pt, family at bedside and medical staff. labs and meds reviewed. ICU care appreciated. phone calls answered throughout the day. plan discussed with Dr Jimenez. hopefully will DC home on Tuesday please contact me with any updates, anytime [phone]
[2018-12-29] MEDS: HEPARIN NA (PORCINE) 5,000 UNITS/ML 1ML VIAL SQ SCH (21:25)
[2018-12-29] MEDS: RANITIDINE HCL 150 MG TABLET (FP) PO SCH (21:26)
[2018-12-29] MEDS: MELATONIN 5 MG TABLETS PO PRN (22:17)
[2018-12-30 08:36] LABS: BASO % 0.9 % (0-2.0); EOS % 1.8 % (0-4.5); HEMATOCRIT 25.5 % (35.4-49); HEMOGLOBIN 8.7 GM/dL (11.7-16.9); MCH 30.1 pg (25.7-33.7); MEAN CELL VOLUME 88.6 fl (80-96); MEAN PLT VOLUME 9.9 fl (7.5-11.1); MONO % 5.5 % (3.8-10.2); NEUT % 79.8 % (42.8-82.8); PLATELET COUNT 183 K/MM3 (134-434); RBC 2.87 M/mm3 (4.00-5.60); RDW 15.1 % (11.9-15.9); WHITE BLOOD COUNT 9.1 K/mm3 (4.0-10.0)
[2018-12-30 08:45] LABS: INR 1.01 (0.83-1.09); PROTHROMBIN TIME (PATIENT) 11.9 SEC (9.7-13.0)
[2018-12-30 08:48] LABS: ACTIVATED PTT 27.9 SECONDS (25.2-36.5)
[2018-12-30] MEDS ORDERED: PT OWN MED DRAWER 7, Y5N ONE (09:09)
[2018-12-30 09:12] LABS: ALBUMIN 2.1 g/dl (3.4-5.0); BILIRUBIN,TOTAL 0.8 mg/dL (0.2-1); BLOOD UREA NITROGEN 41.9 mg/dL (7-18); CALCIUM 8.5 mg/dL (8.5-10.1); CREATININE 7.1 mg/dL (0.55-1.3); POTASSIUM 4.2 mmol/L (3.5-5.1); TOT PROT 4.9 g/dl (6.4-8.2)
[2018-12-30] MEDS: metoPROLOL SUCCINATE 25 MG TAB.SR.24H (FP) PO SCH (09:14)
[2018-12-30] MEDS: FOLIC ACID 1 MG TABLET (FP) PO SCH (09:14)
[2018-12-30] MEDS: PANTOPRAZOLE 40 MG TABLET (FP) PO SCH (09:14)
[2018-12-30] MEDS: SENNOSIDES/DOCUSATE COMBO (SENNA PLUS) TABLET (UD) PO SCH ×2 (09:14→21:09)
[2018-12-30] MEDS: HEPARIN NA (PORCINE) 5,000 UNITS/ML 1ML VIAL SQ SCH ×2 (09:14→21:09)
--- NOTE | 2018-12-30 17:56 | PN ---
Progress Note, Physician Chief Complaint: generalized fatigue, scrotal edema - Current Medication List Current Medications: Active Medications Al Hydroxide/Mg Hydroxide (Mylanta Oral Suspension -) 30 ml PO Q4H PRN PRN Reason: DYSPEPSIA Folic Acid (Folic Acid -) 1 mg PO DAILY [facility] Last Admin: 12/30/18 09:14 Dose: 1 mg Heparin Sodium (Porcine) (Heparin -) 5,000 unit SQ BID [facility] Last Admin: 12/30/18 09:14 Dose: 5,000 unit Sodium Chloride (Normal Saline -) 250 mls @ 3,000 mls/hr IV PRN PRN PRN Reason: Hypotension during Dialysis Stop: 12/27/18 14:23 Sodium Chloride (Normal Saline -) 250 mls @ 3,000 mls/hr IV PRN PRN PRN Reason: Hypotension during Dialysis Stop: 12/29/18 15:43 Magnesium Hydroxide (Milk Of Magnesia -) 30 ml PO PRN PRN PRN Reason: CONSTIPATION Melatonin (Melatonin) 5 mg PO HS PRN PRN Reason: INSOMNIA Last Admin: 12/29/18 22:17 Dose: 5 mg Metoprolol Succinate (Toprol Xl -) 12.5 mg PO DAILY [facility] Last Admin: 12/30/18 09:14 Dose: 12.5 mg Ondansetron HCl (Zofran Injection) 4 mg IVPUSH Q6H PRN PRN Reason: NAUSEA Pantoprazole Sodium (Protonix -) 40 mg PO DAILY [facility] Last Admin: 12/30/18 09:14 Dose: 40 mg Ranitidine HCl (Zantac -) 300 mg PO HS [facility] Last Admin: 12/29/18 21:26 Dose: 300 mg Senna/Docusate Sodium (Pericolace -) 2 tablet PO BID [facility] Last Admin: 12/30/18 09:14 Dose: 2 tablet - Objective Vital Signs: Vital Signs Temperature 98.9 F 12/30/18 17:05 Pulse Rate 90 12/30/18 17:05 Respiratory Rate 18 12/30/18 17:05 Blood Pressure 147/85 12/30/18 17:05 O2 Sat by Pulse Oximetry (%) 96 12/25/18 21:00 Constitutional: Yes: Well Nourished, No Distress Eyes: Yes: WNL HENT: Yes: WNL Neck: Yes: WNL Cardiovascular: Yes: WNL Respiratory: Yes: WNL Gastrointestinal: Yes: WNL Genitourinary: Yes: Scrotal Edema Musculoskeletal: Yes: Back Pain Extremities: Yes: WNL Edema: No Peripheral Pulses WNL: Yes Integumentary: Yes: WNL Wound/Incision: Yes: Clean/Dry, Well Approximated Psychiatric: Yes: WNL Labs: CBC, BMP 12/30/18 07:53 12/30/18 07:53 INR, PTT INR 1.01 (0.83-1.09) 12/30/18 07:53 Assessment/Plan 68 yo man who Failed left total hip replacement, Massive osteolysis, Gait abnormalit. Fall risk now S/P Revision left total hip replacement. 2. Bone marrow aspiration and autograft. pain management. incentive spirometry. post-op course complicated by hypovolemic shock. aggressively resuscitated with IV fluids and 9 units total PRBC. hematology following. -elevated LFT's: shock liver. trending lower. -elevated troponins: likely demand ischemia. cardiology eval noted. -pancreatitis: post-op. triglycerides WNL. -GI, DVT prophylaxis. TEDs. -acute on chronic iron deficiency anemia, post-op acute blood loss anemia: S/P PRBC, platelet transfusions. hematology f/u appreciated. 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 no need for hematuria workup. HD started. renal eval appreciated. may need renal biopsy. aspirin to be held for 7 days. no acute findings on bladder and renal US. -scrotal edema: no tenderness. reviewed with nurse at bedside. scrotal elevation recommended. No antibiotics needed at this time. scrotal U/S ordered. -post op seizure with lactic acidosis. Patient was loaded with iv keppra. neurology eval noted. unlikely to need custodial treatment. no further events noted. -stool softeners added to prevent opioid induced constipation. -ID: ancef given operatively. -oral diet; well tolerated. -PT/OT/OOB when able -full code -assessment and plan discussed with Pt, family at bedside and medical staff. labs and meds reviewed. ICU care appreciated. phone calls answered throughout the day. plan discussed with Dr Jimenez. hopefully will DC home on Tuesday please contact me with any updates, anytime [phone]
--- NOTE | 2018-12-30 19:37 | PN ---
Progress Note (short form) - Note Progress Note: Patient seen and examined No chest pain or SOB Denies pain Concerned about scrotal edema Last Vital Signs Temp Pulse Resp BP Pulse Ox 98.9 F 90 18 147/85 96 12/30/18 17:05 12/30/18 17:05 12/30/18 17:05 12/30/18 17:05 12/25/18 21:00 HEENT: LAYNE, EOM Intact Oropharynx: No thrush, No mucositis Cor: RSR, No murmurs, No gallops Lungs: decreased breath sounds and rales RLL Cor-RSR Abd: Soft, Normal bowel sounds, No organomegaly Ext LE edema Skin: No rashes, Integument intact Scrotal edema Left leg dressing Abnormal Lab Results 12/29/18 12/30/18 12/30/18 07:30 07:53 07:53 RBC 2.87 L Hgb 8.7 L Hct 25.5 L BUN 41.9 H Creatinine 7.1 H AST 73 H Total Protein 4.9 L Albumin 2.1 L Free Terry LC, Quant 46.0 H Free Terry/Lambda Ratio 2.61 H Current Medications Al Hydroxide/Mg Hydroxide (Mylanta Oral Suspension -) 30 ml PO Q4H PRN PRN Reason: DYSPEPSIA Folic Acid (Folic Acid -) 1 mg PO DAILY [facility] Last Admin: 12/30/18 09:14 Dose: 1 mg Heparin Sodium (Porcine) (Heparin -) 5,000 unit SQ BID [facility] Last Admin: 12/30/18 09:14 Dose: 5,000 unit Sodium Chloride (Normal Saline -) 250 mls @ 3,000 mls/hr IV PRN PRN PRN Reason: Hypotension during Dialysis Stop: 12/27/18 14:23 Sodium Chloride (Normal Saline -) 250 mls @ 3,000 mls/hr IV PRN PRN PRN Reason: Hypotension during Dialysis Stop: 12/29/18 15:43 Magnesium Hydroxide (Milk Of Magnesia -) 30 ml PO PRN PRN PRN Reason: CONSTIPATION Melatonin (Melatonin) 5 mg PO HS PRN PRN Reason: INSOMNIA Last Admin: 12/29/18 22:17 Dose: 5 mg Metoprolol Succinate (Toprol Xl -) 12.5 mg PO DAILY [facility] Last Admin: 12/30/18 09:14 Dose: 12.5 mg Ondansetron HCl (Zofran Injection) 4 mg IVPUSH Q6H PRN PRN Reason: NAUSEA Pantoprazole Sodium (Protonix -) 40 mg PO DAILY [facility] Last Admin: 12/30/18 09:14 Dose: 40 mg Ranitidine HCl (Zantac -) 300 mg PO HS [facility] Last Admin: 12/29/18 21:26 Dose: 300 mg Senna/Docusate Sodium (Pericolace -) 2 tablet PO BID [facility] Last Admin: 12/30/18 09:14 Dose: 2 tablet Impression: S/P left hip repair S/P 9 units of packed cells ALLAN H.D. 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 Hemoglobin Electrophoresis Currently on ASA Check SFLCA. Small M spike. Suspect reactive M spike Check LDH/enriqueta/type and screen
[2018-12-30] MEDS: RANITIDINE HCL 150 MG TABLET (FP) PO SCH (21:09)
[2018-12-31 08:45] LABS: BASO % 0.9 % (0-2.0); EOS % 1.3 % (0-4.5); HEMATOCRIT 23.7 % (35.4-49); LYMPH % 14.8 % (8-40); MCH 29.7 pg (25.7-33.7); MCHC 33.6 g/dl (32.0-35.9); MEAN CELL VOLUME 88.4 fl (80-96); MEAN PLT VOLUME 9.4 fl (7.5-11.1); MONO % 5.5 % (3.8-10.2); NEUT % 77.5 % (42.8-82.8); PLATELET COUNT 227 K/MM3 (134-434); RBC 2.69 M/mm3 (4.00-5.60); RDW 15.2 % (11.9-15.9)
[2018-12-31] MEDS ORDERED: PT OWN MED DRAWER 7, Y5N ONE (09:12)
[2018-12-31] MEDS: metoPROLOL SUCCINATE 25 MG TAB.SR.24H (FP) PO SCH (09:25)
[2018-12-31] MEDS: FOLIC ACID 1 MG TABLET (FP) PO SCH (09:25)
[2018-12-31] MEDS: SENNOSIDES/DOCUSATE COMBO (SENNA PLUS) TABLET (UD) PO SCH ×2 (09:25→21:57)
[2018-12-31] MEDS: PANTOPRAZOLE 40 MG TABLET (FP) PO SCH (09:25)
[2018-12-31] MEDS: HEPARIN NA (PORCINE) 5,000 UNITS/ML 1ML VIAL SQ SCH ×2 (09:26→21:54)
[2018-12-31 09:28] LABS: BILIRUBIN,TOTAL 0.8 mg/dL (0.2-1); BLOOD UREA NITROGEN 54.8 mg/dL (7-18); CALCIUM 8.2 mg/dL (8.5-10.1); POTASSIUM 4.1 mmol/L (3.5-5.1); TOT PROT 4.7 g/dl (6.4-8.2)
[2018-12-31 10:01] LABS: CREATININE 8.8 mg/dL (0.55-1.3)
--- NOTE | 2018-12-31 11:50 | PN ---
Progress Note (short form) - Note Progress Note: Coverage for Dr. Batista Renal follow up for ALLAN on CKD Pt seen and examined at the bedside awake and alert c/o scrotum and LE swelling no sob, cp, abd pain ambulated with PT making urine Vital Signs Temperature 98.7 F 12/31/18 06:56 Pulse Rate 76 12/31/18 06:56 Respiratory Rate 18 12/31/18 06:56 Blood Pressure 150/74 12/31/18 06:56 O2 Sat by Pulse Oximetry (%) 96 12/25/18 21:00 Intake & Output 12/28/18 12/29/18 12/30/18 12/31/18 23:59 23:59 23:59 23:59 Intake Total 200 700 200 Output Total 150 1075 380 Balance 50 -375 -180 Weight 78.131 kg 78.16 kg 76.521 kg 77.111 kg NAD awake and alert + scrotal edema + LE edmea CBC, BMP 12/31/18 07:32 12/31/18 07:32 Current Medications Al Hydroxide/Mg Hydroxide (Mylanta Oral Suspension -) 30 ml PO Q4H PRN PRN Reason: DYSPEPSIA Ciprofloxacin (Cipro (Restricted To Id)) 250 mg PO DAILY [facility] Stop: 01/03/19 10:00 Folic Acid (Folic Acid -) 1 mg PO DAILY [facility] Last Admin: 12/31/18 09:25 Dose: 1 mg Heparin Sodium (Porcine) (Heparin -) 5,000 unit SQ BID [facility] Last Admin: 12/31/18 09:26 Dose: 5,000 unit Sodium Chloride (Normal Saline -) 250 mls @ 3,000 mls/hr IV PRN PRN PRN Reason: Hypotension during Dialysis Stop: 12/27/18 14:23 Sodium Chloride (Normal Saline -) 250 mls @ 3,000 mls/hr IV PRN PRN PRN Reason: Hypotension during Dialysis Stop: 12/29/18 15:43 Magnesium Hydroxide (Milk Of Magnesia -) 30 ml PO PRN PRN PRN Reason: CONSTIPATION Melatonin (Melatonin) 5 mg PO HS PRN PRN Reason: INSOMNIA Last Admin: 12/29/18 22:17 Dose: 5 mg Metoprolol Succinate (Toprol Xl -) 12.5 mg PO DAILY [facility] Last Admin: 12/31/18 09:25 Dose: 12.5 mg Ondansetron HCl (Zofran Injection) 4 mg IVPUSH Q6H PRN PRN Reason: NAUSEA Pantoprazole Sodium (Protonix -) 40 mg PO DAILY [facility] Last Admin: 12/31/18 09:25 Dose: 40 mg Ranitidine HCl (Zantac -) 300 mg PO HS [facility] Last Admin: 12/30/18 21:09 Dose: 300 mg Senna/Docusate Sodium (Pericolace -) 2 tablet PO BID [facility] Last Admin: 12/31/18 09:25 Dose: 2 tablet Impression 1. ALLAN 2. hyperkalemia 3. shock liver 4. seizure 5. s/p hip replacement 6. hx of htn 7. hypotension 8. gerd Plan No improvement in renal function as evidenced by up-trending Cr will most likely require additional dialysis tomorrow can consider addition of diuretic to promote urine output dose all meds for CrCl < 10 Inocente Wallace DO
--- NOTE | 2018-12-31 11:52 | PN ---
Progress Note, Physician Chief Complaint: generalized fatigue, scrotal edema - Current Medication List Current Medications: Active Medications Al Hydroxide/Mg Hydroxide (Mylanta Oral Suspension -) 30 ml PO Q4H PRN PRN Reason: DYSPEPSIA Ciprofloxacin (Cipro (Restricted To Id)) 250 mg PO DAILY [facility] Stop: 01/03/19 10:00 Folic Acid (Folic Acid -) 1 mg PO DAILY [facility] Last Admin: 12/31/18 09:25 Dose: 1 mg Heparin Sodium (Porcine) (Heparin -) 5,000 unit SQ BID [facility] Last Admin: 12/31/18 09:26 Dose: 5,000 unit Sodium Chloride (Normal Saline -) 250 mls @ 3,000 mls/hr IV PRN PRN PRN Reason: Hypotension during Dialysis Stop: 12/27/18 14:23 Sodium Chloride (Normal Saline -) 250 mls @ 3,000 mls/hr IV PRN PRN PRN Reason: Hypotension during Dialysis Stop: 12/29/18 15:43 Magnesium Hydroxide (Milk Of Magnesia -) 30 ml PO PRN PRN PRN Reason: CONSTIPATION Melatonin (Melatonin) 5 mg PO HS PRN PRN Reason: INSOMNIA Last Admin: 12/29/18 22:17 Dose: 5 mg Metoprolol Succinate (Toprol Xl -) 12.5 mg PO DAILY [facility] Last Admin: 12/31/18 09:25 Dose: 12.5 mg Ondansetron HCl (Zofran Injection) 4 mg IVPUSH Q6H PRN PRN Reason: NAUSEA Pantoprazole Sodium (Protonix -) 40 mg PO DAILY [facility] Last Admin: 12/31/18 09:25 Dose: 40 mg Ranitidine HCl (Zantac -) 300 mg PO HS [facility] Last Admin: 12/30/18 21:09 Dose: 300 mg Senna/Docusate Sodium (Pericolace -) 2 tablet PO BID [facility] Last Admin: 12/31/18 09:25 Dose: 2 tablet - Objective Vital Signs: Vital Signs Temperature 98.7 F 12/31/18 06:56 Pulse Rate 76 12/31/18 06:56 Respiratory Rate 18 12/31/18 06:56 Blood Pressure 150/74 12/31/18 06:56 O2 Sat by Pulse Oximetry (%) 96 12/25/18 21:00 Constitutional: Yes: No Distress Eyes: Yes: WNL HENT: Yes: WNL, Other Cardiovascular: Yes: WNL Respiratory: Yes: Diminished Gastrointestinal: Yes: WNL Genitourinary: Yes: WNL, Scrotal Edema Musculoskeletal: Yes: Joint Stiffness Extremities: Yes: WNL Peripheral Pulses WNL: Yes Integumentary: Yes: WNL Wound/Incision: Yes: Clean/Dry, Well Approximated, Dressing Dry and Intact Neurological: Yes: WNL ...Motor Strength: WNL Psychiatric: Yes: WNL Labs: CBC, BMP 12/31/18 07:32 12/31/18 07:32 INR, PTT INR 1.01 (0.83-1.09) 12/30/18 07:53 Assessment/Plan 68 yo man who Failed left total hip replacement, Massive osteolysis, Gait abnormalit. Fall risk now S/P Revision left total hip replacement. 2. Bone marrow aspiration and autograft. pain management. incentive spirometry. post-op course complicated by hypovolemic shock. aggressively resuscitated with IV fluids and 9 units total PRBC. 2 more units ordered as Hct is trending lower. hematology following. -elevated LFT's: shock liver. improved. -elevated troponins: likely demand ischemia. cardiology eval noted. -pancreatitis: post-op. triglycerides WNL. -GI, DVT prophylaxis. TEDs. -acute on chronic iron deficiency anemia, post-op acute blood loss anemia: S/P PRBC, platelet transfusions. hematology f/u appreciated. 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 no need for hematuria workup. HD started. renal eval appreciated. may need renal biopsy. aspirin to be held for 7 days. no acute findings on bladder and renal US. -scrotal edema: no tenderness. reviewed with nurse at bedside. scrotal elevation recommended. renal US showed epididymitis. cipro and urology consult ordered. -post op seizure with lactic acidosis. Patient was loaded with iv keppra. neurology eval noted. unlikely to need shelter treatment. no further events noted. -stool softeners added to prevent opioid induced constipation. -ID: ancef given operatively. -oral diet; well tolerated. -PT/OT/OOB when able -full code -assessment and plan discussed with Pt and medical staff. labs and meds reviewed. phone calls answered throughout the day. plan discussed with Dr Jimenez. please contact me with any updates, anytime [phone]
--- NOTE | 2018-12-31 18:06 | PN ---
Progress Note (short form) - Note Progress Note: Patient seen and examined No chest pain or SOB Denies pain Concerned about scrotal edema ROS: 14 point elicited and negative or as above Last Vital Signs Temp Pulse Resp BP Pulse Ox 99 F 81 20 160/79 96 12/31/18 17:08 12/31/18 17:08 12/31/18 17:08 12/31/18 17:08 12/25/18 21:00 HEENT: LAYNE, EOM Intact Oropharynx: No thrush, No mucositis Cor: RSR, No murmurs, No gallops Lungs: decreased breath sounds and rales RLL Abd: Soft, Normal bowel sounds, No organomegaly Ext LE edema Skin: No rashes, Integument intact : Prominent Scrotal edema Extremities: Left leg dressing Laboratory Last Values WBC 8.0 K/mm3 (4.0-10.0) 12/31/18 07:32 Corrected WBC (auto) 18.67 K/mm3 12/22/18 10:20 RBC 2.69 M/mm3 (4.00-5.60) L 12/31/18 07:32 Hgb 8.0 GM/dL (11.7-16.9) L 12/31/18 07:32 Hct 23.7 % (35.4-49) L 12/31/18 07:32 MCV 88.4 fl (80-96) 12/31/18 07:32 MCH 29.7 pg (25.7-33.7) 12/31/18 07:32 MCHC 33.6 g/dl (32.0-35.9) 12/31/18 07:32 RDW 15.2 % (11.9-15.9) 12/31/18 07:32 Plt Count 227 K/MM3 (134-434) D 12/31/18 07:32 MPV 9.4 fl (7.5-11.1) 12/31/18 07:32 Absolute Neuts (auto) 6.2 K/mm3 (1.5-8.0) 12/31/18 07:32 Total Counted Cancelled 12/21/18 17:10 Neutrophils % 77.5 % (42.8-82.8) 12/31/18 07:32 Neutrophils % (Manual) 86.3 % (42.8-82.8) H 12/22/18 10:20 Band Neutrophils % 2.1 % 12/22/18 10:20 Lymphocytes % 14.8 % (8-40) D 12/31/18 07:32 Lymphocytes % (Manual) 3.2 % (8-40) L 12/22/18 10:20 Monocytes % 5.5 % (3.8-10.2) 12/31/18 07:32 Monocytes % (Manual) 4 % (3.8-10.2) 12/22/18 10:20 Eosinophils % 1.3 % (0-4.5) 12/31/18 07:32 Eosinophils % (Manual) 0.0 % (0-4.5) 12/22/18 10:20 Basophils % 0.9 % (0-2.0) 12/31/18 07:32 Basophils % (Manual) 0.0 % (0-2.0) 12/22/18 10:20 Myelocytes % (Man) 0 % (0-2) 12/22/18 10:20 Promyelocytes % (Man) 0 % (0-2) 12/22/18 10:20 Blast Cells % (Manual) 0 % (0-0) 12/22/18 10:20 Nucleated RBC % 0 % (0-0) 12/31/18 07:32 Metamyelocytes 0 % (0-2) 12/22/18 10:20 Differential Comment Cancelled 12/21/18 17:10 Manual Slide Review Yes 12/22/18 05:30 Hypersegmented Neuts Cancelled 12/21/18 17:10 Plasma Cells Cancelled 12/21/18 17:10 Smudge Cells Cancelled 12/21/18 17:10 Other Cell Type Cancelled 12/21/18 17:10 Hypochromia 0 12/22/18 10:20 Toxic Granulation Cancelled 12/21/18 17:10 Dohle Bodies Cancelled 12/21/18 17:10 Asif Rods Cancelled 12/22/18 10:20 Platelet Estimate Decreased 12/22/18 10:20 Platelet Comment 77 12/22/18 05:30 Platelet Comment Cancelled 12/21/18 17:10 Polychromasia 1+ 12/22/18 10:20 Poikilocytosis 1+ 12/22/18 10:20 Basophilic Stippling Cancelled 12/21/18 17:10 Anisocytosis 1+ 12/22/18 10:20 Microcytosis 1+ 12/22/18 10:20 Macrocytosis 1+ 12/22/18 10:20 Spherocytes Cancelled 12/21/18 17:10 Siderocytes Cancelled 12/21/18 17:10 Sickle Cells Cancelled 12/21/18 17:10 Target Cells Cancelled 12/21/18 17:10 Tear Drop Cells 1+ 12/22/18 10:20 Ovalocytes 1+ 12/22/18 10:20 Stomatocytes Cancelled 12/21/18 17:10 Helmet Cells Cancelled 12/21/18 17:10 [place] Bodies Cancelled 12/21/18 17:10 [place] Rings Cancelled 12/21/18 17:10 [place] Cells 1+ 12/22/18 10:20 Acanthocytes (Spur) Cancelled 12/21/18 17:10 Rouleaux Cancelled 12/21/18 17:10 Fragmented RBCs Cancelled 12/21/18 17:10 Schistocytes Cancelled 12/21/18 17:10 Retic Count 4.39 % (0.5-1.5) H 12/22/18 10:20 Sickle Cell Screen Negative (NEGATIVE) 12/29/18 07:30 Haptoglobin < 10 mg/dL (34-200) L 12/22/18 10:20 PT with INR 11.90 SEC (9.7-13.0) 12/30/18 07:53 INR 1.01 (0.83-1.09) 12/30/18 07:53 PTT (Actin FS) 27.9 SECONDS (25.2-36.5) 12/30/18 07:53 Anticoagulation Therapy No Result Required. 12/22/18 06:45 Puncture Site Right radial 12/22/18 06:45 ABG pH 7.42 (7.35-7.45) 12/22/18 06:45 ABG pCO2 at Pt Temp 34.9 mmHg (35-45) L 12/22/18 06:45 ABG pO2 at Pt Temp 88.9 mmHg (80-105) 12/22/18 06:45 ABG HCO3 22.0 mmol/L (22-27) 12/22/18 06:45 ABG O2 Sat (Measured) 97.3 % (95-98) 12/22/18 06:45 ABG O2 Content 11.5 % vol (15-22) L 12/22/18 06:45 ABG Base Excess -1.6 meq/l (-2-2) 12/22/18 06:45 [place] Test Positive 12/22/18 06:45 O2 Delivery Device N/c 12/22/18 06:45 Oxygen Flow Rate 2l 12/22/18 06:45 Vent Mode No Result Required. 12/22/18 06:45 Vent Rate No Result Required. 12/22/18 06:45 Mechanical Rate No Result Required. 12/22/18 06:45 Pressure Support Vent No Result Required. 12/22/18 06:45 Sodium 141 mmol/L (136-145) 12/31/18 07:32 Potassium 4.1 mmol/L (3.5-5.1) 12/31/18 07:32 Chloride 103 mmol/L (98-107) 12/31/18 07:32 Carbon Dioxide 30 mmol/L (21-32) 12/31/18 07:32 Anion Gap 8 MMOL/L (8-16) 12/31/18 07:32 BUN 54.8 mg/dL (7-18) H 12/31/18 07:32 Creatinine 8.8 mg/dL (0.55-1.3) H* 12/31/18 07:32 Est GFR (CKD-EPI)AfAm 6.39 12/31/18 07:32 Est GFR (CKD-EPI)NonAf 5.51 12/31/18 07:32 Random Glucose 86 mg/dL (74-106) 12/31/18 07:32 Lactic Acid 1.1 mmol/L (0.4-2.0) 12/21/18 05:45 Calcium 8.2 mg/dL (8.5-10.1) L 12/31/18 07:32 Phosphorus 4.3 mg/dL (2.5-4.9) 12/26/18 05:30 Magnesium 1.8 mg/dL (1.8-2.4) 12/26/18 05:30 Total Bilirubin 0.8 mg/dL (0.2-1) 12/31/18 07:32 Direct Bilirubin 0.7 mg/dL (0.0-0.2) H 12/22/18 10:20 AST 61 U/L (15-37) H 12/31/18 07:32 ALT 45 U/L (13-61) 12/31/18 07:32 Alkaline Phosphatase 87 U/L (45-117) 12/31/18 07:32 LD Total 573 U/L (87-246) H 12/29/18 07:30 Creatine Kinase 176 U/L (26-308) 12/29/18 07:30 Creatine Kinase Index No Result Required. 12/29/18 07:30 CK-MB (CK-2) < 1.0 ng/mL (0.5-3.6) 12/29/18 07:30 Troponin I 2.45 ng/ml (0.00-0.05) H* 12/19/18 21:30 Total Protein 4.7 g/dl (6.4-8.2) L 12/31/18 07:32 Total Protein (PEP) 4.7 g/dL (6.0-8.5) L 12/22/18 16:15 Albumin 2.0 g/dl (3.4-5.0) L 12/31/18 07:32 Albumin (PEP) 2.5 gm/dl (2.9-4.4) L 12/22/18 16:15 Globulin 2.2 g/dL (2.2-3.9) 12/22/18 16:15 Albumin/Globulin Ratio 1.1 (0.7-1.7) 12/22/18 16:15 Beta Globulins 0.5 gm/dL (0.7-1.3) L 12/22/18 16:15 Triglycerides 79 mg/dL (0-150) 12/20/18 05:25 Lipase 1424 U/L (73-393) H 12/19/18 04:00 TSH 3.46 uIU/ml (0.358-3.74) 12/30/18 07:53 Urine Color Dk yellow 12/19/18 16:51 Urine Appearance Turbid 12/19/18 16:51 Urine pH 5.0 (5.0-8.0) 12/19/18 16:51 Ur Specific [place] 1.024 (1.010-1.035) 12/19/18 16:51 Urine Protein 2+ (NEGATIVE) H 12/19/18 16:51 Urine Glucose (UA) Trace (NEGATIVE) 12/19/18 16:51 Urine Ketones 1+ (NEGATIVE) H 12/19/18 16:51 Urine Blood 3+ (NEGATIVE) H 12/19/18 16:51 Urine Nitrite Negative (NEGATIVE) 12/19/18 16:51 Urine Bilirubin Negative (NEGATIVE) 12/19/18 16:51 Urine Urobilinogen 0.2 mg/dL (0.2-1.0) 12/19/18 16:51 Ur Leukocyte Esterase Trace (NEGATIVE) 12/19/18 16:51 Urine WBC (Auto) 28 /hpf (0-5) 12/19/18 16:51 Urine RBC (Auto) 3 /hpf (0-4) 12/19/18 16:51 Urine Casts (Auto) 37 /lpf (0-8) 12/19/18 16:51 U Epithel Cells (Auto) 14.2 /HPF (0-5/HPF) 12/19/18 16:51 Ur Random Creatinine 125.0 mg/dL (30-150) 12/19/18 15:52 Ur Random Sodium 19 MMOL/L (40-220) L 12/19/18 15:52 Ur Random Potassium 50.0 MMOL/L (25-125) 12/19/18 15:52 Ur Random Chloride < 11 MMOL/L (110-250) L 12/19/18 15:52 Alcohol, Quantitative < 3.0 mg/dL (0.0-5.0) 12/19/18 04:00 RUDY M-Lucio 0.6 g/dL (Not Observed) H 12/22/18 16:15 BRIAN Screen Negative (.) 12/22/18 16:15 c-ANCA <1:20 titer (Neg:<1:20) 12/22/18 16:15 Proteinase 3 (PR3) <3.5 U/mL (0.0-3.5) 12/22/18 16:15 p-ANCA <1:20 titer (Neg:<1:20) 12/22/18 16:15 Atypical p-ANCA <1:20 titer (Neg:<1:20) 12/22/18 16:15 Myeloperoxidase Ab <9.0 U/mL (0.0-9.0) 12/22/18 16:15 Double Strand DNA Ab <1 IU/mL (0-9) 12/22/18 16:15 Glomerular Base Memb Ab 3 units (0-20) 12/22/18 16:15 Free [place] LC, Quant 46.0 mg/L (3.3-19.4) H 12/29/18 07:30 Free Lambda LC, Quant 17.6 mg/L (5.7-26.3) 12/29/18 07:30 Free [place]/Lambda Ratio 2.61 (0.26-1.65) H 12/29/18 07:30 Hep A IgM Ab Confirm Negative (Negative) 12/22/18 16:15 Hepatitis A Ab Total Positive (Negative) H 12/22/18 16:15 Hep Bs Antigen Negative (Negative) 12/22/18 16:15 Hep Bs Antibody Non reactive (.) 12/22/18 16:15 Hep B Core Total Ab Positive (Negative) H 12/22/18 16:15 Hep B Core IgM Ab Negative (Negative) 12/22/18 16:15 Hepatitis Be Antibody Negative (Negative) 12/22/18 16:15 Hepatitis Be Antigen Negative (Negative) 12/22/18 16:15 Hep C Ab Diagnostic <0.1 s/co ratio (0.0-0.9) 12/21/18 15:30 HCV Quantitation Hcv not detected IU/mL (.) 12/22/18 16:15 Hepatitis C RNA Scale Mechanic 12/21/18 15:30 HCV RNA PCR log office copy selector/ml Scale Mechanic 12/21/18 15:30 HCV RNA (PCR) IUs/ml Scale Mechanic 12/21/18 15:30 HCV RNA PCR w/Genot Rflx Scale Mechanic 12/21/18 15:30 HCV RNA log copies/mL TNP 12/22/18 16:15 Liver Fibrosis Interp Scale Mechanic 12/21/18 15:30 Blood Type O POSITIVE 12/31/18 12:06 Antibody Screen Negative 12/31/18 12:06 Crossmatch See Detail 12/31/18 12:06 Crossmatch IS Only See Detail 12/18/18 07:10 Current Medications Generic Name Dose Route Start Last Admin Trade Name Freq PRN Reason Stop Dose Admin Al Hydroxide/Mg Hydroxide 30 ml 12/25/18 19:45 Mylanta Oral Suspension - PO Q4H PRN DYSPEPSIA Ciprofloxacin 250 mg 01/01/19 10:00 Cipro (Restricted To Id) PO 01/03/19 10:00 DAILY EPI Folic Acid 1 mg 12/26/18 10:00 12/31/18 09:25 Folic Acid - PO 1 mg DAILY EPI Administration Furosemide 80 mg 12/31/18 20:00 Lasix Injection - IVPUSH 12/31/18 22:00 INTERMEDIATE MANAGER EPI Heparin Sodium (Porcine) 5,000 unit 12/29/18 22:00 12/31/18 09:26 Heparin - SQ 5,000 unit BID EPI Administration Sodium Chloride 250 mls @ 3,000 mls/hr 12/26/18 14:23 Normal Saline - IV 12/27/18 14:23 PRN PRN Hypotension during Dialysis Sodium Chloride 250 mls @ 3,000 mls/hr 12/28/18 15:43 Normal Saline - IV 12/29/18 15:43 PRN PRN Hypotension during Dialysis Magnesium Hydroxide 30 ml 12/25/18 19:45 Milk Of Magnesia - PO PRN PRN CONSTIPATION Melatonin 5 mg 12/25/18 19:45 12/29/18 22:17 Melatonin PO 5 mg HS PRN Administration INSOMNIA Metoprolol Succinate 12.5 mg 12/26/18 10:00 12/31/18 09:25 Toprol Xl - PO 12.5 mg DAILY EPI Administration Ondansetron HCl 4 mg 12/25/18 19:45 Zofran Injection IVPUSH Q6H PRN NAUSEA Pantoprazole Sodium 40 mg 12/26/18 10:00 12/31/18 09:25 Protonix - PO 40 mg DAILY EPI Administration Ranitidine HCl 300 mg 12/25/18 22:00 12/30/18 21:09 Zantac - PO 300 mg HS EPI Administration Senna/Docusate Sodium 2 tablet 12/25/18 22:00 12/31/18 09:25 Pericolace - PO 2 tablet BID EPI Administration Impression: S/P left hip repair S/P 9 units of packed cells ALLAN H.D. 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 Hemoglobin Electrophoresis pending-> pt mentioned follows with Dr. Esteban at [facility]. He did not wish to be transfused today as he mentioned his Hb runs low. Discussed also with Dr. Mclaughlin. Will hold on pRBC transfusion for now and observe closely. Currently on ASA Check SFLCA. Small M spike. Suspect reactive M spike Check LDH: [id number]: P/type and screen: O positive and negative antibodies Epididymoorchitis: Urology consultation
[2018-12-31] MEDS ORDERED: FUROSEMIDE 40 MG/4 ML INJECTABLE VIAL IVPUSH SCH (20:00)
[2018-12-31] MEDS: MELATONIN 5 MG TABLETS PO PRN (21:54)
[2018-12-31] MEDS: RANITIDINE HCL 150 MG TABLET (FP) PO SCH (21:54)
[2019-01-01 07:18] LABS: BLOOD UREA NITROGEN 65.4 mg/dL (7-18); CALCIUM 8.3 mg/dL (8.5-10.1); POTASSIUM 4.4 mmol/L (3.5-5.1)
[2019-01-01 07:24] LABS: BASO % 0.9 % (0-2.0); EOS % 1.3 % (0-4.5); HEMATOCRIT 24.1 % (35.4-49); HEMOGLOBIN 8.3 GM/dL (11.7-16.9); LYMPH % 13.7 % (8-40); MCH 30.3 pg (25.7-33.7); MCHC 34.5 g/dl (32.0-35.9); MEAN CELL VOLUME 87.8 fl (80-96); MEAN PLT VOLUME 9.6 fl (7.5-11.1); MONO % 6.2 % (3.8-10.2); NEUT % 77.9 % (42.8-82.8); PLATELET COUNT 257 K/MM3 (134-434); RBC 2.74 M/mm3 (4.00-5.60); RDW 15.4 % (11.9-15.9); WHITE BLOOD COUNT 7.9 K/mm3 (4.0-10.0)
[2019-01-01 07:39] LABS: CREATININE 9.7 mg/dL (0.55-1.3)
[2019-01-01 07:51] LABS: ALBUMIN 2.1 g/dl (3.4-5.0); BILIRUBIN,TOTAL 0.7 mg/dL (0.2-1); TOT PROT 4.8 g/dl (6.4-8.2)
[2019-01-01] MEDS ORDERED: SODIUM CHLORIDE 250 ML IV PRN (07:52)
--- NOTE | 2019-01-01 09:22 | PN ---
Progress Note, Physician History of Present Illness: Pain adequately controlled, denies fevers, chest pain, dyspnea. Urine output improving on HD via RIJ catheter, PC deferred. - Current Medication List Current Medications: Active Medications Al Hydroxide/Mg Hydroxide (Mylanta Oral Suspension -) 30 ml PO Q4H PRN PRN Reason: DYSPEPSIA Ciprofloxacin (Cipro (Restricted To Id)) 250 mg PO DAILY [facility] Stop: 01/03/19 10:00 Folic Acid (Folic Acid -) 1 mg PO DAILY [facility] Last Admin: 12/31/18 09:25 Dose: 1 mg Heparin Sodium (Porcine) (Heparin -) 5,000 unit SQ BID [facility] Last Admin: 12/31/18 21:54 Dose: 5,000 unit Sodium Chloride (Normal Saline -) 250 mls @ 3,000 mls/hr IV PRN PRN PRN Reason: Hypotension during Dialysis Stop: 12/27/18 14:23 Sodium Chloride (Normal Saline -) 250 mls @ 3,000 mls/hr IV PRN PRN PRN Reason: Hypotension during Dialysis Stop: 12/29/18 15:43 Sodium Chloride (Normal Saline -) 250 mls @ 3,000 mls/hr IV PRN PRN PRN Reason: Hypotension during Dialysis Stop: 01/02/19 07:52 Magnesium Hydroxide (Milk Of Magnesia -) 30 ml PO PRN PRN PRN Reason: CONSTIPATION Melatonin (Melatonin) 5 mg PO HS PRN PRN Reason: INSOMNIA Last Admin: 12/31/18 21:54 Dose: 5 mg Metoprolol Succinate (Toprol Xl -) 12.5 mg PO DAILY [facility] Last Admin: 12/31/18 09:25 Dose: 12.5 mg Ondansetron HCl (Zofran Injection) 4 mg IVPUSH Q6H PRN PRN Reason: NAUSEA Pantoprazole Sodium (Protonix -) 40 mg PO DAILY [facility] Last Admin: 12/31/18 09:25 Dose: 40 mg Ranitidine HCl (Zantac -) 300 mg PO HS [facility] Last Admin: 12/31/18 21:54 Dose: 300 mg Senna/Docusate Sodium (Pericolace -) 2 tablet PO BID [facility] Last Admin: 12/31/18 21:57 Dose: Not Given - Objective Vital Signs: Vital Signs Temperature 99.2 F 01/01/19 08:50 Pulse Rate 79 01/01/19 08:55 Respiratory Rate 18 01/01/19 08:55 Blood Pressure 131/65 01/01/19 08:55 O2 Sat by Pulse Oximetry (%) 96 12/25/18 21:00 Constitutional: Yes: No Distress, Calm Neck: Yes: Supple Cardiovascular: Yes: Regular Rate and Rhythm Respiratory: Yes: Regular, CTA Bilaterally Gastrointestinal: Yes: Normal Bowel Sounds, Soft Genitourinary: Yes: Scrotal Edema Edema: No Labs: CBC, BMP 01/01/19 05:20 01/01/19 05:20 INR, PTT INR 1.01 (0.83-1.09) 12/30/18 07:53 Problem List - Problems (1) ALLAN (acute kidney injury) Code(s): N17.9 - ACUTE KIDNEY FAILURE, UNSPECIFIED (2) Anemia Code(s): D64.9 - ANEMIA, UNSPECIFIED Qualifiers: Other causes of anemia: acute posthemorrhagic (3) Demand ischemia Code(s): I24.8 - OTHER FORMS OF ACUTE ISCHEMIC HEART DISEASE (4) HTN (hypertension) Code(s): I10 - ESSENTIAL (PRIMARY) HYPERTENSION Qualifiers: Hypertension type: essential hypertension Qualified Code(s): I10 - Essential (primary) hypertension (5) Scrotal edema Code(s): N50.89 - OTHER SPECIFIED DISORDERS OF THE MALE GENITAL ORGANS (6) S/P revision of total hip Code(s): Z96.649 - PRESENCE OF UNSPECIFIED ARTIFICIAL HIP JOINT Assessment/Plan 12/19/2018 Echocardiography: Normal LV and RV size and fxn, mild TR RVSP 22 mmHg , LVEF 65% 1. Left hip revision, bone marrow autograft POD #14 2. Elevated troponin due to demand ischemia 3. Anemia and thrombocytopenia and leukocytosis due to acute blood loss 4. Hypovolemic/Hemorrhagic Shock improving 5. ALLAN with hyperkalemia due to ATN on HD 6. Elevated LFT c/w shock liver 7. Post op Seizure 8. Lactic acidosis 9. Post-op pancreatitis 10. Scrotal edema, possible epididyimoorchitis PLAN: 1. evaluation 2. Further cardiac work up can be done once clinically stable 3. Increase Toprol XL 25 qd as hemodynamics tolerates, hold ASA 81 qd pending possible renal biopsy 4. LFTs and lactate downtrended 5. HD per renal via RIJ Trialysis catheter and diuretics, observing for renal recovery 6. Observe off abx 7. Monitor Hgb and Plt, transfuse as needed 8. Surgical follow up, drain d/malorie, analgesia as needed 9. Sc heparin for DVT prophylaxis as counts have recovered 10. Possible kidney biopsy once stable and if able to lay on his side \
--- NOTE | 2019-01-01 09:43 | PN ---
Progress Note (short form) - Note Progress Note: Ortho Surgery POD #14 Revision left total hip replacement. Patient seen and examined at bedside with no new complaints. He has been OOB and ambulating with PT and his pain is controlled. He denies any CP, SOB, Fever, chills, N/V H/A or blurred vision. Vital Signs Temp 99.2 F 01/01/19 08:50 Pulse 79 01/01/19 08:55 Resp 18 01/01/19 08:55 BP 131/65 01/01/19 08:55 Pulse Ox 96 12/25/18 21:00 Intake & Output 12/31/18 12/31/18 01/01/19 11:59 23:59 11:59 Intake Total 200 200 Output Total 50 660 1140 Balance -50 -460 -940 Weight 170 lb 170 lb 3.2 oz Intake: Oral 200 200 Output: Urine 50 660 1140 Void 50 660 1140 Other: Voiding Method Urinal Urinal Bowel Movement Yes: 1 # Bowel Movements 1 Weight Measurement Method Built in Bedscale [facility] CBC, BMP 01/01/19 05:20 01/01/19 05:20 PE: A&Ox3, NAD Unlabored resp on RA left thigh with diffuse edema appropriate to status and compressible. Dressing c /d/i with no evidence of tracking erythema, no evidence of active d/c. B/L LE compartments soft, supple and non-tender with +2 DP pulses and 5/5 dorsi/ plantar flexion Problem List - Problems (1) S/P revision of total hip Assessment/Plan: POD #14 left hip revision with resolving post op ALLAN hypovolemic shock, continues to improve. 1) Dialysis per renal - scheduled today 2) Posterior hip precautions 3) OOB with PT 4) DVT prophlaxis 5) Ice to left thigh PRN Code(s): Z96.649 - PRESENCE OF UNSPECIFIED ARTIFICIAL HIP JOINT
--- NOTE | 2019-01-01 10:02 | PN ---
Progress Note (short form) - Note Progress Note: 68M s/p revision LEFT total hip replacement POD #14. Acute kidney injury d/t post-op hypovolemic shock. Pain well controlled. Pt. denies overnight history of headaches, chest pain, shortness of breath, nausea, vomiting, chills, & sweats. (+) Vidal catheter; (+) Flatus; (+) BM. Pt. walked in hallway with physical therapy team. All labs and vitals reviewed. PE: AAO x 3, NAD. L-Hip: Dressing C/D/I. NVI distally. 68M s/p revision LEFT total hip replacement POD #14. -Offload heals with rolled towels under ankles to avoid heel ulcers/pressure sores. -Hip abduction pillow straps LOOSE, not tight. -Mobilize out of bed to chair with PT and ambulate BID. -Pain control. -DVT PPx: -Chemical: ASA 81mg PO BID x 6 weeks. -Mechanical: TARIK's, SCD's. -Incentive spirometry q15 min. -PT/OT/Rehab, OOB. -WBAT LLE. -Vidal catheter care. -f/u all labs. -Diet as tolerated. -Care per ICU, renal, and medical hospitalist teams. -Discharge planning: f/u [facility] [place] [facility] w/in 1 week of discharge; call for appointment . -Medical plan discussed with and understood by patient. -Will follow. Emile Jimenez MD (Orthopaedic Surgery).
[2019-01-01] MEDS: PANTOPRAZOLE 40 MG TABLET (FP) PO SCH (13:08)
[2019-01-01] MEDS: metoPROLOL SUCCINATE 25 MG TAB.SR.24H (FP) PO SCH (13:08)
[2019-01-01] MEDS: FOLIC ACID 1 MG TABLET (FP) PO SCH (13:08)
[2019-01-01] MEDS: SENNOSIDES/DOCUSATE COMBO (SENNA PLUS) TABLET (UD) PO SCH ×2 (13:10→23:03)
[2019-01-01] MEDS: ASPIRIN COATED 81 MG TABLET.EC PO SCH ×2 (13:10→23:04)
[2019-01-01 14:33] LABS: CREATININE 4.6 mg/dL (0.55-1.3)
--- NOTE | 2019-01-01 15:28 | PN ---
Progress Note, Physician History of Present Illness: Pt seen and examined at bedside. He tolerated HD. His urine output is improving. - Current Medication List Current Medications: Active Medications Al Hydroxide/Mg Hydroxide (Mylanta Oral Suspension -) 30 ml PO Q4H PRN PRN Reason: DYSPEPSIA Aspirin (Ecotrin -) 81 mg PO BID [facility] Last Admin: 01/01/19 13:10 Dose: 81 mg Folic Acid (Folic Acid -) 1 mg PO DAILY [facility] Last Admin: 01/01/19 13:08 Dose: 1 mg Sodium Chloride (Normal Saline -) 250 mls @ 3,000 mls/hr IV PRN PRN PRN Reason: Hypotension during Dialysis Stop: 12/27/18 14:23 Sodium Chloride (Normal Saline -) 250 mls @ 3,000 mls/hr IV PRN PRN PRN Reason: Hypotension during Dialysis Stop: 12/29/18 15:43 Sodium Chloride (Normal Saline -) 250 mls @ 3,000 mls/hr IV PRN PRN PRN Reason: Hypotension during Dialysis Stop: 01/02/19 07:52 Levofloxacin (Levaquin -) 250 mg PO Q2D@0600 [facility] Stop: 01/05/19 06:01 Last Admin: 01/01/19 13:10 Dose: 250 mg Magnesium Hydroxide (Milk Of Magnesia -) 30 ml PO PRN PRN PRN Reason: CONSTIPATION Melatonin (Melatonin) 5 mg PO HS PRN PRN Reason: INSOMNIA Last Admin: 12/31/18 21:54 Dose: 5 mg Metoprolol Succinate (Toprol Xl -) 12.5 mg PO DAILY [facility] Last Admin: 01/01/19 13:08 Dose: 12.5 mg Ondansetron HCl (Zofran Injection) 4 mg IVPUSH Q6H PRN PRN Reason: NAUSEA Pantoprazole Sodium (Protonix -) 40 mg PO DAILY [facility] Last Admin: 01/01/19 13:08 Dose: 40 mg Ranitidine HCl (Zantac -) 300 mg PO HS [facility] Last Admin: 12/31/18 21:54 Dose: 300 mg Senna/Docusate Sodium (Pericolace -) 2 tablet PO BID [facility] Last Admin: 01/01/19 13:10 Dose: 2 tablet - Objective Vital Signs: Vital Signs Temperature 99.2 F 01/01/19 10:00 Pulse Rate 71 01/01/19 12:21 Respiratory Rate 18 01/01/19 12:21 Blood Pressure 144/75 01/01/19 12:21 O2 Sat by Pulse Oximetry (%) 96 12/25/18 21:00 Constitutional: Yes: Calm Eyes: Yes: Conjunctiva Clear HENT: Yes: Atraumatic Neck: Yes: Supple Cardiovascular: Yes: S1, S2 Respiratory: Yes: CTA Bilaterally Gastrointestinal: Yes: Soft Genitourinary: Yes: WNL Musculoskeletal: Yes: WNL Edema: No Neurological: Yes: Oriented Psychiatric: Yes: Oriented Labs: CBC, BMP 01/01/19 05:20 01/01/19 13:35 INR, PTT INR 1.01 (0.83-1.09) 12/30/18 07:53 Problem List - Problems (1) ALLAN (acute kidney injury) Code(s): N17.9 - ACUTE KIDNEY FAILURE, UNSPECIFIED (2) Anemia Code(s): D64.9 - ANEMIA, UNSPECIFIED Qualifiers: Other causes of anemia: acute posthemorrhagic (3) Hyperkalemia Code(s): E87.5 - HYPERKALEMIA (4) Seizure Code(s): R56.9 - UNSPECIFIED CONVULSIONS (5) Shock liver Code(s): K72.00 - ACUTE AND SUBACUTE HEPATIC FAILURE WITHOUT COMA Assessment/Plan Current Medications Generic Name Dose Route Start Last Admin Trade Name Freq PRN Reason Stop Dose Admin Al Hydroxide/Mg Hydroxide 30 ml 12/25/18 19:45 Mylanta Oral Suspension - PO Q4H PRN DYSPEPSIA Aspirin 81 mg 01/01/19 12:00 01/01/19 13:10 Ecotrin - PO 81 mg BID EPI Administration Folic Acid 1 mg 12/26/18 10:00 01/01/19 13:08 Folic Acid - PO 1 mg DAILY EPI Administration Sodium Chloride 250 mls @ 3,000 mls/hr 12/26/18 14:23 Normal Saline - IV 12/27/18 14:23 PRN PRN Hypotension during Dialysis Sodium Chloride 250 mls @ 3,000 mls/hr 12/28/18 15:43 Normal Saline - IV 12/29/18 15:43 PRN PRN Hypotension during Dialysis Sodium Chloride 250 mls @ 3,000 mls/hr 01/01/19 07:52 Normal Saline - IV 01/02/19 07:52 PRN PRN Hypotension during Dialysis Levofloxacin 250 mg 01/01/19 12:00 01/01/19 13:10 Levaquin - PO 01/05/19 06:01 250 mg Q2D@0600 EPI Administration Magnesium Hydroxide 30 ml 12/25/18 19:45 Milk Of Magnesia - PO PRN PRN CONSTIPATION Melatonin 5 mg 12/25/18 19:45 12/31/18 21:54 Melatonin PO 5 mg HS PRN Administration INSOMNIA Metoprolol Succinate 12.5 mg 12/26/18 10:00 01/01/19 13:08 Toprol Xl - PO 12.5 mg DAILY EPI Administration Ondansetron HCl 4 mg 12/25/18 19:45 Zofran Injection IVPUSH Q6H PRN NAUSEA Pantoprazole Sodium 40 mg 12/26/18 10:00 01/01/19 13:08 Protonix - PO 40 mg DAILY EPI Administration Ranitidine HCl 300 mg 12/25/18 22:00 12/31/18 21:54 Zantac - PO 300 mg HS EPI Administration Senna/Docusate Sodium 2 tablet 12/25/18 22:00 01/01/19 13:10 Pericolace - PO 2 tablet BID EPI Administration Impression 1. ALLAN 2. hyperkalemia 3. shock liver 4. seizure 5. s/p hip replacement 6. hx of htn 7. hypotension 8. gerd Plan - pts urine output is improving, cont to monitor - HD today - pt is showing signs of renal recovery - will need to change shiley catheter - will hold off kidney biopsy as he does not want one - likely allan from [facility]
--- NOTE | 2019-01-01 20:55 | PN ---
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 Gait abnormality. Fall risk denies chest pain, palpitations, nausea, vomiting, diarrhea - Current Medication List Current Medications: Active Medications Al Hydroxide/Mg Hydroxide (Mylanta Oral Suspension -) 30 ml PO Q4H PRN PRN Reason: DYSPEPSIA Aspirin (Ecotrin -) 81 mg PO BID [facility] Last Admin: 01/01/19 13:10 Dose: 81 mg Folic Acid (Folic Acid -) 1 mg PO DAILY [facility] Last Admin: 01/01/19 13:08 Dose: 1 mg Sodium Chloride (Normal Saline -) 250 mls @ 3,000 mls/hr IV PRN PRN PRN Reason: Hypotension during Dialysis Stop: 01/02/19 07:52 Levofloxacin (Levaquin -) 250 mg PO Q2D@0600 [facility] Stop: 01/05/19 06:01 Last Admin: 01/01/19 13:10 Dose: 250 mg Magnesium Hydroxide (Milk Of Magnesia -) 30 ml PO PRN PRN PRN Reason: CONSTIPATION Melatonin (Melatonin) 5 mg PO HS PRN PRN Reason: INSOMNIA Last Admin: 12/31/18 21:54 Dose: 5 mg Metoprolol Succinate (Toprol Xl -) 12.5 mg PO DAILY [facility] Last Admin: 01/01/19 13:08 Dose: 12.5 mg Ondansetron HCl (Zofran Injection) 4 mg IVPUSH Q6H PRN PRN Reason: NAUSEA Pantoprazole Sodium (Protonix -) 40 mg PO DAILY [facility] Last Admin: 01/01/19 13:08 Dose: 40 mg Ranitidine HCl (Zantac -) 300 mg PO HS [facility] Last Admin: 12/31/18 21:54 Dose: 300 mg Senna/Docusate Sodium (Pericolace -) 2 tablet PO BID [facility] Last Admin: 01/01/19 13:10 Dose: 2 tablet - Objective Vital Signs: Vital Signs Temperature 98.4 F 01/01/19 16:20 Pulse Rate 85 01/01/19 16:20 Respiratory Rate 20 01/01/19 16:20 Blood Pressure 154/82 01/01/19 16:20 O2 Sat by Pulse Oximetry (%) 96 12/25/18 21:00 Constitutional: Yes: No Distress Eyes: Yes: WNL HENT: Yes: WNL Neck: Yes: WNL Cardiovascular: Yes: WNL Respiratory: Yes: WNL Gastrointestinal: Yes: WNL Genitourinary: Yes: Scrotal Edema Musculoskeletal: Yes: Back Pain Extremities: Yes: WNL Edema: No Peripheral Pulses WNL: Yes Integumentary: Yes: WNL Wound/Incision: Yes: Clean/Dry, Well Approximated Neurological: Yes: WNL ...Motor Strength: WNL Psychiatric: Yes: WNL Labs: CBC, BMP 01/01/19 05:20 01/01/19 13:35 INR, PTT INR 1.01 (0.83-1.09) 12/30/18 07:53 Assessment/Plan 68 yo man who Failed left total hip replacement, Massive osteolysis, Gait abnormalit. Fall risk now S/P Revision left total hip replacement. 2. Bone marrow aspiration and autograft. pain management. incentive spirometry. post-op course complicated by hypovolemic shock. aggressively resuscitated with IV fluids and 9 units total PRBC. hematology following. -elevated LFT's: shock liver. improved. -elevated troponins: likely demand ischemia. cardiology eval noted. -pancreatitis: post-op. triglycerides WNL. -GI, DVT prophylaxis. TEDs. -acute on chronic iron deficiency anemia, post-op acute blood loss anemia: S/P PRBC, platelet transfusions. hematology f/u appreciated. to follow up outpatient. 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 no need for hematuria workup. HD started. renal eval appreciated. may need renal biopsy but pt is refusing. no acute findings on bladder and renal US. -scrotal edema: no tenderness. reviewed with nurse at bedside. scrotal elevation recommended. renal US showed epididymitis. antibiotics and urology consult ordered. -post op seizure with lactic acidosis. Patient was loaded with iv keppra. neurology eval noted. unlikely to need usp treatment. no further events noted. -stool softeners added to prevent opioid induced constipation. -ID: ancef given operatively. -oral diet; well tolerated. -PT/OT/OOB when able -full code -assessment and plan discussed with Pt and medical staff. labs and meds reviewed. phone calls answered throughout the day. plan discussed with Dr Jimenez. hopefully will DC home this week please contact me with any updates, anytime [phone]
[2019-01-01] MEDS: RANITIDINE HCL 150 MG TABLET (FP) PO SCH (23:04)
[2019-01-02 08:26] LABS: BASO % 0.7 % (0-2.0); EOS % 0.8 % (0-4.5); HEMATOCRIT 23.6 % (35.4-49); LYMPH % 14.3 % (8-40); MCH 30.1 pg (25.7-33.7); MCHC 33.8 g/dl (32.0-35.9); MEAN CELL VOLUME 89.2 fl (80-96); MEAN PLT VOLUME 9.3 fl (7.5-11.1); MONO % 7.6 % (3.8-10.2); NEUT % 76.6 % (42.8-82.8); PLATELET COUNT 274 K/MM3 (134-434); RBC 2.65 M/mm3 (4.00-5.60); RDW 15.2 % (11.9-15.9)
[2019-01-02 08:46] LABS: ALBUMIN 2.1 g/dl (3.4-5.0); BILIRUBIN,TOTAL 0.8 mg/dL (0.2-1); BLOOD UREA NITROGEN 38.9 mg/dL (7-18); CALCIUM 8.1 mg/dL (8.5-10.1); CREATININE 6.3 mg/dL (0.55-1.3); POTASSIUM 3.8 mmol/L (3.5-5.1)
[2019-01-02] MEDS ORDERED: PT OWN MED DRAWER 7, Y5N ONE (09:54)
[2019-01-02] MEDS: ASPIRIN COATED 81 MG TABLET.EC PO SCH ×2 (09:59→22:33)
[2019-01-02] MEDS: FOLIC ACID 1 MG TABLET (FP) PO SCH (09:59)
[2019-01-02] MEDS: PANTOPRAZOLE 40 MG TABLET (FP) PO SCH (09:59)
[2019-01-02] MEDS: metoPROLOL SUCCINATE 25 MG TAB.SR.24H (FP) PO SCH (09:59)
[2019-01-02] MEDS: SENNOSIDES/DOCUSATE COMBO (SENNA PLUS) TABLET (UD) PO SCH ×2 (09:59→22:34)
--- NOTE | 2019-01-02 10:52 | PN ---
Progress Note (short form) - Note Progress Note: POD 15, s/p Revision left total hip replacement, Bone marrow aspiration and autograft, Bone allograft Vital Signs Temp 98.4 F 01/02/19 06:00 Pulse 82 01/02/19 06:00 Resp 20 01/02/19 06:00 BP 145/66 01/02/19 06:00 Pulse Ox 97 01/01/19 21:00 Intake & Output 01/01/19 01/01/19 01/02/19 11:59 23:59 11:59 Intake Total 400 300 0 Output Total 1140 1800 200 Balance -740 -1500 -200 Weight 170 lb 3.2 oz 168 lb 3.2 oz Intake: IV 200 300 Normal Saline - 250 ml @ 638 019 8806 mls/hr IV PRN PRN Rx #:[id number] IVPB 0 0 Oral 200 Output: Urine 1140 800 200 Void 1140 800 200 Fluid Removed, 1000 Hemodialysis Other: Voiding Method Urinal Urinal Bowel Movement No Weight Measurement Method Built in Bedscale Built in Bedscale CBC, BMP 01/02/19 07:50 01/02/19 07:50 PE: A&Ox3, NAD Unlabored resp on RA LE'S: left thigh with diffuse edema throughout, compartments full but soft and compressible. Dressing c/d/i with no evidence of tracking erythema, no evidence of active d/c. B/L LE compartments soft, supple and non-tender with +2 DP pulses and 5/5 dorsi/plantar flexion Groin: significant scrotal edema, no skin breakdown. A/P: 68 y/o M w/ PMHx hypertension, GERD, multiple total hip replacements (1986, 1995, 2017) now POD 15, s/p Revision left total hip replacement, Bone marrow aspiration and autograft, Bone allograft c/b hypovolemic shock, s/p 5 units pRBCs. Afebrile, VSS H/H trending down, no leukocytosis R IJ trialysis catheter placed 12/24, pt received first HD session (12/25) -Plan for removal of shiley today, pt will continue to require dialysis for the next 1-2 weeks -Scrotal elevation and prevention of skin breakdown (orders placed, pt requesting Lasix for scrotal elevation, d/w this has potential to worsen renal function) -OOB with PT -Diet as tolerated -VS per protocol -ASA 81mg bid for dvt prophylaxis -Monitor I&Os -Remainder of care per medical office technologist d/w attendings Dr Cabezas
--- NOTE | 2019-01-02 11:11 | PN ---
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 Gait abnormality. Fall risk denies chest pain, palpitations, nausea, vomiting, diarrhea - Current Medication List Current Medications: Active Medications Al Hydroxide/Mg Hydroxide (Mylanta Oral Suspension -) 30 ml PO Q4H PRN PRN Reason: DYSPEPSIA Aspirin (Ecotrin -) 81 mg PO BID [facility] Last Admin: 01/02/19 09:59 Dose: 81 mg Folic Acid (Folic Acid -) 1 mg PO DAILY [facility] Last Admin: 01/02/19 09:59 Dose: 1 mg Sodium Chloride (Normal Saline -) 250 mls @ 3,000 mls/hr IV PRN PRN PRN Reason: Hypotension during Dialysis Stop: 01/02/19 07:52 Levofloxacin (Levaquin -) 250 mg PO Q2D@0600 [facility] Stop: 01/05/19 06:01 Last Admin: 01/01/19 13:10 Dose: 250 mg Magnesium Hydroxide (Milk Of Magnesia -) 30 ml PO PRN PRN PRN Reason: CONSTIPATION Melatonin (Melatonin) 5 mg PO HS PRN PRN Reason: INSOMNIA Last Admin: 12/31/18 21:54 Dose: 5 mg Metoprolol Succinate (Toprol Xl -) 12.5 mg PO DAILY [facility] Last Admin: 01/02/19 09:59 Dose: 12.5 mg Ondansetron HCl (Zofran Injection) 4 mg IVPUSH Q6H PRN PRN Reason: NAUSEA Pantoprazole Sodium (Protonix -) 40 mg PO DAILY [facility] Last Admin: 01/02/19 09:59 Dose: 40 mg Ranitidine HCl (Zantac -) 300 mg PO HS [facility] Last Admin: 01/01/19 23:04 Dose: 300 mg Senna/Docusate Sodium (Pericolace -) 2 tablet PO BID [facility] Last Admin: 01/02/19 09:59 Dose: 2 tablet - Objective Vital Signs: Vital Signs Temperature 98.4 F 01/02/19 06:00 Pulse Rate 82 01/02/19 06:00 Respiratory Rate 20 01/02/19 06:00 Blood Pressure 145/66 01/02/19 06:00 O2 Sat by Pulse Oximetry (%) 97 01/01/19 21:00 Constitutional: Yes: Well Nourished, No Distress Eyes: Yes: WNL HENT: Yes: WNL Neck: Yes: WNL Cardiovascular: Yes: WNL Respiratory: Yes: WNL Gastrointestinal: Yes: WNL ...Rectal Exam: Yes: Deferred Genitourinary: Yes: Scrotal Edema Musculoskeletal: Yes: WNL Extremities: Yes: WNL Edema: No Peripheral Pulses WNL: Yes Integumentary: Yes: WNL Wound/Incision: Yes: Clean/Dry, Well Approximated Neurological: Yes: WNL ...Motor Strength: WNL Psychiatric: Yes: WNL Labs: CBC, BMP 01/02/19 07:50 01/02/19 07:50 INR, PTT INR 1.01 (0.83-1.09) 12/30/18 07:53 Assessment/Plan 68 yo man who Failed left total hip replacement, Massive osteolysis, Gait abnormalit. Fall risk now S/P Revision left total hip replacement. 2. Bone marrow aspiration and autograft. pain management. incentive spirometry. post-op course complicated by hypovolemic shock. aggressively resuscitated with IV fluids and 9 units total PRBC. -elevated LFT's: shock liver. improved. -elevated troponins: likely demand ischemia. cardiology eval noted. -pancreatitis: post-op. triglycerides WNL. -GI, DVT prophylaxis. TEDs. -acute on chronic iron deficiency anemia, post-op acute blood loss anemia, M- spike: S/P PRBC, platelet transfusions. hematology f/u appreciated. monitoring. 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 no need for hematuria workup. HD started. renal eval appreciated. may need renal biopsy but pt is refusing. no acute findings on bladder and renal US. hopefully does not need more than a few more runs of HD. -scrotal edema: no tenderness. reviewed with nurse at bedside. scrotal elevation recommended. renal US showed epididymitis. antibiotics and urology consult ordered. -post op seizure with lactic acidosis. Patient was loaded with iv keppra. neurology eval noted. 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 no further events noted. -stool softeners added to prevent opioid induced constipation. -oral diet; well tolerated. -PT/OT/OOB when able -full code -assessment and plan discussed with Pt and medical staff. labs and meds reviewed. phone calls answered throughout the day. plan discussed with Dr Jimenez. please contact me with any updates, anytime [phone]
--- NOTE | 2019-01-02 12:22 | PN ---
Progress Note (short form) - Note Progress Note: Chief Complaint: Events noted, notes reviewed, denies any chest pain or dyspnea History of Present Illness: Seen and examined on telemetry. Events noted, notes reviewed, denies any chest pain or dyspnea - Current Medication List Current Medications: Current Medications Al Hydroxide/Mg Hydroxide (Mylanta Oral Suspension -) 30 ml PO Q4H PRN PRN Reason: DYSPEPSIA Aspirin (Ecotrin -) 81 mg PO BID [facility] Last Admin: 01/02/19 09:59 Dose: 81 mg Folic Acid (Folic Acid -) 1 mg PO DAILY [facility] Last Admin: 01/02/19 09:59 Dose: 1 mg Sodium Chloride (Normal Saline -) 250 mls @ 3,000 mls/hr IV PRN PRN PRN Reason: Hypotension during Dialysis Stop: 01/02/19 07:52 Levofloxacin (Levaquin -) 250 mg PO Q2D@0600 [facility] Stop: 01/05/19 06:01 Last Admin: 01/01/19 13:10 Dose: 250 mg Magnesium Hydroxide (Milk Of Magnesia -) 30 ml PO PRN PRN PRN Reason: CONSTIPATION Melatonin (Melatonin) 5 mg PO HS PRN PRN Reason: INSOMNIA Last Admin: 12/31/18 21:54 Dose: 5 mg Metoprolol Succinate (Toprol Xl -) 12.5 mg PO DAILY [facility] Last Admin: 01/02/19 09:59 Dose: 12.5 mg Ondansetron HCl (Zofran Injection) 4 mg IVPUSH Q6H PRN PRN Reason: NAUSEA Pantoprazole Sodium (Protonix -) 40 mg PO DAILY [facility] Last Admin: 01/02/19 09:59 Dose: 40 mg Ranitidine HCl (Zantac -) 300 mg PO HS [facility] Last Admin: 01/01/19 23:04 Dose: 300 mg Senna/Docusate Sodium (Pericolace -) 2 tablet PO BID [facility] Last Admin: 01/02/19 09:59 Dose: 2 tablet - Objective Vital Signs: Last Vital Signs Temp Pulse Resp BP Pulse Ox 98.4 F 80 20 148/73 97 01/02/19 08:15 01/02/19 08:15 01/02/19 08:15 01/02/19 08:15 01/01/19 21:00 Intake & Output 12/30/18 12/31/18 01/01/19 08/20/19 23:59 23:59 23:59 23:59 Intake Total 200 200 700 0 Output Total 602 892 6609 200 Balance -180 -510 -2240 -200 Weight 168 lb 11.2 oz 170 lb 170 lb 3.2 oz 168 lb 3.2 oz Constitutional: No Distress, Calm, Thin Neck: Supple Negative JVD Cardiovascular: S1 S2 Regular Rate and Rhythm Respiratory: Clear to A&P Bilaterally Ext: No Edema Labs: CBC, BMP 01/02/19 07:50 01/02/19 07:50 Assessment/Plan ASSESSMENT: 1. Post left hip revision, POD #15 2. CAD with elevated Troponin I level consistent with demand ischemic injury with no clinical angina pectoris 3. Hypovolemic/Hemorrhagic Shock with lactic acidosis resolved 4. Anemia/persistent and thrombocytopenia/resolved 5. ALLAN/acute kidney insufficiency with hyperkalemia due to ATN/acute tubular necrosis on HD 6. Abnormal liver function testing consistent with shock liver 7. Post operative Seizure 8. Post-op pancreatitis PLAN: 1. Continue Toprol-XL, hemodynamics permitting 2. Continues to withhold ASA therapy pending possible renal biopsy- currently deferred 3. Hemodialysis as per renal service, observe for renal recovery 4. Monitor Hgb, and transfuse as needed 5. Additional cardiovascular evaluation is recommended pending resolution of the above-noted medical acute co-morbidities Jad Zapien MD
--- NOTE | 2019-01-02 12:44 | PN ---
Progress Note (short form) - Note Progress Note: Right IJ shiley removed without any difficulties. Tip intact with removal and pressure held x 10 minutes. No bleeding noted/ecchymosis. Dry gauze tegaderm dressing applied. Reinforced the hip dressing where the Drain was removed. It is dry and without drainage.
--- NOTE | 2019-01-02 15:44 | PN ---
Progress Note, Physician History of Present Illness: Pt seen and examined at bedside. He is awake and alert. He denies shortness of breath. He is making urine. - Current Medication List Current Medications: Active Medications Al Hydroxide/Mg Hydroxide (Mylanta Oral Suspension -) 30 ml PO Q4H PRN PRN Reason: DYSPEPSIA Aspirin (Ecotrin -) 81 mg PO BID [facility] Last Admin: 01/02/19 09:59 Dose: 81 mg Folic Acid (Folic Acid -) 1 mg PO DAILY [facility] Last Admin: 01/02/19 09:59 Dose: 1 mg Sodium Chloride (Normal Saline -) 250 mls @ 3,000 mls/hr IV PRN PRN PRN Reason: Hypotension during Dialysis Stop: 01/02/19 07:52 Levofloxacin (Levaquin -) 250 mg PO Q2D@0600 [facility] Stop: 01/05/19 06:01 Last Admin: 01/01/19 13:10 Dose: 250 mg Magnesium Hydroxide (Milk Of Magnesia -) 30 ml PO PRN PRN PRN Reason: CONSTIPATION Melatonin (Melatonin) 5 mg PO HS PRN PRN Reason: INSOMNIA Last Admin: 12/31/18 21:54 Dose: 5 mg Metoprolol Succinate (Toprol Xl -) 12.5 mg PO DAILY [facility] Last Admin: 01/02/19 09:59 Dose: 12.5 mg Ondansetron HCl (Zofran Injection) 4 mg IVPUSH Q6H PRN PRN Reason: NAUSEA Pantoprazole Sodium (Protonix -) 40 mg PO DAILY [facility] Last Admin: 01/02/19 09:59 Dose: 40 mg Ranitidine HCl (Zantac -) 300 mg PO HS [facility] Last Admin: 01/01/19 23:04 Dose: 300 mg Senna/Docusate Sodium (Pericolace -) 2 tablet PO BID [facility] Last Admin: 01/02/19 09:59 Dose: 2 tablet - Objective Vital Signs: Vital Signs Temperature 98.4 F 01/02/19 08:15 Pulse Rate 80 01/02/19 08:15 Respiratory Rate 20 01/02/19 08:15 Blood Pressure 148/73 01/02/19 08:15 O2 Sat by Pulse Oximetry (%) 97 01/01/19 21:00 Constitutional: Yes: Calm Eyes: Yes: Conjunctiva Clear HENT: Yes: Atraumatic Neck: Yes: Supple Cardiovascular: Yes: S1, S2 Respiratory: Yes: CTA Bilaterally Gastrointestinal: Yes: Soft Genitourinary: Yes: Scrotal Edema Edema: No Neurological: Yes: Oriented Psychiatric: Yes: Oriented Labs: CBC, BMP 01/02/19 07:50 01/02/19 07:50 INR, PTT INR 1.01 (0.83-1.09) 12/30/18 07:53 Problem List - Problems (1) ALLAN (acute kidney injury) Code(s): N17.9 - ACUTE KIDNEY FAILURE, UNSPECIFIED (2) Anemia Code(s): D64.9 - ANEMIA, UNSPECIFIED Qualifiers: Other causes of anemia: acute posthemorrhagic (3) Hyperkalemia Code(s): E87.5 - HYPERKALEMIA (4) Seizure Code(s): R56.9 - UNSPECIFIED CONVULSIONS (5) Shock liver Code(s): K72.00 - ACUTE AND SUBACUTE HEPATIC FAILURE WITHOUT COMA Assessment/Plan Current Medications Generic Name Dose Route Start Last Admin Trade Name Elpidioq PRN Reason Stop Dose Admin Al Hydroxide/Mg Hydroxide 30 ml 12/25/18 19:45 Mylanta Oral Suspension - PO Q4H PRN DYSPEPSIA Aspirin 81 mg 01/01/19 12:00 01/02/19 09:59 Ecotrin - PO 81 mg BID EPI Administration Folic Acid 1 mg 12/26/18 10:00 01/02/19 09:59 Folic Acid - PO 1 mg DAILY EPI Administration Sodium Chloride 250 mls @ 3,000 mls/hr 01/01/19 07:52 Normal Saline - IV 01/02/19 07:52 PRN PRN Hypotension during Dialysis Levofloxacin 250 mg 01/01/19 12:00 01/01/19 13:10 Levaquin - PO 01/05/19 06:01 250 mg Q2D@0600 EPI Administration Magnesium Hydroxide 30 ml 12/25/18 19:45 Milk Of Magnesia - PO PRN PRN CONSTIPATION Melatonin 5 mg 12/25/18 19:45 12/31/18 21:54 Melatonin PO 5 mg HS PRN Administration INSOMNIA Metoprolol Succinate 12.5 mg 12/26/18 10:00 01/02/19 09:59 Toprol Xl - PO 12.5 mg DAILY EPI Administration Ondansetron HCl 4 mg 12/25/18 19:45 Zofran Injection IVPUSH Q6H PRN NAUSEA Pantoprazole Sodium 40 mg 12/26/18 10:00 01/02/19 09:59 Protonix - PO 40 mg DAILY EPI Administration Ranitidine HCl 300 mg 12/25/18 22:00 01/01/19 23:04 Zantac - PO 300 mg HS EPI Administration Senna/Docusate Sodium 2 tablet 12/25/18 22:00 01/02/19 09:59 Pericolace - PO 2 tablet BID EPI Administration Impression 1. ALLAN 2. hyperkalemia 3. shock liver 4. seizure 5. s/p hip replacement 6. hx of htn 7. hypotension 8. gerd Plan - cont to monitor urine output - repeat labs in am - d/c [place] today and observe pt - urology eval for scrotal edema - likely allan from ATN
[2019-01-02] MEDS: RANITIDINE HCL 150 MG TABLET (FP) PO SCH (22:33)
[2019-01-02] MEDS: MELATONIN 5 MG TABLETS PO PRN (22:36)
[2019-01-03] MEDS: FOLIC ACID 1 MG TABLET (FP) PO SCH (09:35)
[2019-01-03] MEDS: metoPROLOL SUCCINATE 25 MG TAB.SR.24H (FP) PO SCH (09:35)
[2019-01-03] MEDS: PANTOPRAZOLE 40 MG TABLET (FP) PO SCH (09:35)
[2019-01-03] MEDS: SENNOSIDES/DOCUSATE COMBO (SENNA PLUS) TABLET (UD) PO SCH ×2 (09:35→21:37)
[2019-01-03] MEDS: ASPIRIN COATED 81 MG TABLET.EC PO SCH ×2 (09:36→21:35)
--- NOTE | 2019-01-03 11:19 | PN ---
Progress Note (short form) - Note Progress Note: POD 16, s/p Revision left total hip replacement, Bone marrow aspiration and autograft, Bone allograft,l c/b hypovolemic shock, post op seizure with lactic acidosis, shock liver, radha requiring ongoing HD Vital Signs Temp 99.2 F 01/03/19 06:00 Pulse 92 H 01/03/19 06:00 Resp 20 01/03/19 06:00 BP 152/78 01/03/19 06:00 Pulse Ox 97 01/02/19 21:00 Intake & Output 01/02/19 01/02/19 01/03/19 11:59 23:59 11:59 Intake Total 0 300 Output Total 200 900 200 Balance -200 -900 100 Weight 168 lb 3.2 oz 168 lb 11.2 oz Intake: IVPB 0 Oral 300 Output: Urine 200 900 200 Vidal 200 Void 200 700 200 Other: Voiding Method Urinal Urinal # Unmeasured Voids Vidal 2 Bowel Movement Yes: soft stool No # Bowel Movements 1 Body Mass Index (BMI) 27.9 Weight Measurement Method [facility] Built in [facility] PE: A&Ox3, NAD Unlabored resp on RA LE'S: left thigh with diffuse edema throughout, compartments full but soft and compressible. Dressing c/d/i with no evidence of tracking erythema, no evidence of active d/c. B/L LE compartments soft, supple and non-tender with +2 DP pulses and 5/5 dorsi/plantar flexion Groin: significant scrotal edema, no skin breakdown. A/P: 68 y/o M w/ PMHx hypertension, GERD, multiple total hip replacements (1986, 1995, 2017) now POD 16, s/p Revision left total hip replacement, Bone marrow aspiration and autograft, Bone allograft c/b hypovolemic shock, post op seizure with lactic acidosis, shock liver, radha requiring ongoing HD Afebrile, VSS R IJ trialysis catheter placed 12/24, pt received first HD session (12/25), removed on 01/02 UOP 900ml on 01/02, 200ml overnight -AM labs pending -Renal follow up regarding need for further HD -Scrotal elevation and prevention of skin breakdown (orders placed, pt requesting Lasix for scrotal elevation, d/w this has potential to worsen renal function), Urology consult pending per primary team -OOB with PT -Diet as tolerated -VS per protocol -ASA 81mg bid for dvt prophylaxis -Monitor I&Os -Remainder of care per medical technical writer d/w attending Dr Emile Jimenez
[2019-01-03 11:24] LABS: EOS % 2.2 % (0-4.5); HEMATOCRIT 24.8 % (35.4-49); HEMOGLOBIN 8.3 GM/dL (11.7-16.9); LYMPH % 13.2 % (8-40); MCH 29.6 pg (25.7-33.7); MCHC 33.3 g/dl (32.0-35.9); MEAN PLT VOLUME 9.7 fl (7.5-11.1); MONO % 8.1 % (3.8-10.2); NEUT % 75.5 % (42.8-82.8); PLATELET COUNT 306 K/MM3 (134-434); RBC 2.79 M/mm3 (4.00-5.60); RDW 15.2 % (11.9-15.9); WHITE BLOOD COUNT 6.9 K/mm3 (4.0-10.0)
[2019-01-03 11:57] LABS: ALBUMIN 2.2 g/dl (3.4-5.0); BILIRUBIN,TOTAL 0.7 mg/dL (0.2-1); BLOOD UREA NITROGEN 50.2 mg/dL (7-18); CALCIUM 8.5 mg/dL (8.5-10.1); CREATININE 7.2 mg/dL (0.55-1.3); POTASSIUM 3.7 mmol/L (3.5-5.1); TOT PROT 5.3 g/dl (6.4-8.2)
[2019-01-03] MEDS ORDERED: FUROSEMIDE 40 MG TABLET (FP) PO ONE (13:09)
--- NOTE | 2019-01-03 13:09 | PN ---
Progress Note, Physician History of Present Illness: Pt seen and examined at bedside. He is awake and alert. He denies shortness of breath. He is making urine. He does complain of some edema. - Current Medication List Current Medications: Active Medications Al Hydroxide/Mg Hydroxide (Mylanta Oral Suspension -) 30 ml PO Q4H PRN PRN Reason: DYSPEPSIA Aspirin (Ecotrin -) 81 mg PO BID [facility] Last Admin: 01/03/19 09:36 Dose: 81 mg Folic Acid (Folic Acid -) 1 mg PO DAILY [facility] Last Admin: 01/03/19 09:35 Dose: 1 mg Sodium Chloride (Normal Saline -) 250 mls @ 3,000 mls/hr IV PRN PRN PRN Reason: Hypotension during Dialysis Stop: 01/02/19 07:52 Levofloxacin (Levaquin -) 250 mg PO Q2D@0600 [facility] Stop: 01/05/19 06:01 Last Admin: 01/03/19 06:05 Dose: 250 mg Magnesium Hydroxide (Milk Of Magnesia -) 30 ml PO PRN PRN PRN Reason: CONSTIPATION Melatonin (Melatonin) 5 mg PO HS PRN PRN Reason: INSOMNIA Last Admin: 01/02/19 22:36 Dose: 5 mg Metoprolol Succinate (Toprol Xl -) 12.5 mg PO DAILY [facility] Last Admin: 01/03/19 09:35 Dose: 12.5 mg Ondansetron HCl (Zofran Injection) 4 mg IVPUSH Q6H PRN PRN Reason: NAUSEA Pantoprazole Sodium (Protonix -) 40 mg PO DAILY [facility] Last Admin: 01/03/19 09:35 Dose: 40 mg Ranitidine HCl (Zantac -) 300 mg PO HS [facility] Last Admin: 01/02/19 22:33 Dose: 300 mg Senna/Docusate Sodium (Pericolace -) 2 tablet PO BID [facility] Last Admin: 01/03/19 09:35 Dose: Not Given - Objective Vital Signs: Vital Signs Temperature 99.2 F 01/03/19 06:00 Pulse Rate 92 H 01/03/19 06:00 Respiratory Rate 20 01/03/19 06:00 Blood Pressure 152/78 01/03/19 06:00 O2 Sat by Pulse Oximetry (%) 97 01/02/19 21:00 Constitutional: Yes: Calm Eyes: Yes: Conjunctiva Clear HENT: Yes: Atraumatic Neck: Yes: Supple Cardiovascular: Yes: S1, S2 Respiratory: Yes: CTA Bilaterally Gastrointestinal: Yes: Soft Genitourinary: Yes: Scrotal Edema Edema: Yes Edema: LLE: Trace, RLE: Trace Neurological: Yes: Oriented Psychiatric: Yes: Oriented Labs: CBC, BMP 01/03/19 10:38 01/03/19 10:38 INR, PTT INR 1.01 (0.83-1.09) 12/30/18 07:53 Problem List - Problems (1) ALLAN (acute kidney injury) Code(s): N17.9 - ACUTE KIDNEY FAILURE, UNSPECIFIED (2) Anemia Code(s): D64.9 - ANEMIA, UNSPECIFIED Qualifiers: Other causes of anemia: acute posthemorrhagic (3) Hyperkalemia Code(s): E87.5 - HYPERKALEMIA (4) Seizure Code(s): R56.9 - UNSPECIFIED CONVULSIONS (5) Shock liver Code(s): K72.00 - ACUTE AND SUBACUTE HEPATIC FAILURE WITHOUT COMA Assessment/Plan Current Medications Generic Name Dose Route Start Last Admin Trade Name Freq PRN Reason Stop Dose Admin Al Hydroxide/Mg Hydroxide 30 ml 12/25/18 19:45 Mylanta Oral Suspension - PO Q4H PRN DYSPEPSIA Aspirin 81 mg 01/01/19 12:00 01/03/19 09:36 Ecotrin - PO 81 mg BID EPI Administration Folic Acid 1 mg 12/26/18 10:00 01/03/19 09:35 Folic Acid - PO 1 mg DAILY EPI Administration Sodium Chloride 250 mls @ 3,000 mls/hr 01/01/19 07:52 Normal Saline - IV 01/02/19 07:52 PRN PRN Hypotension during Dialysis Levofloxacin 250 mg 01/01/19 12:00 01/03/19 06:05 Levaquin - PO 01/05/19 06:01 250 mg Q2D@0600 EPI Administration Magnesium Hydroxide 30 ml 12/25/18 19:45 Milk Of Magnesia - PO PRN PRN CONSTIPATION Melatonin 5 mg 12/25/18 19:45 01/02/19 22:36 Melatonin PO 5 mg HS PRN Administration INSOMNIA Metoprolol Succinate 12.5 mg 12/26/18 10:00 01/03/19 09:35 Toprol Xl - PO 12.5 mg DAILY EPI Administration Ondansetron HCl 4 mg 12/25/18 19:45 Zofran Injection IVPUSH Q6H PRN NAUSEA Pantoprazole Sodium 40 mg 12/26/18 10:00 01/03/19 09:35 Protonix - PO 40 mg DAILY EPI Administration Ranitidine HCl 300 mg 12/25/18 22:00 01/02/19 22:33 Zantac - PO 300 mg HS EPI Administration Senna/Docusate Sodium 2 tablet 12/25/18 22:00 01/03/19 09:35 Pericolace - PO Not Given BID EPI Impression 1. ALLAN 2. hyperkalemia 3. shock liver 4. seizure 5. s/p hip replacement 6. hx of htn 7. hypotension 8. gerd Plan - hold off HD - pt is making urine - will give a dose of lasix - awaiting renal recovery - hold of shiley or permacath for now, will evaluate on a daily basis - likely allan from ATN
--- NOTE | 2019-01-03 17:15 | PN ---
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 Gait abnormality. Fall risk denies chest pain, palpitations, nausea, vomiting, diarrhea - Current Medication List Current Medications: Active Medications Al Hydroxide/Mg Hydroxide (Mylanta Oral Suspension -) 30 ml PO Q4H PRN PRN Reason: DYSPEPSIA Aspirin (Ecotrin -) 81 mg PO BID [facility] Last Admin: 01/03/19 09:36 Dose: 81 mg Folic Acid (Folic Acid -) 1 mg PO DAILY [facility] Last Admin: 01/03/19 09:35 Dose: 1 mg Sodium Chloride (Normal Saline -) 250 mls @ 3,000 mls/hr IV PRN PRN PRN Reason: Hypotension during Dialysis Stop: 01/02/19 07:52 Levofloxacin (Levaquin -) 250 mg PO Q2D@0600 [facility] Stop: 01/05/19 06:01 Last Admin: 01/03/19 06:05 Dose: 250 mg Magnesium Hydroxide (Milk Of Magnesia -) 30 ml PO PRN PRN PRN Reason: CONSTIPATION Melatonin (Melatonin) 5 mg PO HS PRN PRN Reason: INSOMNIA Last Admin: 01/02/19 22:36 Dose: 5 mg Metoprolol Succinate (Toprol Xl -) 12.5 mg PO DAILY [facility] Last Admin: 01/03/19 09:35 Dose: 12.5 mg Ondansetron HCl (Zofran Injection) 4 mg IVPUSH Q6H PRN PRN Reason: NAUSEA Pantoprazole Sodium (Protonix -) 40 mg PO DAILY [facility] Last Admin: 01/03/19 09:35 Dose: 40 mg Ranitidine HCl (Zantac -) 300 mg PO HS [facility] Last Admin: 01/02/19 22:33 Dose: 300 mg Senna/Docusate Sodium (Pericolace -) 2 tablet PO BID [facility] Last Admin: 01/03/19 09:35 Dose: Not Given - Objective Vital Signs: Vital Signs Temperature 98.3 F 01/03/19 10:00 Pulse Rate 88 01/03/19 10:00 Respiratory Rate 20 01/03/19 10:00 Blood Pressure 147/78 01/03/19 10:00 O2 Sat by Pulse Oximetry (%) 97 01/03/19 09:00 Constitutional: Yes: Well Nourished, No Distress Eyes: Yes: WNL HENT: Yes: WNL Neck: Yes: WNL Cardiovascular: Yes: WNL Respiratory: Yes: WNL Gastrointestinal: Yes: WNL ...Rectal Exam: Yes: WNL Genitourinary: Yes: Scrotal Edema Musculoskeletal: Yes: Back Pain Extremities: Yes: WNL Edema: No Peripheral Pulses WNL: No Integumentary: Yes: WNL Wound/Incision: Yes: Clean/Dry, Well Approximated Neurological: Yes: WNL ...Motor Strength: WNL Psychiatric: Yes: WNL Labs: CBC, BMP 01/03/19 10:38 01/03/19 10:38 INR, PTT INR 1.01 (0.83-1.09) 12/30/18 07:53 Assessment/Plan 68 yo man who Failed left total hip replacement, Massive osteolysis, Gait abnormalit. Fall risk now S/P Revision left total hip replacement. 2. Bone marrow aspiration and autograft. pain management. incentive spirometry. post-op course complicated by hypovolemic shock. aggressively resuscitated with IV fluids and 9 units total PRBC. -elevated LFT's: shock liver. improved. -elevated troponins: likely demand ischemia. cardiology eval noted. -pancreatitis: post-op. triglycerides WNL. -GI, DVT prophylaxis. TEDs. -acute on chronic iron deficiency anemia, post-op acute blood loss anemia, M- spike: S/P PRBC, platelet transfusions. hematology f/u appreciated. monitoring. 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 no need for hematuria workup. HD started. renal eval appreciated. may need renal biopsy but pt is refusing. no acute findings on bladder and renal US. hopefully will not need HD on DC. -scrotal edema: no tenderness. reviewed with nurse at bedside. scrotal elevation recommended. renal US showed epididymitis. antibiotics and urology consult ordered. -post op seizure with lactic acidosis. Patient was loaded with iv keppra. neurology eval noted. unlikely to need care home treatment. no further events noted. -stool softeners added to prevent opioid induced constipation. -oral diet; well tolerated. -PT/OT/OOB when able -full code -assessment and plan discussed with Pt and medical staff. labs and meds reviewed. phone calls answered throughout the day. plan discussed with Dr Jimenez. please contact me with any updates, anytime [phone]
[2019-01-03 18:07] LABS: HGB SOLUBILITY Negative (Negative); Hgb C 7.4 % (0.0); Hgb F 0 % (0.0-2.0)
--- NOTE | 2019-01-03 18:22 | PN ---
Progress Note, Physician History of Present Illness: Pain adequately controlled, denies fevers, chest pain, dyspnea. Urine output improving off HD via RIJ catheter, PC deferred. - Current Medication List Current Medications: Active Medications Al Hydroxide/Mg Hydroxide (Mylanta Oral Suspension -) 30 ml PO Q4H PRN PRN Reason: DYSPEPSIA Aspirin (Ecotrin -) 81 mg PO BID [facility] Last Admin: 01/03/19 09:36 Dose: 81 mg Folic Acid (Folic Acid -) 1 mg PO DAILY [facility] Last Admin: 01/03/19 09:35 Dose: 1 mg Sodium Chloride (Normal Saline -) 250 mls @ 3,000 mls/hr IV PRN PRN PRN Reason: Hypotension during Dialysis Stop: 01/02/19 07:52 Levofloxacin (Levaquin -) 250 mg PO Q2D@0600 [facility] Stop: 01/05/19 06:01 Last Admin: 01/03/19 06:05 Dose: 250 mg Magnesium Hydroxide (Milk Of Magnesia -) 30 ml PO PRN PRN PRN Reason: CONSTIPATION Melatonin (Melatonin) 5 mg PO HS PRN PRN Reason: INSOMNIA Last Admin: 01/02/19 22:36 Dose: 5 mg Metoprolol Succinate (Toprol Xl -) 12.5 mg PO DAILY [facility] Last Admin: 01/03/19 09:35 Dose: 12.5 mg Ondansetron HCl (Zofran Injection) 4 mg IVPUSH Q6H PRN PRN Reason: NAUSEA Pantoprazole Sodium (Protonix -) 40 mg PO DAILY [facility] Last Admin: 01/03/19 09:35 Dose: 40 mg Ranitidine HCl (Zantac -) 300 mg PO HS [facility] Last Admin: 01/02/19 22:33 Dose: 300 mg Senna/Docusate Sodium (Pericolace -) 2 tablet PO BID [facility] Last Admin: 01/03/19 09:35 Dose: Not Given - Objective Vital Signs: Vital Signs Temperature 98.3 F 01/03/19 10:00 Pulse Rate 88 01/03/19 10:00 Respiratory Rate 20 01/03/19 10:00 Blood Pressure 147/78 01/03/19 10:00 O2 Sat by Pulse Oximetry (%) 97 01/03/19 09:00 Constitutional: Yes: No Distress, Calm, Thin Neck: Yes: Supple Cardiovascular: Yes: Regular Rate and Rhythm Respiratory: Yes: Regular, CTA Bilaterally Gastrointestinal: Yes: Normal Bowel Sounds, Soft Edema: No Labs: CBC, BMP 01/03/19 10:38 01/03/19 10:38 INR, PTT INR 1.01 (0.83-1.09) 12/30/18 07:53 Problem List - Problems (1) ALLAN (acute kidney injury) Code(s): N17.9 - ACUTE KIDNEY FAILURE, UNSPECIFIED (2) Anemia Code(s): D64.9 - ANEMIA, UNSPECIFIED Qualifiers: Other causes of anemia: acute posthemorrhagic (3) Demand ischemia Code(s): I24.8 - OTHER FORMS OF ACUTE ISCHEMIC HEART DISEASE (4) HTN (hypertension) Code(s): I10 - ESSENTIAL (PRIMARY) HYPERTENSION Qualifiers: Hypertension type: essential hypertension Qualified Code(s): I10 - Essential (primary) hypertension (5) Scrotal edema Code(s): N50.89 - OTHER SPECIFIED DISORDERS OF THE MALE GENITAL ORGANS (6) S/P revision of total hip Code(s): Z96.649 - PRESENCE OF UNSPECIFIED ARTIFICIAL HIP JOINT Assessment/Plan 12/19/2018 Echocardiography: Normal LV and RV size and fxn, mild TR RVSP 22 mmHg , LVEF 65% 1. Left hip revision, bone marrow autograft POD #16 2. Elevated troponin due to demand ischemia 3. Anemia and thrombocytopenia and leukocytosis due to acute blood loss 4. Hypovolemic/Hemorrhagic Shock improving 5. ALLAN with hyperkalemia due to ATN on HD 6. Elevated LFT c/w shock liver 7. Post op Seizure 8. Lactic acidosis 9. Post-op pancreatitis 10. Scrotal edema, possible epididyimoorchitis PLAN: 1. evaluation 2. Further cardiac work up can be done once clinically stable 3. Continue Toprol XL 25 qd as hemodynamics tolerates, ASA resumed 4. LFTs and lactate downtrended 5. Observe off HD per renal via RIJ Trialysis catheter and diuretics, observing for renal recovery 6. Back on abx 7. Monitor Hgb and Plt, transfuse as needed 8. Surgical follow up, drain d/malorie, analgesia as needed 9. Sc heparin for DVT prophylaxis as counts have recovered 10. Possible kidney biopsy once stable and if able to lay on his side after holding ASA
--- NOTE | 2019-01-03 18:50 | PN ---
Progress Note (short form) - Note Progress Note: 68M s/p revision LEFT total hip replacement POD #16. Acute kidney injury d/t post-op hypovolemic shock and possible associated sickle cell event. Pain well controlled. Pt. denies overnight history of headaches, chest pain, shortness of breath, nausea, vomiting, chills, & sweats. (+) Voiding - urine output increasing; (+) Flatus; (+) BM. Pt. walked in hallway with physical therapy team. All labs and vitals reviewed. PE: AAO x 3, NAD. L-Hip: Dressing C/D/I. NVI distally. 68M s/p revision LEFT total hip replacement POD #16. -As discussed with renal team, no indication for renal biopsy as it will not changer fixer at this time; we are patiently awaiting resolution of ALLAN/ATN d/t acute blood loss anemia and likely sickle cell event. -Offload heals with rolled towels under ankles to avoid heel ulcers/pressure sores. -Hip abduction pillow straps LOOSE, not tight. -Mobilize out of bed to chair with PT and ambulate BID. -Pain control. -DVT PPx: -Chemical: ASA 81mg PO BID x 6 weeks post-op. -Mechanical: TARIK's, SCD's. -Incentive spirometry q15 min. -PT/OT/Rehab, OOB. -WBAT LLE. -f/u all labs. -Dialysis as needed. -Diet as tolerated. -Care per ICU, renal, and medical hospitalist teams. -Discharge planning: f/u [facility] w/in 1 week of discharge; call for appointment . -Medical plan discussed with and understood by patient and family. -Will follow. Emile Jimenez MD (Orthopaedic Surgery).
[2019-01-03] MEDS: MELATONIN 5 MG TABLETS PO PRN (21:35)
[2019-01-03] MEDS: RANITIDINE HCL 150 MG TABLET (FP) PO SCH (21:36)
[2019-01-04 08:36] LABS: BASO % 1.5 % (0-2.0); EOS % 1.8 % (0-4.5); HEMATOCRIT 22.8 % (35.4-49); HEMOGLOBIN 7.8 GM/dL (11.7-16.9); LYMPH % 18.9 % (8-40); MCHC 34.3 g/dl (32.0-35.9); MEAN CELL VOLUME 87.5 fl (80-96); MEAN PLT VOLUME 9.8 fl (7.5-11.1); MONO % 7.2 % (3.8-10.2); NEUT % 70.6 % (42.8-82.8); PLATELET COUNT 305 K/MM3 (134-434); RDW 15.2 % (11.9-15.9); WHITE BLOOD COUNT 7.8 K/mm3 (4.0-10.0)
[2019-01-04 08:57] LABS: ALBUMIN 2.2 g/dl (3.4-5.0); BILIRUBIN,TOTAL 0.7 mg/dL (0.2-1); CALCIUM 8.5 mg/dL (8.5-10.1); CREATININE 7.3 mg/dL (0.55-1.3); POTASSIUM 3.8 mmol/L (3.5-5.1); TOT PROT 5.4 g/dl (6.4-8.2)
[2019-01-04] MEDS: FOLIC ACID 1 MG TABLET (FP) PO SCH (09:23)
[2019-01-04] MEDS: PANTOPRAZOLE 40 MG TABLET (FP) PO SCH (09:23)
[2019-01-04] MEDS: ASPIRIN COATED 81 MG TABLET.EC PO SCH ×2 (09:24→21:25)
[2019-01-04] MEDS: metoPROLOL SUCCINATE 25 MG TAB.SR.24H (FP) PO SCH (09:24)
[2019-01-04] MEDS: SENNOSIDES/DOCUSATE COMBO (SENNA PLUS) TABLET (UD) PO SCH ×2 (09:24→21:25)
[2019-01-04 10:14] LABS: BLOOD UREA NITROGEN 62.3 mg/dL (7-18)
--- NOTE | 2019-01-04 12:44 | PN ---
Progress Note, Physician History of Present Illness: Pain adequately controlled, denies fevers, chest pain, dyspnea. Urine output improving off HD via RIJ catheter, PC deferred. - Current Medication List Current Medications: Active Medications Al Hydroxide/Mg Hydroxide (Mylanta Oral Suspension -) 30 ml PO Q4H PRN PRN Reason: DYSPEPSIA Aspirin (Ecotrin -) 81 mg PO BID [facility] Last Admin: 01/04/19 09:24 Dose: 81 mg Folic Acid (Folic Acid -) 1 mg PO DAILY [facility] Last Admin: 01/04/19 09:23 Dose: 1 mg Sodium Chloride (Normal Saline -) 250 mls @ 3,000 mls/hr IV PRN PRN PRN Reason: Hypotension during Dialysis Stop: 01/02/19 07:52 Levofloxacin (Levaquin -) 250 mg PO Q2D@0600 [facility] Stop: 01/05/19 06:01 Last Admin: 01/03/19 06:05 Dose: 250 mg Magnesium Hydroxide (Milk Of Magnesia -) 30 ml PO PRN PRN PRN Reason: CONSTIPATION Melatonin (Melatonin) 5 mg PO HS PRN PRN Reason: INSOMNIA Last Admin: 01/03/19 21:35 Dose: 5 mg Metoprolol Succinate (Toprol Xl -) 12.5 mg PO DAILY [facility] Last Admin: 01/04/19 09:24 Dose: 12.5 mg Ondansetron HCl (Zofran Injection) 4 mg IVPUSH Q6H PRN PRN Reason: NAUSEA Pantoprazole Sodium (Protonix -) 40 mg PO DAILY [facility] Last Admin: 01/04/19 09:23 Dose: 40 mg Ranitidine HCl (Zantac -) 300 mg PO HS [facility] Last Admin: 01/03/19 21:36 Dose: 300 mg Senna/Docusate Sodium (Pericolace -) 2 tablet PO BID [facility] Last Admin: 01/04/19 09:24 Dose: Not Given - Objective Vital Signs: Vital Signs Temperature 98.9 F 01/04/19 10:00 Pulse Rate 77 01/04/19 10:00 Respiratory Rate 18 01/04/19 10:00 Blood Pressure 139/75 01/04/19 10:00 O2 Sat by Pulse Oximetry (%) 97 01/04/19 09:00 Constitutional: Yes: No Distress, Calm, Thin Neck: Yes: Supple Cardiovascular: Yes: Regular Rate and Rhythm Respiratory: Yes: Regular, CTA Bilaterally Gastrointestinal: Yes: Normal Bowel Sounds, Soft Edema: No Labs: CBC, BMP 01/04/19 07:50 01/04/19 07:50 INR, PTT INR 1.01 (0.83-1.09) 12/30/18 07:53 Problem List - Problems (1) ALLAN (acute kidney injury) Code(s): N17.9 - ACUTE KIDNEY FAILURE, UNSPECIFIED (2) Anemia Code(s): D64.9 - ANEMIA, UNSPECIFIED Qualifiers: Other causes of anemia: acute posthemorrhagic (3) Demand ischemia Code(s): I24.8 - OTHER FORMS OF ACUTE ISCHEMIC HEART DISEASE (4) HTN (hypertension) Code(s): I10 - ESSENTIAL (PRIMARY) HYPERTENSION Qualifiers: Hypertension type: essential hypertension Qualified Code(s): I10 - Essential (primary) hypertension (5) Scrotal edema Code(s): N50.89 - OTHER SPECIFIED DISORDERS OF THE MALE GENITAL ORGANS (6) S/P revision of total hip Code(s): Z96.649 - PRESENCE OF UNSPECIFIED ARTIFICIAL HIP JOINT Assessment/Plan 12/19/2018 Echocardiography: Normal LV and RV size and fxn, mild TR RVSP 22 mmHg , LVEF 65% 1. Left hip revision, bone marrow autograft POD #17 2. Elevated troponin due to demand ischemia 3. Anemia and thrombocytopenia and leukocytosis due to acute blood loss 4. Hypovolemic/Hemorrhagic Shock improving 5. ALLAN with hyperkalemia due to ATN on HD 6. Elevated LFT c/w shock liver 7. Post op Seizure 8. Lactic acidosis 9. Post-op pancreatitis 10. Scrotal edema, possible epididyimoorchitis PLAN: 1. evaluation 2. Further cardiac work up can be done once clinically stable 3. Continue Toprol XL 12.5 qd as hemodynamics tolerates, ASA 81 qd resumed 4. LFTs and lactate downtrended 5. Observe off HD per renal via RIJ Trialysis catheter and diuretics, observing for renal recovery 6. Back on abx 7. Monitor Hgb and Plt, transfuse as needed 8. Surgical follow up, drain d/malorie, analgesia as needed 9. Sc heparin for DVT prophylaxis as counts have recovered 10. Possible kidney biopsy once stable and if able to lay on his side after holding ASA
--- NOTE | 2019-01-04 15:50 | PN ---
Progress Note (short form) - Note Progress Note: s/p Revision left total hip replacement, Bone marrow aspiration and autograft, Bone allograft,l c/b hypovolemic shock, post op seizure with lactic acidosis, shock liver, radha. HD currently on hold, pt making urine. Last Vital Signs Temp Pulse Resp BP Pulse Ox 98.9 F 77 18 139/75 97 01/04/19 10:00 01/04/19 10:00 01/04/19 10:00 01/04/19 10:00 01/04/19 09:00 CBC, BMP 01/04/19 07:50 01/04/19 07:50 PE: A&Ox3, NAD Unlabored resp on RA LE'S: left thigh with diffuse edema throughout, compartments full but soft and compressible. Dressing c/d/i with no evidence of tracking erythema, no evidence of active d/c. B/L LE compartments soft, supple and non-tender with +2 DP pulses and 5/5 dorsi/plantar flexion Problem List - Problems (1) S/P revision of total hip Assessment/Plan: A/P: 68 y/o M w/ PMHx hypertension, GERD, multiple total hip replacements (1986, 1995, 2017) now POD 16, s/p Revision left total hip replacement, Bone marrow aspiration and autograft, Bone allograft c/b hypovolemic shock, post op seizure with lactic acidosis, shock liver, radha requiring ongoing HD Afebrile, VSS R IJ trialysis catheter placed 12/24, pt received first HD session (12/25), removed on 01/02 UOP 900ml on 01/02, 200ml overnight -AM labs pending -Renal follow up regarding need for further HD -Scrotal elevation and prevention of skin breakdown (orders placed, pt requesting Lasix for scrotal elevation, d/w this has potential to worsen renal function), Urology consult pending per primary team -OOB with PT -Diet as tolerated -VS per protocol -ASA 81mg bid for dvt prophylaxis -Monitor I&Os -Remainder of care per internist medical doctor md Code(s): Z96.649 - PRESENCE OF UNSPECIFIED ARTIFICIAL HIP JOINT
[2019-01-04] MEDS ORDERED: FUROSEMIDE 40 MG TABLET (FP) PO ONE (15:52)
--- NOTE | 2019-01-04 15:53 | PN ---
Progress Note, Physician History of Present Illness: Pt seen and examined at bedside. He is awake and alert. He feels that the scrotal edema is a little better today. - Current Medication List Current Medications: Active Medications Al Hydroxide/Mg Hydroxide (Mylanta Oral Suspension -) 30 ml PO Q4H PRN PRN Reason: DYSPEPSIA Aspirin (Ecotrin -) 81 mg PO BID [facility] Last Admin: 01/04/19 09:24 Dose: 81 mg Folic Acid (Folic Acid -) 1 mg PO DAILY [facility] Last Admin: 01/04/19 09:23 Dose: 1 mg Levofloxacin (Levaquin -) 250 mg PO Q2D@0600 [facility] Stop: 01/05/19 06:01 Last Admin: 01/03/19 06:05 Dose: 250 mg Magnesium Hydroxide (Milk Of Magnesia -) 30 ml PO PRN PRN PRN Reason: CONSTIPATION Melatonin (Melatonin) 5 mg PO HS PRN PRN Reason: INSOMNIA Last Admin: 01/03/19 21:35 Dose: 5 mg Metoprolol Succinate (Toprol Xl -) 12.5 mg PO DAILY [facility] Last Admin: 01/04/19 09:24 Dose: 12.5 mg Ondansetron HCl (Zofran Injection) 4 mg IVPUSH Q6H PRN PRN Reason: NAUSEA Pantoprazole Sodium (Protonix -) 40 mg PO DAILY [facility] Last Admin: 01/04/19 09:23 Dose: 40 mg Ranitidine HCl (Zantac -) 300 mg PO HS [facility] Last Admin: 01/03/19 21:36 Dose: 300 mg Senna/Docusate Sodium (Pericolace -) 2 tablet PO BID [facility] Last Admin: 01/04/19 09:24 Dose: Not Given - Objective Vital Signs: Vital Signs Temperature 98.7 F 01/04/19 15:00 Pulse Rate 86 01/04/19 15:00 Respiratory Rate 20 01/04/19 15:00 Blood Pressure 153/78 01/04/19 15:00 O2 Sat by Pulse Oximetry (%) 97 01/04/19 09:00 Constitutional: Yes: Calm Eyes: Yes: Conjunctiva Clear HENT: Yes: Atraumatic Neck: Yes: Supple Cardiovascular: Yes: S1, S2 Respiratory: Yes: CTA Bilaterally Gastrointestinal: Yes: Soft Genitourinary: Yes: Scrotal Edema Musculoskeletal: Yes: Other (hip discomfort) Edema: Yes Neurological: Yes: Oriented Psychiatric: Yes: Oriented Labs: CBC, BMP 01/04/19 07:50 01/04/19 07:50 INR, PTT INR 1.01 (0.83-1.09) 12/30/18 07:53 Problem List - Problems (1) ALLAN (acute kidney injury) Code(s): N17.9 - ACUTE KIDNEY FAILURE, UNSPECIFIED (2) Anemia Code(s): D64.9 - ANEMIA, UNSPECIFIED Qualifiers: Qualified Code(s): D62 - Acute posthemorrhagic anemia (3) Hyperkalemia Code(s): E87.5 - HYPERKALEMIA (4) Seizure Code(s): R56.9 - UNSPECIFIED CONVULSIONS (5) Shock liver Code(s): K72.00 - ACUTE AND SUBACUTE HEPATIC FAILURE WITHOUT COMA Assessment/Plan Current Medications Generic Name Dose Route Start Last Admin Trade Name Freq PRN Reason Stop Dose Admin Al Hydroxide/Mg Hydroxide 30 ml 12/25/18 19:45 Mylanta Oral Suspension - PO Q4H PRN DYSPEPSIA Aspirin 81 mg 01/01/19 12:00 01/04/19 09:24 Ecotrin - PO 81 mg BID EPI Administration Folic Acid 1 mg 12/26/18 10:00 01/04/19 09:23 Folic Acid - PO 1 mg DAILY EPI Administration Levofloxacin 250 mg 01/01/19 12:00 01/03/19 06:05 Levaquin - PO 01/05/19 06:01 250 mg Q2D@0600 EPI Administration Magnesium Hydroxide 30 ml 12/25/18 19:45 Milk Of Magnesia - PO PRN PRN CONSTIPATION Melatonin 5 mg 12/25/18 19:45 01/03/19 21:35 Melatonin PO 5 mg HS PRN Administration INSOMNIA Metoprolol Succinate 12.5 mg 12/26/18 10:00 01/04/19 09:24 Toprol Xl - PO 12.5 mg DAILY EPI Administration Ondansetron HCl 4 mg 12/25/18 19:45 Zofran Injection IVPUSH Q6H PRN NAUSEA Pantoprazole Sodium 40 mg 12/26/18 10:00 01/04/19 09:23 Protonix - PO 40 mg DAILY EPI Administration Ranitidine HCl 300 mg 12/25/18 22:00 01/03/19 21:36 Zantac - PO 300 mg HS EPI Administration Senna/Docusate Sodium 2 tablet 12/25/18 22:00 01/04/19 09:24 Pericolace - PO Not Given BID EPI Impression 1. ALLAN 2. hyperkalemia 3. shock liver 4. seizure 5. s/p hip replacement 6. hx of htn 7. hypotension 8. gerd Plan - will continue to observe off of HD - will give a dose of lasix - monitor urine output - pt is showing sings of recovery - likely allan from ATN
--- NOTE | 2019-01-04 20:22 | PN ---
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 Gait abnormality. Fall risk denies chest pain, palpitations, nausea, vomiting, diarrhea - Current Medication List Current Medications: Active Medications Al Hydroxide/Mg Hydroxide (Mylanta Oral Suspension -) 30 ml PO Q4H PRN PRN Reason: DYSPEPSIA Aspirin (Ecotrin -) 81 mg PO BID [facility] Last Admin: 01/04/19 09:24 Dose: 81 mg Folic Acid (Folic Acid -) 1 mg PO DAILY [facility] Last Admin: 01/04/19 09:23 Dose: 1 mg Levofloxacin (Levaquin -) 250 mg PO Q2D@0600 [facility] Stop: 01/05/19 06:01 Last Admin: 01/03/19 06:05 Dose: 250 mg Magnesium Hydroxide (Milk Of Magnesia -) 30 ml PO PRN PRN PRN Reason: CONSTIPATION Melatonin (Melatonin) 5 mg PO HS PRN PRN Reason: INSOMNIA Last Admin: 01/03/19 21:35 Dose: 5 mg Metoprolol Succinate (Toprol Xl -) 12.5 mg PO DAILY [facility] Last Admin: 01/04/19 09:24 Dose: 12.5 mg Ondansetron HCl (Zofran Injection) 4 mg IVPUSH Q6H PRN PRN Reason: NAUSEA Pantoprazole Sodium (Protonix -) 40 mg PO DAILY [facility] Last Admin: 01/04/19 09:23 Dose: 40 mg Ranitidine HCl (Zantac -) 300 mg PO HS [facility] Last Admin: 01/03/19 21:36 Dose: 300 mg Senna/Docusate Sodium (Pericolace -) 2 tablet PO BID [facility] Last Admin: 01/04/19 09:24 Dose: Not Given - Objective Vital Signs: Vital Signs Temperature 98.9 F 01/04/19 16:25 Pulse Rate 85 01/04/19 16:25 Respiratory Rate 20 01/04/19 16:25 Blood Pressure 155/85 01/04/19 16:25 O2 Sat by Pulse Oximetry (%) 97 01/04/19 09:00 Constitutional: Yes: Well Nourished, No Distress, Calm Eyes: Yes: WNL HENT: Yes: WNL Neck: Yes: WNL Cardiovascular: Yes: WNL Respiratory: Yes: WNL Gastrointestinal: Yes: WNL Genitourinary: Yes: WNL Breast(s): Yes: WNL Musculoskeletal: Yes: Back Pain Extremities: Yes: WNL Edema: No Peripheral Pulses WNL: Yes Integumentary: Yes: WNL Wound/Incision: Yes: Clean/Dry, Well Approximated Neurological: Yes: WNL ...Motor Strength: WNL Psychiatric: Yes: WNL Labs: CBC, BMP 01/04/19 07:50 01/04/19 07:50 INR, PTT INR 1.01 (0.83-1.09) 12/30/18 07:53 Assessment/Plan 68 yo man who Failed left total hip replacement, Massive osteolysis, Gait abnormalit. Fall risk now S/P Revision left total hip replacement. 2. Bone marrow aspiration and autograft. pain management. incentive spirometry. post-op course complicated by hypovolemic shock. aggressively resuscitated with IV fluids and 9 units total PRBC. -elevated LFT's: shock liver. improved. -elevated troponins: likely demand ischemia. cardiology eval noted. -pancreatitis: post-op. triglycerides WNL. -GI, DVT prophylaxis. TEDs. -acute on chronic iron deficiency anemia, post-op acute blood loss anemia, M- spike: S/P PRBC, platelet transfusions. hematology f/u appreciated. monitoring. 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 no need for hematuria workup. HD started. renal eval appreciated. off HD. no acute findings on bladder and renal US. -scrotal edema: no tenderness. reviewed with nurse at bedside. scrotal elevation recommended. renal US showed epididymitis. antibiotics and urology consult ordered. -post op seizure with lactic acidosis. Patient was loaded with iv keppra. neurology eval noted. unlikely to need jail treatment. no further events noted. -stool softeners added to prevent opioid induced constipation. -oral diet; well tolerated. -PT/OT/OOB when able -full code -assessment and plan discussed with Pt and medical staff. labs and meds reviewed. phone calls answered throughout the day. plan discussed with Dr Jimenez. please contact me with any updates, anytime [phone]
[2019-01-04] MEDS: MELATONIN 5 MG TABLETS PO PRN (21:25)
[2019-01-04] MEDS: RANITIDINE HCL 150 MG TABLET (FP) PO SCH (21:25)
[2019-01-05 09:35] LABS: BASO % 1.4 % (0-2.0); EOS % 1.3 % (0-4.5); HEMATOCRIT 23.5 % (35.4-49); HEMOGLOBIN 8.1 GM/dL (11.7-16.9); LYMPH % 21.7 % (8-40); MCHC 34.3 g/dl (32.0-35.9); MEAN CELL VOLUME 87.5 fl (80-96); MEAN PLT VOLUME 9.5 fl (7.5-11.1); MONO % 8.4 % (3.8-10.2); NEUT % 67.2 % (42.8-82.8); PLATELET COUNT 306 K/MM3 (134-434); RBC 2.69 M/mm3 (4.00-5.60); RDW 15.1 % (11.9-15.9); WHITE BLOOD COUNT 8.2 K/mm3 (4.0-10.0)
[2019-01-05 10:20] LABS: ALBUMIN 2.3 g/dl (3.4-5.0); BILIRUBIN,TOTAL 0.8 mg/dL (0.2-1); BLOOD UREA NITROGEN 68.7 mg/dL (7-18); CALCIUM 8.7 mg/dL (8.5-10.1); POTASSIUM 3.5 mmol/L (3.5-5.1); TOT PROT 5.4 g/dl (6.4-8.2)
[2019-01-05] MEDS ORDERED: PT OWN MED DRAWER 7, Y5N ONE (11:32)
[2019-01-05] MEDS: SENNOSIDES/DOCUSATE COMBO (SENNA PLUS) TABLET (UD) PO SCH ×2 (11:37→21:18)
[2019-01-05] MEDS: metoPROLOL SUCCINATE 25 MG TAB.SR.24H (FP) PO SCH (11:37)
[2019-01-05] MEDS: FOLIC ACID 1 MG TABLET (FP) PO SCH (11:38)
[2019-01-05] MEDS: PANTOPRAZOLE 40 MG TABLET (FP) PO SCH (11:38)
[2019-01-05] MEDS: ASPIRIN COATED 81 MG TABLET.EC PO SCH ×2 (11:38→21:19)
--- NOTE | 2019-01-05 12:50 | PN ---
Progress Note, Physician History of Present Illness: Pain adequately controlled, denies fevers, chest pain, dyspnea. Urine output improving off HD via RIJ catheter after IV Lasix, PC deferred. - Current Medication List Current Medications: Active Medications Al Hydroxide/Mg Hydroxide (Mylanta Oral Suspension -) 30 ml PO Q4H PRN PRN Reason: DYSPEPSIA Aspirin (Ecotrin -) 81 mg PO BID [facility] Last Admin: 01/05/19 11:38 Dose: 81 mg Folic Acid (Folic Acid -) 1 mg PO DAILY [facility] Last Admin: 01/05/19 11:38 Dose: 1 mg Magnesium Hydroxide (Milk Of Magnesia -) 30 ml PO PRN PRN PRN Reason: CONSTIPATION Melatonin (Melatonin) 5 mg PO HS PRN PRN Reason: INSOMNIA Last Admin: 01/04/19 21:25 Dose: 5 mg Metoprolol Succinate (Toprol Xl -) 12.5 mg PO DAILY [facility] Last Admin: 01/05/19 11:37 Dose: 12.5 mg Ondansetron HCl (Zofran Injection) 4 mg IVPUSH Q6H PRN PRN Reason: NAUSEA Pantoprazole Sodium (Protonix -) 40 mg PO DAILY [facility] Last Admin: 01/05/19 11:38 Dose: 40 mg Ranitidine HCl (Zantac -) 300 mg PO HS [facility] Last Admin: 01/04/19 21:25 Dose: 300 mg Senna/Docusate Sodium (Pericolace -) 2 tablet PO BID [facility] Last Admin: 01/05/19 11:37 Dose: Not Given - Objective Vital Signs: Vital Signs Temperature 99 F 01/04/19 21:04 Pulse Rate 76 01/04/19 21:04 Respiratory Rate 18 01/04/19 21:04 Blood Pressure 162/82 01/04/19 21:04 O2 Sat by Pulse Oximetry (%) 97 01/04/19 21:00 Constitutional: Yes: No Distress, Calm, Thin Neck: Yes: Supple Cardiovascular: Yes: Regular Rate and Rhythm Respiratory: Yes: Regular, CTA Bilaterally Gastrointestinal: Yes: Normal Bowel Sounds, Soft Edema: No Labs: CBC, BMP 01/05/19 08:58 01/05/19 08:58 INR, PTT INR 1.01 (0.83-1.09) 12/30/18 07:53 Problem List - Problems (1) ALLAN (acute kidney injury) Code(s): N17.9 - ACUTE KIDNEY FAILURE, UNSPECIFIED (2) Anemia Code(s): D64.9 - ANEMIA, UNSPECIFIED Qualifiers: Other causes of anemia: acute posthemorrhagic (3) Demand ischemia Code(s): I24.8 - OTHER FORMS OF ACUTE ISCHEMIC HEART DISEASE (4) HTN (hypertension) Code(s): I10 - ESSENTIAL (PRIMARY) HYPERTENSION Qualifiers: Hypertension type: essential hypertension Qualified Code(s): I10 - Essential (primary) hypertension (5) Scrotal edema Code(s): N50.89 - OTHER SPECIFIED DISORDERS OF THE MALE GENITAL ORGANS (6) S/P revision of total hip Code(s): Z96.649 - PRESENCE OF UNSPECIFIED ARTIFICIAL HIP JOINT Assessment/Plan 12/19/2018 Echocardiography: Normal LV and RV size and fxn, mild TR RVSP 22 mmHg , LVEF 65% 1. Left hip revision, bone marrow autograft POD #18 2. Elevated troponin due to demand ischemia 3. Anemia and thrombocytopenia and leukocytosis due to acute blood loss 4. Hypovolemic/Hemorrhagic Shock improving 5. ALLAN with hyperkalemia due to ATN on HD 6. Elevated LFT c/w shock liver 7. Post op Seizure 8. Lactic acidosis 9. Post-op pancreatitis 10. Scrotal edema PLAN: 1. Further cardiac work up can be done once clinically stable 2. Continue Toprol XL 12.5 qd as hemodynamics tolerates, ASA 81 qd resumed 3. LFTs and lactate downtrended 4. Observe off HD per renal via RIJ Trialysis catheter, on IV diuretics per renal, observing for renal recovery 5. Monitor Hgb and Plt, transfuse as needed 6. Surgical follow up, drain d/malorie, analgesia as needed 7. Sc heparin for DVT prophylaxis as counts have recovered 8. Possible kidney biopsy once stable and if able to lay on his side after holding ASA
--- NOTE | 2019-01-05 13:45 | PN ---
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 Gait abnormality. Fall risk denies chest pain, palpitations, nausea, vomiting, diarrhea - Current Medication List Current Medications: Active Medications Al Hydroxide/Mg Hydroxide (Mylanta Oral Suspension -) 30 ml PO Q4H PRN PRN Reason: DYSPEPSIA Aspirin (Ecotrin -) 81 mg PO BID [facility] Last Admin: 01/05/19 11:38 Dose: 81 mg Folic Acid (Folic Acid -) 1 mg PO DAILY [facility] Last Admin: 01/05/19 11:38 Dose: 1 mg Magnesium Hydroxide (Milk Of Magnesia -) 30 ml PO PRN PRN PRN Reason: CONSTIPATION Melatonin (Melatonin) 5 mg PO HS PRN PRN Reason: INSOMNIA Last Admin: 01/04/19 21:25 Dose: 5 mg Metoprolol Succinate (Toprol Xl -) 12.5 mg PO DAILY [facility] Last Admin: 01/05/19 11:37 Dose: 12.5 mg Ondansetron HCl (Zofran Injection) 4 mg IVPUSH Q6H PRN PRN Reason: NAUSEA Pantoprazole Sodium (Protonix -) 40 mg PO DAILY [facility] Last Admin: 01/05/19 11:38 Dose: 40 mg Ranitidine HCl (Zantac -) 300 mg PO HS [facility] Last Admin: 01/04/19 21:25 Dose: 300 mg Senna/Docusate Sodium (Pericolace -) 2 tablet PO BID [facility] Last Admin: 01/05/19 11:37 Dose: Not Given - Objective Vital Signs: Vital Signs Temperature 99 F 01/04/19 21:04 Pulse Rate 76 01/04/19 21:04 Respiratory Rate 18 01/04/19 21:04 Blood Pressure 162/82 01/04/19 21:04 O2 Sat by Pulse Oximetry (%) 97 01/04/19 21:00 Constitutional: Yes: Well Nourished, No Distress Eyes: Yes: WNL HENT: Yes: WNL Neck: Yes: WNL Cardiovascular: Yes: WNL Respiratory: Yes: WNL Genitourinary: Yes: Scrotal Edema Musculoskeletal: Yes: WNL Extremities: Yes: WNL Edema: No Peripheral Pulses WNL: Yes Wound/Incision: Yes: Clean/Dry, Well Approximated Neurological: Yes: WNL Psychiatric: Yes: WNL Labs: CBC, BMP 01/05/19 08:58 01/05/19 08:58 INR, PTT INR 1.01 (0.83-1.09) 12/30/18 07:53 Assessment/Plan 68 yo man who Failed left total hip replacement, Massive osteolysis, Gait abnormalit. Fall risk now S/P Revision left total hip replacement. 2. Bone marrow aspiration and autograft. pain management. incentive spirometry. post-op course complicated by hypovolemic shock. aggressively resuscitated with IV fluids and 9 units total PRBC. -elevated LFT's: shock liver. improved. -elevated troponins: likely demand ischemia. cardiology eval noted. -pancreatitis: post-op. triglycerides WNL. -GI, DVT prophylaxis. TEDs. -acute on chronic iron deficiency anemia, post-op acute blood loss anemia, M- spike: S/P PRBC, platelet transfusions. hematology f/u appreciated. monitoring. 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 no need for hematuria workup. HD started. renal eval appreciated. off HD. urine output improving. no acute findings on bladder and renal US. -scrotal edema: no tenderness. reviewed with nurse at bedside. scrotal elevation recommended. renal US showed epididymitis. antibiotics and urology consult ordered. -post op seizure with lactic acidosis. Patient was loaded with iv keppra. neurology eval noted. unlikely to need mcc treatment. no further events noted. -stool softeners added to prevent opioid induced constipation. -oral diet; well tolerated. -PT/OT/OOB when able -full code -assessment and plan discussed with Pt and medical staff. labs and meds reviewed. phone calls answered throughout the day. plan discussed with Dr Jimenez. hopefully will DC home early next week. please contact me with any updates, anytime [phone]
--- NOTE | 2019-01-05 16:59 | PN ---
Progress Note, Physician History of Present Illness: Pt seen and examined at bedside. He is awake and alert. He feels that the scrotal edema is improving. He denies shortness of breath. He is making urine. - Current Medication List Current Medications: Active Medications Al Hydroxide/Mg Hydroxide (Mylanta Oral Suspension -) 30 ml PO Q4H PRN PRN Reason: DYSPEPSIA Aspirin (Ecotrin -) 81 mg PO BID [facility] Last Admin: 01/05/19 11:38 Dose: 81 mg Folic Acid (Folic Acid -) 1 mg PO DAILY [facility] Last Admin: 01/05/19 11:38 Dose: 1 mg Magnesium Hydroxide (Milk Of Magnesia -) 30 ml PO PRN PRN PRN Reason: CONSTIPATION Melatonin (Melatonin) 5 mg PO HS PRN PRN Reason: INSOMNIA Last Admin: 01/04/19 21:25 Dose: 5 mg Metoprolol Succinate (Toprol Xl -) 12.5 mg PO DAILY [facility] Last Admin: 01/05/19 11:37 Dose: 12.5 mg Ondansetron HCl (Zofran Injection) 4 mg IVPUSH Q6H PRN PRN Reason: NAUSEA Pantoprazole Sodium (Protonix -) 40 mg PO DAILY [facility] Last Admin: 01/05/19 11:38 Dose: 40 mg Ranitidine HCl (Zantac -) 300 mg PO HS [facility] Last Admin: 01/04/19 21:25 Dose: 300 mg Senna/Docusate Sodium (Pericolace -) 2 tablet PO BID [facility] Last Admin: 01/05/19 11:37 Dose: Not Given - Objective Vital Signs: Vital Signs Temperature 98.8 F 01/05/19 16:16 Pulse Rate 89 01/05/19 16:16 Respiratory Rate 24 H 01/05/19 16:16 Blood Pressure 148/92 01/05/19 16:16 O2 Sat by Pulse Oximetry (%) 97 01/04/19 21:00 Constitutional: Yes: Calm Eyes: Yes: Conjunctiva Clear HENT: Yes: Atraumatic Neck: Yes: Supple Cardiovascular: Yes: S1, S2 Respiratory: Yes: CTA Bilaterally Gastrointestinal: Yes: Soft Genitourinary: Yes: Scrotal Edema Edema: LLE: Trace, RLE: Trace Neurological: Yes: Oriented Psychiatric: Yes: Oriented Labs: CBC, BMP 01/05/19 08:58 01/05/19 08:58 INR, PTT INR 1.01 (0.83-1.09) 12/30/18 07:53 Problem List - Problems (1) ALLAN (acute kidney injury) Code(s): N17.9 - ACUTE KIDNEY FAILURE, UNSPECIFIED (2) Anemia Code(s): D64.9 - ANEMIA, UNSPECIFIED Qualifiers: Other causes of anemia: acute posthemorrhagic (3) Hyperkalemia Code(s): E87.5 - HYPERKALEMIA (4) Seizure Code(s): R56.9 - UNSPECIFIED CONVULSIONS (5) Shock liver Code(s): K72.00 - ACUTE AND SUBACUTE HEPATIC FAILURE WITHOUT COMA Assessment/Plan Current Medications Generic Name Dose Route Start Last Admin Trade Name Freq PRN Reason Stop Dose Admin Al Hydroxide/Mg Hydroxide 30 ml 12/25/18 19:45 Mylanta Oral Suspension - PO Q4H PRN DYSPEPSIA Aspirin 81 mg 01/01/19 12:00 01/05/19 11:38 Ecotrin - PO 81 mg BID EPI Administration Folic Acid 1 mg 12/26/18 10:00 01/05/19 11:38 Folic Acid - PO 1 mg DAILY EPI Administration Magnesium Hydroxide 30 ml 12/25/18 19:45 Milk Of Magnesia - PO PRN PRN CONSTIPATION Melatonin 5 mg 12/25/18 19:45 01/04/19 21:25 Melatonin PO 5 mg HS PRN Administration INSOMNIA Metoprolol Succinate 12.5 mg 12/26/18 10:00 01/05/19 11:37 Toprol Xl - PO 12.5 mg DAILY EPI Administration Ondansetron HCl 4 mg 12/25/18 19:45 Zofran Injection IVPUSH Q6H PRN NAUSEA Pantoprazole Sodium 40 mg 12/26/18 10:00 01/05/19 11:38 Protonix - PO 40 mg DAILY EPI Administration Ranitidine HCl 300 mg 12/25/18 22:00 01/04/19 21:25 Zantac - PO 300 mg HS EPI Administration Senna/Docusate Sodium 2 tablet 12/25/18 22:00 01/05/19 11:37 Pericolace - PO Not Given BID [facility] Impression 1. ALLAN 2. hyperkalemia 3. shock liver 4. seizure 5. s/p hip replacement 6. hx of htn 7. hypotension 8. gerd Plan - legal director is improving - no hd today - repeat labs in am - hold off lasix today - will follow - pt is showing sings of recovery - likely allan from ATN
[2019-01-05] MEDS: RANITIDINE HCL 150 MG TABLET (FP) PO SCH (21:18)
[2019-01-05] MEDS: MELATONIN 5 MG TABLETS PO PRN (22:10)
[2019-01-06 09:03] LABS: BASO % 1.2 % (0-2.0); EOS % 0.8 % (0-4.5); HEMATOCRIT 22.7 % (35.4-49); HEMOGLOBIN 7.8 GM/dL (11.7-16.9); LYMPH % 19.9 % (8-40); MCH 30.1 pg (25.7-33.7); MCHC 34.4 g/dl (32.0-35.9); MEAN CELL VOLUME 87.5 fl (80-96); MEAN PLT VOLUME 9.2 fl (7.5-11.1); MONO % 8.1 % (3.8-10.2); PLATELET COUNT 307 K/MM3 (134-434); RDW 15.1 % (11.9-15.9); WHITE BLOOD COUNT 7.9 K/mm3 (4.0-10.0)
[2019-01-06 09:29] LABS: ALBUMIN 2.4 g/dl (3.4-5.0); BILIRUBIN,TOTAL 0.7 mg/dL (0.2-1); BLOOD UREA NITROGEN 73.2 mg/dL (7-18); CALCIUM 8.4 mg/dL (8.5-10.1); CREATININE 6.3 mg/dL (0.55-1.3); POTASSIUM 3.4 mmol/L (3.5-5.1); TOT PROT 5.4 g/dl (6.4-8.2)
[2019-01-06] MEDS: metoPROLOL SUCCINATE 25 MG TAB.SR.24H (FP) PO SCH (09:49)
[2019-01-06] MEDS: PANTOPRAZOLE 40 MG TABLET (FP) PO SCH (09:49)
[2019-01-06] MEDS: SENNOSIDES/DOCUSATE COMBO (SENNA PLUS) TABLET (UD) PO SCH ×2 (09:49→21:21)
[2019-01-06] MEDS: ASPIRIN COATED 81 MG TABLET.EC PO SCH ×2 (09:50→21:20)
[2019-01-06] MEDS: FOLIC ACID 1 MG TABLET (FP) PO SCH (09:50)
[2019-01-06] MEDS ORDERED: POTASSIUM CHLORIDE TABS 10 MEQ TABLET.ER (FP) PO ONE (15:04)
--- NOTE | 2019-01-06 15:06 | PN ---
Progress Note, Physician History of Present Illness: Pt seen and examined at bedside. He is awake and alert. He feels that the scrotal edema is improved. - Current Medication List Current Medications: Active Medications Al Hydroxide/Mg Hydroxide (Mylanta Oral Suspension -) 30 ml PO Q4H PRN PRN Reason: DYSPEPSIA Aspirin (Ecotrin -) 81 mg PO BID [facility] Last Admin: 01/06/19 09:50 Dose: 81 mg Folic Acid (Folic Acid -) 1 mg PO DAILY [facility] Last Admin: 01/06/19 09:50 Dose: 1 mg Magnesium Hydroxide (Milk Of Magnesia -) 30 ml PO PRN PRN PRN Reason: CONSTIPATION Melatonin (Melatonin) 5 mg PO HS PRN PRN Reason: INSOMNIA Last Admin: 01/05/19 22:10 Dose: 5 mg Metoprolol Succinate (Toprol Xl -) 12.5 mg PO DAILY [facility] Last Admin: 01/06/19 09:49 Dose: 12.5 mg Ondansetron HCl (Zofran Injection) 4 mg IVPUSH Q6H PRN PRN Reason: NAUSEA Pantoprazole Sodium (Protonix -) 40 mg PO DAILY [facility] Last Admin: 01/06/19 09:49 Dose: 40 mg Ranitidine HCl (Zantac -) 300 mg PO HS [facility] Last Admin: 01/05/19 21:18 Dose: 300 mg Senna/Docusate Sodium (Pericolace -) 2 tablet PO BID [facility] Last Admin: 01/06/19 09:49 Dose: Not Given - Objective Vital Signs: Vital Signs Temperature 98.0 F 01/06/19 10:00 Pulse Rate 91 H 01/06/19 10:00 Respiratory Rate 20 01/06/19 10:00 Blood Pressure 133/67 01/06/19 10:00 O2 Sat by Pulse Oximetry (%) 93 L 01/06/19 09:00 Constitutional: Yes: Calm Eyes: Yes: Conjunctiva Clear HENT: Yes: Atraumatic Neck: Yes: Supple Cardiovascular: Yes: S1, S2 Respiratory: Yes: CTA Bilaterally Gastrointestinal: Yes: Soft Genitourinary: Yes: Scrotal Edema Edema: LLE: Trace, RLE: Trace Neurological: Yes: Oriented Psychiatric: Yes: Oriented Labs: CBC, BMP 01/06/19 08:20 01/06/19 08:20 INR, PTT INR 1.01 (0.83-1.09) 12/30/18 07:53 Problem List - Problems (1) ALLAN (acute kidney injury) Code(s): N17.9 - ACUTE KIDNEY FAILURE, UNSPECIFIED (2) Anemia Code(s): D64.9 - ANEMIA, UNSPECIFIED Qualifiers: Other causes of anemia: acute posthemorrhagic (3) Hyperkalemia Code(s): E87.5 - HYPERKALEMIA (4) Seizure Code(s): R56.9 - UNSPECIFIED CONVULSIONS (5) Shock liver Code(s): K72.00 - ACUTE AND SUBACUTE HEPATIC FAILURE WITHOUT COMA Assessment/Plan Current Medications Generic Name Dose Route Start Last Admin Trade Name Freq PRN Reason Stop Dose Admin Al Hydroxide/Mg Hydroxide 30 ml 12/25/18 19:45 Mylanta Oral Suspension - PO Q4H PRN DYSPEPSIA Aspirin 81 mg 01/01/19 12:00 01/06/19 09:50 Ecotrin - PO 81 mg BID EPI Administration Folic Acid 1 mg 12/26/18 10:00 01/06/19 09:50 Folic Acid - PO 1 mg DAILY EPI Administration Magnesium Hydroxide 30 ml 12/25/18 19:45 Milk Of Magnesia - PO PRN PRN CONSTIPATION Melatonin 5 mg 12/25/18 19:45 01/05/19 22:10 Melatonin PO 5 mg HS PRN Administration INSOMNIA Metoprolol Succinate 12.5 mg 12/26/18 10:00 01/06/19 09:49 Toprol Xl - PO 12.5 mg DAILY EPI Administration Ondansetron HCl 4 mg 12/25/18 19:45 Zofran Injection IVPUSH Q6H PRN NAUSEA Pantoprazole Sodium 40 mg 12/26/18 10:00 01/06/19 09:49 Protonix - PO 40 mg DAILY EPI Administration Potassium Chloride 10 meq 01/06/19 15:04 K-Dur - PO 01/06/19 15:05 ONCE ONE Ranitidine HCl 300 mg 12/25/18 22:00 01/05/19 21:18 Zantac - PO 300 mg HS EPI Administration Senna/Docusate Sodium 2 tablet 12/25/18 22:00 01/06/19 09:49 Pericolace - PO Not Given BID EPI Impression 1. ALLAN 2. hyperkalemia 3. shock liver 4. seizure 5. s/p hip replacement 6. hx of htn 7. hypotension 8. gerd Plan - renal function is improving - repeat labs in am - no need for HD - pt making urine - replace potassium - hold off lasix today - likely allan from ATN
--- NOTE | 2019-01-06 16:42 | PN ---
Progress Note (short form) - Note Progress Note: Chief Complaint: Events noted, notes reviewed, denies any chest pain or dyspnea History of Present Illness: Seen and examined. Events noted, notes reviewed, denies any chest pain or dyspnea - Current Medication List Current Medications: Current Medications Al Hydroxide/Mg Hydroxide (Mylanta Oral Suspension -) 30 ml PO Q4H PRN PRN Reason: DYSPEPSIA Aspirin (Ecotrin -) 81 mg PO BID [facility] Last Admin: 01/06/19 09:50 Dose: 81 mg Folic Acid (Folic Acid -) 1 mg PO DAILY [facility] Last Admin: 01/06/19 09:50 Dose: 1 mg Magnesium Hydroxide (Milk Of Magnesia -) 30 ml PO PRN PRN PRN Reason: CONSTIPATION Melatonin (Melatonin) 5 mg PO HS PRN PRN Reason: INSOMNIA Last Admin: 01/05/19 22:10 Dose: 5 mg Metoprolol Succinate (Toprol Xl -) 12.5 mg PO DAILY [facility] Last Admin: 01/06/19 09:49 Dose: 12.5 mg Ondansetron HCl (Zofran Injection) 4 mg IVPUSH Q6H PRN PRN Reason: NAUSEA Pantoprazole Sodium (Protonix -) 40 mg PO DAILY [facility] Last Admin: 01/06/19 09:49 Dose: 40 mg Ranitidine HCl (Zantac -) 300 mg PO HS [facility] Last Admin: 01/05/19 21:18 Dose: 300 mg Senna/Docusate Sodium (Pericolace -) 2 tablet PO BID [facility] Last Admin: 01/06/19 09:49 Dose: Not Given - Objective Vital Signs: Last Vital Signs Temp Pulse Resp BP Pulse Ox 98.2 F 72 20 145/75 93 L 01/06/19 14:00 01/06/19 14:00 01/06/19 14:00 01/06/19 14:00 01/06/19 09:00 Intake & Output 01/03/19 01/04/19 01/05/19 01/06/19 23:59 23:59 23:59 23:59 Intake Total 500 400 700 Output Total 1900 1300 2700 1200 Balance -1400 -900 -2000 -1200 Weight 168 lb 11.2 oz 159 lb 4 oz 158 lb 9 oz Constitutional: No Distress, Calm, Thin Neck: Supple Negative JVD Cardiovascular: S1 S2 Regular Rate and Rhythm Respiratory: Clear to A&P Bilaterally Ext: No Edema Labs: CBC, BMP 01/06/19 08:20 01/06/19 08:20 Assessment/Plan ASSESSMENT: 1. Post left hip revision, POD #19 2. CAD with elevated Troponin I level consistent with demand ischemic injury with no clinical angina pectoris 3. Hypovolemic/Hemorrhagic Shock with lactic acidosis resolved 4. Anemia/persistent and thrombocytopenia/resolved 5. ALLAN/acute kidney insufficiency with hyperkalemia due to ATN/acute tubular necrosis on HD 6. Abnormal liver function testing consistent with shock liver 7. Post operative Seizure 8. Post-op pancreatitis 9. hypokalemia PLAN: 1. Continue Toprol-XL, hemodynamics permitting 2. Continue ASA and change to once daily 3. Currently off of HD, post renal recovery, correction of Hypokalemia 4. Monitor Hgb, and transfuse as needed, maintain Hg equal or > 8.0 5. Additional cardiovascular evaluation is recommended pending resolution of the above-noted medical acute co-morbidities Jad Zapien MD
--- NOTE | 2019-01-06 17:08 | PN ---
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 Gait abnormality. Fall risk denies chest pain, palpitations, nausea, vomiting, diarrhea - Current Medication List Current Medications: Active Medications Al Hydroxide/Mg Hydroxide (Mylanta Oral Suspension -) 30 ml PO Q4H PRN PRN Reason: DYSPEPSIA Aspirin (Ecotrin -) 81 mg PO BID [facility] Last Admin: 01/06/19 09:50 Dose: 81 mg Folic Acid (Folic Acid -) 1 mg PO DAILY [facility] Last Admin: 01/06/19 09:50 Dose: 1 mg Magnesium Hydroxide (Milk Of Magnesia -) 30 ml PO PRN PRN PRN Reason: CONSTIPATION Melatonin (Melatonin) 5 mg PO HS PRN PRN Reason: INSOMNIA Last Admin: 01/05/19 22:10 Dose: 5 mg Metoprolol Succinate (Toprol Xl -) 12.5 mg PO DAILY [facility] Last Admin: 01/06/19 09:49 Dose: 12.5 mg Ondansetron HCl (Zofran Injection) 4 mg IVPUSH Q6H PRN PRN Reason: NAUSEA Pantoprazole Sodium (Protonix -) 40 mg PO DAILY [facility] Last Admin: 01/06/19 09:49 Dose: 40 mg Ranitidine HCl (Zantac -) 300 mg PO HS [facility] Last Admin: 01/05/19 21:18 Dose: 300 mg Senna/Docusate Sodium (Pericolace -) 2 tablet PO BID [facility] Last Admin: 01/06/19 09:49 Dose: Not Given - Objective Vital Signs: Vital Signs Temperature 98.2 F 01/06/19 14:00 Pulse Rate 72 01/06/19 14:00 Respiratory Rate 20 01/06/19 14:00 Blood Pressure 145/75 01/06/19 14:00 O2 Sat by Pulse Oximetry (%) 93 L 01/06/19 09:00 Constitutional: Yes: Well Nourished, No Distress, Calm Eyes: Yes: WNL HENT: Yes: WNL Neck: Yes: WNL Cardiovascular: Yes: WNL Respiratory: Yes: WNL Gastrointestinal: Yes: WNL ...Rectal Exam: Yes: Deferred Genitourinary: Yes: Scrotal Edema Musculoskeletal: Yes: Back Pain Extremities: Yes: WNL Edema: No Peripheral Pulses WNL: Yes Integumentary: Yes: WNL Wound/Incision: Yes: Clean/Dry, Well Approximated, Dressing Dry and Intact Neurological: Yes: WNL ...Motor Strength: WNL Psychiatric: Yes: WNL Labs: CBC, BMP 01/06/19 08:20 01/06/19 08:20 INR, PTT INR 1.01 (0.83-1.09) 12/30/18 07:53 Assessment/Plan 68 yo man who Failed left total hip replacement, Massive osteolysis, Gait abnormalit. Fall risk now S/P Revision left total hip replacement. 2. Bone marrow aspiration and autograft. pain management. incentive spirometry. post-op course complicated by hypovolemic shock. aggressively resuscitated with IV fluids and 9 units total PRBC. -elevated LFT's: shock liver. improved. -elevated troponins: likely demand ischemia. cardiology eval noted. -pancreatitis: post-op. triglycerides WNL. -GI, DVT prophylaxis. TEDs. -acute on chronic iron deficiency anemia, post-op acute blood loss anemia, M- spike: S/P PRBC, platelet transfusions. hematology f/u appreciated. monitoring. -ALLAN, ATN, rhabdomyolysis, myoglobeinuria. HD started. renal eval appreciated. off HD. urine output improving. no acute findings on bladder and renal US. -scrotal edema: no tenderness. reviewed with nurse at bedside. scrotal elevation recommended. renal US showed epididymitis. antibiotics and urology consult ordered. -post op seizure with lactic acidosis. Patient was loaded with iv keppra. neurology eval noted. unlikely to need terminal worker treatment. no further events noted. -stool softeners added to prevent opioid induced constipation. -oral diet; well tolerated. -PT/OT/OOB when able -full code. -assessment and plan discussed with Pt and medical staff. labs and meds reviewed. phone calls answered throughout the day. plan discussed with Dr Jimenez. hopefully will DC home on Tuesday. please contact me with any updates, anytime [phone]
[2019-01-06] MEDS: RANITIDINE HCL 150 MG TABLET (FP) PO SCH (21:19)
[2019-01-06] MEDS: MELATONIN 5 MG TABLETS PO PRN (22:22)
[2019-01-07 09:14] LABS: BLOOD UREA NITROGEN 72.4 mg/dL (7-18); CALCIUM 8.7 mg/dL (8.5-10.1); CREATININE 5.3 mg/dL (0.55-1.3); POTASSIUM 3.5 mmol/L (3.5-5.1)
[2019-01-07] MEDS: FOLIC ACID 1 MG TABLET (FP) PO SCH (09:29)
[2019-01-07] MEDS: PANTOPRAZOLE 40 MG TABLET (FP) PO SCH (09:29)
[2019-01-07] MEDS: metoPROLOL SUCCINATE 25 MG TAB.SR.24H (FP) PO SCH (09:29)
[2019-01-07] MEDS: ASPIRIN COATED 81 MG TABLET.EC PO SCH ×2 (09:29→22:10)
[2019-01-07] MEDS: SENNOSIDES/DOCUSATE COMBO (SENNA PLUS) TABLET (UD) PO SCH ×2 (09:29→22:11)
[2019-01-07 09:48] LABS: BASO % 1.1 % (0-2.0); EOS % 1.3 % (0-4.5); HEMATOCRIT 23.5 % (35.4-49); HEMOGLOBIN 8.1 GM/dL (11.7-16.9); LYMPH % 26.2 % (8-40); MCH 30.2 pg (25.7-33.7); MCHC 34.4 g/dl (32.0-35.9); MEAN CELL VOLUME 87.7 fl (80-96); MEAN PLT VOLUME 9.8 fl (7.5-11.1); MONO % 8.1 % (3.8-10.2); NEUT % 63.3 % (42.8-82.8); PLATELET COUNT 310 K/MM3 (134-434); RBC 2.68 M/mm3 (4.00-5.60); RDW 14.7 % (11.9-15.9); WHITE BLOOD COUNT 7.3 K/mm3 (4.0-10.0)
[2019-01-07 10:07] LABS: ALBUMIN 2.4 g/dl (3.4-5.0); BILIRUBIN,TOTAL 0.6 mg/dL (0.2-1); TOT PROT 5.5 g/dl (6.4-8.2)
--- NOTE | 2019-01-07 16:29 | PN ---
Progress Note, Physician History of Present Illness: Pt seen and examined at bedside. He is awake and alert. He denies shortness of breath. Scortal edema is improved. - Current Medication List Current Medications: Active Medications Al Hydroxide/Mg Hydroxide (Mylanta Oral Suspension -) 30 ml PO Q4H PRN PRN Reason: DYSPEPSIA Aspirin (Ecotrin -) 81 mg PO BID [facility] Last Admin: 01/07/19 09:29 Dose: 81 mg Folic Acid (Folic Acid -) 1 mg PO DAILY [facility] Last Admin: 01/07/19 09:29 Dose: 1 mg Magnesium Hydroxide (Milk Of Magnesia -) 30 ml PO PRN PRN PRN Reason: CONSTIPATION Melatonin (Melatonin) 5 mg PO HS PRN PRN Reason: INSOMNIA Last Admin: 01/06/19 22:22 Dose: 5 mg Metoprolol Succinate (Toprol Xl -) 12.5 mg PO DAILY [facility] Last Admin: 01/07/19 09:29 Dose: 12.5 mg Ondansetron HCl (Zofran Injection) 4 mg IVPUSH Q6H PRN PRN Reason: NAUSEA Pantoprazole Sodium (Protonix -) 40 mg PO DAILY [facility] Last Admin: 01/07/19 09:29 Dose: 40 mg Ranitidine HCl (Zantac -) 300 mg PO HS [facility] Last Admin: 01/06/19 21:19 Dose: 300 mg Senna/Docusate Sodium (Pericolace -) 2 tablet PO BID [facility] Last Admin: 01/07/19 09:29 Dose: Not Given - Objective Vital Signs: Vital Signs Temperature 98.8 F 01/07/19 15:00 Pulse Rate 90 01/07/19 15:00 Respiratory Rate 20 01/07/19 15:00 Blood Pressure 135/70 01/07/19 15:00 O2 Sat by Pulse Oximetry (%) 96 01/07/19 09:00 Constitutional: Yes: Calm Eyes: Yes: Conjunctiva Clear HENT: Yes: Atraumatic Neck: Yes: Supple Cardiovascular: Yes: S1, S2 Respiratory: Yes: CTA Bilaterally Gastrointestinal: Yes: Normal Bowel Sounds, Soft Genitourinary: Yes: WNL Musculoskeletal: Yes: WNL Edema: LLE: Trace, RLE: Trace Neurological: Yes: Oriented Psychiatric: Yes: Oriented Labs: CBC, BMP 01/07/19 07:22 01/07/19 07:22 INR, PTT INR 1.01 (0.83-1.09) 12/30/18 07:53 Problem List - Problems (1) ALLAN (acute kidney injury) Code(s): N17.9 - ACUTE KIDNEY FAILURE, UNSPECIFIED (2) Anemia Code(s): D64.9 - ANEMIA, UNSPECIFIED Qualifiers: Other causes of anemia: acute posthemorrhagic (3) Hyperkalemia Code(s): E87.5 - HYPERKALEMIA (4) Seizure Code(s): R56.9 - UNSPECIFIED CONVULSIONS (5) Shock liver Code(s): K72.00 - ACUTE AND SUBACUTE HEPATIC FAILURE WITHOUT COMA Assessment/Plan Current Medications Generic Name Dose Route Start Last Admin Trade Name Freq PRN Reason Stop Dose Admin Al Hydroxide/Mg Hydroxide 30 ml 12/25/18 19:45 Mylanta Oral Suspension - PO Q4H PRN DYSPEPSIA Aspirin 81 mg 01/01/19 12:00 01/07/19 09:29 Ecotrin - PO 81 mg BID EPI Administration Folic Acid 1 mg 12/26/18 10:00 01/07/19 09:29 Folic Acid - PO 1 mg DAILY EPI Administration Magnesium Hydroxide 30 ml 12/25/18 19:45 Milk Of Magnesia - PO PRN PRN CONSTIPATION Melatonin 5 mg 12/25/18 19:45 01/06/19 22:22 Melatonin PO 5 mg HS PRN Administration INSOMNIA Metoprolol Succinate 12.5 mg 12/26/18 10:00 01/07/19 09:29 Toprol Xl - PO 12.5 mg DAILY EPI Administration Ondansetron HCl 4 mg 12/25/18 19:45 Zofran Injection IVPUSH Q6H PRN NAUSEA Pantoprazole Sodium 40 mg 12/26/18 10:00 01/07/19 09:29 Protonix - PO 40 mg DAILY EPI Administration Ranitidine HCl 300 mg 12/25/18 22:00 01/06/19 21:19 Zantac - PO 300 mg HS EPI Administration Senna/Docusate Sodium 2 tablet 12/25/18 22:00 01/07/19 09:29 Pericolace - PO Not Given BID EPI Impression 1. ALLAN 2. hyperkalemia 3. shock liver 4. seizure 5. s/p hip replacement 6. hx of htn 7. hypotension 8. gerd Plan - repeat labs in am - die barber is improved - will likely not need anymore hd - hold off lasix today - likely allan from ATN
--- NOTE | 2019-01-07 16:35 | PN ---
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 Gait abnormality. Fall risk denies chest pain, palpitations, nausea, vomiting, diarrhea - Current Medication List Current Medications: Active Medications Al Hydroxide/Mg Hydroxide (Mylanta Oral Suspension -) 30 ml PO Q4H PRN PRN Reason: DYSPEPSIA Aspirin (Ecotrin -) 81 mg PO BID [facility] Last Admin: 01/07/19 09:29 Dose: 81 mg Folic Acid (Folic Acid -) 1 mg PO DAILY [facility] Last Admin: 01/07/19 09:29 Dose: 1 mg Magnesium Hydroxide (Milk Of Magnesia -) 30 ml PO PRN PRN PRN Reason: CONSTIPATION Melatonin (Melatonin) 5 mg PO HS PRN PRN Reason: INSOMNIA Last Admin: 01/06/19 22:22 Dose: 5 mg Metoprolol Succinate (Toprol Xl -) 12.5 mg PO DAILY [facility] Last Admin: 01/07/19 09:29 Dose: 12.5 mg Ondansetron HCl (Zofran Injection) 4 mg IVPUSH Q6H PRN PRN Reason: NAUSEA Pantoprazole Sodium (Protonix -) 40 mg PO DAILY [facility] Last Admin: 01/07/19 09:29 Dose: 40 mg Ranitidine HCl (Zantac -) 300 mg PO HS [facility] Last Admin: 01/06/19 21:19 Dose: 300 mg Senna/Docusate Sodium (Pericolace -) 2 tablet PO BID [facility] Last Admin: 01/07/19 09:29 Dose: Not Given - Objective Vital Signs: Vital Signs Temperature 98.8 F 01/07/19 15:00 Pulse Rate 90 01/07/19 15:00 Respiratory Rate 20 01/07/19 15:00 Blood Pressure 135/70 01/07/19 15:00 O2 Sat by Pulse Oximetry (%) 96 01/07/19 09:00 Constitutional: Yes: Well Nourished, No Distress Eyes: Yes: WNL HENT: Yes: WNL Neck: Yes: WNL Cardiovascular: Yes: WNL Respiratory: Yes: WNL Gastrointestinal: Yes: WNL Genitourinary: Yes: WNL Musculoskeletal: Yes: Back Pain Extremities: Yes: WNL Edema: No Peripheral Pulses WNL: Yes Integumentary: Yes: WNL Wound/Incision: Yes: Clean/Dry, Well Approximated Neurological: Yes: WNL ...Motor Strength: WNL Psychiatric: Yes: WNL Labs: CBC, BMP 01/07/19 07:22 01/07/19 07:22 INR, PTT INR 1.01 (0.83-1.09) 12/30/18 07:53 Assessment/Plan 68 yo man who Failed left total hip replacement, Massive osteolysis, Gait abnormalit. Fall risk now S/P Revision left total hip replacement. 2. Bone marrow aspiration and autograft. pain management. incentive spirometry. post-op course complicated by hypovolemic shock. aggressively resuscitated with IV fluids and 9 units total PRBC. -elevated LFT's: shock liver. improved. -elevated troponins: likely demand ischemia. cardiology eval noted. -pancreatitis: post-op. triglycerides WNL. -GI, DVT prophylaxis. TEDs. -acute on chronic iron deficiency anemia, post-op acute blood loss anemia, M- spike: S/P PRBC, platelet transfusions. hematology f/u appreciated. monitoring. -ALLAN, ATN, rhabdomyolysis, myoglobeinuria. HD started. renal eval appreciated. off HD. urine output improving. no acute findings on bladder and renal US. -scrotal edema: no tenderness. reviewed with nurse at bedside. scrotal elevation recommended. renal US showed epididymitis. antibiotics and urology consult ordered. -post op seizure with lactic acidosis. Patient was loaded with iv keppra. neurology eval noted. unlikely to need custodial treatment. no further events noted. -stool softeners added to prevent opioid induced constipation. -oral diet; well tolerated. -PT/OT/OOB when able -full code. -assessment and plan discussed with Pt and medical staff. labs and meds reviewed. phone calls answered throughout the day. plan discussed with Dr Jimenez. hopefully will DC home within 48 hours. please contact me with any updates, anytime [phone]
[2019-01-07] MEDS: MELATONIN 5 MG TABLETS PO PRN (22:09)
[2019-01-07] MEDS: RANITIDINE HCL 150 MG TABLET (FP) PO SCH (22:10)
--- NOTE | 2019-01-08 08:18 | PN ---
Progress Note (short form) - Note Progress Note: Marked improvement General parameters as per chart. Walked in the hallway feels good re stability Minimal pain Neuro vascular status Normal Medical Slowly improving renal function ATN improving PLAN Mobilize Continue medical Mx
[2019-01-08] MEDS: ASPIRIN COATED 81 MG TABLET.EC PO SCH ×2 (11:02→21:22)
[2019-01-08] MEDS: FOLIC ACID 1 MG TABLET (FP) PO SCH (11:03)
[2019-01-08] MEDS: SENNOSIDES/DOCUSATE COMBO (SENNA PLUS) TABLET (UD) PO SCH ×2 (11:03→21:23)
[2019-01-08] MEDS: metoPROLOL SUCCINATE 25 MG TAB.SR.24H (FP) PO SCH (11:03)
[2019-01-08] MEDS: PANTOPRAZOLE 40 MG TABLET (FP) PO SCH (11:03)
--- NOTE | 2019-01-08 11:12 | PN ---
Progress Note, Physician Chief Complaint: Events noted Not in distress History of Present Illness: Patient was seen and examined. Awake and alert. Chart was reviewed Denies chest pain, SOB or palpitations - Current Medication List Current Medications: Active Medications Al Hydroxide/Mg Hydroxide (Mylanta Oral Suspension -) 30 ml PO Q4H PRN PRN Reason: DYSPEPSIA Aspirin (Ecotrin -) 81 mg PO BID [facility] Last Admin: 01/08/19 11:02 Dose: 81 mg Folic Acid (Folic Acid -) 1 mg PO DAILY [facility] Last Admin: 01/08/19 11:03 Dose: 1 mg Magnesium Hydroxide (Milk Of Magnesia -) 30 ml PO PRN PRN PRN Reason: CONSTIPATION Melatonin (Melatonin) 5 mg PO HS PRN PRN Reason: INSOMNIA Last Admin: 01/07/19 22:09 Dose: 5 mg Metoprolol Succinate (Toprol Xl -) 12.5 mg PO DAILY [facility] Last Admin: 01/08/19 11:03 Dose: 12.5 mg Ondansetron HCl (Zofran Injection) 4 mg IVPUSH Q6H PRN PRN Reason: NAUSEA Pantoprazole Sodium (Protonix -) 40 mg PO DAILY [facility] Last Admin: 01/08/19 11:03 Dose: 40 mg Ranitidine HCl (Zantac -) 300 mg PO HS [facility] Last Admin: 01/07/19 22:10 Dose: 300 mg Senna/Docusate Sodium (Pericolace -) 2 tablet PO BID [facility] Last Admin: 01/08/19 11:03 Dose: Not Given - Objective Vital Signs: Vital Signs Temperature 98.7 F 01/08/19 06:00 Pulse Rate 86 01/08/19 06:00 Respiratory Rate 20 01/08/19 06:00 Blood Pressure 151/86 01/08/19 06:00 O2 Sat by Pulse Oximetry (%) 97 01/07/19 21:00 Eyes: Yes: PERRL HENT: Yes: Atraumatic Neck: Yes: Supple Cardiovascular: Yes: Regular Rate and Rhythm, S1, S2 Respiratory: Yes: CTA Bilaterally Gastrointestinal: Yes: Normal Bowel Sounds, Soft. No: Tenderness Edema: No Labs: CBC, BMP 01/07/19 07:22 Problem List - Problems (1) Seizure Code(s): R56.9 - UNSPECIFIED CONVULSIONS (2) HTN (hypertension) Code(s): I10 - ESSENTIAL (PRIMARY) HYPERTENSION Qualifiers: Hypertension type: essential hypertension Qualified Code(s): I10 - Essential (primary) hypertension (3) Demand ischemia Code(s): I24.8 - OTHER FORMS OF ACUTE ISCHEMIC HEART DISEASE (4) Thrombocytopenia Code(s): D69.6 - THROMBOCYTOPENIA, UNSPECIFIED (5) Anemia Code(s): D64.9 - ANEMIA, UNSPECIFIED Qualifiers: Other causes of anemia: acute posthemorrhagic (6) Leukocytosis Code(s): D72.829 - ELEVATED WHITE BLOOD CELL COUNT, UNSPECIFIED (7) Shock liver Code(s): K72.00 - ACUTE AND SUBACUTE HEPATIC FAILURE WITHOUT COMA (8) ALLAN (acute kidney injury) Code(s): N17.9 - ACUTE KIDNEY FAILURE, UNSPECIFIED (9) Hyperkalemia Code(s): E87.5 - HYPERKALEMIA Assessment/Plan 1. Post left hip revision, POD #20 2. CAD with elevated Troponin I level during early hospitalization consistent with demand ischemic injury with no clinical angina pectoris 3. Hypovolemic/Hemorrhagic Shock with lactic acidosis resolved 4. Anemia/persistent and thrombocytopenia/resolved 5. ALLAN with hyperkalemia due to ATN/acute tubular necrosis on HD 6. Post abnormal liver function testing consistent with shock liver 7. Post operative Seizure 8. Post-op pancreatitis 9. hypokalemia PLAN: 1. Continue Toprol-XL as tolerated 2. Continue ASA 3. Post renal recovery. Renal input noted. Currently off HD 4. Monitor Hgb, and transfuse as needed, maintain Hg equal or > 8.0 5. Additional cardiovascular evaluation is recommended pending resolution of the above-noted medical acute co-morbidities 6. PT Further plans are to follow Danyel Carter MD
[2019-01-08 11:25] LABS: BLOOD UREA NITROGEN 65.4 mg/dL (7-18); CALCIUM 9.3 mg/dL (8.5-10.1); CREATININE 4.2 mg/dL (0.55-1.3); POTASSIUM 3.3 mmol/L (3.5-5.1)
[2019-01-08] MEDS ORDERED: POTASSIUM CHLORIDE TABS 20 MEQ TABLET.ER (FP) PO ONE (11:35)
--- NOTE | 2019-01-08 12:53 | PN ---
Progress Note (short form) - Note Progress Note: 68M s/p revision LEFT total hip replacement POD #21. Acute kidney injury d/t post-op hypovolemic shock and possible associated sickle cell event. Excellent improvement in Creatinine, BUN, and urine output. ATN/ALLAN resolving. Pain well controlled. Pt. denies overnight history of headaches, chest pain, shortness of breath, nausea, vomiting, chills, & sweats. (+) Voiding; (+) Flatus; (+) BM. Pt. walked in hallway with physical therapy team. All labs and vitals reviewed. PE: AAO x 3, NAD. L-Hip: Dressing C/D/I. NVI distally. 68M s/p revision LEFT total hip replacement POD #21. -No indication for renal biopsy; ATN/ALLAN resolving. -Offload heals with rolled towels under ankles to avoid heel ulcers/pressure sores. -Hip abduction pillow straps LOOSE, not tight. -Mobilize out of bed to chair with PT and ambulate BID. -Pain control. -DVT PPx: -Chemical: ASA 81mg PO BID x 6 weeks post-op. -Mechanical: TARIK's, SCD's. -Incentive spirometry q15 min. -PT/OT/Rehab, OOB. -WBAT LLE. -f/u all labs. -Diet as tolerated. -Care per renal, and medical hospitalist (Dr. Mclaughlin) teams. -Discharge planning: f/u [facility] w/in 1 week of discharge; call for appointment . -Medical plan discussed with and understood by patient and family. -Will follow. Emile Jimenez MD (Orthopaedic Surgery).
--- NOTE | 2019-01-08 12:57 | PN ---
Progress Note, Physician History of Present Illness: Pt seen and examined at bedside. He is awake and alert. He denies shortness of breath. He feels that his edema is improved. - Current Medication List Current Medications: Active Medications Al Hydroxide/Mg Hydroxide (Mylanta Oral Suspension -) 30 ml PO Q4H PRN PRN Reason: DYSPEPSIA Aspirin (Ecotrin -) 81 mg PO BID [facility] Last Admin: 01/08/19 11:02 Dose: 81 mg Folic Acid (Folic Acid -) 1 mg PO DAILY [facility] Last Admin: 01/08/19 11:03 Dose: 1 mg Magnesium Hydroxide (Milk Of Magnesia -) 30 ml PO PRN PRN PRN Reason: CONSTIPATION Melatonin (Melatonin) 5 mg PO HS PRN PRN Reason: INSOMNIA Last Admin: 01/07/19 22:09 Dose: 5 mg Metoprolol Succinate (Toprol Xl -) 12.5 mg PO DAILY [facility] Last Admin: 01/08/19 11:03 Dose: 12.5 mg Ondansetron HCl (Zofran Injection) 4 mg IVPUSH Q6H PRN PRN Reason: NAUSEA Pantoprazole Sodium (Protonix -) 40 mg PO DAILY [facility] Last Admin: 01/08/19 11:03 Dose: 40 mg Ranitidine HCl (Zantac -) 300 mg PO HS [facility] Last Admin: 01/07/19 22:10 Dose: 300 mg Senna/Docusate Sodium (Pericolace -) 2 tablet PO BID [facility] Last Admin: 01/08/19 11:03 Dose: Not Given - Objective Vital Signs: Vital Signs Temperature 98 F 01/08/19 10:00 Pulse Rate 92 H 01/08/19 10:00 Respiratory Rate 20 01/08/19 10:00 Blood Pressure 144/80 01/08/19 10:00 O2 Sat by Pulse Oximetry (%) 97 01/07/19 21:00 Constitutional: Yes: Calm Eyes: Yes: Conjunctiva Clear HENT: Yes: Atraumatic Neck: Yes: Supple Cardiovascular: Yes: S1, S2 Respiratory: Yes: CTA Bilaterally Gastrointestinal: Yes: Soft Genitourinary: Yes: WNL, Scrotal Edema, Other (edema is better) Edema: LLE: Trace, RLE: Trace Neurological: Yes: Oriented Psychiatric: Yes: Oriented Labs: CBC, BMP 01/07/19 07:22 01/08/19 10:35 INR, PTT INR 1.01 (0.83-1.09) 12/30/18 07:53 Problem List - Problems (1) ALLAN (acute kidney injury) Code(s): N17.9 - ACUTE KIDNEY FAILURE, UNSPECIFIED (2) Anemia Code(s): D64.9 - ANEMIA, UNSPECIFIED Qualifiers: Other causes of anemia: acute posthemorrhagic (3) Hyperkalemia Code(s): E87.5 - HYPERKALEMIA (4) Seizure Code(s): R56.9 - UNSPECIFIED CONVULSIONS (5) Shock liver Code(s): K72.00 - ACUTE AND SUBACUTE HEPATIC FAILURE WITHOUT COMA Assessment/Plan Current Medications Generic Name Dose Route Start Last Admin Trade Name Freq PRN Reason Stop Dose Admin Al Hydroxide/Mg Hydroxide 30 ml 12/25/18 19:45 Mylanta Oral Suspension - PO Q4H PRN DYSPEPSIA Aspirin 81 mg 01/01/19 12:00 01/08/19 11:02 Ecotrin - PO 81 mg BID EPI Administration Folic Acid 1 mg 12/26/18 10:00 01/08/19 11:03 Folic Acid - PO 1 mg DAILY EPI Administration Magnesium Hydroxide 30 ml 12/25/18 19:45 Milk Of Magnesia - PO PRN PRN CONSTIPATION Melatonin 5 mg 12/25/18 19:45 01/07/19 22:09 Melatonin PO 5 mg HS PRN Administration INSOMNIA Metoprolol Succinate 12.5 mg 12/26/18 10:00 01/08/19 11:03 Toprol Xl - PO 12.5 mg DAILY EPI Administration Ondansetron HCl 4 mg 12/25/18 19:45 Zofran Injection IVPUSH Q6H PRN NAUSEA Pantoprazole Sodium 40 mg 12/26/18 10:00 01/08/19 11:03 Protonix - PO 40 mg DAILY EPI Administration Ranitidine HCl 300 mg 12/25/18 22:00 01/07/19 22:10 Zantac - PO 300 mg HS EPI Administration Senna/Docusate Sodium 2 tablet 12/25/18 22:00 01/08/19 11:03 Pericolace - PO Not Given BID EPI Impression 1. ALLAN 2. hyperkalemia 3. shock liver 4. seizure 5. s/p hip replacement 6. hx of htn 7. hypotension 8. gerd Plan - renal function is improving - repeat labs in am - pt can follow in office after discharge - replaced potassium - avoid nsaids - avoid nephrotoxins - pt aware of plan
[2019-01-08 13:55] VITALS: BMI 24.6
[2019-01-08] MEDS: RANITIDINE HCL 150 MG TABLET (FP) PO SCH (21:23)
--- NOTE | 2019-01-08 21:49 | PN ---
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 Gait abnormality. Fall risk denies chest pain, palpitations, nausea, vomiting, diarrhea - Current Medication List Current Medications: Active Medications Al Hydroxide/Mg Hydroxide (Mylanta Oral Suspension -) 30 ml PO Q4H PRN PRN Reason: DYSPEPSIA Aspirin (Ecotrin -) 81 mg PO BID [facility] Last Admin: 01/08/19 21:22 Dose: 81 mg Folic Acid (Folic Acid -) 1 mg PO DAILY [facility] Last Admin: 01/08/19 11:03 Dose: 1 mg Magnesium Hydroxide (Milk Of Magnesia -) 30 ml PO PRN PRN PRN Reason: CONSTIPATION Melatonin (Melatonin) 5 mg PO HS PRN PRN Reason: INSOMNIA Last Admin: 01/07/19 22:09 Dose: 5 mg Metoprolol Succinate (Toprol Xl -) 12.5 mg PO DAILY [facility] Last Admin: 01/08/19 11:03 Dose: 12.5 mg Ondansetron HCl (Zofran Injection) 4 mg IVPUSH Q6H PRN PRN Reason: NAUSEA Pantoprazole Sodium (Protonix -) 40 mg PO DAILY [facility] Last Admin: 01/08/19 11:03 Dose: 40 mg Ranitidine HCl (Zantac -) 300 mg PO HS [facility] Last Admin: 01/08/19 21:23 Dose: 300 mg Senna/Docusate Sodium (Pericolace -) 2 tablet PO BID [facility] Last Admin: 01/08/19 21:23 Dose: Not Given - Objective Vital Signs: Vital Signs Temperature 99.6 F 01/08/19 21:31 Pulse Rate 89 01/08/19 21:31 Respiratory Rate 18 01/08/19 21:31 Blood Pressure 153/80 01/08/19 21:31 O2 Sat by Pulse Oximetry (%) 98 01/08/19 21:00 Constitutional: Yes: Well Nourished Eyes: Yes: WNL HENT: Yes: WNL Neck: Yes: WNL Cardiovascular: Yes: WNL Respiratory: Yes: WNL Gastrointestinal: Yes: WNL ...Rectal Exam: Yes: Deferred Genitourinary: Yes: Scrotal Edema Musculoskeletal: Yes: Back Pain Extremities: Yes: WNL Edema: No Peripheral Pulses WNL: Yes Integumentary: Yes: WNL Wound/Incision: Yes: Clean/Dry, Well Approximated Neurological: Yes: WNL ...Motor Strength: WNL Psychiatric: Yes: WNL Labs: CBC, BMP 01/07/19 07:22 01/08/19 10:35 INR, PTT INR 1.01 (0.83-1.09) 12/30/18 07:53 Assessment/Plan 68 yo man who Failed left total hip replacement, Massive osteolysis, Gait abnormalit. Fall risk now S/P Revision left total hip replacement. 2. Bone marrow aspiration and autograft. pain management. incentive spirometry. post-op course complicated by hypovolemic shock. aggressively resuscitated with IV fluids and 9 units total PRBC. -elevated LFT's: shock liver. improved. -elevated troponins: likely demand ischemia. cardiology eval noted. -pancreatitis: post-op. triglycerides WNL. -GI, DVT prophylaxis. TEDs. -acute on chronic iron deficiency anemia, post-op acute blood loss anemia, M- spike: S/P PRBC, platelet transfusions. hematology f/u appreciated. monitoring. -ALLAN, ATN, rhabdomyolysis, myoglobeinuria. HD started. renal eval appreciated. off HD. urine output improving. no acute findings on bladder and renal US. -scrotal edema: no tenderness. reviewed with nurse at bedside. scrotal elevation recommended. renal US showed epididymitis. antibiotics and urology consult ordered. -post op seizure with lactic acidosis. Patient was loaded with iv keppra. neurology eval noted. unlikely to need intermediate card tender treatment. no further events noted. -stool softeners added to prevent opioid induced constipation. -oral diet; well tolerated. -PT/OT/OOB when able -full code. -assessment and plan discussed with Pt and medical staff. labs and meds reviewed. phone calls answered throughout the day. plan discussed with Dr Jimenez. DC planning please contact me with any updates, anytime [phone]
[2019-01-08] MEDS: MELATONIN 5 MG TABLETS PO PRN (22:50)
--- NOTE | 2019-01-09 09:50 | DS ---
Physical Examination Vital Signs: Vital Signs Temperature 99.6 F 01/08/19 21:31 Pulse Rate 89 01/08/19 21:31 Respiratory Rate 18 01/08/19 21:31 Blood Pressure 153/80 01/08/19 21:31 O2 Sat by Pulse Oximetry (%) 98 01/08/19 21:00 Constitutional: Yes: Well Nourished Eyes: Yes: WNL HENT: Yes: WNL Neck: Yes: WNL Cardiovascular: Yes: WNL Respiratory: Yes: WNL Gastrointestinal: Yes: WNL ...Rectal Exam: Yes: Deferred Renal/: Yes: WNL Breast(s): Yes: WNL Musculoskeletal: Yes: WNL Extremities: Yes: WNL Edema: No Peripheral Pulses WNL: Yes Integumentary: Yes: WNL Wound/Incision: Yes: Clean/Dry, Well Approximated Neurological: Yes: WNL ...Motor Strength: WNL Psychiatric: Yes: WNL Labs: CBC, BMP 01/07/19 07:22 01/08/19 10:35 Discharge Summary Reason For Visit: PRESENCE OF LEFT ARTIFICIAL HIP JOINT Current Active Problems ALLAN (acute kidney injury) (Acute) Anemia (Acute) Demand ischemia (Acute) HTN (hypertension) (Acute) Hyperkalemia (Acute) Leukocytosis (Acute) S/P revision of total hip (Acute) Scrotal edema (Acute) Seizure (Acute) Shock liver (Acute) Thrombocytopenia (Acute) Hospital Course: 68 yo man who Failed left total hip replacement, Massive osteolysis, Gait abnormalit. Fall risk now S/P Revision left total hip replacement. 2. Bone marrow aspiration and autograft. pain management. incentive spirometry. post-op course complicated by hypovolemic shock. aggressively resuscitated with IV fluids and 9 units total PRBC. -elevated LFT's: shock liver. improved. -elevated troponins: likely demand ischemia. cardiology eval noted. -pancreatitis: post-op. triglycerides WNL. -GI, DVT prophylaxis. TEDs. -acute on chronic iron deficiency anemia, post-op acute blood loss anemia, M- spike: S/P PRBC, platelet transfusions. hematology f/u appreciated. monitoring. -ALLAN, ATN, rhabdomyolysis, myoglobeinuria. HD started. renal eval appreciated. off HD. urine output improving. no acute findings on bladder and renal US. -scrotal edema: no tenderness. reviewed with nurse at bedside. scrotal elevation recommended. renal US showed epididymitis. antibiotics and urology consult ordered. -post op seizure with lactic acidosis. Patient was loaded with iv keppra. neurology eval noted. unlikely to need assisted treatment. no further events noted. -stool softeners added to prevent opioid induced constipation. -oral diet; well tolerated. -PT/OT/OOB when able -full code. -assessment and plan discussed with Pt and medical staff. labs and meds reviewed. phone calls answered throughout the day. plan discussed with Dr Jimenez. DC planning Condition: Good - Instructions Diet, Activity, Other Instructions: Dr. Jimenez Discharge Instructions for Hip Replacement Post Operative Instructions Wound care Leave your surgical dressing in place. Do not change the dressing until seen by your surgeon in the office. No baths or showers. Do not submerge your incision. Do not apply any ointments or lotions to your incision. Please call the office if your dressing is soiled/dirty or is falling off. Apply Graduated Compression Stockings (TEDS) to both lower extremities-remove daily for hygiene ONLY. Diet There are no dietary restrictions. Eat healthy, high-fiber foods. Drink 6 to 8 glasses of liquid each day. This will assist in keeping your bowels are regular. Pain management Any pain prescription medication ordered should be taken as prescribed for moderate to severe pain. Do not take additional Tylenol while taking Percocet. Posterior Hip Precautions: Do not cross the leg you had surgery on over your other leg. (Do not cross your legs.)Use an elevated toilet seat. Do not sit on low chairs or beds. Use purple pillow (abductor) when lying in bed. Take Aspirin 81 mg two times a day for a total of 6 weeks to prevent blood clots. Call Dr. Jimenez for any of the following: Severe pain not relieved by medication Fever of 101 or higher Excessive bleeding or drainage on dressing Inability to urinate If you experience chest pain or shortness of breath, please seek emergency care immediately. Please call the office at to confirm your post-op appointment for next week in the office. Disposition: HOME - Home Medications Comprehensive Discharge Medication List: Ambulatory Orders Amlodipine Besylate/Benazepril [Amlodipine-Benazepril 5-20 mg] 1 each PO DAILY 12/14/18 Ranitidine HCl 300 mg PO HS 12/14/18 Folic Acid 1 mg PO DAILY 12/18/18
--- NOTE | 2019-01-09 10:22 | PN ---
Progress Note, Physician Chief Complaint: Events noted Not in distress History of Present Illness: Patient was seen and examined. Awake and alert. Chart was reviewed Denies chest pain, SOB or palpitations - Current Medication List Current Medications: Active Medications Al Hydroxide/Mg Hydroxide (Mylanta Oral Suspension -) 30 ml PO Q4H PRN PRN Reason: DYSPEPSIA Aspirin (Ecotrin -) 81 mg PO BID [facility] Last Admin: 01/08/19 21:22 Dose: 81 mg Folic Acid (Folic Acid -) 1 mg PO DAILY [facility] Last Admin: 01/08/19 11:03 Dose: 1 mg Magnesium Hydroxide (Milk Of Magnesia -) 30 ml PO PRN PRN PRN Reason: CONSTIPATION Melatonin (Melatonin) 5 mg PO HS PRN PRN Reason: INSOMNIA Last Admin: 01/08/19 22:50 Dose: 5 mg Metoprolol Succinate (Toprol Xl -) 12.5 mg PO DAILY [facility] Last Admin: 01/08/19 11:03 Dose: 12.5 mg Ondansetron HCl (Zofran Injection) 4 mg IVPUSH Q6H PRN PRN Reason: NAUSEA Pantoprazole Sodium (Protonix -) 40 mg PO DAILY [facility] Last Admin: 01/08/19 11:03 Dose: 40 mg Ranitidine HCl (Zantac -) 300 mg PO HS [facility] Last Admin: 01/08/19 21:23 Dose: 300 mg Senna/Docusate Sodium (Pericolace -) 2 tablet PO BID [facility] Last Admin: 01/08/19 21:23 Dose: Not Given - Objective Vital Signs: Vital Signs Temperature 99.6 F 01/08/19 21:31 Pulse Rate 89 01/08/19 21:31 Respiratory Rate 18 01/08/19 21:31 Blood Pressure 153/80 01/08/19 21:31 O2 Sat by Pulse Oximetry (%) 98 01/08/19 21:00 Eyes: Yes: PERRL HENT: Yes: Atraumatic Neck: Yes: Supple Cardiovascular: Yes: Regular Rate and Rhythm, S1, S2 Respiratory: Yes: CTA Bilaterally Gastrointestinal: Yes: Normal Bowel Sounds, Soft. No: Tenderness Edema: No Labs: CBC, BMP 01/07/19 07:22 01/08/19 10:35 Problem List - Problems (1) Seizure Code(s): R56.9 - UNSPECIFIED CONVULSIONS (2) HTN (hypertension) Code(s): I10 - ESSENTIAL (PRIMARY) HYPERTENSION Qualifiers: Hypertension type: essential hypertension Qualified Code(s): I10 - Essential (primary) hypertension (3) Demand ischemia Code(s): I24.8 - OTHER FORMS OF ACUTE ISCHEMIC HEART DISEASE (4) Thrombocytopenia Code(s): D69.6 - THROMBOCYTOPENIA, UNSPECIFIED (5) Anemia Code(s): D64.9 - ANEMIA, UNSPECIFIED Qualifiers: Other causes of anemia: acute posthemorrhagic (6) Leukocytosis Code(s): D72.829 - ELEVATED WHITE BLOOD CELL COUNT, UNSPECIFIED (7) Shock liver Code(s): K72.00 - ACUTE AND SUBACUTE HEPATIC FAILURE WITHOUT COMA (8) ALLAN (acute kidney injury) Code(s): N17.9 - ACUTE KIDNEY FAILURE, UNSPECIFIED (9) Hyperkalemia Code(s): E87.5 - HYPERKALEMIA Assessment/Plan 1. Post left hip revision, POD #21 2. CAD with elevated Troponin I level during early hospitalization consistent with demand ischemic injury with no clinical angina pectoris 3. Hypovolemic/Hemorrhagic Shock with lactic acidosis resolved 4. Anemia/persistent and thrombocytopenia/resolved 5. ALLAN with hyperkalemia due to ATN/acute tubular necrosis on HD 6. Post abnormal liver function testing consistent with shock liver 7. Post operative Seizure 8. Post-op pancreatitis 9. hypokalemia PLAN: 1. Continue Toprol-XL as tolerated 2. Continue ASA 3. Post renal recovery. Renal input noted. Currently off HD. Follow up with nephrology as outpatient 4. Monitor Hgb, and transfuse as needed, maintain Hgb equal or > 8.0 5. Additional cardiovascular evaluation is recommended pending resolution of the above-noted medical acute co-morbidities. Recommend to be done as outpatient 6. PT and rehab once discharged 7. Surgical service follow up as outpatient Further plans are to follow Danyel Carter MD
--- NOTE | 2019-01-09 10:32 | PN ---
Progress Note (short form) - Note Progress Note: Pt seen and examined this am. States that he is getting oob and ambuated with PT down the hallway. Vital Signs Period Temp Pulse Resp BP Sys/Hernandez Pulse Ox Last 24 Hr 98.3 F-99.6 F 88-89 18-20 139-159/80-83 98 GEN: A&0 x3, NAD Scrotal swelling: improved Left hip/thigh dressing changed today. No drainage/erythema. Incision c/d/i with darryl. Replaced dressing with aquacel and tegaderm to the edges to secure and prevent rolling of the aquacel. CBC, BMP 01/07/19 07:22 01/08/19 10:35 A/P: 68 yo male s/p Left hip replacement 12/18. Doing well surgically Plan for discharge to home with PT Dressing care instructions written on the discharge papers and also given to the patient. He will see Dr. Jimenez next week, in the office. Care plan d/w Dr. Jimenez and Dr. Mclaughlin
[2019-01-09] MEDS: ASPIRIN COATED 81 MG TABLET.EC PO SCH (10:52)
[2019-01-09] MEDS: PANTOPRAZOLE 40 MG TABLET (FP) PO SCH (10:53)
[2019-01-09] MEDS: SENNOSIDES/DOCUSATE COMBO (SENNA PLUS) TABLET (UD) PO SCH (10:53)
[2019-01-09] MEDS: FOLIC ACID 1 MG TABLET (FP) PO SCH (10:53)
[2019-01-09] MEDS: metoPROLOL SUCCINATE 25 MG TAB.SR.24H (FP) PO SCH (10:53)
[2019-01-09 11:14] VITALS: BP 143/78; PULSE 82; TEMP 98.9
[2019-01-09 11:36] LABS: BLOOD UREA NITROGEN 51.2 mg/dL (7-18); CALCIUM 9.7 mg/dL (8.5-10.1); CREATININE 3.3 mg/dL (0.55-1.3); POTASSIUM 3.3 mmol/L (3.5-5.1)
[2019-01-09] MEDS ORDERED: POTASSIUM CHLORIDE TABS 20 MEQ TABLET.ER (FP) PO ONE (12:30)
== END 2019-01-09 13:44 | disposition home or self-care (01) | DRG 466 ==
LOC: JSAMEDAYSX 06:06 → JICU 16:45 → J8W 12-25 20:18
PROVIDERS: ADMIT Orthopaedic Surgery Adult Reconstructive Orthopaedic Surgery; ATTEND Orthopaedic Surgery Adult Reconstructive Orthopaedic Surgery
PROC: 0SPB0JZ Removal of Synthetic Substitute from Left Hip Joint, Open Approach (ICD-10-PCS; 2018-12-18)
PROC: 07DR3ZZ Extraction of Iliac Bone Marrow, Percutaneous Approach (ICD-10-PCS; 2018-12-18)
PROC: 30233N1 Transfusion of Nonautologous Red Blood Cells into Peripheral Vein, Percutaneous Approach (ICD-10-PCS; 2018-12-18)
PROC: 0SRB0JZ Replacement of Left Hip Joint with Synthetic Substitute, Open Approach (ICD-10-PCS; principal; 2018-12-18 08:00)
PROC: 30233K1 Transfusion of Nonautologous Frozen Plasma into Peripheral Vein, Percutaneous Approach (ICD-10-PCS; 2018-12-19)
PROC: 30233R1 Transfusion of Nonautologous Platelets into Peripheral Vein, Percutaneous Approach (ICD-10-PCS; 2018-12-19)
PROC: 4A00X4Z Measurement of Central Nervous Electrical Activity, External Approach (ICD-10-PCS; 2018-12-19)
PROC: 06HM33Z Insertion of Infusion Device into Right Femoral Vein, Percutaneous Approach (ICD-10-PCS; 2018-12-21)
PROC: B51BZZA Fluoroscopy of Right Lower Extremity Veins, Guidance (ICD-10-PCS; 2018-12-21)
PROC: 05HM33Z Insertion of Infusion Device into Right Internal Jugular Vein, Percutaneous Approach (ICD-10-PCS; 2018-12-25)
PROC: B513ZZA Fluoroscopy of Right Jugular Veins, Guidance (ICD-10-PCS; 2018-12-25)
DX: T84.031A Mechanical loosening of internal left hip prosthetic joint, initial encounter (principal); T81.19XA Other postprocedural shock, initial encounter; K72.00 Acute and subacute hepatic failure without coma; N17.0 Acute kidney failure with tubular necrosis; K85.90 Acute pancreatitis without necrosis or infection, unspecified; D62 Acute posthemorrhagic anemia; E87.2 Acidosis; I24.8 Other forms of acute ischemic heart disease; M62.82 Rhabdomyolysis; T84.051A Periprosthetic osteolysis of internal prosthetic left hip joint, initial encounter; R26.89 Other abnormalities of gait and mobility; I10 Essential (primary) hypertension; K21.9 Gastro-esophageal reflux disease without esophagitis; E87.5 Hyperkalemia; R56.9 Unspecified convulsions; D69.6 Thrombocytopenia, unspecified; D72.828 Other elevated white blood cell count; D72.829 Elevated white blood cell count, unspecified; I95.89 Other hypotension; N45.3 Epididymo-orchitis; R00.0 Tachycardia, unspecified; E87.6 Hypokalemia; N50.89 Other specified disorders of the male genital organs; Y83.8 Other surgical procedures as the cause of abnormal reaction of the patient, or of later complication, without mention of misadventure at the time of the procedure; Z87.891 Personal history of nicotine dependence
CPT/HCPCS: 36415; 36430; 36511; 36600; 70450-TC; 71045-TC-FY; 71250-TC; 72192-TC; 73502-TC-LT-FY; 73700-TC-RT; 74176-TC; 76775-TC; 76856-TC; 76870-TC; 80048; 80053; 80076; 80307; 81003; 82248; 82436; 82550; 82553; 82565; 82803; 83010; 83021; 83516; 83520; 83605; 83615; 83690; 83735; 83883; 84100; 84133; 84155; 84165; 84300; 84443; 84478; 84484; 84520; 85025; 85027; 85044; 85610; 85660; 85730; 86038; 86225; 86256; 86704; 86706; 86707; 86708; 86709; 86803; 86850; 86891; 86900; 86901; 86922; 87040; 87340; 87522; 88300-TC; 88304-TC; 88311-TC; 93005; 93010; 93306-TC; 94640; 94760; 95816; 97116-GP; 97162-GP; J1644; J7030; P9017; P9034; P9038; P9058